=== PATIENT | male | born 1945 | race Caucasian/White ===

== ENCOUNTER 2018-10-08 16:27 | Outpatient (REF) | payer OTHER, SELFPAY ==
[2018-10-08 23:09] LABS: ALT 28 U/L (12-78); AST 28 U/L (15-37); Albumin 4.3 g/dL (3.4-5.0); Alkaline Phosphatase 56 U/L (46-116); Anion Gap 10.1 mmol/L (3-11); BUN 17 mg/dL (7-18); Bilirubin, Total 0.5 mg/dL (0.2-1.0); CO2 26.9 mmol/L (21.0-32.0); CREATININE 0.92 mg/dL (0.70-1.30); Calcium 9.4 mg/dL (8.5-10.1); Chloride 99 mmol/L (98-107); Glucose 85 mg/dL (70-100); Potassium 4.6 mmol/L (3.5-5.1); Sodium 136 mmol/L (136-145); Total Protein 7.7 g/dL (6.4-8.2)
== END 2018-10-08 16:47 ==
LOC: NCHCN 16:27
PROVIDERS: PCP Nurse Practitioner Family; Visit Provider Nurse Practitioner Family
DX: I10 Essential (primary) hypertension (principal); I25.10 Atherosclerotic heart disease of native coronary artery without angina pectoris; L30.9 Dermatitis, unspecified; R20.2 Paresthesia of skin; F41.9 Anxiety disorder, unspecified
CPT/HCPCS: 80053

== ENCOUNTER 2018-11-10 11:24 | Outpatient (REF) | payer OTHER, SELFPAY ==
[2018-11-10 12:57] LABS: HCT 41.4 % (40.0-50.0); HGB 13.9 g/dL (13.5-17.5); Mean Corp. HGB Concentration 33.6 g/dL (32.0-36.0); Mean Corpuscular Hemoglobin 30.8 pg (27.0-33.0); Mean Corpuscular Volume 91.8 fL (80-95); Mean Platelet Volume 10.5 fL (8.0-11.0); Platelet Count 265 x1000/uL (130-400); RBC 4.51 m/cumm (4.50-6.00); RBC Distribution Width 12.7 % (11.8-14.1); White Blood Cell Count 7.68 k/cumm (4.4-10.8)
[2018-11-10 13:31] LABS: Anion Gap 6.7 mmol/L (3-11); BUN 18 mg/dL (7-18); CO2 29.3 mmol/L (21.0-32.0); CREATININE 1.05 mg/dL (0.70-1.30); Calcium 8.9 mg/dL (8.5-10.1); Chloride 102 mmol/L (98-107); Creatine Kinase 141 U/L (39-308); Glucose 84 mg/dL (70-100); Magnesium 2.1 mg/dL (1.8-2.4); Potassium 4.8 mmol/L (3.5-5.1); Sodium 138 mmol/L (136-145)
== END 2018-11-10 11:44 ==
LOC: NCHCN 11:24
PROVIDERS: PCP Nurse Practitioner Family; Visit Provider Nurse Practitioner Family
DX: R55 Syncope and collapse (principal)
CPT/HCPCS: 80048; 82550; 85027; 83735; 84443

== ENCOUNTER 2018-11-17 02:45 | Outpatient (CLI) | payer OTHER, SELFPAY ==
--- NOTE | 2018-11-20 10:03 | HOLTER_ITS ---
DATE OF DICTATION: November 20, 2018 INDICATION: Syncope. ANALYSIS TIME: 34 hours. Baseline sinus rhythm. Average heart rate 68 bpm. Rare isolated ventricular ectopy. No non-sustained VT. Rare PAC's. Two short bursts of SVT. Longest 6 beats with a maximum heart rate of 154 bpm. No atrial fibrillation. No significant pauses or bradyarrhythmias. No diary entries. Overall sinus rhythm with two short bursts of SVT that were asymptomatic.
== END 2018-11-17 03:05 ==
PROVIDERS: PCP Nurse Practitioner Family; Visit Provider Nurse Practitioner Family
DX: R55 Syncope and collapse (principal); I47.1 Supraventricular tachycardia
CPT/HCPCS: 93225

== ENCOUNTER 2018-11-19 13:36 | Outpatient (CLI) | payer OTHER, SELFPAY | END 2018-11-19 13:56 | PROVIDERS: PCP Nurse Practitioner Family; Visit Provider Nurse Practitioner Family | DX: R55 Syncope and collapse (principal); I47.1 Supraventricular tachycardia | CPT/HCPCS: 93226 ==

== ENCOUNTER 2018-11-20 09:05 | Outpatient (CLI) | payer OTHER, SELFPAY | END 2018-11-20 09:25 | PROVIDERS: PCP Nurse Practitioner Family; Referring Provider Nurse Practitioner Family; Visit Provider Internal Medicine Cardiovascular Disease | DX: R55 Syncope and collapse (principal); I47.1 Supraventricular tachycardia | CPT/HCPCS: 93227 ==

== ENCOUNTER → 2019-06-29 09:50 | Outpatient (BNVA) | payer OTHER, SELFPAY | PROVIDERS: PCP Nurse Practitioner Family; Referring Provider Nurse Practitioner Family; Visit Provider Nurse Practitioner Adult Health | DX: G31.84 Mild cognitive impairment of uncertain or unknown etiology (principal); G56.01 Carpal tunnel syndrome, right upper limb; G56.21 Lesion of ulnar nerve, right upper limb; G62.9 Polyneuropathy, unspecified; I10 Essential (primary) hypertension | CPT/HCPCS: 95909; 99205; 99215 ==

== ENCOUNTER 2019-06-29 12:10 | Outpatient (CLI) | payer OTHER, SELFPAY ==
[2019-06-29 13:42] LABS: C-Reactive Protein 0.13 mg/dL (0.0-0.3)
[2019-06-29 14:28] LABS: Vitamin B12 670 pg/mL (193-986)
[2019-06-29 14:29] LABS: Hemoglobin A1C 5.4 % (4.5-6.2)
[2019-06-29 14:44] LABS: ESR 22 mm/hr (1-20)
[2019-06-30 13:57] LABS: Albumin 57.4 % (55.8-66.1); Total Protein 6.9 g/dl (6.3-8.2)
== END 2019-06-29 12:30 ==
PROVIDERS: PCP Nurse Practitioner Family; Visit Provider Nurse Practitioner Adult Health
DX: G62.9 Polyneuropathy, unspecified (principal); Z13.1 Encounter for screening for diabetes mellitus
CPT/HCPCS: 36415; 85652; 82607; 83036; 84165; 86140

== ENCOUNTER 2019-07-09 03:00 | Outpatient (CLI) | payer OTHER, SELFPAY ==
--- NOTE | 2019-07-09 11:31 | DI.MRI_ITS ---
SYMPTOMS/DIAGNOSIS: MEMORY LOSS, R41.3, OTHER AMNESIA BRAIN MRI: MRI examination of the brain was performed according to the usual protocol. There is moderate generalized cerebral atrophy and there are a few areas of abnormal signal in periventricular white matter consistent with microvascular ischemic change. No other signal abnormality identified in the brain. Diffusion weighted imaging shows no evidence of infarction. Susceptibility weighted imaging shows no evidence of hemorrhage. There is normal flow void in the [place] vasculature. The orbital and temporal bone structures appear intact. CONCLUSION: Cerebral atrophy and white microvascular ischemic changes. The examination is otherwise unremarkable.
== END 2019-07-09 03:20 ==
PROVIDERS: PCP Nurse Practitioner Family; Visit Provider Nurse Practitioner Adult Health
DX: R41.3 Other amnesia (principal); G31.89 Other specified degenerative diseases of nervous system; I67.89 Other cerebrovascular disease
CPT/HCPCS: 70551

== ENCOUNTER 2019-10-21 22:19 | Outpatient (REF) | payer OTHER, SELFPAY ==
[2019-10-21 22:16] LABS: ALT 22 U/L (16-63); AST 23 U/L (15-37); Albumin 3.8 g/dL (3.4-5.0); Alkaline Phosphatase 62 U/L (46-116); Anion Gap 7.6 mmol/L (3-11); BUN 17 mg/dL (7-18); Bilirubin, Total 0.4 mg/dL (0.2-1.0); CO2 28.4 mmol/L (21.0-32.0); CREATININE 0.83 mg/dL (0.70-1.30); Calcium 9.2 mg/dL (8.5-10.1); Chloride 105 mmol/L (98-107); Glucose 91 mg/dL (74-106); Potassium 5.1 mmol/L (3.5-5.1); Sodium 141 mmol/L (136-145); Total Protein 6.9 g/dL (6.4-8.2)
== END 2019-10-21 22:39 ==
LOC: NCHCN 22:19
PROVIDERS: PCP Nurse Practitioner Family; Visit Provider Nurse Practitioner Family
DX: R41.3 Other amnesia (principal); R20.2 Paresthesia of skin; R55 Syncope and collapse; F41.9 Anxiety disorder, unspecified; E87.1 Hypo-osmolality and hyponatremia; I25.10 Atherosclerotic heart disease of native coronary artery without angina pectoris; B02.29 Other postherpetic nervous system involvement
CPT/HCPCS: 80053

== ENCOUNTER → 2020-02-16 09:09 | Outpatient (BNVA) | payer OTHER, SELFPAY | PROVIDERS: PCP Nurse Practitioner Family; Referring Provider Nurse Practitioner Family; Visit Provider Nurse Practitioner Adult Health | DX: G31.84 Mild cognitive impairment of uncertain or unknown etiology (principal); R20.2 Paresthesia of skin; G56.01 Carpal tunnel syndrome, right upper limb; I10 Essential (primary) hypertension | CPT/HCPCS: 99213; 99214 ==

== ENCOUNTER 2020-04-14 09:08 | Outpatient (CLI) | payer OTHER, SELFPAY ==
[2020-04-15 23:28] LABS: COVID-19 RT-PCR Result NEGATIVE (Negative)
== END 2020-04-14 09:28 ==
PROVIDERS: PCP Nurse Practitioner Family; Visit Provider Nurse Practitioner Family
DX: Z11.59 Encounter for screening for other viral diseases (principal)
CPT/HCPCS: U0003

== ENCOUNTER → 2020-05-25 12:32 | Outpatient (BNVA) | payer OTHER, SELFPAY | PROVIDERS: PCP Nurse Practitioner Family; Referring Provider Nurse Practitioner Family; Visit Provider Nurse Practitioner Adult Health | DX: G56.01 Carpal tunnel syndrome, right upper limb (principal); G62.89 Other specified polyneuropathies; F41.8 Other specified anxiety disorders; G31.84 Mild cognitive impairment of uncertain or unknown etiology; I10 Essential (primary) hypertension | CPT/HCPCS: 99213 ==

== ENCOUNTER → 2020-08-31 13:31 | Outpatient (BNVA) | payer OTHER, SELFPAY | PROVIDERS: PCP Nurse Practitioner Family; Referring Provider Nurse Practitioner Family; Visit Provider Nurse Practitioner Adult Health | DX: R41.3 Other amnesia (principal); I10 Essential (primary) hypertension | CPT/HCPCS: 99213 ==

== ENCOUNTER → 2020-09-27 08:39 | Outpatient (BNVA) | payer OTHER, SELFPAY | PROVIDERS: PCP Nurse Practitioner Family; Referring Provider Nurse Practitioner Family; Visit Provider Nurse Practitioner Adult Health | DX: R41.3 Other amnesia (principal); F41.8 Other specified anxiety disorders; F32.9 Major depressive disorder, single episode, unspecified | CPT/HCPCS: 99214; 99443 ==

== ENCOUNTER 2020-12-12 09:44 | Outpatient (REF) | payer OTHER, SELFPAY ==
[2020-12-12 14:07] LABS: COMMENT (LAB VIEW ONLY) 167.08 mg/dL; Microalb ug/mg Crea 7.8 ug/mg Cr
[2020-12-12 14:13] LABS: ALT 30 U/L (16-63); AST 22 U/L (15-37); Albumin 3.9 g/dL (3.4-5.0); Alkaline Phosphatase 67 U/L (46-116); Anion Gap 8.3 mmol/L (3-11); BUN 20 mg/dL (7-18); Bilirubin, Total 0.6 mg/dL (0.2-1.0); CO2 27.7 mmol/L (21.0-32.0); Chloride 104 mmol/L (98-107); Glucose 78 mg/dL (74-106); Potassium 4.2 mmol/L (3.5-5.1); Sodium 140 mmol/L (136-145); Total Protein 7.4 g/dL (6.4-8.2); Vitamin B12 505 pg/mL (193-986)
== END 2020-12-12 09:45 | disposition home or self-care (01) ==
LOC: NCHCN 09:44
PROVIDERS: PCP Nurse Practitioner Family; Visit Provider Nurse Practitioner Family
DX: I10 Essential (primary) hypertension (principal); E78.5 Hyperlipidemia, unspecified; I25.10 Atherosclerotic heart disease of native coronary artery without angina pectoris; F41.9 Anxiety disorder, unspecified; G60.9 Hereditary and idiopathic neuropathy, unspecified; R41.3 Other amnesia
CPT/HCPCS: 80053; 82043; 82570; 82607

== ENCOUNTER 2022-05-13 15:50 | Outpatient (REF) | payer MEDICARE, SELFPAY ==
--- OUTSIDE RECORDS SUMMARY | 2022-05-13 15:53 | XMS_ITS | Encounter Summary ---
:1945 Author Organization [place] [address] Care Team Providers Name Role Phone SundayAnya lopezhrmaricarmen Gar DON Primary Care Provider [phone] Reason for Visit Reason Comments Medication Refill Encounter Details Date Type Department Care Team Description 01/23/2022 Refill Cardiology at [place] Brayan Garay MD Medication Refill [address] [place] [address] [place] [address] [phone] (Wo rk) Social History Tobacco Use Types Packs/Day Years Used Date Former Smoker Cigars Smokeless Tobacco: Never Used Comments: 50+ years ago Alcohol Use Standard Drinks/Week Comments Yes 14 (1 standard drink = 0.6 oz pure alcoh ol) Sex Assigned at Date Recorded Not on file documented as of this encounter Plan of Treatment Upcoming Encounters Date Type Specialty Care Team Description 10/09/2022 Office Visit Neurology Joe Keys MD [facility] [address] CASE DEPT [place], [place] [address] (Wo rk) 01/27/2023 Office Visit Cardiology Brayan Garay MD [facility] [address] [place] [address] (Wo rk) documented as of this encounter Visit Diagnoses Diagnosis Hyperlipidemia, unspecified hyperlipidem ia type documented in this encounter Care Teams Testing Coordinator Relationship Specialty Start Date End Date Richa Brand APRN PCP - General Family Medicine 03/24/17 [address] [place] [address] documented as of this encounter
--- OUTSIDE RECORDS SUMMARY | 2022-05-13 15:53 | XMS_ITS | Encounter Summary ---
:1945 Author Organization [facility] [place] [address] Care Team Providers Name Role Phone Sunday Richa Rin DON Primary Care Provider [phone] Encounter Details Date Type Department Care Team Description 08/16/2021 TH [place]rology [place] [facility] [place]a Keys Mild cognitive (TeleHealth) [facility] [place] [address] NEUROLOGY DEPT [phone] [place], [place] [address] (Wo rk) Social History Tobacco Use Types Packs/Day Years Used Date Former Smoker Smokeless Tobacco: Never Used Comments: 50+ years ago Alcohol Use Standard Drinks/Week Comments Yes 14 (1 standard drink = 0.6 oz pure alcoh ol) Sex Assigned at Date Recorded Not on file documented as of this encounter Progress Notes Augusta Keys MD - 08/16/2021 1:00 PM EDT Neurology [facility] TELEHEALTH follow up Patient Name: Chencho Mcgrath Patient ID: Chencho Mcgrath is a 76 y.o. M Patient's name and verified Patient gave Verbal consent for a Telephone Visit Chencho Mcgrath understands that this visit may be billed, similar to a clinic visit Patient Location: [place] Medication reconciliation was completed History: 76 yo M w/ MCI whom I am calling (we attempted to get onto Zoom, but there were technical issues, and he was happy to have a phone call in lieu of Zoom) for follow up. Since our last visit, he has become established with the [facility]. He has had amyloid and tau scanning, which revealedthe presence of both tau NFTs and beta amyloid plaques (c/w the Alzheimer's disease pathophysiologicprocess, which is what we had suspected), and so he is now enrolled in the study of donanemab. He feels very well. Denies headaches and other physical concerns. He may notice some problems with remembering names of people, and may lose items a bit more, but overall, he does not think he's had much progression at all. He is tolerating donepezil 10mg. He takes it in the AM because his dreams weretoo vivid and disturbing. He remains independent for all iADLs. He is not yet a candidate for memantine. We could consider higher doses of the donepezil in the future, but he would have to discuss withthe PI an [facility] clinic. We discussed aducanumab in detail. I will see him in person in the spring, we could consider a MoCA, a CDR or FAQ to measure how he is doing. Please note that with a telehealth encounter a full physical exam is not possible, and is an inherent limitation with this form of care delivery. Based on all considered variables it was felt that the benefits of a telehealth encounter would outweigh the risks of not being able to repeat the neurological examination. The patient previously had a normal general and neurological examination. Based on the information provided by the patient today there is nothing to suspect a new focal neurological deficit. TeleHealth Visit time: 20 documented in this encounter Plan of Treatment Upcoming Encounters Date Type Specialty Care Team Description 10/09/2022 Office Visit Neurology Joe Keys MD [facility] NEUROLOGY [place], [place] [address] (Wo rk) 01/27/2023 Office Visit Cardiology Brayan Garay MD [facility] [address] [place], [place] [address] (Wo rk) documented as of this encounter Visit Diagnoses Diagnosis Mild cognitive impairment Mild cognitive impairment, so stated documented in this encounter Care Teams Consulting Networking Engineer Relationship Specialty Start Date End Date Richa Brand APRN PCP - General Family Medicine 03/24/17 [address] [place] [address] documented as of this encounter
--- OUTSIDE RECORDS SUMMARY | 2022-05-13 15:53 | XMS_ITS | Encounter Summary ---
:1945 Author Organization [facility] [place] [address] Care Team Providers Name Role Phone Richa Brand APRN Primary Care Provider [phone] Encounter Details Date Type Department Care Team Description 03/08/2022 Telephone Infectious Disease a t [facility] [place] [address] Social History Tobacco Use Types Packs/Day Years Used Date Former Smoker Cigars Smokeless Tobacco: Never Used Comments: 50+ years ago Alcohol Use Standard Drinks/Week Comments Yes 14 (1 standard drink = 0.6 oz pure alcoh ol) Sex Assigned at Date Recorded Not on file documented as of this encounter Miscellaneous Notes Telephone Encounter - Shayy Guthrie - 03/08/2022 4:36 PM EDT lvm to schedule a travel clinic appt some time in April. Please check staff messages. documented in this encounter Plan of Treatment Upcoming Encounters Date Type Specialty Care Team Description 10/09/2022 Office Visit Neurology Joe Keys MD [facility] NEUROLOGY DEPT [place], [place] [address] (Wo rk) 01/27/2023 Office Visit Cardiology Brayan Garay MD [facility] [address] [place], [place] [address] (Wo rk) documented as of this encounter Visit Diagnoses Not on filedocumented in this encounter Care Teams Councillor [employer] Relationship Specialty Start Date End Date Richa Brand APRN PCP - General Family Medicine 03/24/17 [address] [place] [address] documented as of this encounter
--- OUTSIDE RECORDS SUMMARY | 2022-05-13 15:53 | XMS_ITS | Encounter Summary ---
:1945 Author Organization [facility] [place] [address] Care Team Providers Name Role Phone SundayAnya lopezhryn Rin DON Primary Care Provider [phone] Reason for Visit Reason Comments Medication Refill Encounter Details Date Type Department Care Team Description 04/30/2022 Refill Neurology at [facility] Augusta Keys MD [facility] [place] [address] NEUROLOGY DEPT [phone] [place], [place] [address] (Wo rk) Social History Tobacco Use Types Packs/Day Years Used Date Former Smoker Cigars Smokeless Tobacco: Never Used Comments: 50+ years ago Alcohol Use Standard Drinks/Week Comments Yes 14 (1 standard drink = 0.6 oz pure alcoh ol) Sex Assigned at Date Recorded Not on file documented as of this encounter Miscellaneous Notes Telephone Encounter - Kelsea Webber CMA - 04/30/2022 10:06 AM EDT LF Donepezil LV 01/18/22 F/U 10/09/22 documented in this encounter Plan of Treatment Upcoming Encounters Date Type Specialty Care Team Description 10/09/2022 Office Visit Neurology Joe Keys MD [facility] NEUROLOGY DEPT [place], [place] [address] (Wo rk) 01/27/2023 Office Visit Cardiology Brayan Garay MD [facility] [address] [place] [address] (Wo rk) documented as of this encounter Visit Diagnoses Not on filedocumented in this encounter Care Teams Broadcast Checker Relationship Specialty Start Date End Date Richa Brand APRN PCP - General Family Medicine 03/24/17 [address] [place] [address] documented as of this encounter
--- OUTSIDE RECORDS SUMMARY | 2022-05-13 15:53 | XMS_ITS | Clinical Summary ---
:1945 Author Organization [facility] [place] [address] Care Team Providers Name Role Phone Richa Brnad APRN Primary Care Provider [phone] Allergies No known active allergies Medications Medication Sig Dispensed Refills Start Date End Date Status aspirin 81 mg Tablet, Take 81 mg by 0 Active Delayed Release (E.C.) mouth daily. calcium carbonate Take by mouth 0 Active (CALCIUM 500 ORAL) daily. MAGNESIUM ORAL Take by mouth 0 A ctive daily. ferrous sulfate (IRON Take by mouth 0 Active ORAL) daily. vitamin B complex Take by mouth 0 Active (VITAMINS B COMPLEX daily. ORAL) cholecalciferol, Take by mouth 0 Active Vitamin D3, 1,000 unit daily. Capsule cyanocobalamin 1,000 Take 2,000 mcg by 0 Active mcg Tablet mouth daily. ascorbate calcium Take by mouth 0 Active (VITAMIN C ORAL) daily. flaxseed oil 1,000 mg Take by mouth 0 Active Capsule daily. FOLIC ACID ORAL Take by mouth 0 Active daily. vitamin E acetate Take by mouth 0 Active (VITAMIN E ORAL) daily. sildenafiL (VIAGRA) 50 TAKE 1 TABLET BY 0 12/25/2020 Active mg Tablet MOUTH 1 HOUR PRIOR TO INTERCOURSE NEEDED PreviDent 5000 Plus DIRECTED 0 04/06/2021 Active 1.1 % Cream venlafaxine XR Take 75 mg by 0 07/07/2021 Active (Effexor-XR) 75 mg mouth daily. Capsule, Sust. Release 24 hr busPIRone (Buspar) 15 3 times daily. 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 - Anti-Thrombosis: asa 81 - Statin: lipitor 20. Reviewed its rati onale in [facility] - Anti-anginals: GTN PRN Hyperlipidemia 11/27/2018 Resolved Problems Problem Noted Date Resolved Date Hearing loss in left ear 01/17/2022 01/21/2022 Syncope and collapse 11/27/2018 01/21/2022 Overview: One episode 11/2018 Holter: NSR, no bradycardia or AV block, rare APC and VPC, 2 brief SVT longest 6 beats Hypertension 11/27/2018 01/06/2019 Rib pain on right side 11/27/2018 01/06/2019 Encounters Date Type Specialty Care Team Description 04/30/2022 Refill Neurology Augusta Keys MD 03/08/2022 Telephone Infectious Diseases Shayy Guthrie from Last 3 Months Immunizations Name Administration Dates Next Due Influenza Vaccine PF, Quadrivalent 09/27/2019 Family History Medical History Relation Comments No Known Problems Father No Known Problems Mother Relation Status Comments Father Mother Social History Tobacco Use Types Packs/Day Years Used Date Former Smoker Cigars Smokeless Tobacco: Never Used Comments: 50+ years ago Alcohol Use Standard Drinks/Week Comments Yes 14 (1 standard drink = 0.6 oz pure alcoh ol) Sex Assigned at Date Recorded Not on file Last Filed Vital Signs Vital Sign Reading Time Taken Comments Blood Pressure 132/73 01/21/2022 1:01 PM EDT Pulse 60 01/21/2022 1:01 PM EDT Temperature - - Respiratory Rate 12 01/06/2019 1:25 PM EST Oxygen Saturation - - Inhaled Oxygen Concentration - - Weight 69.9 kg (154 lb) 01/21/2022 1:01 PM EDT Height 172.7 cm (5' 8) 01/21/2022 1:01 PM EDT Body Mass Index 23.42 01/21/2022 1:01 PM EDT Plan of Treatment Upcoming Encounters Date Type Specialty Care Team Description 10/09/2022 Office Visit Neurology Joe Keys MD [facility] NEUROLOGY DEPT [place], [place] [address] (Wo rk) 01/27/2023 Office Visit Cardiology Brayan Garay MD [facility] Medical [facility] [place], [place] [address] (Wo rk) Health Maintenance Due Date Last Done Comments Covid-19 Vaccine (#1) 1948 Hepatitis C Screening 1961 Tdap adult 1962 Tetanus vaccine 1962 Zoster vaccine (1 of 2) 1993 Advance Directive 1998 Pneumoccocal Vaccine: 65+ (1 - PCV) 2008 Influenza (Flu) vaccine (1 of 1 - Influenza standard 07/04/2022 09/27/2019 series) Insurance Payer Benefit Plan / Subscriber ID Effective Dates Phone Addre ss Type Group [facility] [id number] [phone] [address] [address] MEDICARE MANAGED nt [address] [place], [place] [id number] Care Teams Client Hr Manager Relationship Specialty Start Date End Date Richa Brand, DRAFTER TOPOGRAPHICAL PCP - General Family Medicine 03/24/17 [address] [place], [place] [address]
--- OUTSIDE RECORDS SUMMARY | 2022-05-13 15:53 | XMS_ITS | Encounter Summary ---
:1945 Author Organization [facility] [place] [address] Care Team Providers Name Role Phone Sunday Richa Rin DON Primary Care Provider [phone] Encounter Details Date Type Department Care Team Description 01/18/2022 TH Visit Neurology at [facility] Augusta Keys Late onset (TeleHealth) [facility] MD [place] Alzheimer's dementia [place], [place] [address] [address] NEUROLOGY DEPT [phone] [place], [place] [address] (Wo rk) Social History Tobacco Use Types Packs/Day Years Used Date Former Smoker Smokeless Tobacco: Never Used Comments: 50+ years ago Alcohol Use Standard Drinks/Week Comments Yes 14 (1 standard drink = 0.6 oz pure alcoh ol) Sex Assigned at Date Recorded Not on file documented as of this encounter Progress Notes Augusta Keys MD - 01/18/2022 10:00 AM EDT Images from the original note were not included. Neurology [facility] TELEHEALTH follow up Patient Name: Chencho Mcgrath Patient ID: Chencho Mcgrath is a 76 y.o. M Patient's name and verified Patient gave Verbal consent for a Telephone Visit Chencho Mcgrath understands that this visit may be billed, similar to a clinic visit Patient Location: [place] Medication reconciliation was completed History: 76 yo M w/ MCI whom I am calling. He has become established with the [facility]. He has had amyloid and tau scanning, which revealed the presence of both tau NFTs and beta amyloid plaques(c/w the Alzheimer's disease), and so he is now enrolled in the study of donanemab. He is tolerating donepezil 10mg. He takes it in the AM because his dreams were too vivid and disturbing. He remains independent for all iADLs. He is not yet a candidate for memantine. We could considerhigher doses of the donepezil in the future, but he would have to discuss with the PI an [facility] clinic. I would like to see him in person in the fall, we could consider a MoCA, a CDR or FAQ to measure howhe is doing. ADLs: Chencho apparently did not pass a cognitive driving test, so his license has been revoked. Medications: he manages these himself, but Ashleigh will begin to observe him, as he has mentioned a fewinstances in which he has forgotten medications (which he did seem a bit defensive about). I think he's become a candidate for memantine, or at least, a low dose, and we can titrate slowly. Iwould suggest 5mg PO QHS for 1-2 weeks, and then 10mg PO QHS and continue, or 7mg XR for a month, then 14mg XR and continue. We did a moca online. He scored a 21/30, which is stable as compared to last time he did it in 2019.He lost a point for trails B, -2 pts clock draw, -2 repetition, -4 delayed recall (with rapid forgetting). Both pharmacologic and non-pharmacologic methods of memory management and improvement were discussed. Please note that with a telehealth encounter [...] new focal neurological deficit. TeleHealth Visit time: 50 Follow up in 6-8 months documented in this encounter Plan of Treatment Upcoming Encounters Date Type Specialty Care Team Description 10/09/2022 Office Visit Neurology Joe Keys MD [facility] NEUROLOGY DEPT [place], [place] [address] (Wo rk) 01/27/2023 Office Visit Cardiology Brayan Garay MD [facility] Medical [facility] er [place], [place] [address] (Wo rk) documented as of this encounter Visit Diagnoses Diagnosis Late onset Alzheimer's dementia without behavioral disturbance documented in this encounter Care Teams Compounder Sterile Products Relationship Specialty Start Date End Date Richa Brand APRN PCP - General Family Medicine 03/24/17 [address] [place] [address] documented as of this encounter
--- OUTSIDE RECORDS SUMMARY | 2022-05-13 15:53 | XMS_ITS | Encounter Summary ---
:1945 Author Organization [facility] [place] [address] Care Team Providers Name Role Phone SundayAnyaRicha Rin DON Primary Care Provider [phone] Reason for Visit Reason Comments Coronary Artery Disease Encounter Details Date Type Department Care Team Description 01/21/[facility] (ar teriosclerotic Esha [place] cardiovascular disease) [address] [place], [place] [phone] Social History Tobacco Use Types Packs/Day Years Used Date Former Smoker Cigars Smokeless Tobacco: Never Used Comments: 50+ years ago Alcohol Use Standard Drinks/Week Comments Yes 14 (1 standard drink = 0.6 oz pure alcoh ol) Sex Assigned at Date Recorded Not on file documented as of this encounter Last Filed Vital Signs Vital Sign Reading Time Taken Comments Blood Pressure 132/73 01/21/2022 1:01 PM EDT Pulse 60 01/21/2022 1:01 PM EDT Temperature - - Respiratory Rate - - Oxygen Saturation - - Inhaled Oxygen Concentration - - Weight 69.9 kg (154 lb) 01/21/2022 1:01 PM EDT Height 172.7 cm (5' 8) 01/21/2022 1:01 PM EDT Body Mass Index 23.42 01/21/2022 1:01 PM EDT documented in this encounter Progress Notes Brayan Garay MD - 01/21/2022 1:00 PM EDT Images from the original note were not included. Subjective: Patient ID: Chencho Mcgrath is a 76 y.o. male who presents on follow-up for: Chief Complaint Patient presents with ??? Coronary Artery Disease HPI Last seen by me 01/2021, at which time no changes were made. Since then, he has been doing well. l he and his do much yoga. He has been without angina nor untoward dyspnea. bp well controlled Planning on going to [facility] this year Current Outpatient Medications: ??? PreviDent 5000 Plus 1.1 % Cream, DIRECTED, Disp: , Rfl: ??? venlafaxine XR (Effexor-XR) 75 mg Capsule, Sust. Release 24 hr, Take 75 mg by mouth daily., Disp: , Rfl: ??? busPIRone (Buspar) 15 mg Tablet, 3 times daily., Disp: , Rfl: ??? betamethasone dipropionate (Diprolene) 0.05 % Ointment, Apply twice daily as needed to areas of eczema, Disp: 45 g, Rfl: 3 ??? donepeziL (Aricept) 10 mg Tablet, Take 1 tablet by mouth nightly., Disp: 90 tablet, Rfl: 3 ??? atorvastatin (Lipitor) 20 mg Tablet, TAKE 1 TABLET BY MOUTH DAILY, Disp: 90 tablet, Rfl: 3 ??? sildenafiL (VIAGRA) 50 mg Tablet, TAKE 1 TABLET BY MOUTH 1 HOUR PRIOR TO INTERCOURSE NEEDED, Disp: , Rfl: ??? calcium carbonate (CALCIUM 500 ORAL), Take by mouth daily., Disp: , Rfl: ??? MAGNESIUM ORAL, Take by mouth daily., Disp: , Rfl: ??? ferrous sulfate (IRON ORAL), Take by mouth daily., Disp: , Rfl: ??? vitamin B complex (VITAMINS B COMPLEX ORAL), Take by mouth daily., Disp: , Rfl: ??? cholecalciferol, Vitamin D3, 1,000 unit Capsule, Take by mouth daily., Disp: , Rfl: ??? cyanocobalamin 1,000 mcg Tablet, Take 2,000 mcg by mouth daily., Disp: , Rfl: ??? ascorbate calcium (VITAMIN C ORAL), Take by mouth daily., Disp: , Rfl: ??? flaxseed oil 1,000 mg Capsule, Take by mouth daily., Disp: , Rfl: ??? FOLIC ACID ORAL, Take by mouth daily., Disp: , Rfl: ??? vitamin E acetate (VITAMIN E ORAL), Take by mouth daily., Disp: , Rfl: ??? aspirin 81 mg Tablet, Delayed Release (E.C.), Take 81 mg by mouth daily., Disp: , Rfl: Patient Active Problem List Diagnosis ??? Alzheimer's dementia Self-reported ??? Peripheral neuropathy ??? Memory deficit ??? 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 Carpal tunnel syndrome of right wrist ??? Sensory hearing loss, bilateral ??? Lumbar spondylosis ??? Anxiety ??? ASCVD (arteriosclerotic cardiovascular disease) 2007 70% D1-> POBA, no other disease Stress echo 2013- 12.8 METS, HR 154, fatigue, no ST change, no WMA, no valve disease ??? Hyperlipidemia Objective: BP 132/73 (BP Location (NBP): Left arm, Patient Position: Sitting, BP Cuff Sizes: Adult (25-34 cm)) Pulse 60 Ht 172.7 cm (5' 8) Wt 69.9 kg (154 lb) BMI 23.42 kg/m?? Gen: pleasant male in NAD Cor: rrr, s1/s2 of nl character and amplitude, no m/r/g. Estimated RAP not elevated. Carotids with normal upstroke without bruit. Pulm: CTAB. Normal diaphragmatic movement without use of accessory muscles Assessment and Plan: ASCVD (arteriosclerotic cardiovascular disease) No angina per history. - Anti-Thrombosis: asa 81 - Statin: lipitor 20. Reviewed its rationale in [facility] - Anti-anginals: GTN PRN RTC 12 months Brayan Garay MD documented in this encounter Miscellaneous Notes Assessment & Plan Note - Brayan Garay MD - 01/21/2022 1:27 PM EDTAssociated Problem(s): ASCVD (arteriosclerotic cardiovascular disease) No angina per history. - Anti-Thrombosis: asa 81 - Statin: lipitor 20. Reviewed its rationale in [facility] - Anti-anginals: GTN PRN documented in this encounter Plan of Treatment Upcoming Encounters Date Type Specialty Care Team Description 10/09/2022 Office Visit Neurology Joe Keys MD [facility] NEUROLOGY DEPT [place], [place] [address] (Wo rk) 01/27/2023 Office Visit Cardiology Brayan Garay MD [facility] [place], [place] [address] (Wo rk) documented as of this encounter Visit Diagnoses Diagnosis ASCVD (arteriosclerotic cardiovascular d isease) Unspecified cardiovascular disease documented in this encounter Care Teams Facilities Planner Relationship Specialty Start Date End Date Richa Brand, VOCATIONAL COORDINATOR PCP - General Family Medicine 03/24/17 [address] [place] [address] documented as of this encounter
--- OUTSIDE RECORDS SUMMARY | 2022-05-13 15:54 | XMS_ITS | Encounter Summary ---
:1945 Author Organization [facility] [place] [address] Care Team Providers Name Role Phone Richa Brand DON Primary Care Provider [phone] Encounter Details Date Type Department Care Team Description 01/03/2020 External Results Cardiology at [facility] Brayan Garay MD [address] [address] [place] [address] [phone] Social History Tobacco Use Types Packs/Day Years Used Date Former Smoker Smokeless Tobacco: Never Used Comments: 50 years ago Alcohol Use Standard Drinks/Week Comments Yes 14 (1 standard drink = 0.6 oz pure alcoh ol) Sex Assigned at Date Recorded Not on file documented as of this encounter Plan of Treatment Upcoming Encounters Date Type Specialty Care Team Description 10/09/2022 Office Visit Neurology Joe Keys MD [facility] NEUROLOGY DEPT [place], [place] [address] (Wo rk) 01/27/2023 Office Visit Cardiology Brayan Garay MD [facility] [address] [place] [address] (Wo rk) documented as of this encounter Procedures Procedure Name Priority Date/Time Associated Diagnosis Comme nts EXTERNAL LIPID LAB Routine 09/11/2016 Results f or this RESULTS PANEL procedure are in the results section . documented in this encounter Results Lipid External Results (09/11/2016) P athologist Signature Chol, Total 102 HDL 36 LDL Cholesterol 58 Triglycerides 74 Specimen (Source) Anatomical Location Collection Method / Collectio n Time Received Time / Laterality Volume 09/11/2016 Historical Provider POINT OF CARE TEST ORDERABLE S documented in this encounter Visit Diagnoses Not on filedocumented in this encounter Care Teams Voltage Tester Relationship Specialty Start Date End Date Richa Brand APRN PCP - General Family Medicine 03/24/17 [address] [place] [address] documented as of this encounter
--- OUTSIDE RECORDS SUMMARY | 2022-05-13 15:54 | XMS_ITS | Encounter Summary ---
:1945 Author Organization [facility] [place] [address] Care Team Providers Name Role Phone SundayAnya lopezhryn Rin DON Primary Care Provider [phone] Reason for Visit Reason Onset Date Comments TeleHealth 08/15/2021 Encounter Details Date Type Department Care Team Description 08/15/2021 Telephone Neurology at [facility] [place] [address] NEUROLOGY DEPT [phone] [place], [place] [address] (Wo rk) Social History Tobacco Use Types Packs/Day Years Used Date Former Smoker Smokeless Tobacco: Never Used Comments: 50+ years ago Alcohol Use Standard Drinks/Week Comments Yes 14 (1 standard drink = 0.6 oz pure alcoh ol) Sex Assigned at Date Recorded Not on file documented as of this encounter Miscellaneous Notes Telephone Encounter - Monse Esteevz RN - 08/15/2021 9:14 AM EDT Spoke to this patient??by phone to review??their??medications and allergies prior to their??upcomingtele-appointment with the Neurology??provider. ??Medications and allergies reviewed, verified and updated as needed. documented in this encounter Plan of Treatment Upcoming Encounters Date Type Specialty Care Team Description 10/09/2022 Office Visit Neurology Joe Keys MD [facility] NEUROLOGY DEPT [place], [place] [address] (Wo rk) 01/27/2023 Office Visit Cardiology Brayan Garay MD [facility] [address] [place], [place] [address] (Wo rk) documented as of this encounter Visit Diagnoses Not on filedocumented in this encounter Care Teams Bottom Worker Relationship Specialty Start Date End Date Richa Brand APRN PCP - General Family Medicine 03/24/17 [address] [place] [address] documented as of this encounter
--- OUTSIDE RECORDS SUMMARY | 2022-05-13 15:54 | XMS_ITS | Encounter Summary ---
:1945 Author Organization [facility] [place] [address] Care Team Providers Name Role Phone SundayAnya lopezhryn Rin DON Primary Care Provider [phone] Reason for Visit Reason Comments Coronary Artery Disease Encounter Details Date Type Department Care Team Description [facility] Esha [place] disease involving [address] [facility] na tive coronary artery [place] [phone] without angina [phone] pectoris Social History Tobacco Use Types Packs/Day Years Used Date Former Smoker Smokeless Tobacco: Never Used Comments: 50+ years ago Alcohol Use Standard Drinks/Week Comments Yes 14 (1 standard drink = 0.6 oz pure alcoh ol) Sex Assigned at Date Recorded Not on file documented as of this encounter Last Filed Vital Signs Vital Sign Reading Time Taken Comments Blood Pressure 142/58 01/16/2021 9:51 AM EDT Pulse 55 01/16/2021 9:38 AM EDT Temperature - - Respiratory Rate - - Oxygen Saturation - - Inhaled Oxygen Concentration - - Weight 68.9 kg (152 lb) 01/16/2021 9:34 AM EDT Height 172.7 cm (5' 8) 01/16/2021 9:34 AM EDT Body Mass Index 23.11 01/16/2021 9:34 AM EDT documented in this encounter Progress Notes Brayan Garay MD - 01/16/2021 9:40 AM EDT Images from the original note were not included. Subjective: Patient ID: Chencho Mcgrath is a 75 y.o. male who presents on follow-up for: Chief Complaint Patient presents with ??? Coronary Artery Disease HPI Last seen by me 01/2020, at which time no changes were made. Since then, he continues to do well from a cardiac standpoint. He and his practice an active and healthy lifestyle without exertional encumbrance bp well controlled at home No issues with medications Current Outpatient Medications: ??? sildenafiL (VIAGRA) 50 mg Tablet, TAKE 1 TABLET BY MOUTH 1 HOUR PRIOR TO INTERCOURSE NEEDED, Disp: , Rfl: ??? L-LYSINE ORAL, Take 1 tablet by mouth daily., Disp: , Rfl: ??? UNABLE TO FIND, Monolauren 495 mg one tablet by mouth daily, Disp: , Rfl: ??? atorvastatin (Lipitor) 20 mg Tablet, Take 1 tablet by mouth daily., Disp: 90 tablet, Rfl: 3 ??? TURMERIC ORAL, Take 1 capsule by mouth., Disp: , Rfl: ??? busPIRone (BUSPAR) 10 mg Tablet, Take 10 mg by mouth 2 times daily., Disp: , Rfl: ??? triamcinolone (KENALOG) 0.1 % Cream, Apply twice daily to eczematous rash areas., Disp: 80 g, Rfl: 1 ??? calcium carbonate (CALCIUM 500 ORAL), Take [...] Rfl: ??? cyanocobalamin 1,000 mcg Tablet, Take 1,000 mcg by mouth daily., Disp: , Rfl: [...] Rfl: Patient Active Problem List Diagnosis ??? Syncope and collapse One episode 11/2018 Holter: NSR, no bradycardia or AV block, rare APC and VPC, 2 brief SVT longest 6 beats ??? Anxiety ??? CAD (coronary artery disease) 2007 70% D1-> POBA, no other disease Stress echo 2012- 12.8 METS, HR 154, fatigue, no ST change, no WMA, no valve disease ??? Hyperlipidemia Objective: BP 142/58 (BP Location (NBP): Right arm, Patient Position: Sitting) Comment (Patient Position): manual Pulse 55 Ht 172.7 cm (5' 8) Wt 68.9 kg (152 lb) BMI 23.11 kg/m?? Gen: pleasant male in NAD Cor: rrr, s1/s2 of nl character and amplitude, no m/r/g. Estimated RAP not elevated. Carotids with normal upstroke without bruit. Pulm: CTAB. Normal diaphragmatic movement without use of accessory muscles Assessment and Plan: CAD (coronary artery disease) No angina per history. - Anti-Thrombosis: asa 81 - Statin: lipitor 20 - Anti-anginals: GTN PRN RTC 12 months Brayan Garay MD documented in this encounter Miscellaneous Notes Assessment & Plan Note - Brayan Garay MD - 01/16/2021 10:04 AM EDT Associated Problem(s): ASCVD (arteriosclerotic cardiovascular disease) No angina per history. - Anti-Thrombosis: asa 81 - Statin: lipitor 20 - Anti-anginals: GTN PRN documented in this encounter Plan of Treatment Upcoming Encounters Date Type Specialty Care Team Description 10/09/2022 Office Visit Neurology Joe Keys MD [facility] NEUROLOGY DEPT [place], [place] [address] (Wo rk) 01/27/2023 Office Visit Cardiology Brayan Garay MD [facility] [place], [place] [address] (Wo rk) documented as of this encounter Visit Diagnoses Diagnosis Coronary artery disease involving cantwell coronary artery of cantwell heart without angina pectoris documented in this encounter Care Teams Wide Area Network Administrator Relationship Specialty Start Date End Date Richa Brand APRN PCP - General Family Medicine 03/24/17 [address] [place] [address] documented as of this encounter
--- OUTSIDE RECORDS SUMMARY | 2022-05-13 15:54 | XMS_ITS | Encounter Summary ---
:1945 Author Organization [facility] [place] [address] Care Team Providers Name Role Phone Richa Brand DON Primary Care Provider [phone] Reason for Visit Reason Onset Date Comments Medication Problem 05/30/2021 Encounter Details Date Type Department Care Team Description 05/30/2021 Refill Neurology at [facility] Augusta Keys MD [place] [address] NEUROLOGY DEPT [phone] [place], [place] [address] (Wo rk) Social History Tobacco Use Types Packs/Day Years Used Date Former Smoker Smokeless Tobacco: Never Used Comments: 50+ years ago Alcohol Use Standard Drinks/Week Comments Yes 14 (1 standard drink = 0.6 oz pure alcoh ol) Sex Assigned at Date Recorded Not on file documented as of this encounter Miscellaneous Notes Telephone Encounter - Doronfebruary - 05/30/2021 8:24 AM EDT Call Center / [employer]cher[employer] Assistant Message - Medication Issue (Not to be used for refill request or medication prior auth request) Provider patient sees in Clinic: Dr. Keys Caller and relationship (if other than patient-full name): Partner Call Back Number: [phone] Ok to leave a message: y Reason for call: Patients partner states that the insurance will not pay for this in 5 mg tablets . Patients partner states the prescription needs to be written as 10 mg tablets. Patient will be out intwo days Message/information for the nurse: Please rewrite prescription as 10 mg tablets Name of Medication: donepeziL (Aricept) 5 mg Tablet Issue with the medication: Insurance will not pay for 5 mg tablets Disposition of Call: ?? Red Arrow Message sent to Nurse - Reason for RED ARROW Message: n ?? Routine Message sent to the Nurse y ?? Other: n Nurse contacted via: Message: y Call: n Pager: n documented in this encounter Plan of Treatment Upcoming Encounters Date Type Specialty Care Team Description 10/09/2022 Office Visit Neurology Joe Keys MD [facility] NEUROLOGY DEPT [place], [place] [address] (Wo rk) 01/27/2023 Office Visit Cardiology Brayan Garay MD [facility] [address] [place], [place] [address] (Wo rk) documented as of this encounter Visit Diagnoses Not on filedocumented in this encounter Care Teams Pockets And Pieces Necktie Operator Relationship Specialty Start Date End Date Richa Brand APRN PCP - General Family Medicine 03/24/17 [address] [place] [address] documented as of this encounter
--- OUTSIDE RECORDS SUMMARY | 2022-05-13 15:54 | XMS_ITS | Encounter Summary ---
:1945 Author Organization [facility] [place] [address] Care Team Providers Name Role Phone Richa Brand APRN Primary Care Provider [phone] Encounter Details Date Type Department Care Team Description 12/31/2019 Refill Dermatology at [facility] Joy Wolfe, GLOBAL SOURCING MANAGER [address] [place] [address] Social History Tobacco Use Types Packs/Day Years [...] 10/09/2022 Office Visit Neurology Joe Keys MD [facility] NEUROLOGY DEPT [place], [place] [address] (Wo rk) 01/27/2023 Office Visit Cardiology Brayan Garay MD [facility] [address] [place] [address] (Wo rk) documented as of this encounter Visit Diagnoses Not on filedocumented in this encounter Care Teams Trade Manager Relationship Specialty Start Date End Date Richa Brand APRN PCP - General Family Medicine 03/24/17 [address] [place] [address] documented as of this encounter
--- OUTSIDE RECORDS SUMMARY | 2022-05-13 15:54 | XMS_ITS | Encounter Summary ---
:1945 Author Organization [facility] [place] [address] Care Team Providers Name Role Phone Richa Brand APRN Primary Care Provider [phone] Reason for Referral Diagnostic Test (Routine) - Closed Specialty Diagnoses / Procedures Referred By Contact Refer red To Contact Radiology Diagnoses Numbness and tingling Foot drop, right Radicular pain of right lower extremity Jacki Shah MD [facility] Rad Mri Procedures MRI Lumbar Spine wo Contrast (Generic) [facility] [address] [facility] [place] [address] [place] [address] Referral ID Status Reason Start Date Expiration Date Visits V isits Requested Authorized [id number] Closed Specialty 04/09/2021 10/09/2022 1 1 Service Requested Reason for Visit Diagnostic Test (Routine) - Closed Specialty Diagnoses / Procedures Referred By Contact Refer red To Contact Radiology Diagnoses Numbness and tingling Foot drop, right Radicular pain of right lower extremity Jacki Shah MD [facility] Rad Mri Procedures MRI Lumbar Spine wo Contrast (Generic) [facility] [place] [address] [place] [address] Referral ID Status Reason Start Date Expiration Date Visits V isits Requested Authorized [id number] Closed Specialty 04/09/2021 10/09/2022 1 1 Service Requested Encounter Details Date Type Department Care Team Description 04/23/2021 Hospital Encounter MRI at [place] Jacki Shah Numbness and tingling; [facility] MD Rin Foot drop, right; [facility] Radicular pain of right lowe r extremity [place], [place] [facility] [address] NEUROLOGY DEPT [phone] [place], [place] [address] Social History Tobacco Use Types Packs/Day Years Used Date Former Smoker Smokeless Tobacco: Never Used Comments: 50+ years ago Alcohol Use Standard Drinks/Week Comments Yes 14 (1 standard drink = 0.6 oz pure alcoh ol) Sex Assigned at Date Recorded Not on file documented as of this encounter Medications at Time of Discharge Medication Sig Dispensed Refills Start Date End Date PreviDent 5000 Plus 1.1 DIRECTED 0 04/06/2021 % Cream sildenafiL (VIAGRA) 50 TAKE 1 TABLET BY 0 021 mg Tablet MOUTH 1 HOUR PRIOR TO INTERCOURSE NEEDED calcium carbonate Take by mouth daily. 0 (CALCIUM 500 ORAL) MAGNESIUM ORAL Take by mouth daily. 0 ferrous sulfate (IRON Take by mouth daily. 0 ORAL) vitamin B complex Take by mouth daily. 0 (VITAMINS B COMPLEX ORAL) cholecalciferol, Vitamin Take by mouth daily. 0 D3, 1,000 unit Capsule cyanocobalamin 1,000 mcg Take 2,000 mcg by 0 Tablet mouth daily. ascorbate calcium Take by mouth daily. 0 (VITAMIN C ORAL) flaxseed oil 1,000 mg Take by mouth daily. 0 Capsule FOLIC ACID ORAL Take by mouth daily. 0 vitamin E acetate Take by mouth daily. 0 (VITAMIN E ORAL) aspirin 81 mg Tablet, Take 81 mg by mouth 0 Delayed Release (E.C.) daily. donepeziL (Aricept) 5 mg Take 10 mg by mouth 0 05/28/2021 Tablet nightly. L-LYSINE ORAL Take 1 tablet by 0 08/15 mouth daily. UNABLE TO FIND Monolauren 495 mg one 0 07/13/2021 tablet by mouth daily atorvastatin (Lipitor) Take 1 tablet by 90 tablet 3 05/03/ 020 05/04/2021 20 mg TabletIndications: mouth daily. Hyperlipidemia, unspecified hyperlipidemia type busPIRone (BUSPAR) 10 mg Take 10 mg by mouth 3 0 07/13/2021 Tablet times daily. triamcinolone (KENALOG) Apply twice daily to 80 g 1 07/13/2021 0.1 % Cream eczematous rash areas. documented as of this encounter Plan of Treatment Upcoming Encounters Date Type Specialty Care Team Description 10/09/2022 Office Visit Neurology Joe Keys MD [facility] NEUROLOGY DEPT [place], [place] [address] (Wo rk) 01/27/2023 Office Visit Cardiology Brayan Garay MD [facility] [place], [place] [address] (Wo rk) documented as of this encounter Procedures Procedure Name Priority Date/Time Associated Diagnosis Comme nts MRI LUMBAR SPINE Routine 04/23/2021 7:48 AM Numbness and Resul ts for this WITHOUT CONTRAST EDT tingling procedure are in Foot drop, right the results Radicular pain of section. right lower extremity documented in this encounter Results MRI Lumbar Spine wo Contrast (Generic) (04/23/2021 7:48 AM EDT) Anatomical Region Laterality Modality L-spine Magnetic Resonance Specimen (Source) Anatomical Location Collection Method / Collectio n Time Received Time / Laterality Volume Impressions 04/23/2021 8:48 AM EDT Severe multilevel degenerative changes, as above. Comment: The following findings are so c ommon in people without low back pain that while we report their presence, the y must be interpreted with caution and in context of the clinical situation (Re hosea Thao Et Al, Spine 2001). Findings: (Prevalence in patients withou t low back pain), disc degeneration (decreased T2 signal, height loss, bulge ) (91%), disc T2-signal loss (83%), disc height loss (56%), disc bulge (64%), dis c protrusion (32%), annular fissure (38%). Thank you for letting us participate in the care of this patient. ??If you are a health care provider and have any questi ons regarding this report, please contact the number below. ??For patients who have questions please contact the health acute care occupational therapist that requested your imaging first. ? Electronically signed by: Belinda Kwan MD, [facility] ([phone]), at 04/23/2021 8:48 AM Narrative 04/23/2021 8:48 AM EDT EXAMINATION: MRI LUMBAR SPINE WO CONTRAST (GENERIC) CLINICAL HISTORY: Biomechanical lesion Lower extremity weakness; foot drop on r ight; radicular pain on left TECHNIQUE: MRI of the lumbar spine performed withou t intravenous contrast administration. COMPARISON: None FINDINGS: There is convex right curvature of the s pine with apex at L2/3, with compensatory convex left curvature L5/S1 . There is approximately 5 mm retrolisthesis of L2 on L3, and 5 mm ant erolisthesis of L5 on S1. Minimal height loss of the L5 vertebra, without retropu lsion or edema. Otherwise, vertebral body height and alignment are preserved. There are anterior osteophytes from L1/2 through L3/4. 6 mm sclerotic focus in the anterior inferior L1 vertebra adjacent to the endplate potentially rep resenting bone [place] or herniated disc material. Mild surrounding reactive lashawn a, and reactive edema surrounding the narrowed L1/2 disc space anteriorly. Fat ty degenerative endplate changes surrounding L3/4 eccentric to the left, and L4/L5 eccentric to the right. In the left posterior T12 vertebra, ther e is a 1 cm T1 hypointense, T2 isointense lesion which shows fluid sign al on STIR images and a small surrounding fat halo, potentially atypic al hemangioma. Distal spinal cord signal, caliber and c ontour are normal. The conus terminates at L1/2. Cauda equina nerve roots undula te likely due to impingement in the left lateral thecal sac at L2/3 and L3/4. Multilevel degenerative changes, as foll ows: T12/L1: No significant disc bulge, spina l canal or neural foraminal narrowing. L1/L2: Disc space narrowing, anterior os teophyte with possible anterior inferior L1 endplate disc herniation. Mild diffus e disc bulge with mild right foraminal and moderate right subarticular recess s tenosis. Mild central canal stenosis. Mild bilateral degenerative facet and li gamentous hypertrophy. L2/L3: Diffuse disc bulge slightly eccen tric to the left. Left greater than right degenerative facet and ligamentous hypertrophy. There is severe left subarticular stenosis, moderate to sever e left neural foraminal narrowing, moderate central canal stenosis eccentri c to the left, and mild right subarticular and foraminal stenosis. L3/4: Disc space narrowing, mild diffuse disc bulge, moderate bilateral facet and ligamentous hypertrophy. There is se grayson bilateral subarticular recess stenosis, severe left and moderate to se grayson right foraminal stenosis. Mild central canal stenosis. L4/L5: Diffuse disc bulge, severe bilate ral degenerative facet hypertrophy and mild bilateral ligamentous hypertrophy. There is severe stenosis of the right neural foramen and subarticular recess, mild left subarticular and foraminal narrowing, and moderate central canal st enosis. L5/S1: Approximately 5 mm anterolisthesi s of L5 on S1 uncovers the disc, with superimposed mild diffuse bulge with larisa tral protrusion. There is left greater than right degenerative facet hypertroph y with mild left facet effusion, moderate to severe bilateral neural fora marie narrowing, severe right subarticular recess stenosis and moderat e central canal stenosis. Procedure Note Belinda Kwan MD - 04/23/2021Formatt ing of this note might be different from the original. EXAMINATION: MRI LUMBAR SPINE WO CONTRAS T (GENERIC) CLINICAL HISTORY: Biomechanical lesion Lower extremity weakness; foot drop on r ight; radicular pain on left TECHNIQUE: MRI of the lumbar spine performed withou t intravenous contrast administration. COMPARISON: None FINDINGS: There is convex right curvature of the s pine with apex at L2/3, with compensatory convex left curvature L5/S1 . There is approximately 5 mm retrolisthesis of L2 on L3, and 5 mm ant erolisthesis of L5 on S1. Minimal height loss of the L5 vertebra, without retropu lsion or edema. Otherwise, vertebral body height and alignment are preserved. There are anterior osteophytes from L1/2 through L3/4. 6 mm sclerotic focus in the anterior inferior L1 vertebra adjacent to the endplate potentially rep resenting bone [place] or herniated disc material. Mild surrounding reactive lashawn a, and reactive edema surrounding the narrowed L1/2 disc space anteriorly. Fat ty degenerative endplate changes surrounding L3/4 eccentric to the left, and L4/L5 eccentric to the right. In the left posterior T12 vertebra, ther e is a 1 cm T1 hypointense, T2 isointense lesion which shows fluid sign al on STIR images and a small surrounding fat halo, potentially atypic al hemangioma. Distal spinal cord signal, caliber and c ontour are normal. The conus terminates at L1/2. Cauda equina nerve roots undula te likely due to impingement in the left lateral thecal sac at L2/3 and L3/4. Multilevel degenerative changes, as foll ows: T12/L1: No significant disc bulge, spina l canal or neural foraminal narrowing. L1/L2: Disc space narrowing, anterior os teophyte with possible anterior inferior L1 endplate disc herniation. Mild diffus e disc bulge with mild right foraminal and moderate right subarticular recess s tenosis. Mild central canal stenosis. Mild bilateral degenerative facet and li gamentous hypertrophy. L2/L3: Diffuse disc bulge slightly eccen tric to the left. Left greater than right degenerative facet and ligamentous hypertrophy. There is severe left subarticular stenosis, moderate to sever e left neural foraminal narrowing, moderate central canal stenosis eccentri c to the left, and mild right subarticular and foraminal stenosis. L3/4: Disc space narrowing, mild diffuse disc bulge, moderate bilateral facet and ligamentous hypertrophy. There is se grayson bilateral subarticular recess stenosis, severe left and moderate to se grayson right foraminal stenosis. Mild central canal stenosis. L4/L5: Diffuse disc bulge, severe bilate ral degenerative facet hypertrophy and mild bilateral ligamentous hypertrophy. There is severe stenosis of the right neural foramen and subarticular recess, mild left subarticular and foraminal narrowing, and moderate central canal st enosis. L5/S1: Approximately 5 mm anterolisthesi s of L5 on S1 uncovers the disc, with superimposed mild diffuse bulge with larisa tral protrusion. There is left greater than right degenerative facet hypertroph y with mild left facet effusion, moderate to severe bilateral neural fora marie narrowing, severe right subarticular recess stenosis and moderat e central canal stenosis. IMPRESSION Severe multilevel degenerative changes, as above. Comment: The following findings are so c ommon in people without low back pain that while we report their presence, the y must be interpreted with caution and in context of the clinical situation (Re ference- Jarvik Et Al, Spine 2001). Findings: (Prevalence in patients withou t low back pain), disc degeneration (decreased T2 signal, height loss, bulge ) (91%), disc T2-signal loss (83%), disc height loss (56%), disc bulge (64%), dis c protrusion (32%), annular fissure (38%). Thank you for letting us participate in the care of this patient. If you are a health care provider and have any questi ons regarding this report, please contact the number below. For patients w ho have questions please contact the health acute care occupational therapist that requested your imaging first. Electronically signed by: Belinda Kwan MD, [facility] ([phone]), at 04/23/2021 8:48 AM Jacki Shah MD IMG MRI ORDERABLES documented in this encounter Visit Diagnoses Diagnosis Numbness and tingling Disturbance of skin sensation Foot drop, right Other acquired deformity of ankle and fo ot Radicular pain of right lower extremity Thoracic or lumbosacral neuritis or radi culitis, unspecified documented in this encounter Care Teams Flight Test Engineer Relationship Specialty Start Date End Date Richa Brand, [employer] PCP - General Family Medicine 03/24/17 [address] [place] [address] documented as of this encounter
--- OUTSIDE RECORDS SUMMARY | 2022-05-13 15:54 | XMS_ITS | Encounter Summary ---
:1945 Author Organization [facility] [place] [address] Care Team Providers Name Role Phone SundayRicha lopez DON Primary Care Provider [phone] Reason for Visit Reason Onset Date Comments Questions 04/27/2021 Encounter Details Date Type Department Care Team Description 04/27/2021 Telephone Neurology at [facility] Jacki Shah MD Questions [facility] D rive [facility] [place] [address] NEUROLOGY DEPT [phone] [place], [place] [address] (Wo rk) Social History Tobacco Use Types Packs/Day Years Used Date Former Smoker Smokeless Tobacco: Never Used Comments: 50+ years ago Alcohol Use Standard Drinks/Week Comments Yes 14 (1 standard drink = 0.6 oz pure alcoh ol) Sex Assigned at Date Recorded Not on file documented as of this encounter Miscellaneous Notes Telephone Encounter - Paris Snyder RN - 04/30/2021 3:14 PM EDT Spoke with Monse advised that no Dr Shah does her own EMG's. All providers do their own EMG's. This is not a standard order. Monse agrees with the plan. Scheduled for August. 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 Shah would be comfortable with sending EMG order to [facility]. Monse states they can see patient sooner and it is more convenient to get to. Please call patient back to discuss. Disposition of Call (choose one and remove others): ??? Routine Message sent to the Nurse: y Nurse/Lake contacted via: Message: y Call: n Pager: n documented in this encounter Plan of Treatment Upcoming Encounters Date Type Specialty Care Team Description 10/09/2022 Office Visit Neurology Joe Keys MD [facility] NEUROLOGY DEPT [place], [place] [address] (Wo rk) 01/27/2023 Office Visit Cardiology Brayan Garay MD [facility] [address] [place] [address] (Wo rk) documented as of this encounter Visit Diagnoses Not on filedocumented in this encounter Care Teams Manufacturers Agent Relationship Specialty Start Date End Date Richa Brand APRN PCP - General Family Medicine 03/24/17 [address] [place] [address] documented as of this encounter
--- OUTSIDE RECORDS SUMMARY | 2022-05-13 15:54 | XMS_ITS | Encounter Summary ---
:1945 Author Organization [facility] [place] [address] Care Team Providers Name Role Phone Richa Brand APRN Primary Care Provider [phone] Encounter Details Date Type Department Care Team Description 12/30/2018 Abstract Cardiology at [facility] Terrence Jang RN [address] [place] [address] Social History Tobacco Use Types Packs/Day Years Used Date Former Smoker Comments: 50 years ago Sex Assigned at Date Recorded Not on file documented as of this encounter Plan of Treatment Upcoming Encounters Date Type Specialty Care Team Description 10/09/2022 Office Visit Neurology Joe Keys MD [facility] ER NEUROLOGY DEPT [place], [place] [address] (Wo rk) 01/27/2023 Office Visit Cardiology Brayan Garay MD [facility] er [address] [place] [address] (Wo rk) documented as of this encounter Visit Diagnoses Not on filedocumented in this encounter Care Teams Testing Director Relationship Specialty Start Date End Date Richa Brand APRN PCP - General Family Medicine 03/24/17 [address] [place], [place] [address] documented as of this encounter
--- OUTSIDE RECORDS SUMMARY | 2022-05-13 15:54 | XMS_ITS | Encounter Summary ---
:1945 Author Organization [facility] [address] Care Team Providers Name Role Phone Richa Brand APRN Primary Care Provider [phone] Encounter Details Date Type Department Care Team Description 07/25/2021 Procedure visit Neurology at [facility] Jcaki Martinez Numbness and tingling; [facility] MD Rin Foot drop, right; Drive [facility] Numbness and tingling of bot h upper extremities; [place], [place] Radicular pain of right lower extremity [id number] NEUROLOGY DEPT [phone] [place], [place] [address] Social History Tobacco Use Types Packs/Day Years Used Date Former Smoker Smokeless Tobacco: Never Used Comments: 50+ years ago Alcohol Use Standard Drinks/Week Comments Yes 14 (1 standard drink = 0.6 oz pure alcoh ol) Sex Assigned at Date Recorded Not on file documented as of this encounter Progress Notes Jacki Martinez MD - 07/25/2021 4:00 PM EDT [facility] NEUROPHYSIOLOGY LABORATORY NERVE CONDUCTION AND ELECTROMYOGRAPHY EVALUATION - 07/25/21 BRIEF HISTORY: Chencho Mcgrath is a 76 y.o. male referred for electrodiagnostic evaluation of dysesthesias in the feet, legs and hands by: Richa Brand APRN [address] [place] [address]: Report scanned into EDH: 07/25/21 The history is of: Chencho Mcgrath is a 75 y.o. male who was seen today for follow up. He has lower extremity dysesthesias that I suspect are related to lumbar degenerative disk disease with moderate to severe neuroforaminal stenosis at multiple levels (L5- S1 bilat; L4-5 severe on the left; L3-4 severe on the L, mod-sev on the R; L2-3 mod-sev on the R) with moderate canal narrowing at multiple levels. 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 We will proceed with electrodiagnostic study to evaluate for: - neuropathy - active radiculopathy on the right - UE, ulnar neuropathies Orders Placed This Encounter Procedures ??? [facility] (Internal only) Notes reviewed: Dr. Cobian Images reviewed: MRI lumbar spine was reviewed - the relevant changes noted are summarized below. Relevant lab: Component Latest Ref Rng & Units 04/23/2021 Glucose Lvl 65 - 199 mg/dL 92 BUN 10 - 20 mg/dL 17 Creatinine 0.80 - 1.50 mg/dL 0.97 Sodium 135 - 145 mmol/L 138 Potassium 3.5 - 5.0 mmol/L 4.4 Chloride 98 - 107 mmol/L 104 CO2 22 - 31 mmol/L 27 Anion Gap 5 - 15 mmol/L 7 Calcium 8.5 - 10.5 mg/dL 8.8 Total Protein 6.1 - 8.0 gm/dL 6.8 Albumin 3.2 - 5.2 gm/dL 4.0 AST 0 - 39 unit/L 23 ALT 0 - 55 unit/L 18 Alk Phos 40 - 130 unit/L 58 Total Bilirubin 0.2 - 1.3 mg/dL 0.6 Estimated GFR >=60 mL/min/1.73 m?? 75 Total Prot Elec 6.1 - 8.0 gm/dL 6.4 Albumin Elect 3.60 - 6.00 gm/dL 4.09 Alpha1-Globulin 0.10 - 0.30 gm/dL 0.17 Alpha2-Globulin 0.40 - 0.90 gm/dL 0.74 Beta Globulin 0.50 - 1.00 gm/dL 0.58 Gamma Globulin 0.50 - 1.30 gm/dL 0.83 M1 Band None Detected Comments Below SPEP Comments See Note IgG 700 - 1,600 mg/dL 1,029 IgA 70 - 400 mg/dL 316 IgM 40 - 230 mg/dL 60 Vitamin B6 5 - 50 mcg/L 45 Vitamin B-12 232 - 1,245 pg/mL 750 Methylmalonic Acid <=0.40 nmol/mL 0.12 TOBY See Note BRIEF EXAMINATION: General evaluation is unrevealing for atrophy, skeletal or foot deformity. He demonstrates some mildweakness of thumb abduction bilaterally with preservation of finger abduction. Distal lower extremity strength testing revealed right dorsiflexor weakness but also associated inversion and eversion weakness compared to the left side. Sensory: Vibration: Ltoe 4 Rtoe 3 LMM 4 RMM 4 Lknee 7 Rknee 5 LDIP2 8 RDIP2 8 LDIP5 nt RDIP5 nt Pin: reduced on the left in multiple dermatomes -difficult to delineate 1 that is more altered than others but there is clearly a side to side difference, reduced on the left compared to the right. Median = D1-3/ reduced on left; preserved on right Ulnar = D4,5/ nl Radial = dorsal hand/nl Other = n/a Femoral n. = anterior thigh above knee /fairly symmetric LFCNT = lateral thigh /reduced on the left Sciatic n. = buttock and posterior thigh/reduced on the left Superficial peroneal n. = Dorsum foot /altered bilaterally with dysesthesias in the distribution expected for length dependent neuropathy Deep peroneal n. = 1st interweb / altered bilaterally Tibial n. = sole of foot / altered left greater than right Sural n. = lateral foot / altered bilaterally Tendon reflexes: biceps triceps BR patellar AJ Plantars Right 1 tr tr 2 0 down Left 1 tr tr 1 0 down NCS/EMG: Sural SNAP amplitudes were mildly reduced with preserved conduction velocities. Bilateral ulnar SNAPamplitudes were preserved with normal conduction velocity of the left ulnar sensory response and slightly reduced conduction velocity of the right ulnar sensory response. Bilateral median SNAPs were mildly slowed with slightly reduced amplitude of the right median SNAP across the short mid palmar segment. The left peroneal motor response amplitude was lower than that on the right both at EDB and AT. This was associated with mild slowing. Tibial motor response amplitudes and distal motor latencies were preserved and symmetric. Bilateral ulnar motor response amplitudes were preserved with normal distal motor latencies but mildly slowed conduction velocities. The left median motor response amplitude and distal latency was normal but the right revealed mildly prolonged distal motor latency. Late response latencies of the lower extremities were prolonged but not into a primary demyelinating range. Right median and ulnar late response latencies were mildly prolonged. Needle EMG revealed increased abnormal spontaneous activity, positive sharp waves and fibrillation potentials in the peroneus longus muscle and tibialis anterior on the right with mildly reduced recruitment of long duration polyphasic motor units. Rare positive sharp waves and fibrillation potentials were also noted in the left gastrocnemius with normal recruitment of long duration polyphasic motor units. The tensor fascia feli revealed some long duration polyphasic motor units and L5 paraspinal muscle revealed increased abnormal spontaneous activity. IMPRESSION: Complex and abnormal study. There is electrodiagnostic evidence of: 1. A mild median mononeuropathy at the left wrist; 2. A moderately severe median mononeuropathy at the right wrist; 3. A very mild or early sensory predominant axonal neuropathy could not be ruled out; 4. A right peroneal neuropathy is suggested at the fibular head; however, the presence of active denervation in the right L5 paraspinal muscle associated with some subtle motor unit changes in the tensor fascia feli make it difficult to rule out an L5 lesion. Clinical and radiologic correlation is recommended. 5. Injury to motor fibers supplying the left peroneal nerve is also supported but needle EMG was notlocalizing. Clinical and radiologic correlation is recommended. CLINICAL CORRELATION: Mr. 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 Slowing across the fibular head on the right was suggestive of a superimposed peroneal neuropathy at the knee. His clinical exam is not clearly consistent with this interpretation however as he does have both inversion and eversion weakness on the right in addition to ankle dorsiflexion weakness. I suspect the slowing across the fibular head is incidental. We discussed my impressions that his electrodiagnostic's findings were most consistent with accumulation of degenerative change from his back. We will plan to continue to work on conserv ative measures to control his lumbar degenerative disc disease as well as use wrist splints for his hands. If he develops any increase in his lower extremity symptoms especially those that would be more localizing to a peroneal neuropathy at the fibular head, this can be revisited possibly with more imaging studies. Follow-up for reevaluation of lower extremity strength, sensation and response to response in the upper extremities. JACIK MARTINEZ MD Neuromuscular Attending documented in this encounter Plan of Treatment Upcoming Encounters Date Type Specialty Care Team Description 10/09/2022 Office Visit Neurology Joe Keys MD [facility] NEUROLOGY DEPT [place], [place] [address] (Wo [place]k) 01/27/2023 Office Visit Cardiology Brayan Garay MD [facility] [address] [place], [place] [address] ([place]o [place]k) documented as of this encounter Visit Diagnoses Diagnosis Numbness and tingling Disturbance of skin sensation Foot drop, right Other acquired deformity of ankle and fo ot Numbness and tingling of both upper extr emities Radicular pain of right lower extremity Thoracic or lumbosacral neuritis or radi culitis, unspecified documented in this encounter Care Teams Utility Worker [place] Relationship Specialty Start Date End Date Richa Brand, CHIEF MERCHANDISING OFFICER PCP - General Family Medicine 03/24/17 [address] [place] [address] documented as of this encounter
--- OUTSIDE RECORDS SUMMARY | 2022-05-13 15:54 | XMS_ITS | Encounter Summary ---
:1945 Author Organization [facility] [place] [address] Care Team Providers Name Role Phone Richa Brand DON Primary Care Provider [phone] Reason for Visit Reason Onset Date Comments Appointment 03/22/2021 Encounter Details Date Type Department Care Team Description 03/22/2021 Telephone Neurology at [facility] Augusta Keys MD Appointment [facility] [place] [phone] NEUROLOGY DEPT [phone] [place], [place] [address] (Wo rk) Social History Tobacco Use Types Packs/Day Years Used Date Former Smoker Smokeless Tobacco: Never Used Comments: 50+ years ago Alcohol Use Standard Drinks/Week Comments Yes 14 (1 standard drink = 0.6 oz pure alcoh ol) Sex Assigned at Date Recorded Not on file documented as of this encounter Miscellaneous Notes Telephone Encounter - Sheri Lagunas - 03/22/2021 10:13 AM EDT Scheduling Instructions Provider: Dr Keys Visit Type (paste MONICA Instructions or manually enter): Return for telehealth with Massimo, any 30 min spot (mid to late April). Appt Note: Mild cognitive impairment Additional Info Needed: documented in this encounter Plan of Treatment Upcoming Encounters Date Type Specialty Care Team Description 10/09/2022 Office Visit Neurology Joe Keys MD [facility] NEUROLOGY DEPT [place], [place] [address] (Wo rk) 01/27/2023 Office Visit Cardiology Brayan Garay MD [facility] [place], [place] [address] (Wo rk) documented as of this encounter Visit Diagnoses Not on filedocumented in this encounter Care Teams Piano Machine Operator Relationship Specialty Start Date End Date Richa Brand APRN PCP - General Family Medicine 03/24/17 [address] [place] [address] documented as of this encounter
--- OUTSIDE RECORDS SUMMARY | 2022-05-13 15:54 | XMS_ITS | Encounter Summary ---
:1945 Author Organization [facility] [place] [address] Care Team Providers Name Role Phone Richa Brand APRN Primary Care Provider [phone] Reason for Visit Reason Onset Date Comments Referral 09/19/2020 Encounter Details Date Type Department Care Team Description 09/19/2020 Telephone [place]rology [place] [facility] [place] [address] Social History Tobacco Use Types Packs/Day Years Used Date Former Smoker Smokeless Tobacco: Never Used Comments: 50 years ago Alcohol Use Standard Drinks/Week Comments Yes 14 (1 standard drink = 0.6 oz pure alcoh ol) Sex Assigned at Date Recorded Not on file documented as of this encounter Miscellaneous Notes Telephone Encounter - Beckie Mary - 09/22/2020 12:48 PM EST Patient is calling back to follow up on this referral. Telephone Encounter - Matthieu Mayers - 09/19/2020 12:26 PM EST Caller: self If not PT/Relation to PT: Best number to reach caller: [phone] Reason for the Call: Patient was looking to schedule from referral, but this agent did not see in the chart. This agent asked patient to resend referral. To check on the status of their referral: If not, what is the reason for their call: If their referral has not been reviewed by the department, ask these questions below so the process can get started sooner: Has the patient seen another Neurologist: yes- DON-Shell Colby If so, when and where: [facility] Has the patient had any imagining done: No If so, when and where: documented in this encounter Plan of Treatment Upcoming Encounters Date Type Specialty Care Team Description 10/09/2022 Office Visit Neurology Joe Keys MD [facility] NEUROLOGY DEPT [place], [place] [address] (Wo rk) 01/27/2023 Office Visit Cardiology Brayan Garay MD [facility] [address] [place], [place] [address] (Wo rk) documented as of this encounter Visit Diagnoses Not on filedocumented in this encounter Care Teams Wax Pattern Assembler Relationship Specialty Start Date End Date Richa Brand APRN PCP - General Family Medicine 03/24/17 [address] [place] [address] documented as of this encounter
--- OUTSIDE RECORDS SUMMARY | 2022-05-13 15:54 | XMS_ITS | Encounter Summary ---
:1945 Author Organization [place] [address] Care Team Providers Name Role Phone Sunday Richa Rin DON Primary Care Provider [phone] Encounter Details Date Type Department Care Team Description 03/15/2021 TH Visit Neurology at [facility] Augusta Keys Mild cognitive (TeleHealth) [facility] [place] [address] NEUROLOGY DEPT [phone] [place], [place] [address] (Wo rk) Social History Tobacco Use Types Packs/Day Years Used Date Former Smoker Smokeless Tobacco: Never Used Comments: 50+ years ago Alcohol Use Standard Drinks/Week Comments Yes 14 (1 standard drink = 0.6 oz pure alcoh ol) Sex Assigned at Date Recorded Not on file documented as of this encounter Progress Notes Augusta Keys MD - 03/15/2021 2:00 PM EDT [facility] TELEHEALTH follow up Patient Name: Chencho Mcgrath Patient ID: Chencho Mcgrath is a 75 y.o. M Patient's name and verified Patient gave Verbal consent for a Telephone Visit Chencho Mcgrath understands that this visit may be billed, similar to a clinic visit Patient Location: [place] Medication reconciliation was completed History: 75 yo M w/ MCI whom I am calling for follow up. Please see my note from 01/11/2021. He has been having vivid dreams related to donepezil. He does not mind these, as he enjoys deep dreaming. We went over his labs, which were normal. His brain MRI showed normal age related changes, minimal small vessel ischemic disease. He has an appointment with Dr. Shah on April 09 in regards to his neuropathy. Following his appointment with her, I will order a lumbar puncture to include the Mckin[place] ADMARK 177 test along with any other studies Dr. Shah may suggest. At this point in time, he has MCI, not dementia, but he does worry about Alzheimer's, so we will plan to evaluate him for AD via CSF, and if this is ambiguous, we will likely pursue a PET scan and/or neuropsychological testing. Please note that with a telehealth encounter [...] new focal neurological deficit. TeleHealth Visit time: 30 documented in this encounter Plan of Treatment Upcoming Encounters Date Type Specialty Care Team Description 10/09/2022 Office Visit Neurology Joe Keys MD [facility] NEUROLOGY DEPT [place], [place] [address] ([place]) 01/27/2023 Office Visit Cardiology Brayan Garay MD [facility] [place] [address] ([place]in [place]) documented as of this encounter Visit Diagnoses Diagnosis Mild cognitive impairment Mild cognitive impairment, so stated documented in this encounter Care Teams Straight Slicing Machine Operator Relationship Specialty Start Date End Date Richa Brand APRN PCP - General Family Medicine 03/24/17 [address] [place] [address] documented as of this encounter
--- OUTSIDE RECORDS SUMMARY | 2022-05-13 15:54 | XMS_ITS | Encounter Summary ---
:1945 Author Organization [facility] [place] [address] Care Team Providers Name Role Phone Sunday Richajanet Gar APRN Primary Care Provider [phone] Reason for Visit Reason Onset Date Comments Appointment 04/09/2021 Encounter Details Date Type Department Care Team Description 04/09/2021 Telephone Neurology at [facility] [place] Jacki Shah MD Appointment [facility] [place] [address] NEUROLOGY DEPT [phone] [place], [place] [address] (Wo rk) Social History Tobacco Use Types Packs/Day Years Used Date Former Smoker Smokeless Tobacco: Never Used Comments: 50+ years ago Alcohol Use Standard Drinks/Week Comments Yes 14 (1 standard drink = 0.6 oz pure alcoh ol) Sex Assigned at Date Recorded Not on file documented as of this encounter Miscellaneous Notes Telephone Encounter - Dalila Real E - 04/09/2021 2:54 PM EDT Call Center / [facility] Message - General Issue Call Provider patient sees in Clinic: Jacki Shah Caller and relationship (if other than patient-full name): jessy Shea Call back number: [phone] Ok to leave a message: yes Reason for call: Pt was under the impression he was to have an EMG today. He only met with Dr Shah. Please call to schedule EMG when scheduling for those resume Disposition of Call (choose one and remove others): ??? Routine Message sent to the Patient Consumer Marketer: X Nurse/Patient Consumer Marketer contacted via: Message: y Call: n Pager: n Telephone Encounter - Jean Carlos Leong - 04/09/2021 2:54 PM EDT Patient's partner Monse statesChencho is scheduled for an MRI next Friday morning (04/23) and shewas hoping to schedule his EMG after the MRI, if possible. Please call Monse's cell [phone] to discuss. She will need to make arrangements with her work. Telephone Encounter - Laura Montgomery - 04/09/2021 2:54 PM EDT Patient's partner Monse calling in again to follow up on EMG. States pt was under the impression he was having one done on 04/09/21 but it was just a consult. This agent did explain EMG scheduling block to this caller. Monse states it is getting down to the wire and pt really needs to have test done. Please call Monse back to discuss once schedules are available. documented in this encounter Plan of Treatment Upcoming Encounters Date Type Specialty Care Team Description 10/09/2022 Office Visit Neurology Joe Keys MD [facility] NEUROLOGY DEPT [place], [place] [address] (Wo rk) 01/27/2023 Office Visit Cardiology Brayan Garay MD [facility] [address] [place] [address] (Wo rk) documented as of this encounter Visit Diagnoses Not on filedocumented in this encounter Care Teams Flask Cleaner Relationship Specialty Start Date End Date Richa Brand APRN PCP - General Family Medicine 03/24/17 [address] [place] [address] documented as of this encounter
--- OUTSIDE RECORDS SUMMARY | 2022-05-13 15:54 | XMS_ITS | Encounter Summary ---
:1945 Author Organization [facility] [place] [address] Care Team Providers Name Role Phone Richa Brand APRN Primary Care Provider [phone] Encounter Details Date Type Department Care Team Description 07/13/2021 Refill Dermatology at [facility] Joy Wolfe, LINE ASSEMBLY UTILITY WORKER [address] [place] [address] Social History Tobacco Use [...] 10/09/2022 Office Visit Neurology Joe Keys MD [facility] NEUROLOGY DEPT [place], [place] [address] (Wo rk) 01/27/2023 Office Visit Cardiology Brayan Garay MD [facility] [address] [place], [place] [address] (Wo rk) documented as of this encounter Visit Diagnoses Not on filedocumented in this encounter Care Teams Funeral Home Location Manager Relationship Specialty Start Date End Date Richa Brand APRN PCP - General Family Medicine 03/24/17 [address] [place] [address] documented as of this encounter
--- OUTSIDE RECORDS SUMMARY | 2022-05-13 15:54 | XMS_ITS | Encounter Summary ---
:1945 Author Organization [facility] [place] [address] Care Team Providers Name Role Phone Richa Brand DON Primary Care Provider [phone] Reason for Visit Reason Comments Establish Care Dizziness Encounter Details Date Type Department Care Team Description 01/06/2019 Office Visit Cardiology at [facility] Syncope and collapse; Esha Dhillon MD Coronary artery disease, angina presence unspecified, unspecified vessel or lesion type, unspecified whether otoe-[place]ou[place] or transplanted heart; [address] [facility] Hype rlipidemia, unspecified hyperlipidemia type [place] [phone] Social History Tobacco Use Types Packs/Day Years Used Date Former Smoker Smokeless Tobacco: Never Used Comments: 50 years ago Alcohol Use Standard Drinks/Week Comments Yes 14 (1 standard drink = 0.6 oz pure alcoh ol) Sex Assigned at Date Recorded Not on file documented as of this encounter Last Filed Vital Signs Vital Sign Reading Time Taken Comments Blood Pressure 130/72 01/06/2019 1:25 PM EST Pulse 60 01/06/2019 1:25 PM EST Temperature - - Respiratory Rate 12 01/06/2019 1:25 PM EST Oxygen Saturation - - Inhaled Oxygen Concentration - - Weight 69.9 kg (154 lb) 01/06/2019 1:25 PM EST Height 172.7 cm (5' 8) 01/06/2019 1:25 PM EST Body Mass Index 23.42 01/06/2019 1:25 PM EST documented in this encounter Progress Notes [facility] Jr., MD - 01/06/2019 1:20 PM EST Referring PCP: Richa Brand APRN Cardiology consultation History: Chencho Mcgrath is a 73 y.o. old male seen at the request of Richa Brand APRN for evaluation of one episode of syncope and ASCVD. He has a long history of ASCVD with no recent chest painor limiting dyspnea. He is very active and has not had to change his activity level due to any symptoms. He denies palpitations, edema, PND or orthopnea. On he was at a republican and while standing and talking suddenly felt dizzy and flushed and collapsed with loss of consciousness for about a minute. He had no seizure activity, tongue biting,or loss of bowel or bladder control. He came right around and felt tired afterwards. He had not eaten much that day and had only one glass of wine. He did not go to the ER then but saw his PCP a few days later. Labs were unremarkable and holter did not show any serious arrhythmias (see below). He has had no subsequent episodes and has continued his usual activities comfortably. No Known Allergies Current Outpatient Medications Medication Sig Dispense Refill ??? calcium carbonate (CALCIUM 500 ORAL) Take by mouth daily. ??? MAGNESIUM ORAL Take by mouth daily. ??? ferrous sulfate (IRON ORAL) Take by mouth daily. ??? vitamin B complex (VITAMINS B COMPLEX ORAL) Take by mouth daily. ??? cholecalciferol, Vitamin D3, 1,000 unit Capsule Take by mouth daily. ??? cyanocobalamin 1,000 mcg Tablet Take 1,000 mcg by mouth daily. ??? ascorbate calcium (VITAMIN C ORAL) Take by mouth daily. ??? flaxseed oil 1,000 mg Capsule Take by mouth daily. ??? FOLIC ACID ORAL Take by mouth daily. ??? vitamin E acetate (VITAMIN E ORAL) Take by mouth daily. ??? aspirin 81 mg Tablet, Delayed Release (E.C.) Take 81 mg by mouth daily. ??? atorvastatin (LIPITOR) 20 mg Tablet Take 20 mg by mouth daily. ? ? triamcinolone (KENALOG) 0.1 % Cream Apply topically twice daily to trunk & extremities for two weeks at a time 80 g 5 No current facility-administered medications for this visit. Patient Active Problem List Diagnosis ??? Syncope and collapse One episode 11/2018 Holter: NSR, no bradycardia or AV block, rare APC and VPC, 2 brief SVT longest 6 beats ??? Anxiety ??? CAD (coronary artery disease) 2008 70% D1-> POBA, no other disease Stress echo 2013- 12.8 METS, HR 154, fatigue, no ST change, no WMA, no valve disease ??? Hyperlipidemia Coronary risk factors: Smoking: former Diabetes:no Hypercholesterolemia:yes Hypertension: no Family history of premature disease: no Family History Problem (# of Occurrences) Relation (Name,Age of Onset) No Known Problems (2) Mother, Father Cardiac tests: see problem list Social History Socioeconomic History ??? Marital status: Single Spouse name: Not on file ??? Number of children: Not on file ??? Years of education: Not on file ??? Highest education level: Not on file Social Needs ??? Financial resource strain: Not on file ??? Food insecurity - worry: Not on file ??? Food insecurity - inability: Not on file ??? Transportation needs - medical: Not on file ??? Transportation needs - non-medical: Not on file Occupational History ??? 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 Smoking status: Former Smoker ??? Smokeless tobacco: Never Used ??? Tobacco comment: 50 years ago Substance and Sexual Activity ??? Alcohol use: Yes Alcohol/week: 8.4 oz Types: 14 Glasses of wine per week ??? Drug use: Not Currently Comment: very infrequently ??? Sexual activity: Not on file Other Topics Concern ??? Not on file Social History Narrative ??? 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 General: WD, WN Skin: no rash HEENT: no xanthoma Neck: No JVD, HJR, or carotid abnormalities, thyroid benign Lungs: Clear Cor: RR, normal S1, S2. PMI not displaced. No murmur or gallop Abd: soft, no L/S/K enlargement or bruits Ext: Pulses preserved, equal bilaterally, no edema, cyanosis or clubbing Musculoskeletal: no muscle tenderness, no joint deformities Neuro: grossly nonfocal Psych: normal affect, appropriate EKG: SB 59, normal Lab data: BMP, CBC, TSH normal Assessment: 1) Syncope- likely vasovagal exacerbated by inadequate fluid and food intake. Reviewed need for better hydration. No murmur on exam and had echo 2013 without valve disease- no need to repeat. Holter without significant arrhythmias 2) ASCVD- asymptomatic- continue exercise and risk factor control 3) lipids- labs reportedly good- will track down Plan: 1) A discussion was held concerning the patient's chief complaints, the presumptive diagnosis(es) and the options for further evaluation and management. Reviewed the assessment above and the recommendations below in detail. 2) medical therapy - unchanged 3) follow up yearly documented in this encounter Plan of Treatment Upcoming Encounters Date Type Specialty Care Team Description 10/09/2022 Office Visit Neurology Joe Keys MD [facility] NEUROLOGY DEPT [place], [place] [address] [place] 01/27/2023 Office Visit Cardiology Brayan Garay MD [facility] [address] [place] [address] [place] documented as of this encounter Procedures Procedure Name Priority Date/Time Associated Diagnosis Comme nts ECG SCAN 01/13/2019 12:00 AM Results for this EDT procedure are i n the results section . documented in this encounter Results SCAN DOC: ECG (01/13/2019 12:00 AM EDT) Narrative 01/13/2019 12:00 AM EDT This result has an attachment that is no t available. Ordered by an unspecified provider. 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
--- OUTSIDE RECORDS SUMMARY | 2022-05-13 15:54 | XMS_ITS | Encounter Summary ---
:1945 Author Organization [facility] [place] [address] Care Team Providers Name Role Phone Richa Brand APRN Primary Care Provider [phone] Reason for Visit Reason Comments Dermatitis Consultation (Routine) - Closed Specialty Diagnoses / Procedures Referred By Contact Refer red To Contact Dermatology Diagnoses eczema Richa Brand APRN [facility] Dermatology [address] [place] [address] [place] [address] Fax: Referral ID Status Reason Start Date Expiration Date Visits V isits Requested Authorized Closed Consult, 03/24/2017 03/24/2018 1 1 [facility] Encounter Details Date Type Department Care Team Description 04/09/2017 Office Visit Dermatology at [facility] Wilmer Fernandez MD Nummular dermatitis [facility] [address] [place] [address] [facility] [phone] RD-DERMATOLOGY [place], [place] [address] Social History Tobacco Use Types Packs/Day Years Used Date Former Smoker Comments: 50 years ago Sex Assigned at Date Recorded Not on file documented as of this encounter Patient Instructions Patient InstructionsGermaine Dennis LPN - 04/09/2017 11:00 AM EDT Prescription: triamcinolone (KENALOG) 0.1 % Cream Apply topically twice daily to trunk & extremities for two weeks at a time, Disp-80 g, R-5 Reviewed triggers including colder weather and dry skin Products with natural ingredients only, I recommended coconut or sunflower oil to moisturize body with daily. Sensitive Skin Care You have been diagnosed with a condition that requires a sensitive skin care regimen. It is very important to follow this plan as outlined below. ?? Take short, cool showers. Use soap only where absolutely needed. Pat skin dry. ?? Apply triamcinolone cream to area of body twice daily for up to 14 days. ?? Immediately after bathing, apply moisturizing cream to body. ?? Recommend the following personal care products. They are are recommended by our clinic because they have been extensively tested and are least likely to cause distress to your skin. ?? Soap: Dove Unscented Bar Soap or Vanicream bar soap ?? Facial cleanser: CeraVe Foaming Facial Cleanser or CeraVe Hydrating Cleanser ?? Shampoo and Conditioner: Free&Clear shampoo, Free&Clear conditioner ?? Moisturizer: CeraVe cream, CeraVe lotion, CeraVe lite lotion, Vanicream cream ?? Laundry Detergent: ALL Free&Clear. Do not use fabric softener or dryer sheets. documented in this encounter Progress Notes Miguel A Fernandez MD - 04/09/2017 11:00 AM EDT DERMATOLOGY CONSULT NOTE Date of service: 04/09/2017 Chencho Mcgrath : 1945 Provider: Miguel A Fernandez MD Chief Complaint Patient presents with ??? Dermatitis The patient is seen at the request of Richa Brand, who instructed the patient to be seen for evaluation of above SKIN HX: No history of melanoma or non-melanoma skin cancer History of eczema since 1 months old HPI Chencho Mcgrath is a 71 y.o. year old male, new to me and to dermatology. Patient presents to the clinic today to discuss his eczema. He states that he has had eczema since about 3 months old. Over the years he has had little flare ups here and there that are mildly annoying. In the winter he flares and then with the spring weather his eczema resolves. In [address] [facility] to [place], was here for 3 years, he had a severe breakout on the scalp which left him with residual scarring. He saw 3 different dermatologists who did not know what the scalp diagnosis was. His scalp resolved spontaneously after 9 months. Patient has now been back in [place] for 3 years and is experiencing an strong re- occurrence over the last 6 weeks that manifested with severe itching, oozing and raised skin with in the oozing. He was using over the counter cortisone 10 with no improvement. He took warm Epson salt baths to help soothe itching. His PCP suggested using Eucerin cream, no improvement, then was prescribed triamcinolone 0.025% lotion which helped dramatically, about 90% improvement. Patient was berenice lying twice daily at fist but now has decreased to once daily as needed. Patient has a holistic approach to medicine and does not use traditional medication. He is concerned that the triamcinolone cream is an external application to an internal disruption. MEDS: No current outpatient prescriptions on file. No current facility-administered medications for this visit. ADR: Review of patient's allergies indicates not on file. ROS General: feeling well Skin: denies other skin complaints MEDICAL HISTORY: There is no problem list on file for this patient. 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 A total body skin exam except for the genitalia was performed. This includes examination of the skin of the face, ears, neck, chest, axillae, left and right upper and lower extremities, hands, feet, abdomen, back, and buttocks. The genitalia, perineum, and perianal areas were not examined. Significant skin findings: A. Circular thin pink eczematous plaques on the bilateral lower legs and a large plaque on the rightposterior shoulder and popliteal fossa ASSESSMENT/PLAN: A. 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 - Combined decision was made to treat symptoms with triamcinolone cream; refilled today - Reviewed triggers including colder weather and dry skin - For maintenance/prevention advised thorough and diligent sensitive skin care practices. Reviewed sensitive skin care: short luke-warm showers, minimal mild soap use only where needed, heavy moisturization immediately after and several other times daily. If patient would like to use natural ingredients only, I recommended coconut or sunflower oil to moisturize body with daily. Rx: Triamcinolone 0.1% cream 80g/5 refills - apply to the affected areas on the trunk and extremities BID for periods of 2 weeks at a time Follow up: PRN I am documenting this encounter acting as the scribe for and in the presence of Dr. Fernandez: GERMAINE DENNIS LPN and Latasha Calderon I performed the above scribed service and agree with the accuracy of the documentation in this encounter. Miguel A Fernandez MD Building Maintenance Engineer of Dermatology, Department of Surgery [facility] cc: Richa Brand APRN documented in this encounter Plan of Treatment Upcoming Encounters Date Type Specialty Care Team Description 10/09/2022 Office Visit Neurology Joe Keys MD [facility] NEUROLOGY DEPT [place], [place] [address] [place] 01/27/2023 Office Visit Cardiology Brayan Garay MD [facility] [address] [place] [address] [place] documented as of this encounter Visit Diagnoses Diagnosis Nummular dermatitis Contact dermatitis and other eczema, due to unspecified cause documented in this encounter Care Teams [place] Recovery Teacher Relationship Specialty Start Date End Date Richa Brand APRN PCP - General Family Medicine 5/22/17 [address] [place] [address] documented as of this encounter
--- OUTSIDE RECORDS SUMMARY | 2022-05-13 15:54 | XMS_ITS | Encounter Summary ---
:1945 Author Organization [facility] [place] [address] Care Team Providers Name Role Phone Richa Brand APRN Primary Care Provider [phone] Reason for Visit Reason Onset Date Comments TeleHealth 03/14/2021 Encounter Details Date Type Department Care Team Description 03/14/2021 Telephone [facility] [place] [facility] [place] [address] NEUROLOGY DEPT [phone] [place], [place] [address] ([place] Social History Tobacco Use Types Packs/Day Years Used Date Former Smoker Smokeless Tobacco: Never Used Comments: 50+ years ago Alcohol Use Standard Drinks/Week Comments Yes 14 (1 standard drink = 0.6 oz pure alcoh ol) Sex Assigned at Date Recorded Not on file documented as of this encounter Miscellaneous Notes Telephone Encounter - Monse Estevez RN - 03/14/2021 1:25 PM EDT Spoke with the patient by phone to review medications and allergies prior to their upcoming tele-appointment with the Neurology provider. Medication profile updated. documented in this encounter Plan of Treatment Upcoming Encounters Date Type Specialty Care Team Description 10/09/2022 Office Visit Neurology Joe Keys MD [facility] NEUROLOGY DEPT [place], [place] [address] [place] 01/27/2023 Office Visit Cardiology Brayan Garay MD [facility] [address] [place], [place] [address] [place] documented as of this encounter Visit Diagnoses Not on filedocumented in this encounter Care Teams Crimper Operator Relationship Specialty Start Date End Date Richa Brand APRN PCP - General Family Medicine 03/24/17 [address] [place] [address] documented as of this encounter
--- OUTSIDE RECORDS SUMMARY | 2022-05-13 15:54 | XMS_ITS | Encounter Summary ---
:1945 Author Organization [facility] [place] [address] Care Team Providers Name Role Phone SundayAnyaRicha Rin DON Primary Care Provider [phone] Encounter Details Date Type Department Care Team Description 04/23/2021 Laboratory Appointment Lab 3L Patricia Cory Numbness and tingling; [facility] Foot drop, right; [facility] Radicular pain [place] [id number] Social History Tobacco Use Types Packs/Day Years [...] 10/09/2022 Office Visit Neurology Joe Keys MD [facility] NEUROLOGY DEPT [place], [place] [address] (Wo rk) 01/27/2023 Office Visit Cardiology Brayan Garay MD [facility] [address] [place] [address] (Wo rk) documented as of this encounter Procedures Procedure Name Priority Date/Time Associated Comments Diagnosis IMMUNOGLOBULINS, Routine 04/23/2021 8:38 Results for this QUANTITATIVE AM EDT procedure are i n the results section. IMMUNOFIXATION Routine 04/23/2021 8:38 Results fo r this ELECTROPHORESIS AM EDT procedure ar e in the results section. HC PCH METHYLMALONIC Routine 04/23/2021 8:38 Numbness and Resu lts for this ACID AM EDT tingling procedure are in Foot drop, right the results Radicular pain of section. right lower extremity HC VENIPUNCTURE Routine 04/23/2021 8:38 Numbness and Results f or this AM EDT tingling procedure are in Foot drop, right the results Radicular pain of section. right lower extremity HC SERUM PROT. Routine 04/23/2021 8:38 Numbness and Results fo r this ELECTROPHORESIS AM EDT tingling procedure are in Foot drop, right the results Radicular pain of section. right lower extremity HC VITAMIN B12 SERUM Routine 04/23/2021 8:38 Numbness and Resu lts for this AM EDT tingling procedure are in Foot drop, right the results Radicular pain of section. right lower extremity COMPREHENSIVE METABOLIC Routine 04/23/2021 8:38 Numbness and R esults for this PANEL (NON-FASTING) AM EDT tingling procedure are in Foot drop, right the results Radicular pain of section. right lower extremity documented in this encounter Results Immunofixation Electrophoresis (04/23/2021 8:38 AM EDT) athologist Signature TOBY See Note [facility] Comment: TOBY shows no evidence of a monoclonal im munoglobulin. See scanned report. Dr. Sharon Kumar Specimen Anatomical Collection Method Collection Time Receive d Time (Source) Location / / Volume Laterality Blood Venous Draw / 04/23/2021 8:38 AM 04/23/20 9:01 Unknown EDT AM EDT Narrative This result has an attachment that is no t available. Resulting Agency Comment Spec In Lab Jacki Shah MD CHEMISTRY ORDERABLES Performing Organization Address City/State/ZIP Code [place] [address] Immunoglobulins, Quantitative (04/23/2021 8:38 AM EDT) athologist Signature IgG 1,029 700 - 1,600 [facility] mg/dL [facility] Comment: Pediatric Reference Intervals obtained f angel the [employer] Reference Interval project. http://www.[employer].ca/caliperp roject/index.html IgA 316 70 - 400 mg/dL [facility] IgM 60 40 - 230 mg/dL [facility] Specimen Anatomical Collection Method Collection Time Receive d Time (Source) Location / / Volume Laterality Blood Venous Draw / 04/23/2021 8:38 AM 04/23/20 9:01 Unknown EDT AM EDT Resulting Agency Comment Spec In Lab Jacki Shah MD CHEMISTRY ORDERABLES Performing Organization Address City/State/[place] [address] Comprehensive metabolic panel (non-fasting) (04/23/2021 8:38 AM EDT) athologist Signature Glucose Lvl 92 65 - 199 [facility] mg/dL [facility] Comment: Diabetes: >=200 mg/dL plus symp toms BUN 17 10 - 20 mg/dL [facility] Creatinine 0.97 0.80 - 1.50 mg/dL [facility] Sodium 138 135 - 145 mmol/L [facility] Potassium 4.4 3.5 - 5.0 mmol/L [facility] Comment: Please note: ??Patients with WBC >100,00 0 may have falsely elevated Potassium levels. ??For accurate Potassium quantif ication in these patients send serum separator tube (gold top) for subsequent determinations. ??Contact the Clinical Chemistry Laboratory if there are any qu estions. Chloride 104 98 - 107 mmol/L [facility] CO2 27 22 - 31 mmol/L [facility] Anion Gap 7 5 - 15 mmol/L [facility] Calcium 8.8 8.5 - 10.5 mg/dL [facility] Total Protein 6.8 6.1 - 8.0 gm/dL [facility] Albumin 4.0 3.2 - 5.2 gm/dL [facility] AST 23 0 - 39 unit/L [facility] ALT 18 0 - 55 unit/L [facility] Alk Phos 58 40 - 130 unit/L [facility] Total Bilirubin 0.6 0.2 - 1.3 mg/dL [facility] Estimated GFR 75 >=60 mL/min/1.73 m?? [facility] Comment: This patient? s estimated glomerular filtration rate (eGFR) is between 75 mL/min/1.73 m2 (patients with less muscl e mass per kg body weight) and 87 mL/min/1.73 m2 (patients with more muscl e mass per kg body weight) as determined by the CKD-EPI equation. Asse ssment of eGFR is not appropriate when creatinine concentrations are rapidly ch anging. For clinical decisions where creatinine clearance will affect therapy , a 24-hour urine creatinine clearance may be advised. Assignment of CKD stage 1 - 5 for patien ts with an eGFR near the transition point between stages may be based on cli nical assessment of muscle mass and symptoms in addition to eGFR. Specimen Anatomical Collection Method Collection Time Receive d Time (Source) Location / / Volume Laterality Blood 04/23/2021 8:38 AM 8:46 EDT AM EDT Resulting Agency Comment Spec In Lab Jacki Shah MD CHEMISTRY ORDERABLES Performing Organization Address City/State/ZIP Code [place] [address] Protein Electrophoresis, serum (04/23/2021 8:38 AM EDT) [facility] gist Method Time Signature Total Prot 6.4 6.1 - 8.0 [facility] Elec gm/dL [facility] Albumin Elect 4.09 3.60 - 6.00 [facility] gm/dL [facility] Alpha1-Globul 0.17 0.10 - 0.30 [place] in gm/dL [facility] Alpha2-Globul 0.74 0.40 - 0.90 [place] in gm/dL [facility] Beta Globulin 0.58 0.50 - 1.00 [place] gm/dL [facility] Gamma 0.83 0.50 - 1.30 [place] Globulin gm/dL [facility] M1 Band Comments None [place] Below Detected [facility] SPEP Comments See Note [place] [facility] Comment: Immunofixation (TOBY) and quantitative im munoglobulin (SEAN) testing will be performed on this sample per MD request. Specimen Anatomical Collection Method Collection Time Receive d Time (Source) Location / / Volume Laterality Blood 04/23/2021 8:38 AM 8:46 EDT AM EDT Narrative This result has an attachment that is no t available. Resulting Agency Comment Spec In Lab Jacki Shah MD CHEMISTRY ORDERABLES Performing Organization Address [facility] Phon e Number [address] Methylmalonic acid, serum (04/23/2021 8:38 AM EDT) [facility] Method Time Signature Methylmalonic Acid 0.12 <=0.40 [facility] O[facility] nmol/mL [facility] Comment: ADDITIONAL INFORMATIO N This test was developed and its performa nce characteristics determined by [facility] in a manner co nsistent with CLIA requirements. This test has not been hosea ared or approved by the U.S. Food and Drug Administration. Test Performed by: [facility] - [address] [address] Rn Quality: Sunny Dan M.D. Ph. D.; CLIA# [id number] Specimen Anatomical Collection Method Collection Time Receive d Time (Source) Location / / Volume Laterality Blood 04/23/2021 8:38 AM EDT 12:23 PM EDT Resulting Agency Comment Spec In Lab Jacki Shah MD CHEMISTRY ORDERABLES Performing Organization Address City/[facility] Phon e Number [address] Vitamin B12 (04/23/2021 8:38 AM EDT) athologist Signature Vitamin B-12 750 232 - 1,245 [facility] pg/mL [facility] Specimen Anatomical Collection Method Collection Time Receive d Time (Source) Location / / Volume Laterality Blood 04/23/2021 8:38 AM 8:46 EDT AM EDT Resulting Agency Comment Spec In Lab Jacki Shah MD CHEMISTRY ORDERABLES Performing Organization Address City/[facility]/ZIP Code Phon e Number [address] Vitamin B6 (04/23/2021 8:38 AM EDT) athologist Signature Vitamin B6 45 5 - 50 [facility] CORY mcg/L [facility] Comment: ADDITIONAL INFORMATIO N This test was developed and its performa nce characteristics determined by [facility] in a manner co nsistent with CLIA requirements. This test has not been hosea ared or approved by the U.S. Food and Drug Administration. Test Performed by: [place] [address] Rn Quality: Sunny Dan M.D. Ph. D.; CLIA# [id number] Specimen Anatomical Collection Method Collection Time Receive d Time (Source) Location / / Volume Laterality Blood 04/23/2021 8:38 AM 9:44 EDT AM EDT Resulting Agency Comment Spec In Lab Jacki Shah MD CHEMISTRY ORDERABLES Performing Organization Address City/State/[place] [address] documented in this encounter Visit Diagnoses Diagnosis Numbness and tingling Disturbance of skin sensation Foot drop, right Other acquired deformity of ankle and fo ot Radicular pain of right lower extremity Thoracic or lumbosacral neuritis or radi culitis, unspecified documented in this encounter Care Teams Obstetrics Teacher Relationship Specialty Start Date End Date Richa Brand APRN PCP - General Family Medicine 03/24/17 [address] [place] [address] documented as of this encounter
--- OUTSIDE RECORDS SUMMARY | 2022-05-13 15:54 | XMS_ITS | Encounter Summary ---
:1945 Author Organization [facility] [place] [address] Care Team Providers Name Role Phone Richa Brand DON Primary Care Provider [phone] Reason for Visit Reason Onset Date Comments Medication Refill 05/28/2021 Encounter Details Date Type Department Care Team Description 05/28/2021 Refill Neurology at [facility] Augusta Keys MD [facility] [place] [address] NEUROLOGY DEPT [phone] [place], [place] [address] (Wo rk) Social History Tobacco Use Types Packs/Day Years Used Date Former Smoker Smokeless Tobacco: Never Used Comments: 50+ years ago Alcohol Use Standard Drinks/Week Comments Yes 14 (1 standard drink = 0.6 oz pure alcoh ol) Sex Assigned at Date Recorded Not on file documented as of this encounter Miscellaneous Notes Telephone Encounter - Cristel Cazares RN - 05/28/2021 4:13 PM EDT Pt left VM on Rx line asking for Dr. Keys to give renewal rx for donepizil 5mg Med list notes donepezil 5 mg tab 2 tab at hs Last appt 03/15/21 Next appt 08/16/21 Rx prepped documented in this encounter Plan of Treatment Upcoming Encounters Date Type Specialty Care Team Description 10/09/2022 Office Visit Neurology Joe Keys MD [facility] NEUROLOGY DEPT [place], [place] [address] (Wo rk) 01/27/2023 Office Visit Cardiology Brayan Garay MD [facility] [place], [place] [address] (Wo rk) documented as of this encounter Visit Diagnoses Not on filedocumented in this encounter Care Teams Crm Solution Architect Relationship Specialty Start Date End Date Richa Brand APRN PCP - General Family Medicine 03/24/17 [address] [place] [address] documented as of this encounter
--- OUTSIDE RECORDS SUMMARY | 2022-05-13 15:54 | XMS_ITS | Encounter Summary ---
:1945 Author Organization [facility] [place] [address] Care Team Providers Name Role Phone Richa Brand APRN Primary Care Provider [phone] Reason for Visit Reason Comments Left Leg Pain Bilateral Foot Pain toe numbness Bilateral Hand Pain finger tip numbness Consultation (Routine) - Closed Specialty Diagnoses / Procedures Referred By Contact Refer red To Contact [facility] Diagnoses Numbness and tingling Foot drop, right Radicular pain of right lower extremity Spine- Lumbar stenosis w/ R foot drop and radicular sx/ MRI 04/23/21 in [facility] Jacki Shah, [facility] [address] [place] [phone] Fax: Referral ID Status Reason Start Date Expiration Date Visits V isits Requested Authorized [id number] Closed Consult, 05/27/2021 05/27/2022 3 3 Test & Treat Encounter Details Date Type Department Care Team Description 07/16/2021 Office Visit [facility] Kasie Cobian MD Lumbar spondylosis at [facility] [address] [place] [address] [place] [address] [phone] (Wo rk) Social History Tobacco Use Types Packs/Day Years Used Date Former Smoker Smokeless Tobacco: Never Used Comments: 50+ years ago Alcohol Use Standard Drinks/Week Comments Yes 14 (1 standard drink = 0.6 oz pure alcoh ol) Sex Assigned at Date Recorded Not on file documented as of this encounter Last Filed Vital Signs Vital Sign Reading Time Taken Comments Blood Pressure 137/61 07/16/2021 7:54 AM EDT Pulse 63 07/16/2021 7:54 AM EDT Temperature - - Respiratory Rate - - Oxygen Saturation - - Inhaled Oxygen Concentration - - Weight 68 kg (150 lb) 07/16/2021 7:54 AM EDT Height 172.7 cm (5' 8) 07/16/2021 7:54 AM EDT Body Mass Index 22.81 07/16/2021 7:54 AM EDT documented in this encounter Progress Notes Woody Cobian MD - 07/16/2021 8:00 AM EDT Chief complaint: Left foot numbness, right dorsiflexion weakness History of present illness: Mr. Mcgrath is a 76-year-old male whom I am seeing in consultation for Dr. Shah in regards to numbness in his left foot and a mild right foot drop. He has had these symptoms for approximately 1 year. He is not having any back or lower extremity pain. He does note that his right foot slaps a little bit after his been walking for a while, though this does not bother him much.The numbness in the left foot tends to be there constantly. Nothing tends to make the weakness or numbness better or worse. He denies constitutional symptoms or change in his bowel or bladder function.He has had no treatment for this. He has had no prior spinal surgery or prior spinal injections. Past medical history: Heart disease, anxiety, hyperlipidemia, syncope, shingles Past surgical history: Coronary stenting Medications and allergies were reviewed and are in ED H. Family history: None Social history: He is retired. He does not smoke and has a glass of wine or 2 daily. Review of systems: All negative except musculoskeletal as above. Physical exam Patient is 5 foot 8, 150 pounds, with a BMI of 22.8 General: Patient is comfortable, no acute distress Back: His back is nontender to palpation. He can flex 90 degrees and extend 20 degrees. Neurological exam: He walks with normal gait. He can toe walk. He has some difficulty heel walking on the right. Motor exam reveals 4/5 strength of his right ankle dorsiflexor with other motors 5/5. Diminished sensation in his left lateral and plantar foot. Reflexes are 2/4 at the right knee, 1/4 at the left knee, trace at the ankles. Straight leg raise negative bilaterally. He has no clonus. Hip exam: He has normal, painless range of motion of both hips. Vascular exam: He has palpable pulses bilaterally. Imaging: MRI of the lumbar spine from 04/23/2021 was reviewed. This demonstrates an apex right lumbarcurve with apex at L3. There is a grade 1 degenerative spondylolisthesis at L5-S1. There are significant degenerative changes with severe disc height loss at L1-L2, L2-L3, and L3-L4. At L2-L3, there ismoderate left-sided lateral recess stenosis. There is mild stenosis L3-L4. At L4-L5, there is moderate-severe right-sided foraminal narrowing. At L5-S1, there is mild central with moderate-severe lateral recess stenosis and severe bilateral foraminal narrowing. Assessment/plan: Mr. Mcgrath is a 76-year-old male who presents with about 1 year of right ankle dorsiflexion weakness and left foot numbness. He also has some ulnar-sided bilateral hand numbness. He is not having any back pain or lower extremity pain. He has multiple levels of degenerative change in thelumbar spine.The right-sided foraminal narrowing at L4-L5 and L5-S1 could be contributing to the right dorsiflexion weakness, however, it is somewhat atypical in that he has not had any lower extremityradicular pain. He is going to undergo EMGs and nerve conduction studies with Dr. Shah in the nearture, which I feel is a reasonable next step. Given his lack of back or lower extremity pain, I donot think he needs any intervention for the lumbar spine. I encouraged him to continue with his walking and yoga. In the event that he were to develop back or lower extremity pain, we could see him back with lumbar x- rays prior to the visit. documented in this encounter Plan of Treatment Upcoming Encounters Date Type Specialty Care Team Description 10/09/2022 Office Visit Neurology Joe Keys MD [facility] NEUROLOGY DEPT [place], [place] [address] (Wo rk) 01/27/2023 Office Visit Cardiology Brayan Garay MD [facility] [place], [place] [address] (Wo rk) Scheduled Referrals Name Type Priority Associated Diagnoses Order S chedule Referral to Pain Outpatient Referral Routine Numbness and Orde red: [facility] tingling 05/27/2021 (Internal only) Foot drop, right Radicular pain of right lower extremity documented as of this encounter Visit Diagnoses Diagnosis Lumbar spondylosis Lumbosacral spondylosis without myelopat hy documented in this encounter Care Teams Rn Procedures Relationship Specialty Start Date End Date Richa Brand, PERFORATOR OPERATOR PCP - General Family Medicine 03/24/17 [address] [place] [address] documented as of this encounter
--- OUTSIDE RECORDS SUMMARY | 2022-05-13 15:54 | XMS_ITS | Encounter Summary ---
:1945 Author Organization [facility] [place] [address] Care Team Providers Name Role Phone Richa Brand DON Primary Care Provider [phone] Encounter Details Date Type Department Care Team Description 07/31/2021 External Results Neurology at [facility] Jacki Shah, [facility] [place] [address] [facility] [phone] NEUROLOGY DEPT [place], [place] [address] (Wo rk) Social History Tobacco [...] 10/09/2022 Office Visit Neurology Joe Keys MD [facility] NEUROLOGY DEPT [place], [place] [address] (Wo rk) 01/27/2023 Office Visit Cardiology Brayan Garay MD [facility] [address] [place] [address] (Wo rk) documented as of this encounter Procedures Procedure Name Priority Date/Time Associated Diagnosis Comme nts EMG SCAN Routine 07/25/2021 documented in this encounter Results Scan Doc: EMG (07/25/2021) Narrative This result has an attachment that is no t available. Jacki Shah MD MEDIA MGR SCAN EXT ORDR/RSLT documented in this encounter Visit Diagnoses Not on filedocumented in this encounter Care Teams Candy Spreader Helper Relationship Specialty Start Date End Date Richa Brand, SUPERINTENDENT AMMUNITION STORAGE PCP - General Family Medicine 03/24/17 [address] [place] [address] documented as of this encounter
--- OUTSIDE RECORDS SUMMARY | 2022-05-13 15:54 | XMS_ITS | Encounter Summary ---
:1945 Author Organization [facility] [place] [address] Care Team Providers Name Role Phone Richa Brand APRN Primary Care Provider [phone] Reason for Referral Diagnostic Test (Routine) - Closed Specialty Diagnoses / Procedures Referred By Contact Refer red To Contact Radiology Diagnoses Numbness and tingling Foot drop, right Radicular pain of right lower extremity Jacki Martinez MD [facility] Rad Mri Procedures MRI Lumbar Spine wo Contrast (Generic) [facility] [place] [address] [place] [address] Referral ID Status Reason Start Date Expiration Date Visits V isits Requested Authorized [id number] Closed Specialty 04/09/2021 10/09/2022 1 1 Service Requested Reason for Visit Consultation (Routine) - Closed Specialty Diagnoses / Procedures Referred By Contact Refer red To Contact Neurology Diagnoses Memory loss Idiopathic peripheral neuropathy Augusta Keys MD Lawson, Victoria H, MD [facility] NEUROLOGY DEPT [place] [address] [place] [address] Fax: Referral ID Status Reason Start Date Expiration Date Visits V isits Requested Authorized [id number] Closed Consult, 01/11/2021 01/11/2022 1 1 Test & Treat Encounter Details Date Type Department Care Team Description 04/09/2021 Procedure visit Neurology at [facility] Jacki Martinez Numbness and tingling; [facility] MD Rin Foot drop, right; [facility] Radicular pain [place] [address] NEUROLOGY DEPT [phone] [place], [place] [address] Social History Tobacco Use Types Packs/Day Years Used Date Former Smoker Smokeless Tobacco: Never Used Comments: 50+ years ago Alcohol Use Standard Drinks/Week Comments Yes 14 (1 standard drink = 0.6 oz pure alcoh ol) Sex Assigned at Date Recorded Not on file documented as of this encounter Last Filed Vital Signs Vital Sign Reading Time Taken Comments Blood Pressure 124/51 04/09/2021 7:55 AM EDT Pulse 59 04/09/2021 7:55 AM EDT Temperature - - Respiratory Rate - - Oxygen Saturation - - Inhaled Oxygen Concentration - - Weight 72.6 kg (160 lb) 04/09/2021 7:55 AM EDT reported Height 165.1 cm (5' 5) 04/09/2021 7:55 AM EDT reported Body Mass Index 26.63 04/09/2021 7:55 AM EDT documented in this encounter Progress Notes Jacki Martinez MD - 04/09/2021 8:00 AM EDT Subjective: Chencho Mcgrath is a 75 y.o. male referred by Dr. Keys for evaluation of possible neuropathy. Referral request: new patient visit and EMG History was derived from both the patient and his who accompanies him to the visit. He describes reduction of his sensation to 75% of normal particularly in the 4th and 5th digits of both hands.This is symmetric, unassociated with strength loss and has been present for months. He has left leg alteration of sensation - he describes this as a feeling of tightness in the back ofthe thigh on the left particularly when he puts the leg on a stretch. He relates this possibly to anepisode of shingles in the past - this has been present months to a year; he is predominantly aware of it during yoga. No precipitant other than the shingles; this manifested as a classic rash. No back or neck pain. He describes a general fatigue more recently; this is controlled with judicious napping/rest (6-9 months). This however is no a drowsy feeling as much as loss of energy. He describes restlessness in his legs at night; this is diminished - this predates the shingles. His balance is off; foot slap on the right (relatively recently); he hasn't caught his toe or tripped. Numbness in the toes is bilateral. This occurred coincident with the hands. He is more clumsy than he has been in the past although he would not describes himself as generally clumsy. This is a greater tendency to knock objects over. Vision is good. No ptosis. No voice changes. No trouble with chewing or swallowing. His brother has vascular dementia. He was also an alcoholic as was his mother. His father was very healthy prior to passing away from a brain tumor. No indices of neuropathy. His daughter is an RN in the trauma unit; she has no trouble with her feet. Outside reports reviewed: lab reports, office notes and electrodiagnostic results - original data was no reviewed. I reviewed notes from Dr. Keys and notes from outside providers reporting electrodiagnostic study consistent with median and ulnar neuropathy but did not have actual study to review the data. I independently reviewed MRI of the brain. Per my independent review, the findings are consistent with essentially normal study. Serologic studies reviewed: RF, KENDALL, ESR, Lyme neg SPEP, HgbA1C normal per outside notes. Patient's medications, allergies, past medical, surgical, social and family histories were reviewed and updated as appropriate. Objective: Physical Exam: BP 124/51 Pulse 59 Ht 165.1 cm (5' 5) Comment: reported Wt 72.6 kg (160 lb) Comment: reported BMI 26.63 kg/m?? Appearance: The patient is a healthy-appearing male who appears of stated age and comes to his visitaccompanied by his . he appears well developed and well nourished. Extremities: no foot or skeletal deformities, color and temperature symmetric and normal Mental status: The patient is alert and calm with MS relatively intact to detailed questioning regarding his history. There is some disagreement regarding historical details, particularly time course, of his symptoms with his . He is otherwise however articulate, well spoken and able to provide a cogent history Cranial nerves: PERRL, no nystagmus, EOMI without reported diplopia. Funduscopy examination is normal. Facial movements are normal with full eyelid closure. There is no eyelid myotonia or Maged's twitch. Hearing is reduced to finger rub right greater than left. Jaw movements are normal. Head movementsare normal. Tongue protrudes in the midline and shows no atrophy or fasciculations. No evidence of dysphonia or hoarseness of voice. Motor: NE NF SA EE EF WE WF FA FF Dewayne Right nt nt 5 5 5 5 5 4+ 5 4+ Left nt nt 5 5 5 5 5 5- 5 4+ Bilateral Dupuytren's contractures HF HE KE KF HAB HADD ADF APF I E ToeF TFan Right 5 nt 5 5 nt nt 5 5 5 5 nt nt Left 5 nt 5 5 nt nt 5 5 5 5 nt nt There is no atrophy or fasciculations. There is no myoclonus, tremor, change in tone, or drift. Sensory: Vibration: Ltoe 4 Rtoe 3 LMM [...] n. = lateral foot / altered bilaterally Proprioception: Preserved proximally Coordination: No ataxia Gait and station: Able to rise from a seated position without the use of his arms. Normal stance; slight foot drop on the right with walking; he did not rise is completely on the right when standing ontoes and had difficulty lifting his right foot when standing on heels. Romberg negative but with significant sway. Tendon reflexes: biceps triceps BR patellar AJ Plantars Right 1 tr tr 2 0 down Left 1 tr tr 1 0 down Assessment: Chencho Mcgrath is a 75 y.o. male referred for neuromuscular consultation by Dr. Keys, who sees him for cognitive change. We were able to identify 3 separate clinical entities: 1. Distal dysesthesias in the feet suspicious for generalized neuropathy. 2. Symmetric dysesthesias involving the fourth and fifth digits of both hands; this is suspicious for entrapment neuropathies rather than a generalized neuropathy and would suggest ulnar localization. He does not have brisk reflexes that would suggest for instance a central C8 level disc but if his mata ctrodiagnostic study is negative this is something I would keep in the differential. 3. Right foot drop/left radicular pain: I suspect this reflects lumbar degenerative disc disease. Electrodiagnostic study will be to evaluate for this. I have also recommended radiologic correlation with MRI of the lumbar spine. Plan: 1. MRI lumbar, coordinated with EMG 2. EMG to evaluate for neuropathy, upper extremity entrapment neuropathy (ulnar), bilateral lower extremity radiculopathy 3. Serologic studies as noted below: Orders Placed This Encounter Procedures ??? MRI Lumbar Spine wo Contrast (Generic) ??? Vitamin B6 ??? Vitamin B12 ??? Methylmalonic acid, serum ??? Protein Electrophoresis, serum ??? Comprehensive metabolic panel (non-fasting) Follow-up for electrodiagnostic study. JACKI MARTINEZ I spent 60 minutes in face-face time with the patient, chart and test review, ordering testing/drugs, coordination of care and documentation. documented in this encounter Plan of Treatment Upcoming Encounters Date Type Specialty Care Team Description 10/09/2022 Office Visit Neurology Joe Keys MD [facility] NEUROLOGY DEPT [place], [place] [address] (Wo rk) 01/27/2023 Office Visit Cardiology Brayan Garay MD [facility] [address] [place], [place] [address] (Wo rk) documented as of this encounter Results Comprehensive metabolic panel (non-fasting) (04/23/2021 8:38 AM EDT) P athologist Signature Glucose Lvl 92 65 - 199 [facility] mg/dL [facility] Comment: Diabetes: >=200 mg/dL plus symp toms BUN 17 10 - 20 mg/dL [facility] Creatinine 0.97 0.80 - 1.50 mg/dL [facility] Sodium 138 135 - 145 mmol/L [facility] Potassium 4.4 3.5 - 5.0 mmol/L [facility] Comment: Please note: ??Patients with WBC >100,00 0 may have falsely elevated Potassium levels. ??For accurate Potassium quantif ication in these patients send serum separator tube (gold top) for subsequent determinations. ??Contact the Clinical Chemistry Laboratory if there are any qu estions. Chloride 104 98 - 107 mmol/L [facility] CO2 27 22 - 31 mmol/L [facility] Anion Gap 7 5 - 15 mmol/L [facility] Calcium 8.8 8.5 - 10.5 mg/dL [facility] Total Protein 6.8 6.1 - 8.0 gm/dL [facility] Albumin 4.0 3.2 - 5.2 gm/dL [facility] AST 23 0 - 39 unit/L [facility] ALT 18 0 - 55 unit/L [facility] Alk Phos 58 40 - 130 unit/L [facility] Total Bilirubin 0.6 0.2 - 1.3 mg/dL [facility] Estimated GFR 75 >=60 mL/min/1.73 m?? [facility] Comment: This patient? s estimated glomerular [...] Resulting Agency Comment Spec In Lab Jacki Martinez MD CHEMISTRY ORDERABLES Performing Organization Address City/State/ZIP [place] [address] Protein Electrophoresis, serum (04/23/2021 8:38 AM EDT) [facility] gist Method Time Signature Total Prot 6.4 6.1 - 8.0 [facility] Elec gm/dL [facility] Albumin Elect 4.09 3.60 - 6.00 [facility] gm/dL [facility] Alpha1-Globul 0.17 0.10 - 0.30 [facility] in gm/dL [facility] Alpha2-Globul 0.74 0.40 - 0.90 [facility] in gm/dL [facility] Beta Globulin 0.58 0.50 - 1.00 [facility] gm/dL [facility] Gamma 0.83 0.50 - 1.30 [facility] Globulin gm/dL [facility] M1 Band Comments None [facility] Below Detected [facility] SPEP Comments See Note [facility] Comment: Immunofixation (TOBY) and quantitative im munoglobulin (SEAN) testing will be performed on this sample per MD request. Specimen Anatomical Collection Method Collection Time Receive d Time (Source) Location / / Volume Laterality Blood 04/23/2021 8:38 AM 8:46 EDT AM EDT Narrative This result has an attachment that is no t available. Resulting Agency Comment Spec In Lab Jacki Martinez MD CHEMISTRY ORDERABLES Performing Organization Address City/[facility]/ZIP Code Phon e Number [address] Methylmalonic acid, serum (04/23/2021 8:38 AM EDT) Patholo gist Method Time Signature Methylmalonic Acid 0.12 <=0.40 [facility] nmol/mL [facility] Comment: ADDITIONAL INFORMATIO N This test was developed and its performa nce characteristics determined by [facility] in a manner co nsistent with CLIA requirements. This test has not been hosea ared or approved by the U.S. Food and Drug Administration. Test Performed by: [facility] [place] [address] News Video Editor: Sunny Dan M.D. Ph. D.; CLIA# [id number] Specimen Anatomical Collection Method Collection Time Receive d Time (Source) Location / / Volume Laterality Blood 04/23/2021 8:38 AM EDT 12:23 PM EDT Resulting Agency Comment Spec In Lab Jacki Martinez MD CHEMISTRY ORDERABLES Performing Organization Address City/[facility]/ZIP Code Phon e Number [address] Vitamin B12 (04/23/2021 8:38 AM EDT) P athologist Signature Vitamin B-12 750 232 - 1,245 [facility] pg[facility]mL [facility] Specimen Anatomical Collection Method Collection Time Receive d Time (Source) Location / / Volume Laterality Blood 04/23/2021 8:38 AM 8:46 EDT AM EDT Resulting Agency Comment Spec In Lab Jacki Martinez MD CHEMISTRY ORDERABLES Performing Organization Address City/[facility]/[place]IP [place] [address] Vitamin B6 (04/23/2021 8:38 AM EDT) athologist Signature Vitamin B6 45 5 - 50 [facility] Comment: ADDITIONAL INFORMATIO N This test was developed and its performa nce characteristics determined by [facility] in a manner co nsistent with CLIA requirements. This test has not been hosea ared or approved by the U.S. Food and Drug Administration. Test Performed by: [facility] [address] [address] News Video Editor: Sunny Dan M.D. Ph. D.; CLIA# [id number] Specimen Anatomical Collection Method Collection Time Receive d Time (Source) Location / / Volume Laterality Blood 04/23/2021 8:38 AM 9:44 EDT AM EDT Resulting Agency Comment Spec In Lab Jacki Martinez MD CHEMISTRY ORDERABLES Performing Organization Address City/State/ZIP Code Phon e Number [address] MRI Lumbar Spine wo Contrast (Generic) (04/23/2021 [...] who have questions please contact the health medicare sales executive that requested your imaging first. ? Electronically signed by: Belinda Kwan MD, [facility] ([phone]), at 04/23/2021 8:48 AM Narrative 04/23/2021 8:48 [...] ho have questions please contact the health medicare sales executive that requested your imaging first. Electronically signed by: Belinda Kwan MD, [facility] ([phone]), at 04/23/2021 8:48 AM Jacki Martinez MD IMG MRI ORDERABLES documented in this encounter Visit Diagnoses Diagnosis Numbness and tingling Disturbance of skin sensation Foot drop, right Other acquired deformity of ankle and fo ot Radicular pain of right lower extremity Thoracic or lumbosacral neuritis or radi culitis, unspecified Numbness and tingling Disturbance of skin sensation Foot drop, right Other acquired deformity of ankle and fo ot Radicular pain of right lower extremity Thoracic or lumbosacral neuritis or radi culitis, unspecified documented in this encounter Care Teams 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
--- OUTSIDE RECORDS SUMMARY | 2022-05-13 15:54 | XMS_ITS | Encounter Summary ---
:1945 Author Organization [place] [address] Care Team Providers Name Role Phone Richa Brand APRN Primary Care Provider [phone] Reason for Referral Consultation (Routine) - Closed Specialty Diagnoses / Procedures Referred By Contact Refer red To Contact Neurology Diagnoses Memory loss Idiopathic peripheral neuropathy Augusta Keys MD Lawson, Victoria H, MD [facility] NEUROLOGY DEPT NEUROLOGY DEPT [place], [place] [id number] [place] [phone] Fax: Referral ID Status Reason Start Date Expiration Date Visits V isits Requested Authorized [id number] Closed Consult, 01/11/2021 01/11/2022 1 1 Test & Treat Reason for Visit Consultation (Routine) - Closed Specialty Diagnoses / Procedures Referred By Contact Refer red To Contact Neurology Diagnoses Other amnesia Hereditary and idiopathic neuropathy, unspecified Richa Brand APRN [facility] Neurology 3c [address] [place] [address] [place] [address] Fax: Referral ID Status Reason Start Date Expiration Date Visits V isits Requested Authorized [id number] Closed Consult, Test 09/04/2020 09/04/2021 6 6 [facility] PCP Updated and/or Approved Encounter Details Date Type Department Care Team Description 01/11/2021 Office Visit Neurology at [facility] Augusta Keys, Memory loss; [facility] [place] [address] NEUROLOGY DEPT [phone] [place], [place] [address] (Wo rk) Social History Tobacco Use Types Packs/Day Years Used Date Former Smoker Smokeless Tobacco: Never Used Comments: 50 years ago Alcohol Use Standard Drinks/Week Comments Yes 14 (1 standard drink = 0.6 oz pure alcoh ol) Sex Assigned at Date Recorded Not on file documented as of this encounter Progress Notes Augusta Keys MD - 01/11/2021 8:30 AM EST Images from the original note were not included. Neurology [facility] New patient consultation Chencho Mcgrath is a 75 y.o. male here for evaluation of cognitive changes. He is seen in consultation at the request of Lennie Brand APRN. He is with his partner, Monse. He has noticed cognitive changes for the past 2+ years, and the changes have been slowly progressively getting worse. He says that he forgets the names of people, he forgets what has is done over the course of the day. Monse mentions concerns about driving. He has made wrong turns, he has felt disoriented in familiar locations, and notes that he has been making riskier decisions while driving. She seen him drive over the divider line. He does tend to forget conversations in their details over the course of several hours. She has also noticed that he has difficultywith multistep tasks, and tasks that should be relatively familiar to him or simple. For example, she gave him the task of labeling stickers and then attaching them to a cooler, and he could not figureout how to do it. She had also asked him to pack some dishes prior to the move, and he felt he couldnot do it alone. There seems to be some problem with planning and organization. He has more problemswith word retrieval. Monse noticed that he has had trouble figuring out how to use the remote contr ol. She notes that he is knocking things over more often, dropping things. His balance has changed. He seems to have some slapping down of the right foot. He has a peripheral neuropathy that is undergoing some work-up with a neurologist in [place]. He has had a nerve conduction study of the upper extremities that revealed an ulnar and median neuropathy, but the lower extremities have not been studied yet. The neurologist also checked SPEP, hemoglobin A1c and these were normal. He does not have afamily history of neuropathy, but there are mentions of a hereditary neuropathy in the outside neurology notes. While he is a very healthy person, actively doing yoga, meditating, and carrying out a vegetarian diet, he does have a history of coronary artery disease for which he is on aspirin and a statin, he hasdiet controlled hypertension, mildly elevated cholesterol. Per review of notes, he was involved withsome use of hallucinogens decades ago. No history of alcoholism, drinks an occasional glass of wine.He has a brother, paternal grandfather both of whom had dementia, both were alcoholics. They were diagnosed with vascular dementia. He has no history of hallucinations, no history of a REM sleep behavior disorder. He has a history of shingles, and he associates the onset of shingles with his cognitive symptoms and wonders what the relationship is. He and his partner noticed fluctuations on a daily basis for some days he will feel alert and more cognitively intact, and other days where he will feel more fatigued and confused. His sense of smell has been impaired to an extent for as long as they have known each other, which is 14 years. He has not lost weight. Activities of daily living: He has a harder time keeping track of upcoming events. Work up has included an MRI, and I only have a report that there were atrophic changes and small vessel ischemic changes, c/w age. TSH, B12, SPEP, A1C normal. MoCAs done in 2019 were scored at 21 and 20, with loss of 5 pts for delayed recall, and points for visual spatial and executive function. Patient Active Problem List Diagnosis Code ??? Syncope and collapse R55 ??? Anxiety F41.9 ??? CAD (coronary artery disease) I25.10 ??? Hyperlipidemia E78.5 No Known Allergies Current Outpatient Medications on File Prior to Visit Medication Sig Dispense Refill ??? atorvastatin (Lipitor) 20 mg Tablet Take 1 tablet by mouth daily. 90 tablet 3 ??? TURMERIC ORAL Take 1 capsule by mouth. ??? busPIRone (BUSPAR) 10 mg Tablet Take 10 mg by mouth 2 times daily. ??? triamcinolone (KENALOG) 0.1 % Cream Apply twice daily to eczematous rash areas. 80 g 1 ??? calcium carbonate (CALCIUM 500 ORAL) Take [...] (E.C.) Take 81 mg by mouth daily. No current facility-administered medications on file prior to visit. Social and family history are detailed in the HPI Review of Symptoms: A 12 point review of systems was performed and was negative except for that mentioned in the HPI. Physical and neurological examination: General: NAD, well nourished Skin: No rashes or scars noted Psychiatry: Mood and affect are appropriate. Speech is fluent and appropriate, comprehension fully intact. Occasional problems with word retrieval. Version 7.3 score was 19 out of 30. He lost a point for the cylinder copy, 3 points for the clock draw. He lost 1 point for repetition, 1 point for abstraction, 5 points for delayed recall. He did recognize all 5 words with the multiple-choice cueing. Cranial nerves: extra-ocular movements intact, pupils equal and reactive to light, face and smile are symmetric, no dysarthria. Coordination and gait: He has somewhat of a slapping of the right foot when walking, he scissors hislegs at times, narrow base. Finger to nose intact. Mild bilateral postural tremor of the hands. Normal fine motor movements. Sways on romberg testing. Sensory: He seems to have a reduction in perception of pinprick and vibration in a proximal to distal gradient, it is worse on the left side, and somewhat patchy. Musculoskeletal: Normal power throughout all muscle groups, with the exception of mild weakness of the right foot in dorsiflexion. Normal tone and normal range of motion. There is atrophy of the thenareminence, atrophy of the distal lower legs. His arches appear normal. Reflexes: DTRs are symmetric and trace to 1 throughout. He appears to have some arthritis with an ulnar deviation of the fingers, and notes that his grand daughter also has arthritis. Assessment and plan: Chencho Mcgrath is a 75 y.o. male here for evaluation of cognitive changes. Cognitive changes: By history, and on brief office cognitive testing, there are deficits in executive function, visuospatial function, language (semantic), and recall memory, with intact recognition. attention, and orientation. He meets criteria for MCI, but may be on the cusp of very mild dementia. The differential at this point would be Alzheimer's disease vs cerebrovascular disease (vascular cognitive impairment). We will proceed with the work up for potentially treatable causes. He has had a normal B12 level at some point, and a normal TSH. Because he has both a neuropathy of unclear etiology and cognitive changes, we will check RF, KENDALL, ESR, Lyme. As mentioned earlier, A1C, SPEP, B12, TSH have been done. I will also refer him for an EMG and consultation with one of our neuromuscular specialists. I may set him up for CSF studies at some point - this may be helpful in identifying the etiology of his neuropathy and his cognitive decline. I would want to check for elevated protein and send out the Moni ADMARK 177 test for Alzheimer's. I am unsure of the relationship to shingles, but will order CSF VZV. He's had an MRI brain that I will have pushed to [employer] for personal review. We should meet again in 2-3 months after his consultations, etc, to discuss next steps (CSF vs PET scan) 80 minutes were spent face to face with the patient and the family, and at least 45 minutes spent ondirect education and supportive counseling, education on memory loss, the diagnosis and management, and coordination of care. documented in this encounter Plan of Treatment Upcoming Encounters Date Type Specialty Care Team Description 10/09/2022 Office Visit Neurology Joe Keys MD [facility] [address] CASE DEPT [place], [place] [address] (Wo rk) 01/27/2023 Office Visit Cardiology Brayan Garay MD [facility] [address] [place], [place] [address] (Wo rk) Scheduled Referrals Name Type Priority Associated Diagnoses Order S chedule Referral to Outpatient Referral Routine Memory loss Ordered: Neurology Idiopathic 01/11/2021 peripheral neuropathy documented as of this encounter Procedures Procedure Name Priority Date/Time Associated Comments Diagnosis HC RHEUMATOID FACTOR Routine 01/11/2021 10:20 Memory los s Results for this AM EST Idiopathic procedure are i n peripheral the results neuropathy section. HC LYME DISEASE, RALPH Routine 01/11/2021 10:19 Memory l oss Results for this AM EST Idiopathic procedure are i n peripheral the results neuropathy section. HC PARTIAL Routine 01/11/2021 10:19 Memory loss Results for this THROMBOPLASTIN TIME AM EST Idiopathic procedur e are in peripheral the results neuropathy section. ESR-SEDIMENTATION Routine 01/11/2021 10:19 Memory los s Results for this RATE, BLOOD AM EST Idiopathic procedure are i n peripheral the results neuropathy section. HC PROTHROMBIN TIME Routine 01/11/2021 10:19 Memory loss Results for this AM EST Idiopathic procedure are i n peripheral the results neuropathy section. HC VENIPUNCTURE Routine 01/11/2021 10:19 Memory loss Results for this AM EST Idiopathic procedure are i n peripheral the results neuropathy section. HC PCH ANATITRE Routine 01/11/2021 10:19 Memory loss Results for this (ANDPATTERN) AM EST Idiopathic procedure are i n peripheral the results neuropathy section. documented in this encounter Results Rheumatoid factor, quant (01/11/2021 10:20 AM EST) P athologist Signature RF <10 <=14 IU/mL [facility] Specimen Anatomical Collection Method Collection Time Receive d Time (Source) Location / / Volume Laterality Blood specimen 01/11/2021 10:20 1 (specimen) AM EST 10:57 AM EST Resulting Agency Comment Spec In Lab Augusta Keys MD IMMUNOLOGY ORDERABLES Performing Organization Address City/State/[place] [address] Platelet count (01/11/2021 10:19 AM EST) P athologist Signature Platelets 220 145 - 357 [facility] x10(3)/[facility] LABORATORY Plat Immature 2.3 0.0 - 7.4 [facility] % % [facility] Comment: Limitation of the Immature Platelet Frac tion (IPF)-May be less reliable when the platelet count is less than 78n158/u L due to statistical imprecision. The IPF value provides an assessment of the Bone Marrow production status. ??It is useful in differentiating Thrombocyto penia caused by platelet destruction/consumption versus decreased production. It also helps to determine the imminent release of platelets and ca n be therefore a helpful parameter in Chemotherapy and Bone marrow transplant patients. ELEVATED IPF value: ?? When the bone marrow is in a state of over production such as when increased destruction and consumption are the unde rlying issue. ?? When the marrow is recovering post ch emotherapy or bone marrow transplant. LOW to NORMAL IPF value: ?? When the bone marrow in not respondin g and is in a decreased state of production. References: [employer] The Clinical Value of the Immature Platelet Fraction (IPF) in Cell Recovery Document Number [id number] 04/2011 [employer] The Role of the Imm ature Platelet Fraction (IPF) in the Differential Diagnosis of Thrombocytopen ia, Document [id number] V05 P05 Specimen Anatomical Collection Method Collection Time Receive d Time (Source) Location / / Volume Laterality Blood specimen 01/11/2021 10:19 1 (specimen) AM EST 10:57 AM EST Resulting Agency Comment Spec In Lab Augusta Keys MD HEMATOLOGY ORDERABLES Performing Organization Address City/State/ZIP Code Phon e Number [address] APTT (01/11/2021 10:19 AM EST) athologist Signature PTT 29 25 - 37 sec [facility] Comment: The PTT is NOT appropriate for heparin m onitoring. Use the Anti-Xa level for heparin monitoring (HEP UFH) or LMWH mon itoring (HEP LMW). A PTT less than 37 seconds generally indicates adequate hem ostasis. Specimen Anatomical Collection Method Collection Time Receive d Time (Source) Location / / Volume Laterality Blood specimen 01/11/2021 10:19 1 (specimen) AM EST 10:57 AM EST Resulting Agency Comment Spec In Lab Augusta Keys MD HEMATOLOGY ORDERABLES Performing Organization Address City/[facility] Phon e Number [address] Prothrombin Time (01/11/2021 10:19 AM EST) athologist Signature PT 10.8 9.4 - 12.5 [facility] LABORATORY INR 1.0 [facility] Comment: An INR <2.0 indicates adequate procoagul ant activity for hemostasis in most patients without underlying bleeding dis orders, though the INR may not adequately reflect hemostatic capacity i n patients with liver disease and synthetic impairment. The recommended ta rget INR range for therapeutic anticoagulation is 2.0 ? 3.0 for most applications, though lower and higher ranges may be appropriate depending on c linical circumstances. Specimen Anatomical Collection Method Collection Time Receive d Time (Source) Location / / Volume Laterality Blood specimen 01/11/2021 10:19 1 (specimen) AM EST 10:57 AM EST Resulting Agency Comment Spec In Lab Augusta Keys MD HEMATOLOGY ORDERABLES Performing Organization Address City/[facility]/[place] [address] Lyme IgG & IgM Antibody (01/11/2021 10:19 AM EST) athologist Signature Lyme Screening Neg Neg [facility] LABORATORY Specimen Anatomical Collection Method Collection Time Receive d Time (Source) Location / / Volume Laterality Blood specimen 01/11/2021 10:19 1 8:16 (specimen) AM EST AM EST Resulting Agency Comment Spec In Lab Augusta Keys MD IMMUNOLOGY ORDERABLES Performing Organization Address City/[facility]/[place] [address] Sedimentation rate (01/11/2021 10:19 AM EST) P athologist Signature Sed Rate 18 3 - 46 [facility] mm/hr [facility] Comment: Effective October 13, 2019 new capillar y photometric technology has resulted in a change in reference ranges. It is r ecommended that each ESR result be reviewed with its own age appropriate re ference range. Specimen Anatomical Collection Method Collection Time Receive d Time (Source) Location / / Volume Laterality Blood specimen 01/11/2021 10:19 1 (specimen) AM EST 10:57 AM EST Resulting Agency Comment Spec In Lab Augusta Keys MD HEMATOLOGY ORDERABLES Performing Organization Address City/[facility]/ZIP Code Phon e Number [address] KENDALL ([facility]/CGP/APD/NLH) (01/11/2021 10:19 AM EST) Component Value Ref Test Analysis Performed At Patholo gist Range Method Time Signature Antinuclear Ab SOHA Test ?Result ? Flag ??Unit ??RefValue [facility] Antinuclear Ab, HEp-2 ? <1:80 (Negative) ? <1:80 (Negative) HOSPITAL ??Substrate, S LABORATORY ? ADDITIONAL INFORMATION ------ ?Method: Immunofluorescence using HEp-2 cellular substr ate. ?Test Performed by: ?[facility] ?[address] [place] [address] ?Artifacts Conservator: Sunny Dan M.D. Ph.D.; CLIA# [id number] Specimen Anatomical Collection Method Collection Time Receive d Time (Source) Location / / Volume Laterality Blood specimen 01/11/2021 10:19 1 (specimen) AM EST 12:59 PM EST Resulting Agency Comment Spec In Lab Augusta Keys MD IMMUNOLOGY ORDERABLES Performing Organization Address City/State/[place] [address] documented in this encounter Visit Diagnoses Diagnosis Memory loss Idiopathic peripheral neuropathy Unspecified hereditary and idiopathic pe ripheral neuropathy documented in this encounter Care Teams Parts Classifier Relationship Specialty Start Date End Date Richa Brand APRN PCP - General Family Medicine 03/24/17 [address] [place] [address] documented as of this encounter
--- OUTSIDE RECORDS SUMMARY | 2022-05-13 15:54 | XMS_ITS | Encounter Summary ---
:1945 Author Organization [facility] [place] [address] Care Team Providers Name Role Phone Richa Brand RENDERER Primary Care Provider [phone] Reason for Visit Reason Comments Follow-up Consultation (Routine) - Specialty Diagnoses / Procedures Referred By Contact Refer red To Contact Dermatology Diagnoses Disorder of the skin and subcutaneous tissue, unspecified Skin Lesion mid back Richa Brand, Uzair Comer MD Procedures Consult RENDERER [address] [place] [address] [place] [address] Fax: Referral ID Status Reason Start Date Expiration Date Visits V isits Requested Authorized [id number] Consult, Test 11/05/2019 11/05/2020 6 6 & Treat PCP Updated and/or Approved Encounter Details Date Type Department Care Team Description 12/31/2019 Office Visit Dermatology at Uzair Comer, Eczema, unspecified Esha FULTON type [address] Jairo B DERMATOLOGY [place], [place] [address] [phone] Social History Tobacco Use Types Packs/Day Years Used Date Former Smoker Smokeless Tobacco: Never Used Comments: 50 years ago Alcohol Use Standard Drinks/Week Comments Yes 14 (1 standard drink = 0.6 oz pure alcoh ol) Sex Assigned at Date Recorded Not on file documented as of this encounter Progress Notes Uzair Comer MD - 12/31/2019 8:15 AM EST Problem: 1. Dermatitis x2 months 2. Lifelong history of eczema Joe is a 74-year-old gentleman whom I last saw in 2004. 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 He states that sometime ago he had a case of shingles which involved the lower presacral back and extending down his left leg. He believes now that he has another case of shingles. He would lIke me to evaluate this. He never has received a shingles vaccination. This is been present for about the last 2months. Physical examination reveals a pleasant 74-year-old gentleman who has a marketed atrophic scarred area in the lower presacral back at the site of what he says was the onset of his zoster. At this inferior border there is an eczematous patch plaque. He has individual nummular eczematous patches on the left leg but also is right under the axilla and on his arms. They are quite widespread. I do not see any clusters of vesicles. The rash that he has today does not burn it does not sting but it itches slightly. He has been using a 1% hydrocortisone cream for this. Assessment plan: Eczematous dermatitis wintertime flare in a patient with a stated history of varicella-zoster 1. Do not see evidence today of recurrent zoster. I believe a he has eczematous dermatitis at the borders of the scarred area of the presacral back, as well as the other patches diffusely spread on thetorso and extremities. 2.. Patient denies history of herpes labialis 3. Recommend that he begin use of triamcinolone 0.1% cream apply on a twice daily basis to eczematous rash areas. Dispense 80 g tube with 1 refill apply after bath or shower. 4. Patient currently uses a loofah type sponge to scrub his skin in the shower. Advised that his wash with his hands only, but continue to use his Dr. Pulido's soap. 5. I would encourage patient to obtain the Shingrix vaccination two-part vaccination which his partner has already had. He will contact his PCP Richa Brand about this 6. Return to clinic here as needed CC: Richa Brand APRN documented in this encounter Plan of Treatment Upcoming Encounters Date Type Specialty Care Team Description 10/09/2022 Office Visit Neurology Joe Keys MD [facility] NEUROLOGY DEPT [place], [place] [address] (Wo rk) 01/27/2023 Office Visit Cardiology Brayan Garay MD [facility] [place], [place] [address] (Wo rk) documented as of this encounter Visit Diagnoses Diagnosis Eczema, unspecified type documented in this encounter Care Teams Appliance Adjuster Relationship Specialty Start Date End Date Richa Brand APRN PCP - General Family Medicine 03/24/17 [address] [place] [address] documented as of this encounter
--- OUTSIDE RECORDS SUMMARY | 2022-05-13 15:54 | XMS_ITS | Encounter Summary ---
:1945 Author Organization [facility] [place] [address] Care Team Providers Name Role Phone SundayAnya lopezhrmaricarmen Gar DON Primary Care Provider [phone] Reason for Visit Reason Comments Annual Exam Encounter Details Date Type Department Care Team Description 07/13/2021 Office Visit Dermatology at [facility], Eczema, unspecified type; Esha FULTON Seborrheic keratosis [address] Jairo B DERMATOLOGY [place], [place] [address] [phone] Social History Tobacco Use Types Packs/Day Years Used Date Former Smoker Smokeless Tobacco: Never Used Comments: 50+ years ago Alcohol Use Standard Drinks/Week Comments Yes 14 (1 standard drink = 0.6 oz pure alcoh ol) Sex Assigned at Date Recorded Not on file documented as of this encounter Progress Notes [facility] Comer MD - 07/13/2021 9:00 AM EDT Problem: 1. Repeat check 2. Lifelong history of eczema Dangelo follows up after last being seen in December 2019 at which time he was having a flare of some eczematous dermatitis. He has settled upon using the betamethasone the Propine 8 ointment on a as needed basis and this works well for him. He is using Dr. Clarke's soap. A mint version in the summerand another milder version for the winter. Physical examination reveals a pleasant 76-year-old man who has a benign examination of the head andthe neck the chest the back the hands the arms deforms the thighs and the calves. His eczema is quite minimal today he has a few patches on the arms and legs and back but these are well controlled withthe current topicals. There is no evidence of any malignant or premalignant lesions. Assessment and plan: Eczematous dermatitis 1. Patient with a lifelong history of eczema 2. Well controlled with betamethasone dipropionate ointment being judiciously and sparingly used to areas as needed. 3. We will call in the betamethasone type applying ointment 45 g with 3 refills to [facility] in [place] apply daily twice daily as needed to areas of eczema. 4. Continue use of Dr. Clarke's soap. Benign skin examination 1. Patient reassured about benign seborrheic keratoses 2. No treatment necessary 3. Return to clinic as needed. CC: Richa rBand APRN documented in this encounter Miscellaneous Notes Addendum Note - Joy Wolfe LPN - 07/13/2021 9:00 AM EDT Addended by: JOY WOLFE on: 07/13/2021 09:26 AM Modules accepted: Orders documented in this encounter Plan of Treatment Upcoming Encounters Date Type Specialty Care Team Description 10/09/2022 Office Visit Neurology Joe Keys MD [facility] NEUROLOGY DEPT [place], [place] [address] (Wo rk) 01/27/2023 Office Visit Cardiology Brayan Garay MD [facility] [address] [place] [address] (Wo rk) documented as of this encounter Visit Diagnoses Diagnosis Eczema, unspecified type Seborrheic keratosis Other seborrheic keratosis documented in this encounter Care Teams Tank Driver Relationship Specialty Start Date End Date Richa Brand, ROCKET MOTOR TESTER PCP - General Family Medicine 03/24/17 [address] [place] [address] documented as of this encounter
--- OUTSIDE RECORDS SUMMARY | 2022-05-13 15:54 | XMS_ITS | Encounter Summary ---
:1945 Author Organization [facility] [place] [address] Care Team Providers Name Role Phone Sunday Richa Gar DON Primary Care Provider [phone] Reason for Visit Reason Onset Date Comments Prior Authorization 06/07/2021 Encounter Details Date Type Department Care Team Description 06/07/2021 Telephone Neurology at [facility] Augusta Keys, Prior Authorization [facility] [place] [phone] NEUROLOGY DEPT [phone] [place], [place] [address] (Wo rk) Social History Tobacco Use Types Packs/Day Years Used Date Former Smoker Smokeless Tobacco: Never Used Comments: 50+ years ago Alcohol Use Standard Drinks/Week Comments Yes 14 (1 standard drink = 0.6 oz pure alcoh ol) Sex Assigned at Date Recorded Not on file documented as of this encounter Miscellaneous Notes Telephone Encounter - Kelsea Webber CMA - 06/07/2021 1:07 PM EDT Prior Authorization Patient: Chencho Mcgrath : 1945 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: [employer] Medication: DONEPEZIL 5 MG Prior Authorization Status: Approved documented in this encounter Plan of Treatment Upcoming Encounters Date Type Specialty Care Team Description 10/09/2022 Office Visit Neurology Joe Keys MD [facility] NEUROLOGY DEPT [place], [place] [address] (Wo rk) 01/27/2023 Office Visit Cardiology Brayan Garay MD [facility] [place], [place] [address] (Wo rk) documented as of this encounter Visit Diagnoses Not on filedocumented in this encounter Care Teams Pneumatic Tube Repairer Relationship Specialty Start Date End Date Richa Brand APRN PCP - General Family Medicine 03/24/17 [address] [place] [address] documented as of this encounter
--- OUTSIDE RECORDS SUMMARY | 2022-05-13 15:54 | XMS_ITS | Encounter Summary ---
:1945 Author Organization [facility] [place] [address] Care Team Providers Name Role Phone Richa Brand APRN Primary Care Provider [phone] Reason for Visit - Closed Specialty Diagnoses / Procedures Referred By Contact Refer red To Contact Procedures Richa Brand APRN Film Library- Storage Only MR [address] [place] [address] Referral ID Status Reason Start Date Expiration Date Visits Requ ested Visits Authorized [id number] Closed 01/11/2021 01/11/2022 1 1 Encounter Details Date Type Department Care Team Description 07/09/2019 Ancillary Procedure [facility] [address] [facility] [place] [address] [place] [address] [phone] Social History Tobacco Use Types Packs/Day Years [...] 10/09/2022 Office Visit Neurology Joe Keys MD [facility] NEUROLOGY DEPT [place], [place] [address] (Wo rk) 01/27/2023 Office Visit Cardiology Brayan Garay MD [facility] [place], [place] [address] (Wo rk) documented as of this encounter Procedures Procedure Name Priority Date/Time Associated Diagnosis Comme nts FILM LIBRARY Routine 07/09/2019 12:00 AM Results for this STORAGE ONLY MR EDT procedure ar e in HEAD the results section. documented in this encounter Results Film Library- Storage Only MR Head (07/09/2019 12:00 AM EDT) Specimen (Source) Anatomical Location Collection Method / Collectio n Time Received Time / Laterality Volume Narrative JOSUÉ - 01/11/2021 3:51 PM EST This exam is auto-finalizing. It's purpo se is for storage only. Richa Brand APRN IMYandy FILM LIBRARY ORDERABLES Performing Organization Address City/State/ZIP Code Phon e Number [place], [place] documented in this encounter Visit Diagnoses Not on filedocumented in this encounter Care Teams County Ordinary Relationship Specialty Start Date End Date Richa Brand APRN PCP - General Family Medicine 03/24/17 [address] [place] [address] documented as of this encounter
--- OUTSIDE RECORDS SUMMARY | 2022-05-13 15:54 | XMS_ITS | Encounter Summary ---
:1945 Author Organization [facility] [place] [address] Care Team Providers Name Role Phone Richa Brand APRN Primary Care Provider [phone] Reason for Referral Consultation (Routine) - Closed Specialty Diagnoses / Procedures Referred By Contact Refer red To Contact [facility] Diagnoses Numbness and tingling Foot drop, right Radicular pain of right lower extremity Spine- Lumbar stenosis w/ R foot drop and radicular sx/ MRI 04/23/21 in eDH Jacki Martinez, [facility] Pain And [facility] Sp[facility] enter [address] [place] [phone] Fax: Referral ID Status Reason Start Date Expiration Date Visits V isits Requested Authorized [id number] Closed Consult, 05/27/2021 05/27/2022 3 3 Test & Treat Encounter Details Date Type Department Care Team Description 05/23/2021 TH Visit Neurology [place] [facility] Jacki Martinez Numbness and tingling; (TeleHealth) [facility] MD Rin Foot drop, right; Casandra [facility] Radicular pain of right lowe r extremity; [place], [place] Numbness and tingling of both upper extr emities [id number] NEUROLOGY DEPT [phone] [place], [place] [address] Social History Tobacco Use Types Packs/Day Years Used Date Former Smoker Smokeless Tobacco: Never Used Comments: 50+ years ago Alcohol Use Standard Drinks/Week Comments Yes 14 (1 standard drink = 0.6 oz pure alcoh ol) Sex Assigned at Date Recorded Not on file documented as of this encounter Progress Notes Jacki Martinez MD - 05/23/2021 10:00 AM EDT Neurology Clinic Telephone/Telehealth Follow-up Note Per [id number] Restrictions 05/22/21 6:36 PM Patient Name: Chencho Mcgrath : 1945 PCP: Richa Brand APRN Patient ID: Chencho Mcgrath is a 75 y.o. male was evaluated remotely instead of scheduled FU visit. Last visit was 04/09/2021. Diagnosis:Upper and lower extremity dysesthesias in the setting of lumbar degenerative disk disease. PMHx relevant to diagnosis: Patient Active Problem List Diagnosis ??? Syncope and collapse Overview Note: One episode 11/2018 Holter: NSR, no bradycardia or AV block, rare APC and VPC, 2 brief SVT longest 6 beats ??? Anxiety ??? CAD (coronary artery disease) Overview Note: 2007 70% D1-> POBA, no other disease Stress echo 2012- 12.8 METS, HR 154, fatigue, no ST change, no WMA, no valve disease ??? Hyperlipidemia Assessment from last visit, 04/09/2021: Chencho Mcgrath is a 75 y.o. male [...] Electrophoresis, serum ??? Comprehensive metabolic panel (non-fasting) Interval History: No significant clinical change from last visit. Relevant work up: I independently reviewed the MRI of the lumbar spine. This revealed multilevel moderate to severe neuroforaminal stenosis (L4-5, L3-4 on the right>L5-S1. L3-4 on the left), and moderate canal narrowing. Component Latest Ref Rng & Units 04/23/2021 [...] Acid <=0.40 nmol/mL 0.12 TOBY See Note Past Medical History: Diagnosis Date ??? Anxiety 11/27/2018 ??? CAD (coronary artery disease) 11/27/2018 ??? Hyperlipidemia 11/27/2018 ??? Hypertension 11/27/2018 ??? Rib pain on right side 11/27/2018 ??? Syncope and collapse 11/27/2018 Medications: Medications 05/22/21 0955 Medication Sig Taking? atorvastatin (Lipitor) 20 mg Tablet TAKE 1 TABLET BY MOUTH DAILY donepeziL (Aricept) 5 mg Tablet Take 10 mg by mouth nightly. sildenafiL (VIAGRA) 50 mg Tablet TAKE 1 TABLET BY MOUTH 1 HOUR PRIOR TO INTERCOURSE NEEDED L-LYSINE ORAL Take 1 tablet by mouth daily. UNABLE TO FIND Monolauren 495 mg one tablet by mouth daily busPIRone (BUSPAR) 10 mg Tablet Take 10 mg by mouth 3 times daily. triamcinolone (KENALOG) 0.1 % Cream Apply twice daily to eczematous rash areas. calcium carbonate (CALCIUM 500 ORAL) Take by mouth daily. MAGNESIUM ORAL Take by mouth daily. ferrous sulfate (IRON ORAL) Take by mouth daily. vitamin B complex (VITAMINS B COMPLEX ORAL) Take by mouth daily. cholecalciferol, Vitamin D3, 1,000 unit Capsule Take by mouth daily. cyanocobalamin 1,000 mcg Tablet Take 1,000 mcg by mouth daily. ascorbate calcium (VITAMIN C ORAL) Take by mouth daily. flaxseed oil 1,000 mg Capsule Take by mouth daily. FOLIC ACID ORAL Take by mouth daily. vitamin E acetate (VITAMIN E ORAL) Take by mouth daily. aspirin 81 mg Tablet, Delayed Release (E.C.) Take 81 mg by mouth daily. Assessment / Plan: Chencho Mcgrath is a 75 y.o. male [...] with moderate canal narrowing at multiple levels. We discussed conservative approaches to lumbar degenerative disk disease. However, it is also reasonable to undergo a pain and spine referral to explore therapeutic options. 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 We will proceed with electrodiagnostic study to evaluate for: - neuropathy - active radiculopathy on the right - UE, ulnar neuropathies Orders Placed This Encounter Procedures ??? Referral to [facility] Sp[facility] Center (Internal only) Follow-up: for NCS/EMG JACKI MARTINEZ MD [employer], Neuromuscular Medicine [facility] 05/22/21 6:36 PM Patient provided verbal consent prior to initiation of this telephone/televisit encounter and expressed understanding that the telephone/televisit may be billed similar to a clinic visit. I spent a total of 30 Minutes in discussion/counseling related to ongoing medical problems, with 10 minutes same day chart and test review, ordering testing/drugs, coordination of care and documentation. documented in this encounter Plan of Treatment Upcoming Encounters Date Type Specialty Care Team Description 10/09/2022 Office Visit Neurology Joe Keys MD [facility] [address] CASE DEPT [place], [place] [address] (Wo rk) 01/27/2023 Office Visit Cardiology Brayan Garay MD [facility] [address] [place], [place] [address] ([place]) Scheduled Referrals Name Type Priority Associated Diagnoses [...] or radi culitis, unspecified Numbness and tingling of both upper extr emities documented in this encounter Care Teams Cutter Inspector Relationship Specialty Start Date End Date Richa Brand, TOWER CLIMBER PCP - General Family Medicine 03/24/17 [address] [place] [address] documented as of this encounter
--- OUTSIDE RECORDS SUMMARY | 2022-05-13 15:54 | XMS_ITS | Encounter Summary ---
:1945 Author Organization [facility] [place] [address] Care Team Providers Name Role Phone Richa Brand APRN Primary Care Provider [phone] Encounter Details Date Type Department Care Team Description 11/27/2018 Abstract Cardiology at [facility] Terrence Jang RN [address] [place] [address] Social History Tobacco Use Types Packs/Day Years Used Date Former Smoker Comments: 50 years ago Sex Assigned at Date Recorded Not on file documented as of this encounter Plan of Treatment Upcoming Encounters Date Type Specialty Care Team Description 10/09/2022 Office Visit Neurology Joe Keys MD [facility] NEUROLOGY DEPT [place], [place] [address] (Wo rk) 01/27/2023 Office Visit Cardiology Brayan Garay MD [facility] [address] [place] [address] (Wo rk) documented as of this encounter Visit Diagnoses Not on filedocumented in this encounter Care Teams Testing Analyst Relationship Specialty Start Date End Date Richa Brand APRN PCP - General Family Medicine 03/24/17 [address] [place], [place] [address] documented as of this encounter
--- OUTSIDE RECORDS SUMMARY | 2022-05-13 15:54 | XMS_ITS | Encounter Summary ---
:1945 Author Organization [facility] [place] [address] Care Team Providers Name Role Phone SundayAnyaRichajanet Gar APRN Primary Care Provider [phone] Reason for Visit Reason Onset Date Comments TeleHealth 05/22/2021 Encounter Details Date Type Department Care Team Description 05/22/2021 Telephone Neurology at [facility] Jacki Shah MD [facility] [place] [address] NEUROLOGY DEPT [phone] [place], [place] [address] (Wo rk) Social History Tobacco Use Types Packs/Day Years Used Date Former Smoker Smokeless Tobacco: Never Used Comments: 50+ years ago Alcohol Use Standard Drinks/Week Comments Yes 14 (1 standard drink = 0.6 oz pure alcoh ol) Sex Assigned at Date Recorded Not on file documented as of this encounter Miscellaneous Notes Telephone Encounter - Monse Estevez RN - 05/22/2021 9:56 AM EDT Spoke to this patient??by phone to review their medications and allergies prior to their upcoming tele-appointment with the Neurology provider. ??Medications and allergies reviewed, verified and updated as needed. ? documented in this encounter Plan of Treatment Upcoming Encounters Date Type Specialty Care Team Description 10/09/2022 Office Visit Neurology Joe Keys MD [facility] NEUROLOGY DEPT [place], [place] [address] (Wo rk) 01/27/2023 Office Visit Cardiology Brayan Garay MD [facility] [place], [place] [address] (Wo rk) documented as of this encounter Visit Diagnoses Not on filedocumented in this encounter Care Teams Hat Parts Cutter Machine Relationship Specialty Start Date End Date Richa Brand APRN PCP - General Family Medicine 03/24/17 [address] [place] [address] documented as of this encounter
--- OUTSIDE RECORDS SUMMARY | 2022-05-13 15:54 | XMS_ITS | Encounter Summary ---
:1945 Author Organization [facility] [place] [address] Care Team Providers Name Role Phone Sunday Richajanet Gar APRN Primary Care Provider [phone] Reason for Visit Reason Comments Medication Refill Encounter Details Date Type Department Care Team Description 05/04/2021 Refill Cardiology at [facility] Brayan Garay MD Medication Refill [address] [place] [address] [place] [address] [phone] (Wo rk) Social History Tobacco Use Types Packs/Day Years Used Date Former Smoker Smokeless Tobacco: Never Used Comments: 50+ years ago Alcohol Use Standard Drinks/Week Comments Yes 14 (1 standard drink = 0.6 oz pure alcoh ol) Sex Assigned at Date Recorded Not on file documented as of this encounter Miscellaneous Notes Telephone Encounter - Rain Garg - 05/04/2021 2:25 PM EDT Patient also called asking for a refill for Atorvastatin from [facility]. He has a weeks worth left. #[phone] documented in this encounter Plan of Treatment Upcoming Encounters Date Type Specialty Care Team Description 10/09/2022 Office Visit Neurology Joe Keys MD [facility] NEUROLOGY DEPT [place], [place] [address] (Wo rk) 01/27/2023 Office Visit Cardiology Brayan Garay MD [facility] [address] [place], [place] [address] (Wo rk) documented as of this encounter Visit Diagnoses Diagnosis Hyperlipidemia, unspecified hyperlipidem ia type documented in this encounter Care Teams Surgical Training Specialist Relationship Specialty Start Date End Date Richa Brand APRN PCP - General Family Medicine 03/24/17 [address] [place] [address] documented as of this encounter
--- OUTSIDE RECORDS SUMMARY | 2022-05-13 15:54 | XMS_ITS | Encounter Summary ---
:1945 Author Organization [facility] [place] [address] Care Team Providers Name Role Phone SundayAnya lopezhryn Rin DON Primary Care Provider [phone] Reason for Visit Reason Comments Coronary Artery Disease Encounter Details Date Type Department Care Team Description [facility] Esha FULTON disease involving [address] [facility] na tive coronary artery [place] [phone] without angina [phone] pectoris Social History [...] Sign Reading Time Taken Comments Blood Pressure 159/66 01/03/2020 3:38 PM EST Pulse 59 01/03/2020 3:38 PM EST Temperature - - Respiratory Rate - - Oxygen Saturation - - Inhaled Oxygen Concentration - - Weight 69.6 kg (153 lb 8 oz) 01/03/2020 3:38 PM EST Height 172.7 cm (5' 8) 01/03/2020 3:38 PM EST Body Mass Index 23.34 01/03/2020 3:38 PM EST documented in this encounter Progress Notes Brayan Garay MD - 01/03/2020 3:20 PM EST Images from the original note were not included. at [facility], Cardiology [address] [place] [address] Subjective: Patient ID: Chencho Mcgrath is a 74 y.o. male who presents on follow-up for: Chief Complaint Patient presents with ??? Coronary Artery Disease HPI Last seen by Dr Howard 01/2019, at which time syncope (the reason for referral) was thought to be dueto venous pooling & dehydration. Patient has a noted history of remote CAD without intercurrent symptom nor issue through that time. Since then, he continues to do well. He has not been as active recently due to the weather, althoughvery reasonable activity is without exertional chest pain, dyspnea, presyncope. Denies LH, syncope, palpitations, orthopnea, pnd, weight gain, edema. Review of Systems 11 point ROS either negative or per HPI No Known Allergies Current Outpatient Medications: ??? TURMERIC ORAL, Take 1 capsule by [...] by mouth daily., Disp: , Rfl: ??? atorvastatin (LIPITOR) 20 mg Tablet, Take 20 mg by mouth daily., Disp: , Rfl: [...] no valve disease ??? Hyperlipidemia Objective: BP 159/66 (BP Location (NBP): Right arm, Patient Position: Sitting, BP Cuff Sizes: Adult (25-34 cm)) Pulse 59 Ht 172.7 cm (5' 8) Wt 69.6 kg (153 lb 8 oz) BMI 23.34 kg/m?? Gen: pleasant male in NAD Cor: rrr, s1/s2 of nl character and amplitude, no m/r/g. Estimated RAP not elevated. Carotids with normal upstroke without bruit. Pulm: CTAB. Normal diaphragmatic movement without use of accessory muscles Ab: soft, nt, nd Ext: no c/c/e. Dp/pt ++ Neuro: without focal deficit. Well kempt, good insight and normal affect Skin: WWP, no rashes nor ulcers Assessment and Plan: CAD (coronary artery disease) No angina per history - Anti-Thrombosis: asa 81 - Statin: lipitor 20 - Anti-anginals: GTN PRN RTC 12 months Brayan Garay MD documented in this encounter Miscellaneous Notes Assessment & Plan Note - Brayan Garay MD - 01/24/2020 9:43 PM EDTAssociated Problem(s): ASCVD (arteriosclerotic cardiovascular disease) No angina per history - Anti-Thrombosis: asa 81 - Statin: lipitor 20 - Anti-anginals: GTN PRN documented in this encounter Plan of Treatment Upcoming Encounters Date Type Specialty Care Team Description 10/09/2022 Office Visit Neurology Joe Keys MD [facility] NEUROLOGY DEPT [place], [place] [address] (Wo rk) 01/27/2023 Office Visit Cardiology Brayan Garay MD [facility] [place], [place] [address] (Wo rk) documented as of this encounter Visit Diagnoses Diagnosis Coronary artery disease involving [place] coronary artery of [place] heart without angina pectoris documented in this encounter Care Teams Dba Developer Relationship Specialty Start Date End Date Richa Brand, CHECKER DUMP GROUNDS PCP - General Family Medicine 03/24/17 [address] [place] [address] documented as of this encounter
--- OUTSIDE RECORDS SUMMARY | 2022-05-13 15:56 | XMS_ITS | Encounter Summary ---
:1945 Author Organization [facility] Address [address] [place] [address] Care Team Providers Name Role Phone Richa Brand DON Primary Care Provider [phone] Encounter Details Date Type Department Care Team Description 04/14/2020 Lab Requisition [facility] Outr Resulting Lab, Pathology & Laboratory Provider [facility] [address], [place] [id number] Social History Tobacco Use Types Packs/Day Years Used Date Never Assessed Sex Assigned at Date Recorded Not on file documented as of this encounter Plan of Treatment Not on filedocumented as of this encounter Procedures Procedure Name Priority Date/Time Associated Comments Diagnosis DO NOT ORDER Today 04/14/2020 13:51 Results for this STANDALONE - BROAD EDT procedure are in COVID TEST the results section. COVID-19 TESTING Routine 04/14/2020 13:51 Results for this EDT procedure are i n the results section. documented in this encounter Results DO NOT ORDER STANDALONE - BROAD COVID TEST (04/14/2020 13:51 EDT) COVID-19 rt-PCR NEGATIVE Negative [facility] Result Comment: LABORATORY 2019-novel Coronavirus (2019 -nCoV) not detected by the qRT-PCR assay. Consider testing for other respiratory viruses or re-collecting for 2019-nCoV testing. Note: Optimum timing for peak viral levels du ring infections caused by 20 -nCoV have not been determined. Collection of multiple specimens from the same patient may be necessary to detect the virus. Limitations Positive results are indicat magalys of active infection with SARS-CoV-2 but do not rule out bacterial infection or co-infection with other viruses. The agent detected may not be the definite cause of diseas e. In addition, detection of viral RNA may not indicate the presence of infectious virus or that SARS-CoV-2 is the causative agent for clinical symptoms. Negative results do not prec lude SARS-CoV-2 infection and should not be used as the sole basis for patient management decisions. Negative results must be combined with clinical observations, patient his tory, and epidemiological in formation. False negative results may also occur if amplification inhibitors are present in the specimen or if inadequate numbers of organisms are present in the specimen. Op timum specimen types and ronan ing for peak viral levels during infections caused by SARS-CoV-2 have not been fully determined. Collection of multiple specimens (types and time points) from the same patient may be necessary to detect the virus. The test was validated for u se with upper respiratory specimens obtained via nasopharyngeal or oropharyngeal swabs in VTM, UTM, M4, M5, M6, saline, and MTM media. The performance of this test has not be en established for other spe cimens. Specimens collected using other FDA recommended Specimen Collection Materials listed in the FDA COVID-19 Diagnostic Technologies communication (January 27, 2020) are pr ocessed with the caveat that they were not all validated for use with this test and the result must be interpreted in this context. Furthermore, a false negative results may occur if a specimen is improperly collected, transported or handled. If the virus mutates in the RT-PCR target region, SARS-CoV-2 may not be detected or may be detected less predictably. Inhibitors or other types of interference may produce a false negative result. An interference study evaluating the effect of common cold medications was not performed. This test is not FDA-cleared but its performance characteristics were established by our CLIA-certified, CAP-accredited, high complexity laboratory in accordance with CLIA regulations, College of [employer] an Pathologists (CAP) guidel emil (Jan 20, 2020), and FDA guidance (Jan 01, 2020). This test is only for use un florence the Food and Drug Administration's Emergency Use Authorization. Specimen Swab - Entire nasopharynx (body structur e) Performing Organization Address City/State/ZIP Code Phon e Number [facility] [place] COVID-19 TESTING (04/14/2020 13:51 EDT) COVID-19 rt-PCR NEGATIVE Negative [facility] Result Comment: LABORATORY 2019-novel Coronavirus (2019 -nCoV) not detected by the qRT-PCR assay. Consider testing for other respiratory viruses or re-collecting for 2019-nCoV testing. Note: Optimum timing for peak viral levels du ring infections caused by 20 -nCoV have not been determined. Collection of multiple specimens from the same patient may be necessary to detect the virus. Limitations Positive results are indicat magalys of active infection with SARS-CoV-2 but do not rule out bacterial infection or co-infection with other viruses. The agent detected may not be the definite cause of diseas e. In addition, detection of viral RNA may not indicate the presence of infectious virus or that SARS-CoV-2 is the causative agent for clinical symptoms. Negative results do not prec lude SARS-CoV-2 infection and should not be used as the sole basis for patient management decisions. Negative results must be combined with clinical observations, patient his tory, and epidemiological in formation. False negative results may also occur if amplification inhibitors are present in the specimen or if inadequate numbers of organisms are present in the specimen. Op timum specimen types and ronan ing for peak viral levels during infections caused by SARS-CoV-2 have not been fully determined. Collection of multiple specimens (types and time points) from the same patient may be necessary to detect the virus. The test was validated for u with upper respiratory specimens obtained via nasopharyngeal or oropharyngeal swabs in VTM, UTM, M4, M5, M6, saline, and MTM media. The performance of this test has not be en established for other spe cimens. Specimens collected using other FDA recommended Specimen Collection Materials listed in the FDA COVID-19 [employer] communication (January 27, 2020) are pr ocessed with the caveat that they were not all validated for use with this test and the result must be interpreted in this context. Furthermore, a false negative results may occur if a specimen is improperly collected, transported or handled. If the virus mutates in the RT-PCR target region, SARS-CoV-2 may not be detected or may be detected less predictably. Inhibitors or other types of interference may produce a false negative result. An interference study evaluating the effect of common cold medications was not performed. This test is not FDA-cleared but its performance characteristics were established by our CLIA-certified, CAP-accredited, high complexity laboratory in accordance with CLIA regulations, College of [employer] an Pathologists (CAP) guidel emil (Jan 20, 2020), and FDA guidance (Jan 01, 2020). This test is only for use un florence the Food and Drug Administration's Emergency Use Authorization. Performing Lab [facility] Specimen Swab - Entire nasopharynx (body structur e) Performing Organization Address City/State/ZIP Code Phon e Number [facility] [address] [place] [address] [facility] [place] documented in this encounter Visit Diagnoses Not on filedocumented in this encounter Care Teams Consumer Safety Inspector Relationship Specialty Start Date End Date Richa Brand APRN PCP - General 11/23/21 [address] [place], [place] [id number] documented as of this encounter
--- OUTSIDE RECORDS SUMMARY | 2022-05-13 15:56 | XMS_ITS | Clinical Summary ---
:1945 Author Organization [facility] Address [address] [place] [address] Care Team Providers Name Role Phone Felix Brandyn Rin OCHOA Primary Care Provider [phone] Social History Tobacco Use Types Packs/Day Years Used Date Never Assessed Sex Assigned at Date Recorded Not on file Plan of Treatment Health Maintenance Due Date Last Done Comments Hepatitis C Screen 1945 COVID-19 Vaccine (1) 1948 Fall Risk Screening 2008 Insurance Payer Benefit Plan / Subscriber ID Effective Phone Address T ype Group Dates [place] [id number] 2019-Pres [phone] [facility] HEALTHCARE GRP ent [id number] [employer] [place] [address] Jose Mcgrathll Personal/Family Self 1945 [address] (Home) [place] [address] Jose Mcgrathll Personal/Family Self 1945 [address]) [place] [address] Care Teams Installation Specialist Relationship Specialty Start Date End Date Richa Brand APRN PCP - General 11/23/21 [address] [place] [address]
[2022-05-13 19:44] LABS: Abs Immature Grans 0.04 10^3/uL (0.0-0.06); Absolute Basophil Count 0.07 10^3/uL (0.0-0.2); Absolute Lymphocyte Count 1.29 10^3/uL (1.2-3.4); Absolute Monocyte Count 0.74 10^3/uL (0.1-0.8); Absolute Neutrophil Count 4.87 10^3/uL (1.2-6.7); Eosinophils % 1.4; HCT 36.9 % (40.0-50.0); HGB 12.5 g/dL (13.5-17.5); Immature Grans % 0.6; Lymphocytes % 18.1; MCH 31.6 pg (27.0-33.0); MCHC 33.9 % (32.0-36.0); MCV 93 fL (80-95); MPV 11.1 fL (8.0-11.0); Monocytes % 10.4; Neutrophils % 68.5; Platelet Count 212 10^3/uL (130-400); RBC 3.96 10^6/uL (4.36-5.78); RDW 13.7 % (11.8-14.1); RDW-SD 46.6 fL; WBC 7.11 10^3/uL (4.4-10.8)
[2022-05-13 20:08] LABS: Iron 67 ug/dL (65-175); Total Iron Binding Capacity 256 ug/dL (250-450); Transferrin Sat 26 % (20-55)
[2022-05-13 20:35] LABS: Ferritin 100 ng/mL (26-388); TSH (W/Ref FT4) 2.26 uIU/mL (0.36-3.74); Vitamin B12 755 pg/mL (193-986)
== END 2022-05-13 15:51 | disposition home or self-care (01) ==
LOC: NCHCN 15:50
PROVIDERS: PCP Nurse Practitioner Family; Visit Provider Nurse Practitioner Family
DX: Z00.00 Encounter for general adult medical examination without abnormal findings (principal); R53.83 Other fatigue; G30.9 Alzheimer's disease, unspecified; F02.80 Dementia in other diseases classified elsewhere, unspecified severity, without behavioral disturbance, psychotic disturbance, mood disturbance, and anxiety
CPT/HCPCS: 82306; 82607; 82728; 83540; 83550; 84443; 85025

== ENCOUNTER 2022-10-31 13:16 | Outpatient (REF) | payer MEDICARE, SELFPAY ==
[2022-10-31 14:46] LABS: Abs Immature Grans 0.02 10^3/uL (0.0-0.06); Absolute Basophil Count 0.08 10^3/uL (0.0-0.2); Absolute Eosinophil Count 0.19 10^3/uL (0.0-0.7); Absolute Lymphocyte Count 1.09 10^3/uL (1.2-3.4); Absolute Monocyte Count 0.73 10^3/uL (0.1-0.8); Absolute Neutrophil Count 5.21 10^3/uL (1.2-6.7); Basophils % 1.1; Eosinophils % 2.6; HCT 37.7 % (40.0-50.0); HGB 12.4 g/dL (13.5-17.5); Immature Grans % 0.3; Lymphocytes % 14.9; MCH 30.9 pg (27.0-33.0); MCHC 32.9 % (32.0-36.0); MCV 94 fL (80-95); MPV 10.9 fL (8.0-11.0); Neutrophils % 71.1; Platelet Count 228 10^3/uL (130-400); RBC 4.01 10^6/uL (4.36-5.78); RDW 13.7 % (11.8-14.1); RDW-SD 47.6 fL; WBC 7.32 10^3/uL (4.4-10.8)
[2022-10-31 14:58] LABS: Iron 52 ug/dL (65-175); Total Iron Binding Capacity 275 ug/dL (250-450); Transferrin Sat 19 % (20-55)
[2022-10-31 17:19] LABS: Ferritin 74 ng/mL (26-388)
== END 2022-10-31 13:17 | disposition home or self-care (01) ==
LOC: NCHCN 13:16
PROVIDERS: PCP Nurse Practitioner Family; Visit Provider Nurse Practitioner Family
DX: D64.9 Anemia, unspecified (principal); I10 Essential (primary) hypertension; I25.10 Atherosclerotic heart disease of native coronary artery without angina pectoris; F41.9 Anxiety disorder, unspecified; R39.9 Unspecified symptoms and signs involving the genitourinary system; R53.83 Other fatigue; M54.59 Other low back pain
CPT/HCPCS: 82728; 83540; 83550; 85025

== ENCOUNTER 2022-12-09 15:47 | Outpatient (REF) | payer MEDICARE, SELFPAY ==
[2022-12-09 21:08] LABS: Abs Immature Grans 0.02 10^3/uL (0.0-0.06); Absolute Basophil Count 0.06 10^3/uL (0.0-0.2); Absolute Lymphocyte Count 1.36 10^3/uL (1.2-3.4); Absolute Monocyte Count 0.72 10^3/uL (0.1-0.8); Absolute Neutrophil Count 5.77 10^3/uL (1.2-6.7); Basophils % 0.7; Eosinophils % 1.2; HCT 40.3 % (40.0-50.0); HGB 13.2 g/dL (13.5-17.5); Immature Grans % 0.2; Lymphocytes % 16.9; MCH 30.8 pg (27.0-33.0); MCHC 32.8 % (32.0-36.0); MCV 94 fL (80-95); MPV 10.9 fL (8.0-11.0); Platelet Count 223 10^3/uL (130-400); RBC 4.29 10^6/uL (4.36-5.78); RDW 13.1 % (11.8-14.1); RDW-SD 44.7 fL; WBC 8.03 10^3/uL (4.4-10.8)
[2022-12-09 21:15] LABS: Iron 45 ug/dL (65-175); Total Iron Binding Capacity 278 ug/dL (250-450); Transferrin Sat 16 % (20-55)
[2022-12-09 21:17] LABS: ALT 17 U/L (16-63); AST 19 U/L (15-37); Albumin 3.5 g/dL (3.4-5.0); Alkaline Phosphatase 62 U/L (46-116); Anion Gap 8.7 mmol/L (3-11); BUN 25 mg/dL (7-18); Bilirubin, Total 0.5 mg/dL (0.2-1.0); CO2 27.3 mmol/L (21.0-32.0); CREATININE 1.2 mg/dL (0.70-1.30); Calcium 9.1 mg/dL (8.5-10.1); Chloride 107 mmol/L (98-107); Estimated GFR 61.52 (mL/min/1.73m2); Ferritin 81 ng/mL (26-388); Glucose 107 mg/dL (74-106); Potassium 4.8 mmol/L (3.5-5.1); Sodium 143 mmol/L (136-145); Total Protein 6.6 g/dL (6.4-8.2)
[2022-12-10 06:48] LABS: Reticulocyte 1.2 % (0.5-2.4)
== END 2022-12-09 15:48 | disposition home or self-care (01) ==
LOC: NCHCN 15:47
PROVIDERS: PCP Nurse Practitioner Family; Visit Provider Nurse Practitioner Family
DX: D50.9 Iron deficiency anemia, unspecified (principal); I10 Essential (primary) hypertension; D64.9 Anemia, unspecified; R53.83 Other fatigue
CPT/HCPCS: 80053; 85045; 82728; 83540; 83550; 85025

== ENCOUNTER 2023-01-24 02:52 | Outpatient (CLI) | payer MEDICARE, SELFPAY ==
[2023-01-24 13:50] LABS: Abs Immature Grans 0.02 10^3/uL (0.0-0.06); Absolute Basophil Count 0.06 10^3/uL (0.0-0.2); Absolute Eosinophil Count 0.14 10^3/uL (0.0-0.7); Absolute Lymphocyte Count 1.39 10^3/uL (1.2-3.4); Absolute Monocyte Count 0.76 10^3/uL (0.1-0.8); Absolute Neutrophil Count 6.16 10^3/uL (1.2-6.7); Basophils % 0.7; Eosinophils % 1.6; HCT 39.9 % (40.0-50.0); Immature Grans % 0.2; Lymphocytes % 16.3; MCH 30.5 pg (27.0-33.0); MCHC 32.6 % (32.0-36.0); MCV 94 fL (80-95); MPV 9.7 fL (8.0-11.0); Monocytes % 8.9; Neutrophils % 72.3; Platelet Count 218 10^3/uL (130-400); RBC 4.26 10^6/uL (4.36-5.78); RDW 13.2 % (11.8-14.1); Reticulocyte 1.2 % (0.5-2.4); WBC 8.53 10^3/uL (4.4-10.8)
[2023-01-24 15:31] LABS: ALT 22 U/L (16-63); AST 20 U/L (15-37); Albumin 3.6 g/dL (3.4-5.0); Alkaline Phosphatase 63 U/L (46-116); BUN 19 mg/dL (7-18); Bilirubin, Total 0.4 mg/dL (0.2-1.0); CREATININE 1.3 mg/dL (0.70-1.30); Chloride 107 mmol/L (98-107); Estimated GFR 55.88 (mL/min/1.73m2); Glucose 95 mg/dL (74-106); Potassium 4.1 mmol/L (3.5-5.1); Sodium 140 mmol/L (136-145); Total Protein 7.4 g/dL (6.4-8.2)
[2023-01-27 12:58] LABS: Erythropoietin 13.9 mIU/mL (2.6 - 18.5)
== END 2023-01-24 02:53 | disposition home or self-care (01) ==
PROVIDERS: PCP Nurse Practitioner Family; Visit Provider Internal Medicine Hematology & Oncology
DX: D64.9 Anemia, unspecified (principal)
CPT/HCPCS: 36415; 80053; 82668; 82746; 85025; 85045

== ENCOUNTER 2023-03-24 11:55 | Outpatient (CLI) | payer MEDICARE, SELFPAY ==
--- NOTE | 2023-03-24 | DI.MRI_ITS ---
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 TECHNIQUE: Multiplanar multisequence MRI of the Lumbar spine was performed. COMPARISON: No exams were available for comparison FINDINGS: Bones: The last intervertebral disc space is designated the L5/S1 level for the numbering purpose of this examination. The vertebral body heights are well maintained. There are endplate osteophytes p resent throughout the lumbar spine. Alignment is satisfactory. Degenerative endplate signal changes are present. There is a right convex lumbar scoliosis. Cord: The conus tip ends at the L1 level. It is of normal size and signal intensity. T12-L1: No disc herniations or bulges are present. No central spinal canal or neural foraminal stenos is. L1-2: No disc herniations or bulges are present. No central spinal canal or neural foraminal stenosis . L2-3: There is a diffuse disc bulge eccentric to the left. There are degenerative changes of the fac ets. There is mild narrowing of the central spinal canal. No significant right neural foraminal wei nosis is seen. Moderately severe left neural foraminal stenosis is present. L3-4: There degenerative changes of the facets present. No significant central spinal canal stenosis is seen. There is mild right and moderate left neural foraminal stenosis. L4-5: No disc herniations or bulges are present. There is no significant central spinal canal stenosi s. There is marked right and mild left neural foraminal stenosis.There are degenerative changes of t he facets. L5-S1: There is a small central disc herniation. There are degenerative changes of the facets. No s ignificant central spinal canal stenosis is seen. There is marked right neural foraminal stenosis an d moderately severe left neural foraminal stenosis. Soft tissues: The visualized SI joints and sacrum are well maintained. The paraspinal soft tissues ar e unremarkable. 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 The findings are most marked at the L2-3 through L5-S1 level. Please see the above discussion for complete details. DATA REPOSITORY:
== END 2023-03-24 12:15 ==
LOC: DI 11:56
PROVIDERS: PCP Nurse Practitioner Family; Visit Provider Nurse Practitioner
DX: M54.42 Lumbago with sciatica, left side (principal); G89.29 Other chronic pain
CPT/HCPCS: 72148

== ENCOUNTER 2024-08-28 15:44 | Emergency (ER) | payer MEDICARE, SELFPAY ==
[2024-08-28 15:46] VITALS: BP 163/67; PULSE 64; RESP 15; TEMP 36.6; O2SAT 98
[2024-08-28 15:50] VITALS: BP 163/67; PULSE 64; RESP 15; TEMP 36.6; O2SAT 98
--- OUTSIDE RECORDS SUMMARY | 2024-08-28 17:05 | XMS_ITS | Encounter Summary ---
Author Organization [facility] Address [facility] [place] [address] Care Team Providers Care Associate Civil Engineer Name Role Phone Richa Brand APRN Primary Care Provider [phone] Encounter Details Date Type Department Care Team (Late st Contact Info) Description 08/26/2024 9:30 AM EDT [place] [phone] Pavan Iglesias APRN [facility] [place] [address] Numbness and tingling of both upper extremities Social History Tobacco Use Types Packs/Day Years Used Date Smoking Tobacco: Former Cigars Smokeless Tobacco: Never Comments:50+ years ago Alcohol Use Standard Drinks/Week Comments Yes 14 (1 standard drink = 0.6 oz pu re alcohol) Overall Financial Resource Strain (CARDIA) Answe r Date Recorded How hard is it for you to pa y for the very basics like food, housing, medical care, and heating? Not hard at all 01/16/2023 Hunger Vital Sign Answer Date Recorded Within the past 12 months, y ou worried that your food would run out before you got the money to buy more. Never true 01/17/20 23 Within the past 12 months, t he food you bought just didn't last and you didn't have money to get more. Never true 01/16/2023 PRAPARE - Transportation Answer Date Re corded In the past 12 months, has l ack of transportation kept you from medical appointments or from getting medications? No 01/16/2023 Lack of Transportation (Non-Medical) Not on file 01/16/2023 Housing Stability Vital Sign Answer Allen e Recorded In the last 12 months, was t here a time when you were not able to pay the mortgage or rent on time? No 01/16/2023 In the last 12 months, how many places have you lived? 1 01/16/2023 In the last 12 months, was t here a time when you did not have a steady place to sleep or slept in a nursing home (including now)? No 01/16/2023 Sex and Gender Information Value Date Recorded Sex Assigned at Not on file Gender Identity Not on file Sexual Orientation Not on file documented as of this encounter Last Filed Vital Signs Vital Sign Reading Time Taken Comments Blood Pressure 148/69 08/26/2024 9:35 AM EDT Pulse 56 08/26/2024 9:35 AM EDT Temperature - - Respiratory Rate - - Oxygen Saturation 99% 08/26/2024 9:35 AM EDT Inhaled Oxygen Concentration - - Weight 69.9 kg (154 lb) 08/26/2024 9:35 AM EDT r eported Height 172.7 cm (5' 8) 08/26/2024 9:35 AM EDT Body Mass Index 23.42 08/26/2024 9:35 AM EDT documented in this encounter Patient Instructions * Patient Instructions* Pavan Iglesias APRN - 08/26/2024 9:30 AM EDT Labs- vitamin levels EMG/NCS test bilateral upper extremity Telehealth visit - documented in this encounter Plan of Treatment Upcoming Encounters Date Type Department Care Team (Late st Contact Info) Description 09/28/2024 3:15 PM EST [place] [phone] Matthieu Benson MD [facility] DR [place] [address] 10/05/2024 1:30 PM EST TH Visit (TeleHealth) [place] [phone] Pavan Iglesias APRN [facility] DR [place] [address] 01/31/2025 2:40 PM EDT Office Visit Cardiology at [address] [phone] Brayan Garay MD [facility] [place] [address] 03/16/2025 9:30 AM EDT [place] [phone] Augusta Keys MD [facility] [place] [address] Pending Results Name Type Priority Associated Diagnoses Date /Time Vitamin B6 Lab Routine Numbness and tingling of both upper extremities 08/26/2024 10:43 AM EDT Scheduled Orders Name Type Priority Associated Diagnoses Orde r Schedule EMG without F-Wave Neurology Routine Numbness and tingling of both upper extremities Expected: 08/26/2024, Expires: 12/27/2024 Vitamin B6 Lab Routine Numbness and tingling of both upper extremities Expected: 08/26/2024, Expires: 11/26/2024 documented as of this encounter Results * TSH (08/26/2024 10:43 AM EDT) Thyroid Stimulating Hormone 3.70 0.27 - 4.20 mcIU/mL 08/26/2024 11:43 AM EDT [facility] Blood VENOUS BLOOD SPECIMEN / Unknown Venipuncture / Unknown 08/26/2024 10:43 AM EDT 08/26/2024 10:43 AM EDT Pavan Iglesias APPOINTMENT SPECIALIST CHEMISTRY ORDERABLE S [facility] [place] [address] * (ABNORMAL) Comprehensive metabolic panel Non-fasting (08/26/2024 10:43 AM EDT) Glucose 83 65 - 199 mg/dL 08/26/2024 11:43 AM EDT [facility] Comment:Glucose Concentratio n >=200 mg/dL plus symptoms is consistent with Diabetes Mellitus. Blood Urea Nitrogen 21(H) 10 - 20 mg/dL 08/26/2024 11:43 AM T [facility] Creatinine 1.04 0.80 - 1.50 mg/dL 08/26/2024 11:43 AM [facility] Sodium 141 135 - 145 mMol/L 08/26/2024 11:43 AM [facility] Potassium 4.7 3.5 - 5.0 mMol/L 08/26/2024 11:43 AM [facility] Chloride 108(H) 98 - 107 mMol/L 08/26/2024 11:43 AM [facility] Carbon Dioxide 23 22 - 31 mMol/L 08/26/2024 11:43 AM [facility] Anion Gap 10 5 - 15 mMol/L [facility]24 [facility] Calcium 9.1 8.5 - 10.5 mg/dL 08/26/2024 11:43 AM [facility] Protein, Total 7.2 6.1 - 8.0 g/dL 08/26/2024 11:[facility] Albumin 3.9 3.2 - 5.2 g/dL 08/26/2024 11:[facility] Aspartate Aminotransferase 21 <=39 unit/L 08/26/2024 11:43 AM EDT [facility] Alanine Aminotransferase 14 0 - 55 unit/L 08/26/2024 11:43 AM EDT [facility] Alkaline Phosphatase 63 40 - 130 unit/L 08/26/2024 11:43 AM EDT [facility] Bilirubin, Total 0.4 <=1.3 mg/dL 08/26/2024 11:43 AM EDT [facility] Est Glomerular Filtration Rate - Male 72 mL/min/1. 73 m?? 08/26/2024 11:43 AM EDT [facility] Comment: This patient's estimated GFR was calculated using the 2020 CKD-EPI equation. The estimated GFR can vary from the measured GFR by up to 30% in the absence of rapidly changing kidney function. Assessment of the estimated GFR is not appropriate when creatinine concentrations are rapidly changing. For clinical situations in which a more precise estimate of GFR is necessary, consider alternative methods of GFR estimation such as a 24-hour urine creatinine clearance. Assignment of CKD stage 1 - 5 for patients with an eGFR near the transition point between stages may be based on clinical assessment of muscle mass and symptoms in addition to eGFR. Link: eGFR Calculator [employer] Fasting Status No 08/26/2024 11:43 AM EDT [facility] Blood VENOUS BLOOD SPECIMEN / Unknown Venipuncture / Unknown 08/26/2024 10:43 AM EDT 08/26/2024 10:43 AM EDT Pavan Iglesias APPOINTMENT SPECIALIST CHEMISTRY ORDERABLE S [facility] [place] [place] [address] * Vitamin B12 (08/26/2024 10:43 AM EDT) Vitamin B12 847 232 - 1,245 pg/mL 08/26/2024 1:16 PM EDT [facility] Blood VENOUS BLOOD SPECIMEN / Unknown Venipuncture / Unknown 08/26/2024 10:43 AM EDT 08/26/2024 10:43 AM EDT Pavan E Iglesias APPOINTMENT SPECIALIST CHEMISTRY ORDERABLE S [facility] [place] [address] documented in this encounter Visit Diagnoses Diagnosis Numbness and tingling of both upper extremities documented in this encounter Care Teams Associate Civil Engineer Relationship Specialty Start Date End Date Richa Brand APRN [address] [place] [address] PCP - General Family Medicine 03/24/17 documented as of this encounter
--- OUTSIDE RECORDS SUMMARY | 2024-08-28 17:05 | XMS_ITS | Encounter Summary ---
Author Organization [facility] [place] [address] Care Team Providers Care Software Design Manager Name Role Phone Richa Brand APRN Primary Care Provider [phone] [phone] Reason for Referral * Consultation (Routine) - Authorized Specialty Diagnoses / Procedures Referred By Controsalia t Referred To Contact [facility] Diagnoses Spondylolisthesis at L5-S1 level Spondylosis of lumbar region without myelopathy or radiculopathy Julianna Navarrete APRN [facility] [place] [address] Johnnie Pate V, DO [address] [place] [address] [place] [address] Referral ID Status Reason Start Date Expiration Date Visits Requested Visits Authorized [id number] Authorized Consult, Test & Treat 07/19/2024 01/15/2025 1 1 Reason for Visit * Reason Comments Follow-up [facility] lower back pa in Encounter Details Date Type Department Care Team (Latest Contact Info) Description 07/19/2024 9:30 AM EDT Office Visit [place] [address] Julianna Navarrete APRN [facility] [place] [address] Spondylolisthesis at L5-S1 level; Spondylosis of lumbar region without myelopathy or radiculopathy Social History Tobacco Use Types Packs/Day Years [...] place to sleep or slept in a jail (including now)? No 01/16/2023 Sex and Gender Information Value Date Recorded Sex Assigned at Not on file Gender Identity Not on file Sexual Orientation Not on file documented as of this encounter Last Filed Vital Signs Vital Sign Reading Time Taken Comments Blood Pressure - - Pulse - - Temperature - - Respiratory Rate - - Oxygen Saturation - - Inhaled Oxygen Concentration - - Weight 68.9 kg (152 lb) 07/19/2024 9:35 AM EDT Height 172.7 cm (5' 8) 07/19/2024 9:35 AM EDT Body Mass Index 23.11 07/19/2024 9:35 AM EDT documented in this encounter Progress Notes * Julianna Navarrete, INTERSTATE [employer] DRIVER - 07/19/2024 9:30 AM EDT [place] [facility] Medical Decision Making: Chencho is a pleasant 79 y.o. male seen today for a chief complaint of 100% axial lower back pain likely associated with a very slight spondylolisthesis of L5 on S1 with associated facet arthropathy.He does have waxing and waning intensity of his discomfort somewhat complicated by the presence of Alzheimer's. At times, his will report that he demonstrates exacerbated outbursts associated with his axial lower back pain. We rediscussed injection options to include a more broad epidural steroid injection versus a more focused approach with MBB/RFA. The patient does prefer a more holistic approach to avoid any types of medications. We discussed that the RFA process uses heat to desensitize the nerves that innervate the lumbar facets. They are interested in moving forward with this. Theywould prefer to have this done in the [place] area and I have recommended that the patient connect with Dr. Pate at [facility]. The patient and his are in agreement and I have recommended that they see me back as needed but at this point, I will defer to Dr. Pate. Diagnosis: ICD-10-CM 1. Spondylolisthesis at L5-S1 level M43.17 Referral to Pain Management 2. Spondylosis of lumbar region without myelopathy or radiculopathy M47.816 Referral to Pain Management Plan Formal evaluation with Dr. Pate at [facility] pain with consideration of MBB/RFA L5- S1 bilaterally HPI Chencho Mcgrath is a 79 y.o. male last seen by me on 04/10/2023 for a chief complaint of low back painradiating to the left lower extremity likely associated with a slight spondylolisthesis at L5-S1 and associated unroofing of the disc contributing to stenosis. At the time of the last visit, we discussed options for treatment including interventional injections versus moving forward with a surgicalconsult. At the time of the last visit, he felt symptoms were manageable and we subsequently agreedon watchful monitoring. He is returning today for reevaluation and consideration of interventional injections. Today, the patient and his verbalized that they are interested in further exploration of interventional injections. The patient and his agreed that the nagging lower back pain continues to be an issue and is somewhat worse since our last visit. The patient does have Alzheimer's and his today reports that the patient will have occasional exasperated outbursts regarding the intensityof the lower back pain. He is actively engaged in physical therapy with Raffi Pritchard PT who has incorporated a more holistic approach in PT and home exercise program which the patient is finding beneficial. Today, there are no reports of radicular symptoms. ROS A five point review of systems was completed today and, of note, pertinent positive and negatives are indicated in the HPI. reports that he has quit smoking. His smoking use included cigars. He has never used smokeless tobacco. Conservative Treatment: Physical Therapy: The patient is currently actively engaged in physical therapy with Raffi Pritchard PT at [facility] Exercise Program: He does engage in HEP as directed by his physical therapist Medications: NSAIDS: Ibuprofen Helpful? Yes Injections: None Physical Examination Wt Readings from Last 1 Encounters: 07/19/24 68.9 kg (152 lb) BMI Readings from Last 1 Encounters: 07/19/24 23.11 kg/m?? Pain: 5 - 6 General: Pleasant, cooperative, Mood and affect are appropriate Posture: Upright Gait: Normal, Non-Antalgic Palpation: No palpable masses, lesions or deformities Skin: Intact with no stigmata of underlying disease. ROM: Full with pain on on extension Sensation: Grossly intact throughout all dermatomes Neuro: Strength: 5/5 throughout all muscle groups Imaging and Test Review: On the day of this encounter, I independently reviewed an MRI of the lumbar spine completed on 03/24/2023 demonstrating a spondylolisthesis at L5-S1 with some unroofing of the disc with severe right and moderate left foraminal stenosis and likely impingement of the right exiting L5 nerve CC: Richa Brand APRN Referring Provider: Richa Navarrete APRN 07/19/2024 [facility] documented in this encounter Plan of Treatment Upcoming Encounters Date Type Department Care Team (Late st Contact Info) Description 09/28/2024 3:15 PM EST Procedure [place] [address] Matthieu Benson MD [facility] [place] [address] 10/05/2024 1:30 PM EST TH Visit (TeleHealth) Neurology at [place] [phone] Pavan Iglesias APRN [facility] [place] [address] 01/31/2025 2:40 PM EDT Office Visit Cardiology at [address] [phone] Brayan Garay MD [facility] [place] [address] 03/16/2025 9:30 AM EDT [place] [phone] Augusta Keys MD [facility] [place] [address] Scheduled Referrals Name Type Priority Associated Diagnoses Orde r Schedule Referral to Pain Management Outpatient Referral Routine Spondylolisthesis at L5-S1 level Spondylosis of lumbar region without myelopathy or radiculopathy Ordered: 07/19/2024 documented as of this encounter Visit Diagnoses Diagnosis Spondylolisthesis at L5-S1 level 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
--- OUTSIDE RECORDS SUMMARY | 2024-08-28 17:05 | XMS_ITS | Encounter Summary ---
Author Organization [facility] Address [facility] [place] [address] Care Team Providers Care Radio Division Lieutenant Name Role Phone Richa Brand APRN Primary Care Provider [phone] Encounter Details Date Type Department Care Team (Latest Contact Info) Description 07/19/2024 Travel Social History Tobacco Use Types Packs/Day Years [...] place to sleep or slept in a [facility] (including now)? No 01/16/2023 Sex and Gender Information Value Date Recorded Sex Assigned at Not on file Gender Identity Not on file Sexual Orientation Not on file documented as of this encounter Plan of Treatment Upcoming Encounters Date Type Department Care Team (Late st Contact Info) Description 09/28/2024 3:15 PM EST Procedure [place] [address] [facility] [address] [place] [address] 10/05/2024 1:30 PM EST TH Visit (TeleHealth) Neurology at [place] [phone] [facility] [address] [place] [address] 01/31/2025 2:40 PM EDT Office Visit Cardiology at [address] [phone] Brayan Garay MD [facility] [place] [address] 03/16/2025 9:30 AM EDT [place] [phone] [facility] [address] [place] [address] documented as of this encounter Visit Diagnoses Not on filedocumented in this encounter Care Teams Radio Division Lieutenant Relationship Specialty Start Date End Date Richa Brand APRN [address] [place] [address] PCP - General Family Medicine 03/24/17 documented as of this encounter
--- OUTSIDE RECORDS SUMMARY | 2024-08-28 17:05 | XMS_ITS | Encounter Summary ---
Author Organization [facility] Address [facility] [place] [address] Care Team Providers Care Associate Property Manager Name Role Phone Richa Brand APRN Primary Care Provider [phone] Encounter Details Date Type Department Care Team (Latest Contact Info) Description 07/16/2024 Travel Social History Tobacco Use Types Packs/Day [...] place to sleep or slept in a [facility] (including now)? No 01/16/2023 Sex and Gender Information Value Date Recorded Sex Assigned at Not on file Gender Identity Not on file Sexual Orientation Not on file documented as of this encounter Plan of Treatment Upcoming Encounters Date Type Department Care Team (Late st Contact Info) Description 09/28/2024 3:15 PM EST Procedure [place] [address] Matthieu Benson MD [facility] [place] [address] 10/05/2024 1:30 PM EST TH Visit (TeleHealth) Neurology at [place] [phone] Pavan Iglesias APRN [facility] [place] [address] 01/31/2025 2:40 PM EDT Office Visit Cardiology at [address] [phone] Brayan Garay MD [facility] [place] [address] 03/16/2025 9:30 AM EDT Office [place] [phone] Augusta Keys MD [facility] [place] [address] documented as of this encounter Visit Diagnoses Not on filedocumented in this encounter Care Teams Associate Property Manager Relationship Specialty Start Date End Date Richa Brand APRN [address] [place] [address] PCP - General Family Medicine 03/24/17 documented as of this encounter
--- OUTSIDE RECORDS SUMMARY | 2024-08-28 17:05 | XMS_ITS | Encounter Summary ---
Author Organization [facility] Address One [facility] [place] [address] Care Team Providers Care Child Day Care Provider Name Role Phone Richa Brand APRN Primary Care Provider [phone] Encounter Details Date Type Department Care Team (Latest Contact Info) Description 08/26/2024 Travel Social History Tobacco Use Types Packs/Day [...] place to sleep or slept in a halfway (including now)? No 01/16/2023 Sex and Gender Information Value Date Recorded Sex Assigned at Not on file Gender Identity Not on file Sexual Orientation Not on file documented as of this encounter Plan of Treatment Upcoming Encounters Date Type Department Care Team (Late st Contact Info) Description 09/28/2024 3:15 PM EST Procedure [place] [address] Matthieu Benson MD [facility] [place] [address] 10/05/2024 1:30 PM EST TH Visit (TeleHealth) Neurology at [place] [phone] Pavan Iglesias APRN [facility] [place] [address] 01/31/2025 2:40 PM EDT Office Visit Cardiology at [address] [phone] Brayan Garay MD [facility] [place] [address] 03/16/2025 9:30 AM EDT Office [place] [phone] Augusta Keys MD [facility] [place] [address] documented as of this encounter Visit Diagnoses Not on filedocumented in this encounter Care Teams Child Day Care Provider Relationship Specialty Start Date End Date Richa Brand APRN [address] [place] [address] PCP - General Family Medicine 03/24/17 documented as of this encounter
--- OUTSIDE RECORDS SUMMARY | 2024-08-28 17:05 | XMS_ITS | Clinical Summary ---
Author Organization Formerly [facility] Address [address] [place] [address] Care Team Providers Care Gis Physical Scientist Name Role Phone Richa Brand APRN Primary Care Provider [phone] [phone] Allergies No known active allergies Medications Medication Sig Dispensed Refills Start Date End Date Status aspirin 81 mg Tablet, Delayed Release (E.C.) Take 81 mg by mouth daily. Active vitamin B complex (VITAMINS B COMPLEX ORAL) Take by mouth daily. Active cholecalciferol, Vitamin D3, 1,000 unit Capsule Take 2,000 Units by mouth daily. Active flaxseed oil 1,000 mg Capsule Take by mouth daily. Active vitamin E acetate (VITAMIN E ORAL) Take by mouth daily. Active busPIRone (Buspar) 15 mg Tablet 3 times daily. 05/13/2021 Active CALCIUM-MAGNESIUM ORAL Take 1 capsule by mouth daily. Active glucosamine frs-rybjpthhdv-ygr 500-200-150 mg Tablet Take 1 tablet by mouth daily. Active multivitamin (THERAGRAN) Tablet Take 1 tablet by mouth daily. Active ibuprofen (Advil) 200 mg tablet Take 400 mg by mouth nightly. Active UNKNOWN TO PATIENTIndications:OT C - sleeping pill / takes 1 1/2 tablets nightly Indications: OTC - sleeping pill / takes 1 1/2 tablets nightly Active betamethasone dipropionate (Diprolene) 0.05 % Ointment Apply twice daily as needed to areas of eczema 45 g 1 08/18/2023 Active calcium carb/magnesium carb (CALCIUM & MAGNESIUM CARBONATES ORAL) Take 1 tablet by mouth daily. 09/27/2020 Active atorvastatin (Lipitor) 20 mg tabletIndications:Hyp erlipidemia, unspecified hyperlipidemia type TAKE ONE TABLET BY MOUTH EVERY DAY 90 tablet 3 02/10/2024 Active donepeziL (Aricept) 10 mg tabletIndications:Mod erate late onset Alzheimer's dementia without behavioral disturbance, psychotic disturbance, mood disturbance, or anxiety TAKE 1 TABLET BY MOUTH EVERY NIGHT 90 tablet 3 07/07/2024 Active Additional Information Patient taking differently: DAILY, Reported on 08/26/2024 sertraline (Zoloft) 50 mg tablet Take 1 tablet by mouth daily. 90 tablet 3 07/16/2024 Active cyanocobalamin, vitamin B-12, (VITAMIN B-12 ORAL) Take 1 tablet by mouth daily. Active Ferrous Sulfate 27 mg iron Tablet Take 1 tablet by mouth daily. 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 - Anti-Thrombosis: asa 81 - Statin: lipitor 20. - Anti-anginals: GTN PRN Assessment & Plan (01/27/2023 10:49 AM EDT): No angina per history. - Anti-Thrombosis: asa 81 - Statin: lipitor 20. - Anti-anginals: GTN PRN Assessment & Plan (01/21/2022 1:28 PM EDT): No angina per history. - Anti-Thrombosis: asa 81 - Statin: lipitor 20. Reviewed its rationale in HD - Anti-anginals: GTN PRN Assessment & Plan (01/16/2021 10:05 AM EDT): No angina per history. - Anti-Thrombosis: asa 81 - Statin: lipitor 20 - Anti-anginals: GTN PRN Assessment & Plan (01/24/2020 9:43 PM EDT): No angina per history - Anti-Thrombosis: asa 81 - Statin: lipitor 20 - Anti-anginals: GTN PRN Hyperlipidemia 11/27/2018 Resolved Problems Problem Noted Date Diagnosed Date Resolved Date Hyponatremia 02/02/2024 02/02/2024 Rash 02/02/2024 02/02/2024 Memory deficit 01/17/2022 01/27/2023 Hearing loss in left ear 01/17/2022 Carpal tunnel syndrome of right wrist 01/17/2022 02/02/2024 Syncope and collapse 11/27/2018 022 Overview (01/06/2019): One episode 11/2018 Holter: NSR, no bradycardia or AV block, rare APC and VPC, 2 brief SVT longest 6 beats Hypertension 11/27/2018 01/06/2019 Rib pain on right side 11/27/201801/06 Encounters Date Type Department Care Team Description 08/26/2024 11:40 AM EDT Laboratory Appointment Lab [address] [place] [address] Numbness and tingling of both upper extremities 08/26/2024 9:30 AM EDT [place] [address] Pavan Iglesias, DON Numbness and tingling of both upper extremities 08/26/2024 Travel 08/10/2024 [place] [phone] Jacki Shah MD Numbness 07/19/2024 9:30 AM EDT Office Visit [place] [phone] Julianna Navarrete APRN Spondylolisthesis at L5-S1 level; Spondylosis of lumbar region without myelopathy or radiculopathy 07/19/2024 Travel 07/16/2024 10:00 AM EDT [place] [phone] Augusta Keys MD Alzheimer's disease 07/16/2024 Travel 07/06/2024 [place] [phone] Augusta Keys MD Moderate late onset Alzheimer's dementia without behavioral disturbance, psychotic disturbance, mood disturbance, or anxiety from Last 3 Months Immunizations Name Administration Dates Next Due Hepatitis A Adult (Havrix, Vaqta) 07/10/2022 Influenza Quadrivalent, Preservative Free 2018 Family History Medical History Relation Comments No [...] place to sleep or slept in a retirement (including now)? No 01/16/2023 Sex and Gender Information Value Date Recorded Sex Assigned at Not on file Gender Identity Not on file Sexual Orientation Not on file Last Filed Vital Signs Vital Sign Reading Time Taken Comments Blood Pressure 148/69 08/26/2024 9:35 AM EDT Pulse 56 08/26/2024 9:35 AM EDT Temperature 36.1 ??C (97 ??F) 01/16/2023 2:59 PM EDT Respiratory Rate 18 01/16/2023 2:59 PM EDT Oxygen Saturation 99% 08/26/2024 9:35 AM EDT Inhaled Oxygen Concentration - - Weight 69.9 kg (154 lb) 08/26/2024 9:35 AM EDT r eported Height 172.7 cm (5' 8) 08/26/2024 9:35 AM EDT Body Mass Index 23.42 08/26/2024 9:35 AM EDT Plan of Treatment Upcoming Encounters Date Type Department Care Team (Late st Contact Info) Description 09/28/2024 3:15 PM EST [place] [phone] Matthieu Benson MD [facility] [place] [address] 10/05/2024 1:30 PM EST TH Visit (TeleHealth) [place] [phone] Pavan Iglesias APRN [facility] [place] [address] 01/31/2025 2:40 PM EDT Office Visit Cardiology at [address] [place] [address] Brayan Garay MD [facility] [place] [address] 03/16/2025 9:30 AM EDT [place] [address] Augusta Keys MD [facility] [place] [address] Health Maintenance Due Date Last Done Comments Tetanus/Diphtheria/Pertussis Vaccines (1 - Tdap) 05/31 Zoster vaccine (1 of 2) 1993 Pneumoccocal Vaccine: 65+ (1 of 1 - PCV) 2008 Covid-19 Vaccine (1 - season) 2024 Influenza (Flu) vaccine (1 o f 1 - Influenza standard series) 07/04/2024 09/27/2019 Procedures Procedure Name Priority Date/Time Associated Diagnosis Comments PROTEIN, TOTAL ELECTROPHORESIS (PERFROMABLE) Routine 08/26/2024 10:43 AM EDT Numbness and tingling of both upper extremities PEP, SERUM (PERFORMABLE) Routine 08/26/2024 10:43 AM EDT Numbness and tingling of both upper extremities TSH Routine 08/26/2024 10:43 AM EDT Numbness and tingling of both upper extremities PROTEIN ELECTROPHORESIS, SERUM Routine 08/26/2024 10:43 AM EDT Numbness and tingling of both upper extremities COMPREHENSIVE METABOLIC PANEL Routine 08/26/2024 10:43 AM EDT Numbness and tingling of both upper extremities VITAMIN B12 Routine 08/26/2024 10:43 AM EDT Numbness and tingling of both upper extremities from Last 3 Months Results * Protein, Serum Electrophoresis (08/26/2024 10:43 AM EDT) Blood VENOUS BLOOD SPECIMEN / Unknown Venipuncture / Unknown 08/26/2024 10:43 AM EDT 08/26/2024 10:43 AM EDT Pavan Iglesias FISHER SCALLOP URINE ORDERABLES Performing Organization Address [facility]/ZIP Co de Phone Number [facility] [place] [address] * PEP, Serum (08/26/2024 10:43 AM EDT) Protein, Total 6.8 6.1 - 8.0 g/dL 08/27/2024 2:55 PM EDT [facility] Albumin Electrophoresis 4.10 3.20 - 5.20 g/dL 08/27/2024 2:55 PM EDT [facility] Alpha 1 Globulin 0.18 0.10 - 0.30 g/dL 08/27/2024 2:55 PM EDT [facility] Alpha 2 Globulin 0.82 0.40 - 0.90 g/dL 08/27/2024 2:55 PM EDT [facility] Beta Globulin 0.65 0.50 - 1.00 g/dL 08/27/2024 2:55 PM EDT [facility] Gamma Globulin 1.05 0.50 - 1.30 g/dL 08/27/2024 2:55 PM EDT [facility] M1 Band 08/27/2024 2:55 PM EDT [facility] Comment:None Detected Blood VENOUS BLOOD SPECIMEN / Unknown Venipuncture / Unknown 08/26/2024 10:43 AM EDT 08/26/2024 10:43 AM EDT Pavan Iglesias APRN URINE ORDERABLES Performing Organization Address City/[facility]/ZIP Co de Phone Number [facility] [place] [address] * TSH (08/26/2024 10:43 AM EDT) Thyroid Stimulating Hormone 3.70 0.27 - 4.20 mcIU/mL 08/26/2024 11:43 AM EDT [facility] Blood VENOUS BLOOD SPECIMEN / Unknown Venipuncture / Unknown 08/26/2024 10:43 AM EDT 08/26/2024 10:43 AM EDT Pavan Iglesias FISHER SCALLOP CHEMISTRY ORDERABLE S [facility] [place] [address] * Vitamin B12 (08/26/2024 10:43 AM EDT) [facility] Vitamin B12 847 232 - 1,245 pg/mL 08/26/2024 1:16 PM EDT [facility] Blood VENOUS BLOOD SPECIMEN / Unknown Venipuncture / Unknown 08/26/2024 10:43 AM EDT 08/26/2024 10:43 AM EDT Pavan Iglesias APRN CHEMISTRY ORDERABLE S [facility] [place] [address] * (ABNORMAL) Comprehensive metabolic panel Non-fasting (08/26/2024 10:43 AM EDT) [facility] Glucose 83 65 - 199 mg/dL 08/26/2024 11:43 AM EDT [facility] Comment:Glucose Concentratio n >=200 mg/dL plus symptoms is consistent with Diabetes Mellitus. Blood Urea Nitrogen 21(H) 10 - 20 mg/dL 08/26/2024 11:43 AM EDT [facility] Creatinine 1.04 0.80 - 1.50 mg/dL 08/26/2024 11:43 AM EDT [facility] Sodium 141 135 - 145 mMol/L 08/26/2024 11:43 AM [facility] Potassium 4.7 3.5 - 5.0 mMol/L 08/26/2024 11:43 AM [facility] Chloride 108(H) 98 - 107 mMol/L 08/26/2024 11:43 AM [facility] Carbon Dioxide 23 22 - 31 mMol/L 08/26/2024 11:43 AM [facility] Anion Gap 10 5 - 15 mMol/L 08/26/2024 11:43 AM [facility] Calcium 9.1 8.5 - 10.5 mg/dL 08/26/2024 11:43 AM [facility] Protein, Total 7.2 6.1 - 8.0 g/dL 08/26/2024 11:43 AM [facility] Albumin 3.9 3.2 - 5.2 g/dL 08/26/2024 11:43 AM [facility] Aspartate Aminotransferase 21 <=39 unit/L 08/26/2024 11:43 AM [facility] Alanine Aminotransferase 14 0 - 55 unit/L 08/26/2024 11:43 AM [facility] Alkaline Phosphatase 63 40 - 130 unit/L 08/26/2024 11:43 AM [facility] Bilirubin, Total 0.4 <=1.3 mg/dL 08/26/2024 11:43 AM [facility] Est Glomerular Filtration Rate - Male 72 mL/min/1. 73 m?? 08/26/2024 11:43 AM [facility] Comment: This patient's estimated GFR [...] Fasting Status No 08/26/2024 11:43 AM EDT [facility] Blood VENOUS BLOOD SPECIMEN / Unknown Venipuncture / Unknown 08/26/2024 10:43 AM EDT 08/26/2024 10:43 AM EDT Pavan Iglesias FISHER SCALLOP CHEMISTRY ORDERABLE S [facility] [address] [place] [address] from Last 3 Months Advance Directives Documents on File Type Date Recorded Patient Plasterer Stucco Expl anation Advance Directives and Hariniin g Will 02/18/2023 10:22 AM Care Teams Gis Physical Scientist Relationship Specialty Start Date End Date Richa Brand APRN [address] [place] [address] PCP - General Family Medicine 03/24/17
--- OUTSIDE RECORDS SUMMARY | 2024-08-28 17:05 | XMS_ITS | Encounter Summary ---
[place] [address] Care Team Providers Care Manager Floor Name Role Phone Richa Brand APRN Primary Care Provider [phone] Encounter Details Date Type Department Care Team (Latest Contact Info) Description 08/26/2024 11:40 AM EDT Laboratory Appointment Lab [address] [place] [phone] Numbness and tingling of both upper extremities [...] 3:15 PM EST [place] [address] Matthieu Benson MD [facility] [place] [address] 10/05/2024 1:30 PM EST TH Visit (TeleHealth) [place] [address] Pavan Iglesias APRN [facility] [place] [address] 01/31/2025 2:40 PM EDT Office Visit Cardiology at [address] [phone] Brayan Garay MD [facility] [place] [address] 03/16/2025 9:30 AM EDT Office Visit Neurology at [place] [phone] Augusta Keys MD [facility] [place] [address] Pending Results Name Type Priority Associated Diagnoses Date /Time Vitamin B6 Lab Routine Numbness and tingling of both upper extremities 08/26/2024 10:43 AM EDT documented as of this encounter Procedures Procedure [...] both upper extremities documented in this encounter Results * Protein, Serum Electrophoresis (08/26/2024 10:43 AM EDT) Blood VENOUS BLOOD SPECIMEN / Unknown Venipuncture / Unknown 08/26/2024 10:43 AM EDT 08/26/2024 10:43 AM EDT Pavan Iglesias APRN URINE ORDERABLES [facility] [place] [address] * PEP, Serum (08/26/2024 10:43 AM EDT) Protein, Total 6.8 6.1 - 8.0 g/dL 08/27/2024 2:55 PM EDT [facility] Albumin Electrophoresis 4.10 3.20 - 5.20 g/dL 08/27/2024 2:55 PM EDT [facility] Alpha 1 Globulin 0.18 0.10 - 0.30 g/dL 08/27/2024 2:55 PM EDT [facility] Alpha 2 Globulin 0.82 0.40 - 0.90 g/dL 08/27/2024 2:55 PM EDT [facility] Beta Globulin 0.65 0.50 - 1.00 g/dL 08/27/2024 2:55 PM EDT [facility] Gamma Globulin 1.05 0.50 - 1.30 g/dL 08/27/2024 2:55 PM EDT [facility] M1 Band 08/27/2024 2:55 PM EDT [facility] Comment:None Detected Blood VENOUS BLOOD SPECIMEN / Unknown Venipuncture / Unknown 08/26/2024 10:43 AM EDT 08/26/2024 10:43 AM EDT Pavan Iglesias APRN URINE ORDERABLES Performing Organization Address City/[facility]/ZIP Co de Phone Number [facility] [place] [address] * TSH (08/26/2024 10:43 AM EDT) Thyroid Stimulating Hormone 3.70 0.27 - 4.20 mcIU/mL 08/26/2024 11:43 AM EDT [facility] Blood VENOUS BLOOD SPECIMEN / Unknown Venipuncture / Unknown 08/26/2024 10:43 AM EDT 08/26/2024 10:43 AM EDT Pavan Iglesias APRN CHEMISTRY ORDERABLE S Performing Organization Address City/[facility]/ZIP Co de Phone Number [facility] [place] [address] * (ABNORMAL) Comprehensive metabolic panel Non-fasting (08/26/2024 10:43 AM EDT) Glucose 83 65 - 199 mg/dL 08/26/2024 11:43 AM [facility] Comment:Glucose Concentratio n >=200 mg/dL plus symptoms is consistent with Diabetes Mellitus. Blood Urea Nitrogen 21(H) 10 - 20 mg/dL 08/26/2024 11:43 AM [facility] Creatinine 1.04 0.80 - 1.50 mg/dL 08/26/2024 11:43 AM [facility] Sodium 141 135 - 145 mMol/L 08/26/2024 11:43 AM [facility] Potassium 4.7 3.5 - 5.0 mMol/L 08/26/2024 11:43 AM [facility] Chloride 108(H) 98 - 107 mMol/L 08/26/2024 11:43 AM [facility] Carbon Dioxide 23 22 - 31 mMol/L 08/26/2024 11:43 AM [facility] Anion Gap 10 5 - 15 mMol/L 08/26/2024 11:43 AM [facility] Calcium 9.1 8.5 - 10.5 mg/dL 08/26/2024 11:43 AM [facility] Protein, Total 7.2 6.1 - 8.0 g/dL 08/26/2024 11:43 AM [facility] Albumin 3.9 3.2 - 5.2 g/dL 08/26/2024 11:43 AM [facility] Aspartate Aminotransferase 21 <=39 unit/L 08/26/2024 11:43 AM [facility] Alanine Aminotransferase 14 0 - 55 unit/L 08/26/2024 11:43 AM [facility] Alkaline Phosphatase 63 40 - 130 unit/L 08/26/2024 11:43 AM [facility] Bilirubin, Total 0.4 <=1.3 mg/dL 08/26/2024 11:43 AM [facility] Est Glomerular Filtration Rate - Male 72 mL/min/1. 73 m?? 08/26/2024 11:43 AM EDT [facility] Comment: This patient's estimated GFR was [...] Fasting Status No 08/26/2024 11:43 AM EDT [facility] Blood VENOUS BLOOD SPECIMEN / Unknown Venipuncture / Unknown 08/26/2024 10:43 AM EDT 08/26/2024 10:43 AM EDT Pavan Iglesias APRN CHEMISTRY ORDERABLE S Performing Organization Address City/[facility]/ZIP Co de Phone Number [facility] [place] [address] * Vitamin B12 (08/26/2024 10:43 AM EDT) Vitamin B12 847 232 - 1,245 pg/mL 08/26/2024 1:16 PM EDT [facility] Blood VENOUS BLOOD SPECIMEN / Unknown Venipuncture / Unknown 08/26/2024 10:43 AM EDT 08/26/2024 10:43 AM EDT Pavan Iglesias APRN CHEMISTRY ORDERABLE S [facility] [place] [address] documented in this encounter Visit Diagnoses Diagnosis Numbness and tingling of both upper extremities documented in this encounter Care Teams Manager Floor Relationship Specialty Start Date End Date Richa Brand APRN [address] [place] [id number] PCP - General Family Medicine 03/24/17 documented as of this encounter
--- OUTSIDE RECORDS SUMMARY | 2024-08-28 17:05 | XMS_ITS | Encounter Summary ---
Author Organization [facility] [place] [address] Care Team Providers Care Mines Inspector Name Role Phone Richa Brand APRN Primary Care Provider [phone] Reason for Visit * Reason Onset Date Comments Numbness 08/10/2024 Encounter Details Date Type Department Care Team (Late st Contact Info) Description 08/10/2024 [place] [phone] Jacki Shah MD [facility] [place] [address] Numbness Social History Tobacco Use Types Packs/Day Years [...] place to sleep or slept in a long term (including now)? No 01/16/2023 Sex and Gender Information Value Date Recorded Sex Assigned at Not on file Gender Identity Not on file Sexual Orientation Not on file documented as of this encounter Miscellaneous Notes * Telephone Encounter - Velma Rouse - 08/17/2024 4:06 PM EDT Booked first available urgent slot w/ Pavan per provider direction * Telephone Encounter - Analilia Shah RN - 08/13/2024 4:32 PM EDT Returned call to patient. Patient stated he had called and spoke to someone already to request an appt with Dr. Shah and she took down his symptoms and she was going to talk to Dr. Shah. He stated he is concerned that he is getting worse and wanted know if there is a treatment plan or if he will just loose more of his ability to use his hands and feet and that is why he would like anappt to discuss. Informed patient message will be forwarded to Dr. Shah for review. * Telephone Encounter - Rosa Sher - 08/13/2024 2:06 PM EDT Patient confirmed name and and obtained permission to speak with Monse- Life partner. Monse states she was returning call and will be available the rest of the day. * Telephone Encounter - Kriss Whitaker RN - 08/12/2024 5:00 PM EDT Contacted patient/spouse regarding symptoms but was unable to reach. Message left asking for a return call. Kriss HUDSON * Telephone Encounter - Monse Estevez RN - 08/10/2024 3:59 PM EDT Copied from [facility] #[id number]. Topic: Specialty Dept CRMs - Triage >> Aug 10, 2024 2:14 PM Rosa Barnes wrote: Triage Message Specialist: Dr. Shah Relationship (if other than patient-full name): Monse-Life Partner and patient Symptom: Numbness in the fingers and toes Has patient experienced symptom before yes If patient has experienced symptom before, when was the last time this occurred ongoing Is patient currently having symptom yes When did symptom begin Last couple of months Additional Comments: Patient states in the past couple of months his numbness in the fingers and toes and feet are accelerating on both sides. Patient states it is not overly impacting his walking but is very noticeable. documented in this encounter Plan of Treatment Upcoming Encounters Date Type Department Care Team (Late st Contact Info) Description 09/28/2024 3:15 PM EST Procedure [place] [address] Matthieu Benson MD [facility] [place] [address] 10/05/2024 1:30 PM EST TH Visit (TeleHealth) [place] [phone] Pavan Iglesias APRN [facility] [place] [address] 01/31/2025 2:40 PM EDT Office Visit Cardiology at [address] [phone] Brayan Garay MD [facility] [place] [address] 03/16/2025 9:30 AM EDT [place] [address] Augusta Keys MD [facility] [place] [address] documented as of this encounter Visit Diagnoses Not on filedocumented in this encounter Care Teams Mines Inspector Relationship Specialty Start Date End Date Richa Brand, SERVICE GREETER [address] [place] [address] PCP - General Family Medicine 03/24/17 documented as of this encounter
--- OUTSIDE RECORDS SUMMARY | 2024-08-28 17:06 | XMS_ITS | Encounter Summary ---
Author Organization [facility] Address [facility] [place] [address] Care Team Providers Care Special Events Fundraiser Name Role Phone Richa Brand APRN Primary Care Provider [phone] Encounter Details Date Type Department Care Team (Latest Contact Info) Description 03/17/2023 Travel Social History Tobacco Use Types Packs/Day [...] place to sleep or slept in a fdc (including now)? No 01/16/2023 Sex and Gender Information Value Date Recorded Sex Assigned at Not on file Gender Identity Not on file Sexual Orientation Not on file documented as of this encounter Plan of Treatment Upcoming Encounters Date Type Department Care Team (Late st Contact Info) Description 09/28/2024 3:15 PM EST [place] [address] Matthieu Benson MD [facility] [place] [address] 10/05/2024 1:30 PM EST TH Visit (TeleHealth) Neurology at [place] [phone] Pavan Iglesias APRN [facility] [place] [address] 01/31/2025 2:40 PM EDT Office Visit Cardiology at [address] [phone] Brayan Garay MD [facility] [place] [address] 03/16/2025 9:30 AM EDT [place] [phone] Augusta Keys MD [facility] [place] [address] documented as of this encounter Visit Diagnoses Not on filedocumented in this encounter Care Teams Special Events Fundraiser Relationship Specialty Start Date End Date Richa Brand APRN [address] [place] [address] PCP - General Family Medicine 03/24/17 documented as of this encounter
--- OUTSIDE RECORDS SUMMARY | 2024-08-28 17:06 | XMS_ITS | Encounter Summary ---
Author Organization [facility] Address [facility] [place] [address] Care Team Providers Care Instructional Technology Coach Name Role Phone Richa Brand APRN Primary Care Provider +1 [phone] Encounter Details Date Type Department Care Team (Late st Contact Info) Description 07/16/2024 10:00 AM EDT Office [place] [phone] Augusta Keys MD [facility] [place] [address] Alzheimer's disease Social History Tobacco Use Types Packs/Day Years [...] place to sleep or slept in a half-way (including now)? No 01/16/2023 Sex and Gender Information Value Date Recorded Sex Assigned at Not on file Gender Identity Not on file Sexual Orientation Not on file documented as of this encounter Progress Notes * Augusta Keys MD - 07/16/2024 10:00 AM EDT Chencho is an 79 yo M w/ dementia due to Alzheimer's disease, here for follow up. Monse manages all of his iADLs. 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 July 2024: he has had some slow, continued decline. He does not drive, manage any iADLs, but this is not new. 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 Mood has become an issue. E has more periods of time in which he is irrationally irritable. He has more frequent n ight time outbursts and has even thrown things at Monse. No physical concerns. No headaches, no stroke like episodes. 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 Antiarthritic Combination No.2 900 mg Tablet Take 1 tablet by mouth daily. Acetylcysteine (NAC) 600 mg capsule Take 1 capsule by mouth daily. betamethasone dipropionate (Diprolene) 0.05 % Ointment Apply twice daily as needed to areas of eczema 45 g 1 glucosamine ycz-tsorzrkymm-cxy 500-200-150 mg Tablet Take 1 tablet by mouth daily. multivitamin (THERAGRAN) Tablet Take 1 tablet by mouth daily. ibuprofen (Advil) 200 mg tablet Take 400 mg by mouth nightly. UNKNOWN TO PATIENT Indications: OTC - sleeping pill / takes 1 1/2 tablets nightly CALCIUM-MAGNESIUM ORAL Take 1 capsule by mouth daily. busPIRone (Buspar) 15 mg Tablet 3 times daily. ferrous sulfate (IRON ORAL) Take 325 mg by mouth See Admin Instructions. Lena Moeller, Ananda vitamin B complex (VITAMINS B COMPLEX ORAL) Take by mouth daily. cholecalciferol, Vitamin D3, 1,000 unit Capsule Take 2,000 Units by mouth daily. flaxseed oil 1,000 mg Capsule Take by mouth daily. vitamin E acetate (VITAMIN E ORAL) Take by mouth daily. aspirin 81 mg Tablet, Delayed Release (E.C.) Take 81 mg by mouth daily. No current facility-administered medications on file prior to visit. Normal gait and station No tremors Normal tone and strength Brisk reflexes, brisk MoCA from 2019 (20 and ). MoCA done via Zoom in 2021 was , which is stable as compared to last time he did it in 2019. He lost a point for trails B, -2 pts clock draw, -2 repetition, -4 delayed recall (with rapid forgetting). MoCA 07/16/2024: ! -5 DR, -1 repetition (hard of hearing), -2 clock, -3 orientation. Chencho is an 79 yo M w/ dementia due to Alzheimer's disease, here for follow up. He still seems to be somewhere in late mild, perhaps bordering on moderate stages. He can continue donepezil 10mg. May still not yet be a candidate for memantine. Outbursts: I think sertraline is a reasonable option for him. Will start 50mg po daily. They understand side effects (rarely, loose stools) and benefits and that it may take 4-6 weeks to see an effects. Could consider a low dose of risperidone or seroquel if needed, but I would hold off on this fornow. We spent time discussing the diagnosis of Alzheimer's and other types of dementing illnesses. 60 minutes were spent on the care of this patient, with at least 55 minutes spent face to face withthe patient, performing direct education, supportive counseling, coordination of care, as well as on chart review. All of these activities were performed on today's date, which is the date of the appointment. Follow up in the spring or summer of 2024 Code G2211 was used because I am continuing to manage a serious or complex neurologic condition. documented in this encounter Plan of Treatment Upcoming Encounters Date Type Department Care Team ([facility] Contact Info) Description 09/28/2024 3:15 PM EST Procedure [place] [address] Matthieu Benson MD [facility] DR [place]UROLOG[place] [address] 10/05/2024 1:30 PM EST TH Visit (TeleHealth) [place] [phone] Pavan Iglesias APRN [facility] [place] [address] 01/31/2025 2:40 PM EDT Office Visit Cardiology at [address] [address] Brayan Garay MD [facility] [place] [address] 03/16/2025 9:30 AM EDT Office [place] [address] Augusta Keys MD [facility] [place] [address] documented as of this encounter Visit Diagnoses Diagnosis Alzheimer's disease documented in this encounter Care Teams Instructional Technology Coach Relationship Specialty Start Date End Date Richa Brand APRN [address] [place] [address] PCP - General Family Medicine 03/24/17 documented as of this encounter
--- OUTSIDE RECORDS SUMMARY | 2024-08-28 17:06 | XMS_ITS | Encounter Summary ---
Author Organization [facility] [place] [address] Care Team Providers Care Comb Capper Name Role Phone Richa Brand APRN Primary Care Provider [phone] [phone] Encounter Details Date Type Department Care Team (Late st Contact Info) Description 03/13/2023 Telephone [facility] [place] [phone] Joy Acharya LNA Social History Tobacco Use Types Packs/Day Years [...] encounter Miscellaneous Notes * Telephone Encounter - Joy Acharya - 03/13/2023 10:02 AM EDT Faxed insurance info to [facility]. documented in this encounter Plan of Treatment Upcoming Encounters Date Type Department Care Team (Late st Contact Info) Description 09/28/2024 3:15 PM EST [place] [address] Matthieu Benson MD [facility] [place] [address] 10/05/2024 1:30 PM EST TH Visit (TeleHealth) [place] [address] Pavan Iglesias APRN [facility] [place] [address] 01/31/2025 2:40 PM EDT Office Visit Cardiology at [address] [phone] Brayan Garay MD [facility] [place] [address] 03/16/2025 9:30 AM EDT [place] [address] Augusta Keys MD [facility] [place] [address] documented as of this encounter Visit Diagnoses Not on filedocumented in this encounter Care Teams Comb Capper Relationship Specialty Start Date End Date Richa Brand APRN [address] [place] [address] PCP - General Family Medicine 03/24/17 documented as of this encounter
--- OUTSIDE RECORDS SUMMARY | 2024-08-28 17:06 | XMS_ITS | Encounter Summary ---
Author Organization [facility] Address [facility] [place] [address] Care Team Providers Care Crumb Packer Name Role Phone Richa Brand APRN Primary Care Provider [phone] [phone] Encounter Details Date Type Department Care Team (Latest Contact Info) Description 02/28/2023 Travel Social History Tobacco Use Types Packs/Day [...] place to sleep or slept in a fpc (including now)? No 01/16/2023 Sex and Gender Information Value Date Recorded Sex Assigned at Not on file Gender Identity Not on file Sexual Orientation Not on file documented as of this encounter Plan of Treatment Upcoming Encounters Date Type Department Care Team (Late st Contact Info) Description 09/28/2024 3:15 PM EST [place] [address] Matthieu Benson MD [facility] [place] [address] 10/05/2024 1:30 PM EST TH Visit (TeleHealth) Neurology at [place] [phone] Pavan Iglesias APRN [facility] [place] [address] 01/31/2025 2:40 PM EDT Office Visit Cardiology at [address] [phone] Brayan Garay MD [facility] [place] [address] 03/16/2025 9:30 AM EDT Office [place] [phone] Augusta Keys MD [facility] [place] [address] documented as of this encounter Visit Diagnoses Not on filedocumented in this encounter Care Teams Crumb Packer Relationship Specialty Start Date End Date Richa Brand APRN [address] [place] [address] PCP - General Family Medicine 03/24/17 documented as of this encounter
--- OUTSIDE RECORDS SUMMARY | 2024-08-28 17:06 | XMS_ITS | Encounter Summary ---
Author Organization [facility] [place] [address] Care Team Providers Care Visitor Services Assistant Name Role Phone Richa Brand APRN Primary Care Provider [phone] [phone] Reason for Visit * Reason Comments Medication Refill Encounter Details Date Type Department Care Team (Late st Contact Info) Description 01/23/2022 Refill Cardiology at [address] [phone] Brayan Garay MD [facility] [place] [address] Medication Refill Social History Tobacco Use Types Packs/Day Years Used Date Smoking Tobacco: Former Cigars Smokeless Tobacco: Never Comments:50+ years ago Alcohol Use Standard Drinks/Week Comments Yes 14 (1 standard drink = 0.6 oz pu re alcohol) Sex and Gender Information Value Date Recorded Sex Assigned at Not on file Gender Identity Not on file Sexual Orientation Not on file documented as of this encounter Plan of Treatment Upcoming Encounters Date Type Department Care Team (Late st Contact Info) Description 09/28/2024 3:15 PM EST Procedure [place] [address] Matthieu Benson MD [facility] [place] [address] 10/05/2024 1:30 PM EST TH Visit (TeleHealth) [place] [phone] Pavan Iglesias APRN [facility] [place] [address] 01/31/2025 2:40 PM EDT Office Visit Cardiology at [address] [phone] Brayan Garay MD [facility] [place] [address] 03/16/2025 9:30 AM EDT Office [place] [phone] Augusta Keys MD [facility] [place] [address] documented as of this encounter Visit Diagnoses Diagnosis Hyperlipidemia, unspecified hyperlipidemia type documented in this encounter Care Teams Visitor Services Assistant Relationship Specialty Start Date End Date Richa Brand APRN [address] [place] [address] PCP - General Family Medicine 03/24/17 documented as of this encounter
--- OUTSIDE RECORDS SUMMARY | 2024-08-28 17:06 | XMS_ITS | Encounter Summary ---
Author Organization [facility] [place] [address] Care Team Providers Care Dietetic Technician Registered Name Role Phone Richa Brand APRN Primary Care Provider [phone] [phone] Encounter Details Date Type Department Care Team (Latest Contact Info) Description 12/31/2022 Travel Social History Tobacco Use Types Packs/Day [...] 3:15 PM EST Procedure [place] [phone] Matthieu Benson MD [facility] [place] [address] 10/05/2024 1:30 PM EST TH Visit (TeleHealth) [place] [phone] Pavan Iglesias APRN [facility] [place] [address] 01/31/2025 2:40 PM EDT Office Visit Cardiology at [address] [phone] Brayan Garay MD [facility] [place] [address] 03/16/2025 9:30 AM EDT Office [place] [address] Augusta Keys MD [facility] [place] [address] documented as of this encounter Visit Diagnoses Not on filedocumented in this encounter Care Teams Dietetic Technician Registered Relationship Specialty Start Date End Date Richa Brand APRN [address] [place] [address] PCP - General Family Medicine 03/24/17 documented as of this encounter
--- OUTSIDE RECORDS SUMMARY | 2024-08-28 17:06 | XMS_ITS | Encounter Summary ---
Author Organization [facility] Address [facility] [place] [address] Care Team Providers Care Direct Mail Clerk Name Role Phone Richa Brand APRN Primary Care Provider +1 [phone] Reason for Visit * Reason Comments Coronary Artery Disease Encounter Details Date Type Department Care Team (Latest Contact Info) Description 01/27/2023 9:40 AM EDT Office Visit Cardiology at [address] [place] [address] Brayan Garay MD [facility] [place] [address] ASCVD (arteriosclerotic cardiovascular disease) Social History Tobacco Use Types Packs/Day Years Used Date Smoking Tobacco: Former Cigars Smokeless Tobacco: Never Comments:50+ years ago Alcohol Use Standard Drinks/Week Comments Yes 14 (1 standard drink = 0.6 oz pu re alcohol) Overall Financial Resource Strain (CARDIA) Dipika r Date Recorded How hard is it [...] place to sleep or slept in a fci (including now)? No 01/16/2023 Sex and Gender Information Value Date Recorded Sex Assigned at Not on file Gender Identity Not on file Sexual Orientation Not on file documented as of this encounter Last Filed Vital Signs Vital Sign Reading Time Taken Comments Blood Pressure 126/49 01/27/2023 9:45 AM EDT Pulse 62 01/27/2023 9:45 AM EDT Temperature - - Respiratory Rate - - Oxygen Saturation - - Inhaled Oxygen Concentration - - Weight 70.6 kg (155 lb 11.2 oz) 01/27/2023 9:45 AM EDT Height 172.7 cm (5' 8) 01/27/2023 9:45 AM EDT Body Mass Index 23.67 01/27/2023 9:45 AM EDT documented in this encounter Progress Notes * Brayan Garay MD - 01/27/2023 9:40 AM EDT Images from the original note were not included. Subjective: Patient ID: Chencho Mcgrath is a 77 y.o. male who presents on follow-up for: Chief Complaint Patient presents with ??? Coronary Artery Disease HPI Last seen by me 01/2022, at which time no changes were made. Since then, he has been doing well. Good activity is without angina nor untoward dyspnea bp well controlled Current Outpatient Medications Medication Instructions ??? aspirin EC 81 mg, Oral, DAILY ??? atorvastatin (LIPITOR) 20 mg, Oral, DAILY ??? betamethasone dipropionate (Diprolene) 0.05 % Ointment Apply twice daily as needed to areas of eczema ??? busPIRone (Buspar) 15 mg Tablet 3 TIMES DAILY ??? CALCIUM-MAGNESIUM ORAL 1 capsule, Oral, DAILY ??? cholecalciferol (Vitamin D3) 2,000 Units, Oral, DAILY ??? donepeziL (Aricept) 10 mg Tablet TAKE 1 TABLET BY MOUTH EVERY NIGHT ??? ferrous sulfate (IRON ORAL) 325 mg, Oral, SEE ADMIN INSTRUCTIONS, Tues, Thurs, Sat ??? flaxseed oil 1,000 mg Capsule Oral, DAILY ??? sildenafiL (VIAGRA) 50 mg Tablet TAKE 1 TABLET BY MOUTH 1 HOUR PRIOR TO INTERCOURSE NEEDED ??? vitamin B complex (VITAMINS B COMPLEX ORAL) Oral, DAILY ??? vitamin E acetate (VITAMIN E ORAL) Oral, DAILY Patient Active Problem List Diagnosis ??? Alzheimer's dementia ??? Peripheral neuropathy ??? 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 Carpal tunnel syndrome of right wrist ??? Sensory hearing loss, bilateral ??? Lumbar spondylosis ??? Anxiety ??? ASCVD (arteriosclerotic cardiovascular disease) 2007 70% D1-> POBA, no other disease Stress echo 2013- 12.8 METS, HR 154, fatigue, no ST change, no WMA, no valve disease ??? Hyperlipidemia Objective: BP 126/49 (BP Location (NBP): Left arm, Patient Position: Sitting, BP Cuff Sizes: Adult (25-34 cm)) Pulse 62 Ht 172.7 cm (5' 8) Wt 70.6 kg (155 lb 11.2 oz) BMI 23.67 kg/m?? Gen: pleasant male in NAD, appears younger than chronologic age. Cor: rrr, s1/s2 of nl character and amplitude, no m/r/g. Estimated RAP not elevated. Carotids with normal upstroke without bruit. Pulm: CTAB. Normal diaphragmatic movement without use of accessory muscles Assessment and Plan: ASCVD (arteriosclerotic cardiovascular disease) No angina per history. - Anti-Thrombosis: asa 81 - Statin: lipitor 20. - Anti-anginals: GTN PRN RTC 12 months Brayan Garay MD documented in this encounter Miscellaneous Notes * Assessment & Plan Note - Brayan Garay MD - 01/27/2023 10:49 AM EDT Associated Problem(s): ASCVD (arteriosclerotic cardiovascular disease) No angina per history. - Anti-Thrombosis: asa 81 - Statin: lipitor 20. - Anti-anginals: GTN PRN documented in this encounter Plan of Treatment Upcoming Encounters Date Type Department Care Team (Late st Contact Info) Description 09/28/2024 3:15 PM EST Procedure visit Neurology at [place] [phone] Matthieu Benson MD [facility] [place] [address] 10/05/2024 1:30 PM EST TH Visit (TeleHealth) Neurology at [place] [phone] Pavan Iglesias APRN [facility] [place] [address] 01/31/2025 2:40 PM EDT Office Visit Cardiology at [address] [phone] Brayan Garay MD [facility] [place] [address] 03/16/2025 9:30 AM EDT Office Visit Neurology at [place] [phone] Augusta Keys MD [facility] [place] [address] documented as of this encounter Visit Diagnoses Diagnosis ASCVD (arteriosclerotic cardiovascular disease) Unspecified cardiovascular disease documented in this encounter Care Teams Direct Mail Clerk Relationship Specialty Start Date End Date Richa Brand APRN [address] [place] [address] PCP - General Family Medicine 03/24/17 documented as of this encounter
--- OUTSIDE RECORDS SUMMARY | 2024-08-28 17:06 | XMS_ITS | Encounter Summary ---
Author Organization [facility] Address [facility] [place] [address] Care Team Providers Care Electrician'S Helper Name Role Phone Richa Brand APRN Primary Care Provider [phone] [phone] Encounter Details Date Type Department Care Team (Latest Contact Info) Description 01/16/2023 Travel Social History Tobacco Use Types Packs/Day [...] place to sleep or slept in a senior living (including now)? No 01/16/2023 Sex and Gender Information Value Date Recorded Sex Assigned at Not on file Gender Identity Not on file Sexual Orientation Not on file documented as of this encounter Plan of Treatment Upcoming Encounters Date Type Department Care Team (Late st Contact Info) Description 09/28/2024 3:15 PM EST Procedure [place] [address] Matthieu Benson MD [facility] [place] [address] 10/05/2024 1:30 PM EST TH Visit (TeleHealth) Neurology at [place] [phone] Pavan Iglesias APRN [facility] [place] [address] 01/31/2025 2:40 PM EDT Office Visit Cardiology at [address] [phone] Brayan Garay MD [facility] [place] [address] 03/16/2025 9:30 AM EDT Office Visit [place] [phone] Augusta Keys MD [facility] [place] [address] documented as of this encounter Visit Diagnoses Not on filedocumented in this encounter Care Teams Electrician'S Helper Relationship Specialty Start Date End Date Richa Brand APRN [address] [place] [address] PCP - General Family Medicine 03/24/17 documented as of this encounter
--- OUTSIDE RECORDS SUMMARY | 2024-08-28 17:06 | XMS_ITS | Encounter Summary ---
Author Organization [facility] Address [facility] [place] [address] Care Team Providers Care Preparation Plant Repairer Name Role Phone Richa Brand APRN Primary Care Provider [phone] [phone] Reason for Visit * Reason Comments Follow-up Back Pain Lower back/ Left leg pain (inner thigh)/ bilateral feet and finger numbness Encounter Details Date Type Department Care Team (Late st Contact Info) Description 02/28/2023 8:00 AM EDT Office Visit [facility] [place] [address] Julianna Navarrete MARKET RESEARCH SENIOR PROJECT MANAGER [facility] [place] [address] Chronic midline low back pain with left-sided sciatica; Incontinence of feces, unspecified fecal incontinence type Social History Tobacco Use Types Packs/Day Years [...] place to sleep or slept in a intermediate (including now)? No 01/16/2023 Sex and Gender [...] - - Weight 68 kg (150 lb) 02/28/2023 7:48 AM EDT Height 172.7 cm (5' 8) 02/28/2023 7:48 AM EDT Body Mass Index 22.81 02/28/2023 7:48 AM EDT documented in this encounter Progress Notes * Julianna Navarrete APRN - 02/28/2023 8:00 AM EDT [facility] Medical Decision Making: Chencho Mcgrath is a pleasant and straightforward 77 y.o. male seen today for a chief complaint of low back pain radiating to left lower extremity that has been progressive over time. More significantly, and some alteration in bowel function with intermittent incontinence that has been advancing in frequency over the last 4 months but present over the last year. The patient and his did verbalize concerns regarding cauda equina syndrome. I did counselor dormitory the patient and his today that because of the length of time that the changes in bowel function hip compression, it is unlikely that surgical decompression would improve this for resolve. I discussed with the patient and his that if surgery were contemplated specifically for the suspected cauda equina, it would would likely be to halt progression and not necessarily to resolve the problem given the length of time that it has been present. I do suspect that the lower back pain and radicular symptoms are likely associated withthe degenerative spondylolisthesis at L5-S1 with likely left L5 nerve impingement in the neuroforamen. I do think it would be reasonable and prudent to move forward with an updated MRI to further evaluate his overall complaints. The patient is amenable to this and I will see him back after the MRI is completed for further discussion of options. Diagnosis: ICD-10-CM 1. Chronic midline low back pain with left-sided sciatica M54.42 MRI Lumbar Spine wo Contrast (Generic) G89.29 2. Incontinence of feces, unspecified fecal incontinence type R15.9 Intermittent x 1 year; progressing in frequency x 4 months Plan 1. MR lumbar 2. Follow-up with me in the above is completed HPI: Chencho Mcgrath is a 77 y.o. male last seen by Dr. Woody Cobian MD on 07/16/2021 and at that time, he was seen for a chief complaint of right lower extremity weakness specifically with ankle dorsiflexion. He also reported some sense of left foot numbness. Did not endorse any significant pain. He wasnoted to have multilevel degenerative changes of the lumbar spine with a right-sided foraminal narrowing L4-5, and L5-S1 which could be contributing to the weakness of his ankle however, he did indicate that this was somewhat atypical secondary to his lack of any radicular type pain. He has been scheduled for a nerve conduction study by Dr. Cobian did not think that surgical intervention would be helpful for his complaints and subsequently recommended continued conservative treatment. More recently, the patient's partner did reach out to our clinic reporting 2 to 3 months of worsening lower back pain as well as persistent numbness in the lower extremities. There is also reports ofaltered and slow gait pattern and reduced agility. There is also reports of episodic/infrequent bowel incontinence that has been present since the summer 2021 there is no reports of saddle anesthesia. It was recommended by neurology that he had a repeat evaluation here at the spine clinic. Today, the patient reports that his lower back pain has been worsening. He is now feeling some leftlower extremity radicular pain and predominantly in L5 distribution. He also reports that this has affected his walking. He reports that overall, he feels slower with an additional sense of weakness involved. He does feel some numbness and tingling to all of his toes in the bilateral feet as well as in the ball of the foot on the left. He does not endorse any sense of weakness on the right. He does report a lengthy greater than 1 year history of intermittent loss of bowel control without saddleanesthesias. He reports that over the last 4 months, this has become increased in frequency. The symptoms seem to be worsened really no particular activity and he does not report that anything was overly helpful. He does feel as though his balance is somewhat off. He describes himself as being verybody aware and that this is important to note. He did trial physical therapy a few months ago but did not find this helpful. He is taking ibuprofen daily at bedtime and does not endorse any significant nighttime discomfort. ROS A ten point review of systems was completed today and, of note, pertinent positives and negatives are indicated in the HPI. reports that he has quit smoking. His smoking use included cigars. He has never used smokeless tobacco. Conservative Treatment: Physical Therapy: He did try physical therapy a few months ago but did not find this helpful Home Exercise Program: He does engage in 100%'s program Medications: NSAIDS: Ibuprofen Muscle relaxer: NONE Topicals: NONE Neuroleptics: NONE Opioid: None Other: NONE Other Treatments: None Injections: 1. None Physical Examination: Wt Readings from Last 1 Encounters: 01/27/23 70.6 kg (155 lb 11.2 oz) BMI Readings from Last 1 Encounters: 01/27/23 23.67 kg/m?? Pain: General: Pleasant, cooperative, Mood and affect are appropriate Posture: Upright Gait: Balance does appear to be slightly off with ambulation. He does seem to favor the left lower extremity and there is a subtle foot drop on the left Palpation: There are no palpable masses, lesions, or deformities Skin: Intact with no stigmata of underlying disease. ROM: He has full forward flexion. He does have limitations on extension Sensation: Grossly intact throughout all dermatomes of the lower extremities with the exception of some slight altered sensation of the left in an L5 and to a lesser extent, and L4 distribution Neuro: Strength: 5/5 throughout all muscle groups Reflexes: Absent at the knees and the ankles Imaging and Test Review: On the day of this encounter, I independently reviewed an MRI of the lumbar spine completed on 04/23/2021 demonstrating multilevel degenerative disc changes with right foraminal stenosis L4-5, L5-S1. Dynamic x-rays of the lumbar spine taken today 02/28/2023 demonstrating degenerative spondylolisthesis of L5 and S1 in the setting of a degenerative thoracolumbar scoliosis. There is advanced degenerative disc disease at L3-4 and to lesser extent, L1-2. There is advanced facet arthropathy at L5-S1 and to a lesser extent, L4-5. CC: Richa Brand APRN Referring Provider: Ofe Navarrete APRN 02/26/2023 [facility] documented in this encounter Plan of Treatment Upcoming Encounters Date Type Department Care Team (Late st Contact Info) Description 09/28/2024 3:15 PM EST Procedure [place] [address] Matthieu Benson MD [facility] [place] [address] 10/05/2024 1:30 PM EST TH Visit (TeleHealth) [place] [address] Pavan Iglesias APRN [facility] [place] [address] 01/31/2025 2:40 PM EDT Office Visit Cardiology at [address] [phone] Brayan Garay MD [facility] [place] [address] 03/16/2025 9:30 AM EDT Office [place] [address] Augusta Keys MD [facility] [place] [place] [address] documented as of this encounter Visit Diagnoses Diagnosis Chronic midline low back pain with left-sided sciatica Incontinence of feces, unspecified fecal incontinence type documented in this encounter Care Teams Preparation Plant Repairer Relationship Specialty Start Date End Date Richa Brand APRN [address] [place] [address] PCP - General Family Medicine 03/24/17 documented as of this encounter
--- OUTSIDE RECORDS SUMMARY | 2024-08-28 17:06 | XMS_ITS | Encounter Summary ---
Author Organization [facility] [place] [address] Care Team Providers Care Hedis Analyst Name Role Phone Richa Brand APRN Primary Care Provider [phone] [phone] Encounter Details Date Type Department Care Team (Late st Contact Info) Description 03/10/2023 Telephone [place] [phone] Marcos Martinez Social History Tobacco Use Types Packs/Day Years [...] encounter Miscellaneous Notes * Telephone Encounter - Marcos Martinez - 03/10/2023 9:03 AM EDT MRI Order faxed and transmission confirmed. documented in this encounter Plan of Treatment Upcoming Encounters Date Type Department Care Team (Late st Contact Info) Description 09/28/2024 3:15 PM EST [place] [address] Matthieu Benson MD [facility] [place] [address] 10/05/2024 1:30 PM EST TH Visit (TeleHealth) [place] [address] Pavan Iglesias APRN [facility] [place] [address] 01/31/2025 2:40 PM EDT Office Visit Cardiology at [address] [phone] Brayan Garay MD [facility] [place] [address] 03/16/2025 9:30 AM EDT [place] [address] Augusta Keys MD [facility] [place] [address] documented as of this encounter Visit Diagnoses Not on filedocumented in this encounter Care Teams Hedis Analyst Relationship Specialty Start Date End Date Richa Brand APRN [address] [place] [address] PCP - General Family Medicine 03/24/17 documented as of this encounter
--- OUTSIDE RECORDS SUMMARY | 2024-08-28 17:06 | XMS_ITS | Encounter Summary ---
Author Organization [facility] [place] [address] Care Team Providers Care Kinesiotherapist Name Role Phone Richa Brand APRN Primary Care Provider [phone] Encounter Details Date Type Department Care Team (Late st Contact Info) Description 10/09/2022 10:30 AM EST Office [place] [address] Augusta Keys MD [facility] [place] [address] Moderate late onset Alzheimer's dementia without behavioral disturbance, psychotic disturbance, mood disturbance, or anxiety Social History Tobacco Use Types Packs/Day Years [...] Progress Notes * Augusta Keys MD - 10/09/2022 10:30 AM EST 77 yo M w/ mild dementia due to Alzheimer's disease, here for follow up. He has had amyloid and tauscanning, which revealed the presence of both tau NFTs and beta amyloid plaques (c/w the Alzheimer's disease), and so he is enrolled in the study of donanemab. He is tolerating donepezil 10mg. He takes it in the AM because his dreams were too vivid and disturbing. ADLs: Chencho apparently did not pass a cognitive driving test earlier this year, so his license has been revoked. Medications: Ashleigh manages his medications, appointments, and their finances. Last visit, we talked about starting memantine, but it was not started as the clinicians at the [facility] thought perhaps it was too early to do so. He's been doing really well overall. He has had some slow, continued decline. He has been very active within the Alzheimer's community, physically active, and these activities have been quite beneficial. He does become more irritable towards the end of the day, but remains insightful into his behaviors, and has been working on managing them non pharmacologically. He is concerned that the numbness in both hands and both feet has worsened/progressed. They have follow up with Dr. Shah in May, but are wondering if they could be seen by anyone else any sooner. He has not fallen, but is aware that neuropathy may affect his balance. Patient Active Problem List Diagnosis Code ??? Anxiety F41.9 ??? ASCVD (arteriosclerotic cardiovascular disease) I25.10 ??? Hyperlipidemia E78.5 ??? Lumbar spondylosis M47.816 ??? Peripheral neuropathy G62.9 ??? Memory deficit R41.3 ??? 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 Carpal tunnel syndrome of right wrist G56.01 ??? 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 Alzheimer's dementia G30.9, F02.80 No Known Allergies Current Outpatient Medications on File Prior to Visit Medication Sig Dispense Refill ??? betamethasone dipropionate (Diprolene) 0.05 % Ointment Apply twice daily as needed to areas of eczema 45 g 3 ??? donepeziL (Aricept) 10 mg Tablet TAKE 1 TABLET BY MOUTH EVERY NIGHT 90 tablet 3 ??? atorvastatin (Lipitor) 20 mg Tablet TAKE 1 TABLET BY MOUTH DAILY 90 tablet 3 ??? PreviDent 5000 Plus 1.1 % Cream DIRECTED ??? venlafaxine XR (Effexor-XR) 75 mg Capsule, Sust. Release 24 hr Take 75 mg by mouth daily. ??? busPIRone (Buspar) 15 mg Tablet 3 times daily. ??? sildenafiL (VIAGRA) 50 mg Tablet TAKE 1 TABLET BY MOUTH 1 HOUR PRIOR TO INTERCOURSE NEEDED ??? calcium carbonate (CALCIUM 500 ORAL) Take by mouth daily. ??? MAGNESIUM ORAL Take by mouth daily. ??? ferrous sulfate (IRON ORAL) Take by mouth daily. ??? vitamin B complex (VITAMINS B COMPLEX ORAL) Take by mouth daily. ??? cholecalciferol, Vitamin D3, 1,000 unit Capsule Take by mouth daily. ??? cyanocobalamin 1,000 mcg Tablet Take 2,000 mcg by mouth daily. ??? ascorbate calcium [...] facility-administered medications on file prior to visit. General Examination Appearance: The patient is healthy, and appears comfortable. Head: Atruamatic. Normocephalic. Neck: Normal range of movements. Extremities: Normal in appearance, no edema. Skin: No rashes or lesions Neurological Examination Mental status: Speech is fluent and appropriate, comprehension fully intact. Attention, concentration, and praxis are intact. Cranial nerves: extra-ocular movements intact, face and smile are symmetric, hearing is intact, no dysarthria. Cerebellar/coordination: No tremors or abnormal movement noted. Normal fine motor movements. Gait and station: Gait is normal and steady. He is able to perform HTS with only mild difficulty. Pulse ~ 60. 77 yo M w/ mild dementia due to Alzheimer's disease, here for follow up. We will work to optimize his medications, starting with a gentle increase in his dose of donepezil from 10 to 12.5mg. They will pay attention to his pulse, and watch for dizziness. I do think he's a candidate for memantine, but we could address that at follow up. He remains in the clinical trial of donanemab, so he will alert the clinicians at the [facility] that he hopes to increase the dose of donepezil. We discussed the disease modifying treatments aducaumab and lecanemab (a bit more promising). Overall, I think he's doing well, managing behavioral impairments non pharmacologically, and remaining active in many ways. Follow up in late 2022, sooner PRN. 30 minutes were spent on the care of this patient, with at least 25 minutes spent face to face with the patient, performing direct education, supportive counseling, coordination of care, as well as on chart review. All of these activities were performed on today's date, which is the date of the appointment. documented in this encounter Plan of Treatment Upcoming Encounters Date Type Department Care Team (Late Contact Info) Description 09/28/2024 3:15 PM EST Procedure [place] [address] Matthieu Benson MD [facility] [place] [address] 10/05/2024 1:30 PM EST TH Visit (TeleHealth) [place] [phone] Pavan Iglesias APRN [facility] [place] [address] 01/31/2025 2:40 PM EDT Office Visit Cardiology at [address] [place] [phone] Brayan Garay MD [facility] [place] [address] 03/16/2025 9:30 AM EDT Office [place] [phone] Augusta Keys MD [facility] [place] [place] [address] documented as of this encounter Visit Diagnoses Diagnosis Moderate late onset Alzheimer's dementia without behavioral disturbance, psychotic disturbance, mood disturbance, or anxiety documented in this encounter Care Teams Kinesiotherapist Relationship Specialty Start Date End Date Richa Brand APRN [address] [place] [address] PCP - General Family Medicine 03/24/17 documented as of this encounter
--- OUTSIDE RECORDS SUMMARY | 2024-08-28 17:06 | XMS_ITS | Encounter Summary ---
Author Organization [facility] Address [facility] [place] [address] Care Team Providers Care Telecom Field Technician Name Role Phone Richa Brand APRN Primary Care Provider [phone] Reason for Visit * Reason Comments Medication Refill Encounter Details Date Type Department Care Team (Late st Contact Info) Description 02/10/2024 Refill Cardiology at [address] [place] [address] Brayan Garay MD [facility] [place] [address] Medication Refill Social History Tobacco Use Types [...] 3:15 PM EST [place] [address] Matthieu Benson MD [facility] [place] [address] 10/05/2024 1:30 PM EST TH Visit (TeleHealth) [place] [phone] Pavan Iglesias APRN [facility] [place] [address] 01/31/2025 2:40 PM EDT Office Visit Cardiology at [address] [place] [phone] Brayan Garay MD [facility] [place] [address] 03/16/2025 9:30 AM EDT Office [place] [phone] Augusta Keys MD [facility] [place] [address] documented as of this encounter Visit Diagnoses Diagnosis Hyperlipidemia, unspecified hyperlipidemia type documented in this encounter Care Teams Telecom Field Technician Relationship Specialty Start Date End Date Richa Brand APRN [address] [place] [address] PCP - General Family Medicine 03/24/17 documented as of this encounter
--- OUTSIDE RECORDS SUMMARY | 2024-08-28 17:06 | XMS_ITS | Encounter Summary ---
Author Organization [facility] Address [facility] [place] [address] Care Team Providers Care Wildlife Enforcement Major Name Role Phone Richa Brand APRN Primary Care Provider [phone] Reason for Visit * Reason Comments Coronary Artery Disease Encounter Details Date Type Department Care Team (Latest Contact Info) Description 01/21/2022 1:00 PM EDT Office Visit Cardiology at [address] [place] [address] Brayan Garay MD [facility] [place] [address] ASCVD (arteriosclerotic cardiovascular disease) Social History Tobacco [...] Progress Notes * Brayan Garay MD - 01/21/2022 1:00 PM [...] bp well controlled Planning on going to [facility] this year Current Outpatient Medications: ??? PreviDent 5000 Plus 1.1 % Cream, DIRECTED, Disp: , Rfl: ??? venlafaxine XR (Effexor-XR) 75 mg Capsule, Sust. Release 24 hr, Take 75 mg by mouth daily., Disp: , Rfl: ??? busPIRone (Buspar) 15 mg Tablet, 3 times daily., Disp: , Rfl: ??? betamethasone dipropionate (Diprolene) 0.05 % Ointment, Apply twice daily as needed to areas ofeczema, Disp: 45 g, Rfl: 3 ??? donepeziL (Aricept) 10 mg Tablet, Take 1 tablet by mouth nightly., Disp: 90 tablet, Rfl: 3 ??? atorvastatin (Lipitor) 20 mg Tablet, TAKE 1 TABLET BY MOUTH DAILY, Disp: 90 tablet, Rfl: 3 ??? sildenafiL (VIAGRA) 50 mg Tablet, TAKE 1 TABLET BY MOUTH 1 HOUR PRIOR TO INTERCOURSE NEEDED,Disp: , Rfl: ??? calcium carbonate (CALCIUM 500 [...] - Anti-anginals: GTN PRN RTC 12 months Baryan Garay MD documented in this encounter Miscellaneous Notes * Assessment & Plan Note - Brayan Garay MD - 01/21/2022 1:27 PM EDT Associated Problem(s): ASCVD (arteriosclerotic cardiovascular disease) No angina per history. - Anti-Thrombosis: asa 81 - Statin: lipitor 20. Reviewed its rationale in [facility] - Anti-anginals: GTN PRN documented in this encounter Plan of Treatment Upcoming Encounters Date Type Department Care Team (Late st Contact Info) Description 09/28/2024 3:15 PM EST Procedure visit Neurology at [place] [phone] Matthieu Benson MD [facility] [place] [address] 10/05/2024 1:30 PM EST TH Visit (TeleHealth) Neurology at [place] [phone] Pavan Iglesias APRN [facility] [place] [address] 01/31/2025 2:40 PM EDT Office Visit Cardiology at [address] [phone] Brayan Garay MD [facility] [place] [address] 03/16/2025 9:30 AM EDT Office Visit Neurology at [place] [phone] Augusta Keys MD [facility] [place] [address] documented as of this encounter Visit Diagnoses Diagnosis ASCVD (arteriosclerotic cardiovascular disease) Unspecified cardiovascular disease documented in this encounter Care Teams Wildlife Enforcement Major Relationship Specialty Start Date End Date Richa Brand APRN [address] [place] [address] PCP - General Family Medicine 03/24/17 documented as of this encounter
--- OUTSIDE RECORDS SUMMARY | 2024-08-28 17:06 | XMS_ITS | Encounter Summary ---
Author Organization [facility] [place] [address] Care Team Providers Care Car Dumper Name Role Phone Richa Brand APRN Primary Care Provider [phone] Reason for Visit * Reason Onset Date Comments Triage 02/13/2023 Encounter Details Date Type Department Care Team (Late st Contact Info) Description 02/13/2023 [place] [phone] Jacki Shah MD [facility] [place] [address] Triage Social History Tobacco Use Types Packs/Day Years [...] encounter Miscellaneous Notes * Telephone Encounter - Renata John RN - 02/13/2023 4:59 PM EDT Call returned to pt regarding message left with the call center as there is no DPR on file for Monse. Voicemail left on named answering machine asking patient to call the neurology clinic back at and provide times that they will be available for a return call. * Telephone Encounter - Renata John RN - 02/13/2023 9:00 AM EDT Copied from [facility] #[id number]. Topic: Specialty Dept CRMs - Triage >> Feb 13, 2023 8:48 AM Eloisa Crespo wrote: Triage Message Specialist: Jcaki Shah MD Relationship (if other than patient-full name): Monse -spouse Symptom: bowel incontinence control increasing, tingling and numbness in legs Has patient experienced symptom before yes If patient has experienced symptom before, when was the last time this occurred Ongoing Is patient currently having symptom yes, both symptoms are getting worse When did symptom begin n/a Additional Comments: Monse is calling concerned that this patients incontinence and bowels control has been increasing as well as his legs with tingling and numbness is worsening, please call back to discuss. documented in this encounter Plan of Treatment Upcoming Encounters Date Type Department Care Team (Late st Contact Info) Description 09/28/2024 3:15 PM EST Procedure visit Neurology at [place] [phone] Matthieu Benson MD [facility] [place] [address] 10/05/2024 1:30 PM EST TH Visit (TeleHealth) Neurology at [place] [phone] Pavan Iglesias APRN [facility] [place] [address] 01/31/2025 2:40 PM EDT Office Visit Cardiology at [address] [phone] Brayan Garay MD [facility] [place] [address] 03/16/2025 9:30 AM EDT [place] [phone] Augusta Keys MD [facility] [place] [address] documented as of this encounter Visit Diagnoses Not on filedocumented in this encounter Care Teams Car Dumper Relationship Specialty Start Date End Date Richa Brand APRN [address] [place] [address] PCP - General Family Medicine 03/24/17 documented as of this encounter
--- OUTSIDE RECORDS SUMMARY | 2024-08-28 17:06 | XMS_ITS | Encounter Summary ---
Author Organization [facility] Address [facility] [place] [address] Care Team Providers Care Administrative Services Coordinator Name Role Phone Richa Brand APRN Primary Care Provider [phone] Encounter Details Date Type Department Care Team (Late st Contact Info) Description 03/17/2023 1:30 PM EDT [place] [phone] Jacki Martinez MD [facility] [place] [address] Numbness and tingling; Neuropathy; Numbness and tingling of both upper extremities; Radicular pain of right lower extremity Social History Tobacco Use Types Packs/Day Years [...] the money to buy more. Never true 03/16/20 23 Within the past 12 months, t [...] place to sleep or slept in a long-term (including now)? No 01/16/2023 Sex and Gender Information Value Date Recorded Sex Assigned at Not on file Gender Identity Not on file Sexual Orientation Not on file documented as of this encounter Last Filed Vital Signs Vital Sign Reading Time Taken Comments Blood Pressure 136/59 03/17/2023 1:27 PM EDT Pulse 55 03/17/2023 1:27 PM EDT Temperature - - Respiratory Rate - - Oxygen Saturation - - Inhaled Oxygen Concentration - - Weight 68 kg (150 lb) 03/17/2023 1:27 PM EDT Height - - Body Mass Index 22.81 02/28/2023 8:37 AM EDT documented in this encounter Progress Notes * Jacki Martinez MD - 03/17/2023 1:30 PM EDT Neurology Clinic Follow-up Note 03/17/23 10:20 PM Patient Name: Chencho Mcgrath : 1945 PCP: Richa Brand APRN Patient ID: Chencho Mcgrath is a 77 y.o. male here for unscheduled FU visit. He was seen for a procedural visit 07/25/2021, then by DON Somers 12/31/2022. Diagnosis: numbness in upper and lower extremities. EMG/NCS c/w entrapment neuropathies of the median nerve, a mild sensory predominant neuropathy, and likely superimposed nerve root injury from multilevel degenerative disc disease likely producing polyradiculopathy. PMHx relevant to diagnosis: Alzheimer's Dementia Patient Active Problem List Diagnosis ??? Alzheimer's dementia ??? Peripheral neuropathy ??? 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 Carpal tunnel syndrome of right wrist ??? Sensory hearing loss, bilateral ??? Lumbar spondylosis ??? Anxiety ??? ASCVD (arteriosclerotic cardiovascular disease) Overview Note: 2008 70% D1-> POBA, no other disease Stress echo 2013- 12.8 METS, HR 154, fatigue, no ST change, no WMA, no valve disease ??? Hyperlipidemia Assessment from procedural visit, 07/25/2021: Mr. Mcgrath presents with a complex electrodiagnostic picture that was not precisely localizing; in conjunction with his clinical exam, it is most consistent with entrapment neuropathies of the median nerve, a mild sensory predominant neuropathy, and likely superimposed nerve root injury from multileve l degenerative disc disease likely producing polyradiculopathy. Slowing across the fibular head on the right was suggestive of a superimposed peroneal neuropathy at the knee. His clinical exam is notclearly consistent with this interpretation however as he does have both inversion and eversion weakness on the right in addition to ankle dorsiflexion weakness. I suspect the slowing across the fibular head is incidental. We discussed my impressions that his electrodiagnostic's findings were most consistent with accumulation of degenerative change from his back. We will plan to continue to work on conservative measures to control his lumbar degenerative disc disease as well as use wrist splints for his hands. If he develops any increase in his lower extremity symptoms especially those that would be more localizing to a peroneal neuropathy at the fibular head, this can be revisited possiblywith more imaging studies. Follow-up for reevaluation of lower extremity strength, sensation and response to response in the upper extremities. Interval History: He has been having more numbness in the lateral aspect of the foot and into the distal leg. Fingers have also been numb and this is gradual . No pain except in his lower back; his lower back pain is significant and constant except at night. Both hands bother him. He is very aware of his body; he meditates. He has been having trouble with his bowels - this has imporved in the last 3 weeks. He doesn't holdhis bladder in as well as he had in the past. This seems to be worse in the last 6 months. He is having more trouble walking down or upstairs. He needs to hold onto the rail. He walks regularly - in the last month, he feels his left leg more and he is slower. No falls or near falls. Per assessment by RODDY Somers, 12/31/2022: Although the patient endorses a slight up tick in his symptoms, overall, he does not feel they have resulted in significant disability/progression and does not feel any treatment changes are warranted at this time. Exam was reassuringly stable compared to priors and shows only mild deficits in sensory testing. No treatment changes today. Follow-up PRN new symptoms or worsening old ones, otherwise, see me for routine follow-up in 6m. Per message to staff 02/18/2023: Monse reported that pt has been having an increase in bowel incontinence frequency. Monse reported that the pt has immediate bowel and bladder urgency at times. Monse reported that pt has also told her that the numbness in his lower legs and feet as well as the pain in his lower back have been increasing. Monse reported that at the 12/31/22 appt with RODDY Somers the pt reported that things are fine, but when he is at home he complains of these symptoms. Monse said that it is hard for pt to describe things sometimes because he also has Alzheimer's. Monse is concerned that pt may have cauda equina. Per Monse the pt denies numbness/sensation changes in his inner thighs (she has asked him this). Amol, Reema. When I wrote to you back in December, I shared that Chencho had been complaining about his spinal stenosis symptoms but completely dismissed them in the appointment I scheduled for him with Ofe Somers in Dr. Martinez's office. He has continued to complain of the symptoms, and I am noticing their effects on his body movements -- slowed walking pace, difficulty getting up from sitting, e tc. In addition, he is having bowel incontinence more often. It's hard for me to discern whether these symptoms are from spinal stenosis or Alzheimer's. The bowel incontinence is beginning to concern me, because everything I've read about spinal stenosis strongly warns to contact a doctor immediately if that emerges as a symptom as it may be a signof cauda equina. Chencho has an appointment with Dr. Martinez on May 05, but I am starting to worrythat may be too far off. I have not said anything to Chencho about cauda equina, because he's already anxious enough about the spinal stenosis diagnosis Relevant work up: NCS/EMG IMPRESSION: Complex and abnormal study. There is [...] is also supported but needle EMG was not localizing. Clinical and radiologic correlation is recommended. I independently reviewed the MRI of the lumbar spine dated 04/2021. Per my independent review, the findings are consistent with multilevel degenerative changes with mid-moderate canal stenosis (2-3 and 5-1 is worst), and multilevel NF stenosis, severe on the right at 4-5, less so 5-1 and 3-4; and onthe left worst at 3-4, 2-3 followed by 5-1. . Past Medical History: Diagnosis Date ??? Anxiety 11/27/2018 ??? CAD (coronary artery disease) 11/27/2018 ??? Hyperlipidemia 11/27/2018 ??? Hypertension 11/27/2018 ??? Rib pain on right side 11/27/2018 ??? Syncope and collapse 11/27/2018 Medications: Medications 02/28/23 0758 Medication Sig Taking? glucosamine yom-mbhuczlyme-zoa 500-200-150 mg Tablet Take 1 tablet by mouth daily. Yes multivitamin (THERAGRAN) Tablet Take 1 tablet by mouth daily. Yes ibuprofen (Advil) 200 mg tablet Take 400 mg by mouth nightly. Yes UNKNOWN TO PATIENT Indications: OTC - sleeping pill / takes 1 1/2 tablets nightly Yes atorvastatin (Lipitor) 20 mg tablet Take 1 tablet by mouth daily. Yes CALCIUM-MAGNESIUM ORAL Take 1 capsule by mouth daily. Yes betamethasone dipropionate (Diprolene) 0.05 % Ointment Apply twice daily as needed to areas of eczema Yes donepeziL (Aricept) 10 mg Tablet TAKE 1 TABLET BY MOUTH EVERY NIGHT Patient taking differently: Pt taking in the morning Yes busPIRone (Buspar) 15 mg Tablet 3 times daily. Yes sildenafiL (VIAGRA) 50 mg Tablet TAKE 1 TABLET BY MOUTH 1 HOUR PRIOR TO INTERCOURSE NEEDED Yes ferrous sulfate (IRON ORAL) Take 325 mg by mouth See Admin Instructions. Sunni, Lena, Sat Yes vitamin B complex (VITAMINS B COMPLEX ORAL) Take by mouth daily. Yes cholecalciferol, Vitamin D3, 1,000 unit Capsule Take 2,000 Units by mouth daily. Yes flaxseed oil 1,000 mg Capsule Take by mouth daily. Yes vitamin E acetate (VITAMIN E ORAL) Take by mouth daily. Yes aspirin 81 mg Tablet, Delayed Release (E.C.) Take 81 mg by mouth daily. Yes Allergy: No Known Allergies Physical Exam: BP 136/59 (BP Location (NBP): Left arm, Patient Position: Sitting, BP Cuff Sizes: Adult (25-34 cm)) Pulse 55 Wt 68 kg (150 lb) BMI 22.81 kg/m?? General evaluation is unrevealing for atrophy, skeletal or foot deformity. He demonstrates some mild weakness of thumb and finger abduction bilaterally (thumb abduction worse on the left) with preservation of finger abduction. Distal lower extremity strength testing revealed good strength. Sensory: Vibration: Ltoe 2 Rtoe 3 LMM 3 RMM 3 Lknee 4 Rknee 4 LDIP2 8 RDIP2 8 LDIP5 nt RDIP5 nt Pin: reduced on the left in multiple dermatomes -difficult to delineate 1 that is more altered thanothers but there is clearly a side to [...] 2 0 down Left 1 tr tr 0 0 down Assessment / Plan: Chencho Mcgrath is a 77 y.o. male who was seen today for follow up of PMHx Alzheimer's Dementia who presents today for routine follow-up numbness in upper and lower extremities. EMG/NCS c/w entrapmentneuropathies of the median nerve, a mild sensory predominant neuropathy, and likely superimposed nerve root injury from multilevel degenerative disc disease likely producing polyradiculopathy. He is experiencing worsening of his symptoms especially of back pain with some radiation into particularly the left lower extremity. His expressed some concern about the possibility that this represents an infiltrative cauda equina. His MRI performed in 2020 was not revealing for this other than structural changes and his exam is not significantly changed from prior evaluation. His electrodiagnostic study was unimpressive for neuropathy with only slight drop in sural amplitudes likely due to age. However, he had some scattered denervation in his lower extremities more localized to lumbarroots. We talked today about my suspicion that his worsening represents progressing lumbar stenosis. He isalready consulting with pain and spine, Julianna Navarrete, who has extended his work-up; repeat MRI of the lumbar spine is pending. I expressed my agreement with her plan to reimage. I think repeat electrodiagnostic study could be considered but I think it is unlikely to be significantly different given his clinical exam. Follow-up depending on plan determined by pain and spine. JACKI MARTINEZ MD [facility] Stock Repairer, Neuromuscular Medicine [facility] 03/17/23 10:20 PM I spent 30 Minutes in face-face time with the patient, with 16 minutes spent in same day documentation, ordering testing/drugs, coordination of care chart and test review. documented in this encounter Plan of Treatment Upcoming Encounters Date Type Department Care Team (Late st Contact Info) Description 09/28/2024 3:15 PM EST [place] [address] Matthieu Benson MD [facility] [place] [address] 10/05/2024 1:30 PM EST TH Visit (TeleHealth) [place] [phone] Pavan Iglesias APRN [facility] [place] [address] 01/31/2025 2:40 PM EDT Office Visit Cardiology at [address] [phone] Brayan Garay MD [facility] [place] [address] 03/16/2025 9:30 AM EDT [place] [phone] Augusta Keys MD [facility] [place] [address] documented as of this encounter Visit Diagnoses Diagnosis Numbness and tingling Disturbance of skin sensation Neuropathy Mononeuritis of unspecified site Numbness and tingling of both upper extremities Radicular pain of right lower extremity Thoracic or lumbosacral neuritis or radiculitis, unspecified documented in this encounter Care Teams Administrative Services Coordinator Relationship Specialty Start Date End Date Richa Brand APRN [address] [place] [address] PCP - General Family Medicine 03/24/17 documented as of this encounter
--- OUTSIDE RECORDS SUMMARY | 2024-08-28 17:06 | XMS_ITS | Encounter Summary ---
Author Organization [facility] Address [facility] [place] [address] Care Team Providers Care Bituminous Paving Machine Operator Name Role Phone Richa Brand APRN Primary Care Provider [phone] [phone] Encounter Details Date Type Department Care Team (Latest Contact Info) Description 02/01/2024 Travel Social History Tobacco Use Types Packs/Day [...] place to sleep or slept in a alf (including now)? No 01/16/2023 Sex and Gender Information Value Date Recorded Sex Assigned at Not on file Gender Identity Not on file Sexual Orientation Not on file documented as of this encounter Plan of Treatment Upcoming Encounters Date Type Department Care Team (Late st Contact Info) Description 09/28/2024 3:15 PM EST Procedure [place] [address] Matthieu Benson MD [facility] [place] [address] 10/05/2024 1:30 PM EST TH Visit (TeleHealth) Neurology at [place] [phone] Pavan Iglesias APRN [facility] [place] [place] [address] 01/31/2025 2:40 PM EDT Office Visit Cardiology at [address] [phone] Brayan Garay MD [facility] [place] [address] 03/16/2025 9:30 AM EDT Office [place] [phone] Augusta Keys MD [facility] [place] [address] documented as of this encounter Visit Diagnoses Not on filedocumented in this encounter Care Teams Bituminous Paving Machine Operator Relationship Specialty Start Date End Date Richa Brand APRN [address] [place] [address] PCP - General Family Medicine 03/24/17 documented as of this encounter
--- OUTSIDE RECORDS SUMMARY | 2024-08-28 17:06 | XMS_ITS | Encounter Summary ---
Author Organization [facility] Address [facility] [place] [address] Care Team Providers Care Senior Reservations Agent Name Role Phone Richa Brand APRN Primary Care Provider [phone] Encounter Details Date Type Department Care Team (Latest Contact Info) Description 02/28/2023 7:00 AM EDT - 02/28/2023 11:59 PM EDT Hospital Encounter XRay at [facility] [place] [address] Woody Cobian MD [facility] [place] [address] Lumbar spondylosis; Midline low back pain without sciatica, unspecified chronicity Discharge Disposition: Home Social History Tobacco Use Types Packs/Day Years [...] place to sleep or slept in a residential (including now)? No 01/16/2023 Sex and Gender Information Value Date Recorded Sex Assigned at Not on file Gender Identity Not on file Sexual Orientation Not on file documented as of this encounter Medications at Time of Discharge Medication Sig Dispensed Refills Start Date End Date calcium carb/magnesium carb (CALCIUM & MAGNESIUM CARBONATES ORAL) Take 1 tablet by mouth daily. 09/27/2020 glucosamine vqu-naizfgpcup-coc 500-200-150 mg Tablet Take 1 tablet by mouth daily. multivitamin (THERAGRAN) Tablet Take 1 tablet by mouth daily. ibuprofen (Advil) 200 mg tablet Take 400 mg by mouth nightly. UNKNOWN TO PATIENTIndications:OTC - sleeping pill / takes 1 1/2 tablets nightly Indications: OTC - sleeping pill / takes 1 1/2 tablets nightly CALCIUM-MAGNESIUM ORAL Take 1 capsule by mouth daily. busPIRone (Buspar) 15 mg Tablet 3 times daily. 05/13/2021 vitamin B complex (VITAMINS B COMPLEX ORAL) Take by mouth daily. cholecalciferol, Vitamin D3, 1,000 unit Capsule Take 2,000 Units by mouth daily. flaxseed oil 1,000 mg Capsule Take by mouth daily. vitamin E acetate (VITAMIN E ORAL) Take by mouth daily. aspirin 81 mg Tablet, Delayed Release (E.C.) Take 81 mg by mouth daily. Antiarthritic Combination No.2 900 mg Tablet Take 1 tablet by mouth daily. 09/27/2020 08/26/2024 atorvastatin (Lipitor) 20 mg tabletIndications:Hyper lipidemia, unspecified hyperlipidemia type Take 1 tablet by mouth daily. 90 tablet 3 02/18/2023 02/10/2024 betamethasone dipropionate (Diprolene) 0.05 % Ointment Apply twice daily as needed to areas of eczema 45 g 3 06/27/2022 08/18/2023 donepeziL (Aricept) 10 mg Tablet TAKE 1 TABLET BY MOUTH EVERY NIGHT 90 tablet 3 04/30/2022 06/26/2023 sildenafiL (VIAGRA) 50 mg Tablet TAKE 1 TABLET BY MOUTH 1 HOUR PRIOR TO INTERCOURSE NEEDED 12/25/2020 04/10/2023 ferrous sulfate (IRON ORAL) Take 325 mg by mouth See Admin Instructions. Lena Moeller 08/26/2024 documented as of this encounter Plan of Treatment Upcoming Encounters Date Type Department Care Team (Late st Contact Info) Description 09/28/2024 3:15 PM EST Procedure [place] [address] Matthieu Benson MD [facility] [place] [address] 10/05/2024 1:30 PM EST TH Visit (TeleHealth) [place] [phone] Pavan Iglesias APRN [facility] [place] [address] 01/31/2025 2:40 PM EDT Office Visit Cardiology at [address] [phone] Brayan Garay MD [facility] [place] [address] 03/16/2025 9:30 AM EDT Office [place] [phone] Augusta Keys MD [facility] [place] [address] documented as of this encounter Procedures Procedure Name Priority Date/Time Associated Diagnosis Comments XR LUMBAR SPINE 2 OR 3 VIEWS Routine 02/28/2023 7:11 AM EDT Lumbar spondylosis Midline low back pain without sciatica, unspecified chronicity documented in this encounter Results * XR Lumbar Spine 2 Or 3 Views (Generic) (02/28/2023 7:11 AM EDT) Anatomical Region Laterality Modality L-spine N/A Digital Radiogra phy Impressions 02/28/2023 1:47 PM EDT 1. Grade 1 spondylolisthesis of L5 with no evidence of instability. 2. Multilevel degenerative disc disease. 3. Osteoarthritis. 4. Arterial sclerosis. Thank you for letting us participate in the care of this patient. ??If you are a health care provider and have any questions regarding this report, please contact the number below. ??For patients who have questions please contact the health respiratory care faculty that requested your imaging first. ? Narrative 02/28/2023 1:47 PM EDT EXAMINATION: XR LUMBAR SPINE 2 OR 3 VIEWS (GENERIC) CLINICAL HISTORY: Upright AP, ??& lateral flexon/extension ??XR ( 3 views) ??to povide updated radiographic imaging given progression of sx check alignment and movement TECHNIQUE: 3 views of the lumbar spine COMPARISON: None FINDINGS: There is mild scoliosis. Grade 1 spondylolisthesis of L5. There is no significant change in position and alignment between flexion and extension images. Disc space narrowing with marginal osteophytes is demonstrated at L1-L4. Degenerative disease is seen in the facet joints. Sclerosis is demonstrated in the aorta. Procedure Note Robinson Chou MD - 02/28/2023 EXAMINATION: XR LUMBAR SPINE 2 OR 3 VIEWS (GENERIC) CLINICAL HISTORY: Upright AP, & lateral flexon/extension XR ( 3 views)to povide updated radiographic imaging given progression of sx check alignment and movement TECHNIQUE: 3 views of the lumbar spine COMPARISON: None FINDINGS: There is mild scoliosis. Grade 1 spondylolisthesis of L5. There is no significant change inposition and alignment between flexion and extension images. Disc space narrowing with marginal osteophytes is demonstrated at L1-L4. Degenerative disease is seen in the facet joints. Sclerosis is demonstrated in the aorta. IMPRESSION 1. Grade 1 spondylolisthesis of L5 with no evidence of instability. 2. Multilevel degenerative disc disease. 3. Osteoarthritis. 4. Arterial sclerosis. Thank you for letting us participate in the care of this patient. If youare a health care provider and have any questions regarding this report,please contact the number below. For patients who have questions please contactthe health respiratory care faculty that requested your imaging first. Woody Cobian MD IMG DX ORDERABLES documented in this encounter Visit Diagnoses Diagnosis Lumbar spondylosis Lumbosacral spondylosis without myelopathy Midline low back pain without sciatica, unspecified chronicity documented in this encounter Care Teams Senior Reservations Agent Relationship Specialty Start Date End Date Richa Brand APRN [address] [place] [address] PCP - General Family Medicine 03/24/17 documented as of this encounter
--- OUTSIDE RECORDS SUMMARY | 2024-08-28 17:06 | XMS_ITS | Encounter Summary ---
Author Organization [facility] Address [facility] [place] [address] Care Team Providers Care Micro Computer Data Processor Name Role Phone Richa Brnad APRN Primary Care Provider [phone] [phone] Reason for Visit * Reason Onset Date Comments Medication Refill 02/18/2023 Encounter Details Date Type Department Care Team (Late st Contact Info) Description 02/18/2023 Refill Cardiology at [address] [place] [address] Brayan Garay MD [facility] [place] [address] Medication Refill Social History Tobacco Use Types Packs/Day Years Used Date Smoking Tobacco: Former Cigars Smokeless Tobacco: Never Comments:50+ years ago Alcohol Use Standard Drinks/Week Comments Yes 14 (1 standard drink = 0.6 oz pu re alcohol) Overall Financial Resource Strain (CARDIA) Maricele r Date Recorded How hard is it [...] encounter Miscellaneous Notes * Telephone Encounter - Debby Riojas - 02/18/2023 8:41 AM EDT Refill for: Atorvastatin 20 mg Once daily 90 day supply ON24 Drugs in [facility] Patient is only expecting a call back @ [phone] if there are questions. documented in this encounter Plan of Treatment Upcoming Encounters Date Type Department Care Team (Late st Contact Info) Description 09/28/2024 3:15 PM EST [place] [address] Matthieu Benson MD [facility] [place] [address] 10/05/2024 1:30 PM EST TH Visit (TeleHealth) [place] [phone] Pavan Iglesias APRN [facility] [place] [address] 01/31/2025 2:40 PM EDT Office Visit Cardiology at [address] [place] [address] Brayan Garay MD [facility] [place] [address] 03/16/2025 9:30 AM EDT [place] [phone] Augusta Keys MD [facility] [place] [address] documented as of this encounter Visit Diagnoses Diagnosis Hyperlipidemia, unspecified hyperlipidemia type documented in this encounter Care Teams Micro Computer Data Processor Relationship Specialty Start Date End Date Richa Brand APRN [address] [place] [address] PCP - General Family Medicine 03/24/17 documented as of this encounter
--- OUTSIDE RECORDS SUMMARY | 2024-08-28 17:06 | XMS_ITS | Encounter Summary ---
Author Organization [facility] [place] [address] Care Team Providers Care Property Consultant Name Role Phone Richa Brand APRN Primary Care Provider [phone] Reason for Visit * Reason Onset Date Comments Bumped Appointment 06/11/2023 Encounter Details Date Type Department Care Team (Late st Contact Info) Description 06/11/2023 Telephone [place] [address] Augusta Keys MD [facility] [place] [address] Bumped Appointment Social History Tobacco Use Types Packs/Day Years [...] encounter Miscellaneous Notes * Telephone Encounter - Monica Hinkle - 06/11/2023 1:29 PM EDT Scheduling Instructions Provider: Massimo Visit Type (paste MONICA Instructions or manually enter): Follow up mydh If EMG Visit needed list diagnosis for the EMG to be used in Decision Tree: Appt Note: 7 month follow up Additional Info Needed: Transfer call to Monica to fit into a slot documented in this encounter Plan of Treatment Upcoming Encounters Date Type Department Care Team (Late st Contact Info) Description 09/28/2024 3:15 PM EST Procedure [place] [address] Matthieu Benosn MD [facility] [place] [address] 10/05/2024 1:30 PM EST TH Visit (TeleHealth) [place] [phone] Pavan Iglesias APRN [facility] [place] [address] 01/31/2025 2:40 PM EDT Office Visit Cardiology at [address] [place] [address] Brayan Garay MD [facility] [place] [address] 03/16/2025 9:30 AM EDT Office [place] [address] Augusta Keys MD [facility] [place] [address] documented as of this encounter Visit Diagnoses Not on filedocumented in this encounter Care Teams Property Consultant Relationship Specialty Start Date End Date Richa Brand APRN [address] [place] [address] PCP - General Family Medicine 03/24/17 documented as of this encounter
--- OUTSIDE RECORDS SUMMARY | 2024-08-28 17:06 | XMS_ITS | Encounter Summary ---
Author Organization [facility] [place] [address] Care Team Providers Care Ceramic Capacitor Processor Name Role Phone Richa Brand APRN Primary Care Provider [phone] [phone] Reason for Visit * Reason Comments Medication Refill Encounter Details Date Type Department Care Team (Late st Contact Info) Description 06/25/2023 [place] [address] Augusta Keys MD [facility] [address] Moderate late onset Alzheimer's dementia without behavioral [...] 3:15 PM EST Procedure [place] [address] Matthieu Benson MD [facility] [place] [address] 10/05/2024 1:30 PM EST TH Visit (TeleHealth) [place] [address] Pavan Iglesias APRN [facility] [place] [address] 01/31/2025 2:40 PM EDT Office Visit Cardiology at [address] [phone] Brayan Garay MD [facility] [place] [address] 03/16/2025 9:30 AM EDT Office [place] [address] Augusta Keys MD [facility] [place] [address] documented as of this encounter Visit Diagnoses Diagnosis Moderate late onset Alzheimer's dementia without behavioral disturbance, psychotic disturbance, mood disturbance, or anxiety documented in this encounter Care Teams Ceramic Capacitor Processor Relationship Specialty Start Date End Date Richa Brand APRN [address] [place] [address] PCP - General Family Medicine 03/24/17 documented as of this encounter
--- OUTSIDE RECORDS SUMMARY | 2024-08-28 17:06 | XMS_ITS | Encounter Summary ---
Author Organization [facility] [place] [address] Care Team Providers Care Electrical Manager Name Role Phone Richa Brand APRN Primary Care Provider [phone] Reason for Visit * Reason Onset Date Comments Triage 12/10/2022 Encounter Details Date Type Department Care Team (Late st Contact Info) Description 12/10/2022 [place] [address] Jacki Shah MD [facility] [place] [address] Triage Social History Tobacco Use Types Packs/Day [...] Telephone Encounter - Renata John RN - 12/11/2022 4:29 PM EST Call returned to pt regarding message left with the call center as there is no DPR on file for Monse. Pt handed the phone to Monse and wanted RN to speak to Monse. Monse and pt reported that pt developed back pain about 6 months ago (he did not update his PCP).Pt reported that he does yoga/stretching for his back pain and takes ibuprofen at night which helpsa little bit. Pt reported that the pain is pretty consistent through-out the day. Pt reported that he is still experiencing numbness in his toes, fingers and left leg. Pt reported that the numbness is gradually getting worse. Pt reported that the numbness is fairly consistent through-out the day. RN informed pt that he should update his PCP regarding his back pain as it is a new onset back pain6 months ago. Pt/Monse were informed that their report will be forwarded to Dr. Shah for review and input. When this is available pt will be called back. Pt/Monse are agreeable to plan. * Telephone Encounter - Renata John RN - 12/10/2022 12:22 PM EST Copied from CRM #[id number]. Topic: Specialty Dept CRMs - Triage >> Dec 10, 2022 12:14 PM Mickey Vyas wrote: Triage Message Specialist: Jacki Shah MD Relationship (if other than patient-full name): Monse Pearl, Pt's partner Symptom: worsening numbness & back pain Has patient experienced symptom before yes If patient has experienced symptom before, when was the last time this occurred ongoing Is patient currently having symptom yes When did symptom begin 6 months ago Additional Comments: Monse Pearl, Pt's partner, stated the Pt is experiencing worsening numbness in his legs, feet and fingers. Monse stated the Pt has back pain 5/10 which has also worsened. Monse stated the back pain has been on going since 07/2021 but has suddenly increased. Monse stated she and the Pt can be reached at [phone] anytime. documented in this encounter Plan of Treatment Upcoming Encounters Date Type Department Care Team (Late st Contact Info) Description 09/28/2024 3:15 PM EST Procedure [place] [address] Matthieu Benson MD [facility] [place] [address] 10/05/2024 1:30 PM EST TH Visit (TeleHealth) [place] [address] Pavan Iglesias APRN [facility] [place] [address] 01/31/2025 2:40 PM EDT Office Visit Cardiology at [address] [phone] Brayan Garay MD [facility] [place] [address] 03/16/2025 9:30 AM EDT Office [place] [address] Augusta Keys MD [facility] [place] [address] documented as of this encounter Visit Diagnoses Not on filedocumented in this encounter Care Teams Electrical Manager Relationship Specialty Start Date End Date Richa Brand APRN [address] [place] [address] PCP - General Family Medicine 03/24/17 documented as of this encounter
--- OUTSIDE RECORDS SUMMARY | 2024-08-28 17:06 | XMS_ITS | Encounter Summary ---
Author Organization [facility] [place] [address] Care Team Providers Care Air Conditioning Coil Assembler Name Role Phone Richa Brand APRN Primary Care Provider [phone] Encounter Details Date Type Department Care Team (Late st Contact Info) Description 01/18/2022 10:00 AM EDT TH Visit (TeleHealth) [place] [address] Augusta Keys MD [facility] [place] [address] Late onset Alzheimer's dementia without behavioral disturbance Social History Tobacco Use Types Packs/Day Years Used Date Smoking Tobacco: Former Smokeless Tobacco: Never Comments:50+ years ago Alcohol Use Standard Drinks/Week Comments Yes 14 (1 standard drink = 0.6 oz pu re alcohol) Sex and Gender Information Value Date Recorded Sex Assigned at Not on file Gender Identity Not on file Sexual Orientation Not on file documented as of this encounter Progress Notes * Augusta Keys MD - 01/18/2022 10:00 AM [...] calling. He has become established with the [facility]. He has had amyloid and tau scanning, [...] have to discuss with the PI an [facility]. I would like to see him in person in the fall, we could consider a MoCA, a CDR or FAQ to measure how he is doing. ADLs: Chencho apparently did not pass a cognitive driving test, so his license has been revoked. Medications: he manages these himself, but Ashleigh will begin to observe him, as he has mentioned a few instances in which he has forgotten medications (which he did seem a bit defensive about). I think he's become a candidate for memantine, or at least, a low dose, and we can titrate slowly. I would suggest 5mg PO QHS for 1-2 weeks, [...] 3:15 PM EST [place] [address] Matthieu Benson MD [facility] [place] [address] 10/05/2024 1:30 PM EST TH Visit (TeleHealth) Neurology at [place] [phone] Pavan Iglesias APRN [facility] [place] [address] 01/31/2025 2:40 PM EDT Office Visit Cardiology at [address] [phone] Brayan Garay MD [facility] [place] [address] 03/16/2025 9:30 AM EDT Office [place] [address] Augusta Keys MD [facility] [place] [address] documented as of this encounter Visit Diagnoses Diagnosis Late onset Alzheimer's dementia without behavioral disturbance documented in this encounter Care Teams Air Conditioning Coil Assembler Relationship Specialty Start Date End Date Richa Brand APRN [address] [place] [address] PCP - General Family Medicine 03/24/17 documented as of this encounter
--- OUTSIDE RECORDS SUMMARY | 2024-08-28 17:06 | XMS_ITS | Encounter Summary ---
Author Organization Formerly [facility], [facility] Address [facility] [place] [address] Care Team Providers Care Grain Blender Name Role Phone Richa Brand APRN Primary Care Provider [phone] [phone] Encounter Details Date Type Department Care Team (Late st Contact Info) Description 12/31/2022 7:30 AM EST Office [place] [address] Ofe Somers PA [facility] [place] [address] Numbness and tingling; Neuropathy Social History Tobacco Use Types Packs/Day Years [...] Sign Reading Time Taken Comments Blood Pressure 121/54 12/31/2022 7:49 AM EST Pulse 59 12/31/2022 7:49 AM EST Temperature - - Respiratory Rate - - Oxygen Saturation - - Inhaled Oxygen Concentration - - Weight 70 kg (154 lb 6.4 oz) 12/31/2022 7:49 AM EST Height 172.7 cm (5' 8) 12/31/2022 7:49 AM EST Body Mass Index 23.48 12/31/2022 7:49 AM EST documented in this encounter Progress Notes * Ofe Somers PA - 12/31/2022 7:30 AM EST NEUROLOGY CLINIC [facility] [place] [address] Patient name: Chencho Mcgrath Date of : 1945 Address: [address] [place] [id number] PHONE: [phone] (home) CC: numbness in upper and lower extremities. HPI: Chencho Mcgrath is a 77 y.o. male with PMHx Alzheimer's Dementia who presents today for follow-up numbness in upper and lower extremities. The patient follows with Dr. Keys for his Dementia diagnosis and the patient has seen Dr. Shah in the past for his paresthesia complaints. His last visit with Dr. Shah was on 07/25/21- EMG/NCS studies were done. From that visit: Mr. 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 Slowing across the fibular head onthe right was suggestive of a superimposed peroneal neuropathy at the knee. His clinical exam is not clearly consistent with this interpretation however as he does have both inversion and eversion weakness on the right in addition to ankle dorsiflexion weakness. I suspect the slowing across the fibular head is incidental. We discussed my impressions that his electrodiagnostic's findings were mostconsistent with accumulation of degenerative change from his back. We will plan to continue to workon conservative measures to control his lumbar degenerative disc disease as well as use wrist splints for his hands. If he develops any increase in his lower extremity symptoms especially those that would be more localizing to a peroneal neuropathy at the fibular head, this can be revisited possibly with more imaging studies. Interim History: Mr. Mcgrath presents with his today. He reports a slight uptick in his symptoms since his last visit with Dr. Shah and felt it would be good to touch base since it has been 1.5yrs since his last appt. His symptomscomplaints today include: ?? Numbness in fingers and toes, numbness in the left LE: knee to toes ?? UE complaints: Thumb and index finger are perfect; middle, ring and pinky are the fingers withincr numbness. ?? Slight LBP - a little more than annoying but not too bothersome. ?? Intermittent Right foot drop ?? Balance instability - not consistently, comes and goes. He denies any new neurologic symptom complaints and reports all of the aforementioned symptoms havebeen around for years. Overall, he does not endorse a significant impact on his ADLs or QOL due to sx. He denies any daily weakness, recent falls/near falls (ambulates freely without an assistive device), painful sensory symptoms. He is not on any oral medications for his neuropathic complaints. His just recently started wearing bilateral elbow splints and has wrist splints but does not wear these. Elbow splints have helped with finger numbness. He also practices yoga routinely, meditates and walks for exercise. ScHx Social History Socioeconomic History ??? Marital status: Domestic Partner Spouse name: Monse ??? Number of children: Not on file ??? Years of education: Not on file ??? Highest education level: Not on file Occupational History ??? 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 Smoking status: Former Types: Cigars ??? Smokeless tobacco: Never ??? Tobacco comments: 50+ years ago Vaping Use ??? Vaping Use: Never used Substance and Sexual Activity ??? Alcohol use: Yes Alcohol/week: 14.0 standard drinks Types: 14 Glasses of wine per week ??? Drug use: Not Currently Comment: very infrequently ??? Sexual activity: Yes Partners: Female Other Topics Concern ??? Not on file Social History Narrative ??? Not on file Social Determinants of Health Financial Resource Strain: Not on file Food Insecurity: Not on file Transportation Needs: Not on file Physical Activity: Not on file Housing Stability: Not on file Patient Active Problem List Diagnosis Code ??? Anxiety F41.9 ??? ASCVD (arteriosclerotic cardiovascular disease) I25.10 ??? Hyperlipidemia E78.5 ??? Lumbar spondylosis M47.816 ??? Peripheral neuropathy G62.9 ??? Memory deficit R41.3 ??? 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 Carpal tunnel syndrome of right wrist G56.01 ??? 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 Alzheimer's dementia G30.9, F02.80 Family History Problem Relation Age of Onset ??? No Known Problems Mother ??? No Known Problems Father Outpatient Encounter Medications as of 12/31/2022 Medication Sig Dispense Refill ??? atorvastatin (Lipitor) 20 mg Tablet TAKE 1 TABLET BY MOUTH DAILY 90 tablet 3 ??? betamethasone dipropionate (Diprolene) 0.05 % Ointment Apply twice daily as needed to areas of eczema 45 g 3 ??? donepeziL (Aricept) 10 mg Tablet TAKE 1 TABLET BY MOUTH EVERY NIGHT (Patient taking differently: Pt taking in the morning) 90 tablet 3 ??? busPIRone (Buspar) 15 mg Tablet 3 [...] Take 81 mg by mouth daily. ??? donepeziL (Aricept) 5 mg Tablet Take 1 tablet by mouth daily (after breakfast). Take 2.5mg along with the 10mg tab of donepezil for a total of 12.5mg daily. (Patient not taking: Reported on 12/31/2022) 30 tablet 3 ??? PreviDent 5000 Plus 1.1 % Cream DIRECTED No facility-administered encounter medications on file as of 12/31/2022. No Known Allergies Review of systems: Constitutional: (-)fevers, (-)chills/sweats (-)recent infections, (-) weight loss/gain. Eyes: refer to HPI ENT: (-)hearing loss, (-) sore throat, (-)runny nose/congestion CV: (-)chest pain, (-)palpitations Resp: (-)cough, (-)shortness of breath GI: (-)nausea/vomiting, (-)abdominal pain : Refer to HPI Psych: (-)depression, (-)anxiety Extremities: (-)swelling, (-)rashes Neuro ROS: Refer to HPI Objective: Vitals: BP 121/54 (BP Location (NBP): Left arm, Patient Position: Sitting, BP Cuff Sizes: Adult (25-34 cm)) Pulse 59 Ht 172.7 cm (5' 8) Wt 70 kg (154 lb 6.4 oz) BMI 23.48 kg/m?? Constitutional: 77 y.o. male appears stated age, well nourished, well developed, in no acute distress HEENT: Head atraumatic, normocephalic. Sclera non-icteric. Oropharynx normal. ] CV: RRR, S1, S2, no murmurs, rubs or gallops Resp: CTAB Ext: No edema. No rashes. Neuro: ?? MS: Alert and oriented. Language is clear and fluent. No dysarthria. Follows commands ?? CN: ?? PERRL, EOMI, visual campos full ?? Facial sensation intact throughout. ?? No facial asymmetry, movement intact ?? Hearing intact to finger rub ?? Palate elevates symmetrically, tongue protrudes midline ?? SCM and trap strength intact. ?? Motor: Normal bulk and tone. No clonus. No pronator drift. Mild bilateral postural tremor of thehands. ?? UE: ?? Arm abduction at shoulder: 5/5 R, 5/5 L ?? Elbow extension: 5/5 R, 5/5 L ?? Elbow flexion: 5/5 R, 5/5 L ?? Cia Agent: 5/5 R, 5/5 L ?? LE: ?? Hip flexion: 5/5 R, 5/5 L ?? Knee extension: 5/5 R, 5/5 L ?? Knee flexion: 5/5 R, 5/5 L ?? Foot dorsiflexion: 5/5 R, 5/5 L ?? Foot plantar flexion: 5/5 R, 5/5 L ?? Sensation: ?? UEs: Intact to light touch, pain, temperature and vibration throughout. ?? LEs: Very mildly diminished temp and diminished vibration in the LEs b/l and to the ankles. Pin prick intact. ?? Position sense intact. ?? Reflexes: ?? UE DTRs: ?? Triceps 1+R, 1+L ?? Biceps 1+R, 1+L ?? Brachioradialis1+R, 1+L. ?? LE DTRs: ?? Patellar 2+R, 2+L ?? Achilles:0 R, 0L ?? Downgoing toes b/l. ?? Coordination: Finger to nose intact, rapid alternating movements intact & symmetric. Mild swaying with Romberg testing but able to hold upright posture for 30+s. ?? Gait: Stable, steady, no foot drop or gait abnormalities appreciated today. No difficulty with tandem gait. Diagnostic Tests and Images: EMG/NCS 07/25/21 IMPRESSION: Complex and abnormal study. There is [...] localizing. Clinical and radiologic correlation is recommended. MRI Lumbar spine 04/23/21 FINDINGS: There is convex right curvature of the spine with apex at L2/3, with compensatory convex left curvature L5/S1. There is approximately 5 mm retrolisthesis of L2 on L3, and 5 mm anterolisthesis of L5 on S1. Minimal height loss of the L5 vertebra, without retropulsion or edema. Otherwise, vertebral body height and alignment are preserved. There are anterior osteophytes from L1/2 through L3/4. 6 mm sclerotic focus in the anterior inferior L1 vertebra adjacent to the endplate potentially representing bone [place] or herniated disc material. Mild surrounding reactive edema, and reactive edema surrounding the narrowed L1/2 disc space anteriorly. Fatty degenerative endplate changes surrounding L3/4 eccentric to the left, and L4/L5 eccentric to the right. ?? In the left posterior T12 vertebra, there is a 1 cm T1 hypointense, T2 isointense lesion which shows fluid signal on STIR images and a small surrounding fat halo, potentially atypical hemangioma. ?? Distal spinal cord signal, caliber and contour are normal. The conus terminates at L1/2. Cauda equina nerve roots undulate likely due to impingement in the left lateral thecal sac at L2/3 and L3/4. ?? Multilevel degenerative changes, as follows: ?? T12/L1: No significant disc bulge, spinal canal or neural foraminal narrowing. ?? L1/L2: Disc space narrowing, anterior osteophyte with possible anterior inferior L1 endplate disc herniation. Mild diffuse disc bulge with mild right foraminal and moderate right subarticular recess stenosis. Mild central canal stenosis. Mild bilateral degenerative facet and ligamentous hypertrophy. ?? L2/L3: Diffuse disc bulge slightly eccentric to the left. Left greater than right degenerative facet and ligamentous hypertrophy. There is severe left subarticular stenosis, moderate to severe left neural foraminal narrowing, moderate central canal stenosis eccentric to the left, and mild right subarticular and foraminal stenosis. ?? L3/4: Disc space narrowing, mild diffuse disc bulge, moderate bilateral facet and ligamentous hypertrophy. There is severe bilateral subarticular recess stenosis, severe left and moderate to severe right foraminal stenosis. Mild central canal stenosis. ?? L4/L5: Diffuse disc bulge, severe bilateral degenerative facet hypertrophy and mild bilateral ligamentous hypertrophy. There is severe stenosis of the right neural foramen and subarticular recess, mild left subarticular and foraminal narrowing, and moderate central canal stenosis. ?? L5/S1: Approximately 5 mm anterolisthesis of L5 on S1 uncovers the disc, with superimposed mild diffuse bulge with central protrusion. There is left greater than right degenerative facet hypertrophy with mild left facet effusion, moderate to severe bilateral neural foraminal narrowing, severe right subarticular recess stenosis and moderate central canal stenosis. ?? IMPRESSION Severe multilevel degenerative changes, as above. Assessment & Plan Chencho Mcgrath is a 77 y.o. male with PMHx Alzheimer's Dementia who presents today for routine follow-up numbness in upper and lower extremities. EMG/NCS c/w entrapment neuropathies of the median nerve, a mild sensory predominant neuropathy, and likely superimposed nerve root injury from multilevel degenerative disc disease likely producing polyradiculopathy. Although the patient endorses a slight up tick in his symptoms, overall, he does not feel they haveresulted in significant disability/progression and does not feel any treatment changes are warranted at this time. Exam was reassuringly stable compared to priors and shows only mild deficits in sensory testing. No treatment changes today. Follow-up PRN new symptoms or worsening old ones, otherwise, see me for routine follow-up in 6m. Ofe Somers PA-C Dept. Of Neurology [facility] or [phone](MS nurse contact number) Total time spent day of service on chart review, disease discussion and therapeutic counseling, as well as, documentation and coordination of care: >60mins documented in this encounter Plan of Treatment Upcoming Encounters Date Type Department Care Team (Late st Contact Info) Description 09/28/2024 3:15 PM EST Procedure [place] [phone] Matthieu Benson MD [facility] [place] [address] 10/05/2024 1:30 PM EST TH Visit (TeleHealth) [place] [phone] Pavan Iglesias APRN [facility] [place] [address] 01/31/2025 2:40 PM EDT Office Visit Cardiology at [address] [place] [phone] Brayan Garay MD [facility] [place] [address] 03/16/2025 9:30 AM EDT Office [place] [address] Augusta Keys MD [facility] [place] [address] documented as of this encounter Visit Diagnoses Diagnosis Numbness and tingling Disturbance of skin sensation Neuropathy Mononeuritis of unspecified site documented in this encounter Care Teams Grain Blender Relationship Specialty Start Date End Date Richa Brand APRN [address] [place] [address] PCP - General Family Medicine 03/24/17 documented as of this encounter
--- OUTSIDE RECORDS SUMMARY | 2024-08-28 17:06 | XMS_ITS | Encounter Summary ---
Author Organization [facility] [place] [address] Care Team Providers Care Svp Research And Strategic Analysis Name Role Phone Richa Brand APRN Primary Care Provider [phone] Encounter Details Date Type Department Care Team (Late st Contact Info) Description 03/14/2023 Notes Only [facility] [place] [phone] Monica Kimball Social History Tobacco Use Types Packs/Day Years [...] as of this encounter Progress Notes * Monica Kimball - 03/14/2023 9:28 AM EDT 03/14/2023 Patient called line [phone] stating had spoke to [facility] and they have not received the insurance for the MRI to be scheduled. Patient asked for information to be resent. Faxed demos, MRI questions and requisition to [facility] . documented in this encounter Plan of Treatment Upcoming Encounters Date Type Department Care Team (Late st Contact Info) Description 09/28/2024 3:15 PM EST [place] [address] Matthieu Benson MD [facility] [place] [address] 10/05/2024 1:30 PM EST TH Visit (TeleHealth) [place] [phone] Pavan Iglesias APRN [facility] [place] [address] 01/31/2025 2:40 PM EDT Office Visit Cardiology at [address] [address] Brayan Garay MD [facility] [place] [address] 03/16/2025 9:30 AM EDT [place] [address] Augusta Keys MD [facility] [address] documented as of this encounter Visit Diagnoses Not on filedocumented in this encounter Care Teams Svp Research And Strategic Analysis Relationship Specialty Start Date End Date Richa Brand APRN [address] [place] [address] PCP - General Family Medicine 03/24/17 documented as of this encounter
--- OUTSIDE RECORDS SUMMARY | 2024-08-28 17:06 | XMS_ITS | Encounter Summary ---
Author Organization Formerly [facility], Later [facility] Address [facility] [place] [address] Care Team Providers Care Supervisor Mails Name Role Phone Richa Brand APRN Primary Care Provider [phone] [phone] Encounter Details Date Type Department Care Team (Latest Contact Info) Description 04/10/2023 Travel Social History Tobacco Use Types Packs/Day [...] place to sleep or slept in a longterm (including now)? No 01/16/2023 Sex and Gender Information Value Date Recorded Sex Assigned at Not on file Gender Identity Not on file Sexual Orientation Not on file documented as of this encounter Plan of Treatment Upcoming Encounters Date Type Department Care Team (Late st Contact Info) Description 09/28/2024 3:15 PM EST Procedure [place] [address] Matthieu Benson MD [facility] [place] [place] [address] 10/05/2024 1:30 PM EST TH Visit (TeleHealth) Neurology at [place] [phone] Pavan Iglesias APRN [facility] [place] [place] [address] 01/31/2025 2:40 PM EDT Office Visit Cardiology at [address] [phone] Brayan Garay MD [facility] [place] [address] 03/16/2025 9:30 AM EDT Office [place] [phone] Augusta Keys MD [facility] [place] [place] [address] documented as of this encounter Visit Diagnoses Not on filedocumented in this encounter Care Teams Supervisor Mails Relationship Specialty Start Date End Date Richa Brand APRN [address] [place] [address] PCP - General Family Medicine 03/24/17 documented as of this encounter
--- OUTSIDE RECORDS SUMMARY | 2024-08-28 17:06 | XMS_ITS | Encounter Summary ---
Author Organization Formerly [facility] [place] [address] Care Team Providers Care Yard Coupler Name Role Phone Richa Brand APRN Primary Care Provider [phone] [phone] Reason for Visit * Reason Comments Medication Refill Encounter Details Date Type Department Care Team (Late st Contact Info) Description 12/09/2022 Refill Cardiology at [address] [phone] Brayan Garay MD [facility] [address] Medication Refill Social History Tobacco Use Types [...] 3:15 PM EST Procedure [place] [address] Matthieu Benson MD [facility] [place] [address] 10/05/2024 1:30 PM EST TH Visit (TeleHealth) [place] [phone] Pavan Iglesias APRN [facility] [place] [address] 01/31/2025 2:40 PM EDT Office Visit Cardiology at [address] [phone] Brayan Garay MD [facility] [place] [address] 03/16/2025 9:30 AM EDT Office [place] [phone] Augusta Keys MD [facility] [place] [place] [address] documented as of this encounter Visit Diagnoses Diagnosis Hyperlipidemia, unspecified hyperlipidemia type documented in this encounter Care Teams Yard Coupler Relationship Specialty Start Date End Date Richa Brand APRN [address] [place] [address] PCP - General Family Medicine 03/24/17 documented as of this encounter
--- OUTSIDE RECORDS SUMMARY | 2024-08-28 17:06 | XMS_ITS | Encounter Summary ---
Author Organization [facility] Address [facility] [place] [address] Care Team Providers Care Head Of Research & Insights Name Role Phone Richa Brand APRN Primary Care Provider [phone] [phone] Encounter Details Date Type Department Care Team (Late st Contact Info) Description 03/24/2023 9:40 PM EDT Ancillary Procedure Radiology Library at [facility] [place] [phone] Julianna Navarrete SCHOOL COORDINATOR [facility] [place] [address] Social History Tobacco Use Types Packs/Day Years [...] place to sleep or slept in a detention (including now)? No 01/16/2023 Sex and Gender Information Value Date Recorded Sex Assigned at Not on file Gender Identity Not on file Sexual Orientation Not on file documented as of this encounter Plan of Treatment Upcoming Encounters Date Type Department Care Team (Late st Contact Info) Description 09/28/2024 3:15 PM EST Procedure visit Neurology at [place] [phone] Matthieu Benson MD [facility] [place] [address] 10/05/2024 1:30 PM EST TH Visit (TeleHealth) [place] [phone] Pavan Iglesias APRN [facility] [place] [address] 01/31/2025 2:40 PM EDT Office Visit Cardiology at [address] [address] Brayan Garay MD [facility] [place] [address] 03/16/2025 9:30 AM EDT Office Visit Neurology at [place] [phone] Augusta Keys MD [facility] [place] [address] documented as of this encounter Procedures Procedure Name Priority Date/Time Associated Diagnosis Comments FILM LIBRARY STORAGE ONLY MR SPINE Routine 03/24/2023 9:36 PM EDT documented in this encounter Results * Film Library- Storage Only MR Spine (03/24/2023 9:36 PM EDT) Narrative [facility] - 03/24/2023 9:36 PM EDT This exam is auto-finalizing. It's purpose is for storage only. Julianna GILMORE FILM LIBRARY OR DERABLES Performing Organization Address City/State/[facility] Co de Phone Number [place], [place] documented in this encounter Visit Diagnoses Not on filedocumented in this encounter Care Teams Head Of Research & Insights Relationship Specialty Start Date End Date Richa Brand APRN [address] [place] [address] PCP - General Family Medicine 03/24/17 documented as of this encounter
--- OUTSIDE RECORDS SUMMARY | 2024-08-28 17:06 | XMS_ITS | Encounter Summary ---
Author Organization [facility] [place] [address] Care Team Providers Care Government Teacher Name Role Phone Richa Brand APRN Primary Care Provider [phone] Encounter Details Date Type Department Care Team (Latest Contact Info) Description 10/09/2022 Travel Social History Tobacco Use Types Packs/Day [...] 3:15 PM EST Procedure [place] [phone] Matthieu Benson MD [facility] [place] [address] 10/05/2024 1:30 PM EST TH Visit (TeleHealth) [place] [phone] Pavan Iglesias APRN [facility] [place] [address] 01/31/2025 2:40 PM EDT Office Visit Cardiology at [address] [phone] Brayan Garay MD [facility] [place] [address] 03/16/2025 9:30 AM EDT Office [place] [address] Augusta Keys MD [facility] [place] [address] documented as of this encounter Visit Diagnoses Not on filedocumented in this encounter Care Teams Government Teacher Relationship Specialty Start Date End Date Richa Brand APRN [address] [place] [address] PCP - General Family Medicine 03/24/17 documented as of this encounter
--- OUTSIDE RECORDS SUMMARY | 2024-08-28 17:06 | XMS_ITS | Encounter Summary ---
Author Organization [facility] [place] [address] Care Team Providers Care Stud Setter Name Role Phone Richa Brand APRN Primary Care Provider [phone] [phone] Reason for Visit * Reason Onset Date Comments Reminder Appointment 07/03/2023 Encounter Details Date Type Department Care Team (Late st Contact Info) Description 07/03/2023 [place] [phone] Augusta Keys MD [facility] [address] Reminder Appointment Social History Tobacco Use Types Packs/Day [...] place to sleep or slept in a custodial (including now)? No 01/16/2023 Sex and Gender Information Value Date Recorded Sex Assigned at Not on file Gender Identity Not on file Sexual Orientation Not on file documented as of this encounter Miscellaneous Notes * Telephone Encounter - Kelsea Webber CMA - 07/03/2023 8:52 AM EDT Unable to reach this patient by phone to review their medications and allergies prior to their upcoming tele-appointment with the Neurology provider. No message left. documented in this encounter Plan of Treatment Upcoming Encounters Date Type Department Care Team (Late st Contact Info) Description 09/28/2024 3:15 PM EST [place] [address] Matthieu Benson MD [facility] [place] [address] 10/05/2024 1:30 PM EST TH Visit (TeleHealth) [place] [phone] Pavan Iglesias APRN [facility] [place] [address] 01/31/2025 2:40 PM EDT Office Visit Cardiology at [address] [place] [address] Brayan Garay MD [facility] [place] [address] 03/16/2025 9:30 AM EDT [place] [address] Augusta Keys MD [facility] [place] [address] documented as of this encounter Visit Diagnoses Not on filedocumented in this encounter Care Teams Stud Setter Relationship Specialty Start Date End Date Richa Brand APRN [address] [place] [address] PCP - General Family Medicine 03/24/17 documented as of this encounter
--- OUTSIDE RECORDS SUMMARY | 2024-08-28 17:06 | XMS_ITS | Encounter Summary ---
Author Organization [place] [address] Care Team Providers Care Element Winding Machine Tender Name Role Phone Richa Brand APRN Primary Care Provider +1 [phone] Encounter Details Date Type Department Care Team (Late st Contact Info) Description 02/19/2023 Orders Only [facility] [place] [phone] Tasneem Murdock, RN Lumbar spondylosis; Midline low back pain without sciatica, unspecified chronicity Social History Tobacco Use Types Packs/Day Years [...] as of this encounter Progress Notes * Tasneem Murdock RN - 02/19/2023 4:05 PM EDT Lumbar XR pended to be performed on arrival to clinic visit w non-op provider (based on recommendation by Dr Cobian at last visit if pt develops back or leg pain. 02/20/23 ~ 8:10 Secure chat sent to Patricia and Joy asking that one of them schedule the XR that is ow available to be performed on arrival to pending visit; to then call pt or his to confirm they know arrival time and location. documented in this encounter Plan of Treatment Upcoming Encounters Date Type Department Care Team (Late st Contact Info) Description 09/28/2024 3:15 PM EST [place] [address] Matthieu Benson MD [facility] [place] [address] 10/05/2024 1:30 PM EST TH Visit (TeleHealth) [place] [phone] Pavan Iglesias APRN [facility] [place] [address] 01/31/2025 2:40 PM EDT Office Visit Cardiology at [address] [place] [phone] Brayan Garay MD [facility] [place] [address] 03/16/2025 9:30 AM EDT [place] [address] Augusta Keys MD [facility] [place] [address] documented as of this encounter Results * XR Lumbar Spine [...] who have questions please contact the health vision care associate that requested your imaging first. ? Narrative [...] patients who have questions please contactthe health vision care associate that requested your imaging first. Woody Cobian MD IMG DX ORDERABLES documented in this encounter Visit Diagnoses Diagnosis Lumbar spondylosis Lumbosacral spondylosis without myelopathy Midline low back pain without sciatica, unspecified chronicity Lumbar spondylosis Lumbosacral spondylosis without myelopathy Midline low back pain without sciatica, unspecified chronicity documented in this encounter Care Teams Element Winding Machine Tender Relationship Specialty Start Date End Date Richa Brand APRN [address] [place] [address] PCP - General Family Medicine 03/24/17 documented as of this encounter
--- OUTSIDE RECORDS SUMMARY | 2024-08-28 17:06 | XMS_ITS | Encounter Summary ---
[place] [address] Care Team Providers Care Electrotyper Apprentice Name Role Phone Richa Brand APRN Primary Care Provider [phone] [phone] Encounter Details Date Type Department Care Team (Late st Contact Info) Description 06/27/2022 Refill Dermatology at [address] [address] Joy Wolfe LPN Social History Tobacco Use Types Packs/Day Years [...] Miscellaneous Notes * Telephone Encounter - Joy Wolfe LPN - 06/27/2022 8:58 AM EDT Pt requesting a refill. documented in this encounter Plan of Treatment Upcoming Encounters Date Type Department Care Team (Late st Contact Info) Description 09/28/2024 3:15 PM EST Procedure [place] [phone] Matthieu Benson MD [facility] [place] [address] 10/05/2024 1:30 PM EST TH Visit (TeleHealth) Neurology at [place] [phone] Pavan Iglesias APRN [facility] [place] [address] 01/31/2025 2:40 PM EDT Office Visit Cardiology at [address] [phone] Brayan Garay MD [facility] [place] [address] 03/16/2025 9:30 AM EDT Office [place] [address] Augusta Keys MD [facility] [place] [address] documented as of this encounter Visit Diagnoses Not on filedocumented in this encounter Care Teams Electrotyper Apprentice Relationship Specialty Start Date End Date Richa Brand APRN [address] [place] [address] PCP - General Family Medicine 03/24/17 documented as of this encounter
--- OUTSIDE RECORDS SUMMARY | 2024-08-28 17:06 | XMS_ITS | Encounter Summary ---
Author Organization [facility] Address [facility] [place] [address] Care Team Providers Care Completions Manager Name Role Phone Richa Brand APRN Primary Care Provider [phone] [phone] Reason for Visit * Reason Comments Medication Refill Encounter Details Date Type Department Care Team (Late st Contact Info) Description 04/30/2022 Ref[place] [address] Augusta Keys MD [facility] [place] [address] Social History Tobacco Use Types Packs/Day Years [...] 3:15 PM EST Procedure visit Neurology at [place] [phone] Matthieu Benson MD [facility] [place] [address] 10/05/2024 1:30 PM EST TH Visit (TeleHealth) [place] [address] Pavan Iglesias APRN [facility] [place] [address] 01/31/2025 2:40 PM EDT Office Visit Cardiology at [address] [place] [phone] Brayan Garay MD [facility] [place] [address] 03/16/2025 9:30 AM EDT Office [place] [phone] Augusta Keys MD [facility] [place] [place] [address] documented as of this encounter Visit Diagnoses Not on filedocumented in this encounter Care Teams Completions Manager Relationship Specialty Start Date End Date Richa Brand APRN [address] [place] [address] PCP - General Family Medicine 03/24/17 documented as of this encounter
--- OUTSIDE RECORDS SUMMARY | 2024-08-28 17:06 | XMS_ITS | Encounter Summary ---
Author Organization [facility] Address [facility] [place] [address] Care Team Providers Care Growth Hacker Name Role Phone Richa Brand APRN Primary Care Provider [phone] [phone] Reason for Visit * Reason Comments Coronary Artery Disease Encounter Details Date Type Department Care Team (Latest Contact Info) Description 02/02/2024 9:00 AM EDT Office Visit Cardiology at [address] [place] [address] Bryaan Garay MD [facility] [place] [address] ASCVD (arteriosclerotic cardiovascular disease) Social History Tobacco [...] Sign Reading Time Taken Comments Blood Pressure 131/67 02/02/2024 9:26 AM EDT Pulse 57 02/02/2024 9:26 AM EDT Temperature - - Respiratory Rate - - Oxygen Saturation - - Inhaled Oxygen Concentration - - Weight 68.7 kg (151 lb 8 oz) 02/02/2024 9:25 AM EDT Height 172.7 cm (5' 8) 02/02/2024 9:25 AM EDT Body Mass Index 23.04 02/02/2024 9:25 AM EDT documented in this encounter Progress Notes * Brayan Garay MD - 02/02/2024 9:00 AM EDT Images from the original note were not included. Subjective: Patient ID: Chencho Mcgrath is a 78 y.o. male who presents on follow-up for: Chief Complaint Patient presents with Coronary Artery Disease HPI Last seen by me 01/2023, at which time no changes were made. Since then, he has been doing well. Recently came back from a retreat in [facility]. Excellent activity there and at home is without angina nor untoward dysonea. No edema. Does not check bp at home Current Outpatient Medications Medication Instructions Acetylcysteine (NAC) 600 mg capsule 1 capsule, Oral, DAILY Antiarthritic Combination No.2 900 mg Tablet 1 tablet, Oral, DAILY aspirin EC 81 mg, Oral, DAILY atorvastatin (LIPITOR) 20 mg, Oral, DAILY betamethasone dipropionate (Diprolene) 0.05 % Ointment Apply twice daily as needed to areas of eczema busPIRone (Buspar) 15 mg Tablet 3 TIMES DAILY calcium carb/magnesium carb (CALCIUM & MAGNESIUM CARBONATES ORAL) 1 tablet, Oral, DAILY CALCIUM-MAGNESIUM ORAL 1 capsule, Oral, DAILY cholecalciferol (Vitamin D3) 2,000 Units, Oral, DAILY donepeziL (Aricept) 10 mg tablet TAKE 1 TABLET BY MOUTH EVERY NIGHT ferrous sulfate (IRON ORAL) 325 mg, Oral, SEE ADMIN INSTRUCTIONS, Tues, Thurs, Sat flaxseed oil 1,000 mg Capsule Oral, DAILY glucosamine rwl-luqxoseegn-lst 500-200-150 mg Tablet 1 tablet, Oral, DAILY ibuprofen (ADVIL) 400 mg, Oral, NIGHTLY multivitamin (THERAGRAN) Tablet 1 tablet, Oral, DAILY UNKNOWN TO PATIENT Indications: OTC - sleeping pill / takes 1 1/2 tablets nightly vitamin B complex (VITAMINS B COMPLEX ORAL) Oral, DAILY vitamin E acetate (VITAMIN E ORAL) Oral, DAILY Patient Active Problem List Diagnosis ASCVD (arteriosclerotic cardiovascular disease) 2007 70% D1-> POBA, no other disease Stress echo 2012- 12.8 METS, HR 154, fatigue, no ST change, no WMA, no valve disease Atherosclerosis of coronary artery Eczema Knee pain, left Mixed conductive and sensorineural hearing loss of right ear with restricted hearing of left ear Paresthesia Alzheimer's dementia Peripheral neuropathy 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 Gen: pleasant male in NAD Cor: rrr, s1/s2 of nl character and amplitude, no pathologic m/r/g. Estimated RAP not elevated. Carotids with normal upstroke without bruit. Pulm: CTAB. Normal diaphragmatic movement without use of accessory muscles Ext: PT ++ Assessment and Plan: ASCVD (arteriosclerotic cardiovascular disease) No angina per history. - Anti-Thrombosis: asa 81 - Statin: lipitor 20. - Anti-anginals: GTN PRN RTC 12 months Brayan Garay MD documented in this encounter Miscellaneous Notes * Assessment & Plan Note - Brayan Garay MD - 02/02/2024 9:09 AM EDT Associated Problem(s): ASCVD (arteriosclerotic cardiovascular disease) No angina per history. - Anti-Thrombosis: asa 81 - Statin: lipitor 20. - Anti-anginals: GTN PRN documented in this encounter Plan of Treatment Upcoming Encounters Date Type Department Care Team (Late st Contact Info) Description 09/28/2024 3:15 PM EST [place] [address] Matthieu Benson MD [facility] [place] [address] 10/05/2024 1:30 PM EST TH Visit (TeleHealth) [place] [address] Pavan Iglesias APRN [facility] [place] [address] 01/31/2025 2:40 PM EDT Office Visit Cardiology at [address] [phone] Brayan Garay MD [facility] [place] [address] 03/16/2025 9:30 AM EDT [place] [address] Augusta Keys MD [facility] [place] [address] documented as of this encounter Visit Diagnoses Diagnosis ASCVD (arteriosclerotic cardiovascular disease) Unspecified cardiovascular disease documented in this encounter Care Teams Growth Hacker Relationship Specialty Start Date End Date Richa Brand APRN [address] [place] [address] PCP - General Family Medicine 03/24/17 documented as of this encounter
--- OUTSIDE RECORDS SUMMARY | 2024-08-28 17:06 | XMS_ITS | Encounter Summary ---
Author Organization [facility] Address [facility] [place] [address] Care Team Providers Care Hog Cooler Name Role Phone Richa Brand APRN Primary Care Provider [phone] Encounter Details Date Type Department Care Team (Late st Contact Info) Description 07/15/2023 1:00 PM EDT TH Visit (TeleHealth) [place] [address] Augusta Keys MD [facility] [place] [address] Alzheimer's disease Social History Tobacco Use Types [...] place to sleep or slept in a snf (including now)? No 01/16/2023 Sex and Gender Information Value Date Recorded Sex Assigned at Not on file Gender Identity Not on file Sexual Orientation Not on file documented as of this encounter Progress Notes * Augusta Keys MD - 07/15/2023 1:00 PM EDT [facility] TELEHEALTH follow up Patient Name: Chencho Mcgrath Patient ID: Patient's name and verified Patient and caregiver gave verbal consent for a telehealth visit Chencho Mcgrath understands that this visit may be billed, similar to a clinic visit Patient Location: Home Medication reconciliation was completed History: 78 yo M w/ dementia due to Alzheimer's disease, here for follow up. He has had amyloid and tau scanning, which revealed the presence of both tau NFTs and beta amyloid plaques (c/w the Alzheimer's disease), and so he is enrolled in the study of donanemab. ADLs: Chencho apparently did not pass a cognitive driving test earlier in ~ 2021, so his license has been revoked. Medications: Ashleigh manages his medications, appointments, and their finances. He's going to give a presentation on the denial of in [place] tomorrow at the local library. He finds it is harder to remember the lines, so he has a binder with notes. 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 He has had continued slow, decline. 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 multivitamin (THERAGRAN) Tablet Take 1 tablet by mouth daily. ibuprofen (Advil) 200 mg tablet Take 400 mg by mouth nightly. UNKNOWN TO PATIENT Indications: OTC - sleeping pill / takes 1 1/2 tablets nightly atorvastatin (Lipitor) 20 mg tablet Take 1 tablet by mouth daily. 90 tablet 3 CALCIUM-MAGNESIUM ORAL Take 1 capsule by mouth daily. betamethasone dipropionate (Diprolene) 0.05 % Ointment Apply twice daily as needed to areas of eczema 45 g 3 busPIRone (Buspar) 15 mg Tablet 3 times daily. ferrous sulfate (IRON ORAL) Take 325 mg by mouth See Admin Instructions. Tues, Thurs, Sat vitamin B complex (VITAMINS B COMPLEX ORAL) [...] facility-administered medications on file prior to visit. 78 yo M w/ dementia due to Alzheimer's disease, whom I am zooming for follow up. He remains on donepezil 10mg, with some bowel movement urgency at times. We discussed memantine, but he'd prefer to hold off for now, as he has had very slow decline and is doing well overall. No neuropsychiatric or physical concerns. He continues to be physically active, meditative, cognitively active, socially active, and very healthy overall. Follow up in ~ 6 mo in person. TeleHealth Visit time: 30 Additional 10 mins were spent preparing for the visit documented in this encounter Plan of Treatment Upcoming Encounters Date Type Department Care Team (Late st Contact Info) Description 09/28/2024 3:15 PM EST Procedure visit Neurology at [place] [phone] Matthieu Benson MD [facility] [place] [address] 10/05/2024 1:30 PM EST TH Visit (TeleHealth) Neurology at [place] [phone] Pavan Iglesias APRN [facility] [place] [address] 01/31/2025 2:40 PM EDT Office Visit Cardiology at [address] [address] Brayan Garay MD [facility] [place] [address] 03/16/2025 9:30 AM EDT Office [place] [address] Augusta Keys MD [facility] [place] [address] documented as of this encounter Visit Diagnoses Diagnosis Alzheimer's disease documented in this encounter Care Teams Hog Cooler Relationship Specialty Start Date End Date Richa Brand APRN [address] [place] [address] PCP - General Family Medicine 03/24/17 documented as of this encounter
--- OUTSIDE RECORDS SUMMARY | 2024-08-28 17:06 | XMS_ITS | Encounter Summary ---
Author Organization [facility] [place] [address] Care Team Providers Care Head Refrigeration Engineer Name Role Phone Richa Brand APRN Primary Care Provider [phone] [phone] Encounter Details Date Type Department Care Team (Late st Contact Info) Description 03/12/2023 Telephone [facility] [place] [phone] Patricia Mars Social History Tobacco Use Types Packs/Day Years [...] place to sleep or slept in a chcf (including now)? No 01/16/2023 Sex and Gender Information Value Date Recorded Sex Assigned at Not on file Gender Identity Not on file Sexual Orientation Not on file documented as of this encounter Miscellaneous Notes * Telephone Encounter - Patricia Mars - 03/12/2023 2:58 PM EDT Spoke to Life Partner Monse, patient has not been scheduled for MRI @ [facility]. I informed her that once the patient has his MRI scheduled to please call us back @ [phone] to schedule follow up with Julianna Navarrete APRN. Note: F/U to MRI @ [facility] documented in this encounter Plan of Treatment Upcoming Encounters Date Type Department Care Team (Late st Contact Info) Description 09/28/2024 3:15 PM EST Procedure [place] [address] Matthieu Benson MD [facility] [place] [address] 10/05/2024 1:30 PM EST TH Visit (TeleHealth) [place] [phone] Pavan Iglesias APRN [facility] [place] [address] 01/31/2025 2:40 PM EDT Office Visit Cardiology at [address] [address] Brayan Garay MD [facility] [place] [address] 03/16/2025 9:30 AM EDT Office [place] [address] Augusta Keys MD [facility] [place] [address] documented as of this encounter Visit Diagnoses Not on filedocumented in this encounter Care Teams Head Refrigeration Engineer Relationship Specialty Start Date End Date Richa Brand APRN [address] [place] [address] PCP - General Family Medicine 03/24/17 documented as of this encounter
--- OUTSIDE RECORDS SUMMARY | 2024-08-28 17:06 | XMS_ITS | Encounter Summary ---
[place] [address] Care Team Providers Care Internet Sales Consultant Name Role Phone Richa Brand APRN Primary Care Provider [phone] [phone] Encounter Details Date Type Department Care Team (Late st Contact Info) Description 03/08/2022 Telephone [place] [phone] Shayy Guthrie Social History Tobacco Use Types Packs/Day Years [...] encounter Miscellaneous Notes * Telephone Encounter - Shayy Guthrie - 03/08/2022 4:36 PM EDT lvm to schedule a travel clinic appt some time in April. Please check staff messages. documented in this encounter Plan of Treatment Upcoming Encounters Date Type Department Care Team (Late st Contact Info) Description 09/28/2024 3:15 PM EST Procedure [place] [address] Matthieu Benson MD [facility] [place] [address] 10/05/2024 1:30 PM EST TH Visit (TeleHealth) Neurology at [place] [phone] Pavan Iglesias APRN [facility] [place] [address] 01/31/2025 2:40 PM EDT Office Visit Cardiology at [address] [phone] Brayan Garay MD [facility] [place] [address] 03/16/2025 9:30 AM EDT Office [place] [address] Augusta Keys MD [facility] [place] [address] documented as of this encounter Visit Diagnoses Not on filedocumented in this encounter Care Teams Internet Sales Consultant Relationship Specialty Start Date End Date Richa Brand APRN [address] [place] [address] PCP - General Family Medicine 03/24/17 documented as of this encounter
--- OUTSIDE RECORDS SUMMARY | 2024-08-28 17:06 | XMS_ITS | Encounter Summary ---
Author Organization [facility] Address [address] [facility] [address] Care Team Providers Care Pigment Making Supervisor Name Role Phone Richa Brand APRN Primary Care Provider [phone] [phone] Encounter Details Date Type Department Care Team (Late st Contact Info) Description 08/18/2023 Refill Dermatology at [address] [place] [address] Buffy Canela RN Social History Tobacco Use Types Packs/Day Years [...] encounter Miscellaneous Notes * Telephone Encounter - Buffy Canela RN - 08/18/2023 1:22 PM EDT Patient requesting refill for Betamethasone Dipropionate 0.05% ointment. Last refilled on 06/27/2022. Patient last seen on 07/13/2021. No future appointments at this time. Discussed with Dr. Comer andok to refill Rx. Betamethasone dipropionate 0.05% ointment Apply twice daily as needed to affected areas of eczema Disp. 45 g with 1 refill. Patient wants the prescription to go to [facility]. documented in this encounter Plan of Treatment Upcoming Encounters Date Type Department Care Team (Late st Contact Info) Description 09/28/2024 3:15 PM EST Procedure [place] [address] Matthieu Benson MD [facility] [address] 10/05/2024 1:30 PM EST TH Visit (TeleHealth) [place] [phone] Pavan Iglesias APRN [facility] [address] 01/31/2025 2:40 PM EDT Office Visit Cardiology at [address] [phone] Brayan Garay MD [facility] [place] [address] 03/16/2025 9:30 AM EDT Office [place] [address] Augusta Keys MD [facility] [place] [address] documented as of this encounter Visit Diagnoses Not on filedocumented in this encounter Care Teams Pigment Making Supervisor Relationship Specialty Start Date End Date Richa Brand APRN [address] [place] [address] PCP - General Family Medicine 03/24/17 documented as of this encounter
--- OUTSIDE RECORDS SUMMARY | 2024-08-28 17:06 | XMS_ITS | Encounter Summary ---
Author Organization [facility] [place] [address] Care Team Providers Care Sap Business Objects Consultant Name Role Phone Richa Brand APRN Primary Care Provider [phone] [phone] Reason for Visit * Reason Onset Date Comments Questions 10/09/2022 Encounter Details Date Type Department Care Team (Late st Contact Info) Description 10/09/2022 [place] [phone] Augusta Keys MD [facility] [place] [address] Questions Social History Tobacco Use Types Packs/Day Years [...] Telephone Encounter - Renata John RN - 10/09/2022 12:36 PM EST Call returned to Barbara at [facility] pharmacy regarding message left with the call center. Barbara was informed that the correct instructions for the pt's donepezil is 12.[address] Keys's note (We will work to optimize his medications, starting with a gentle increase in his dose of donepezil from 10 to 12.5mg). Barbara verbalized understanding. * Telephone Encounter - Renata John RN - 10/09/2022 12:34 PM EST Copied from CRM #[id number]. Topic: Specialty Dept CRMs - Medication Issues >> Oct 09, 2022 12:28 PM Martinez Lock wrote: Medication Issues Specialist Augusta Keys MD Relationship (if other than patient-full name): Barbara - [facility] Reason for call: Medication Issue (if symptom based used Triage Subtopic) Message/information for the nurse: Clarify directions Name of Medication: donepeziL (Aricept) 5 mg Tablet Issue with the medication: Barbara states they would like clarification of prescription directions. Please call to advise. documented in this encounter Plan of Treatment Upcoming Encounters Date Type Department Care Team (Late st Contact Info) Description 09/28/2024 3:15 PM EST [place] [address] Matthieu Benson MD [facility] [place] [address] 10/05/2024 1:30 PM EST TH Visit (TeleHealth) [place] [phone] Pavan Iglesias APRN [facility] [place] [address] 01/31/2025 2:40 PM EDT Office Visit Cardiology at [address] [place] [phone] Brayan Garay MD [facility] [place] [address] 03/16/2025 9:30 AM EDT Office [place] [address] Augusta Keys MD [facility] [place] [address] documented as of this encounter Visit Diagnoses Not on filedocumented in this encounter Care Teams Sap Business Objects Consultant Relationship Specialty Start Date End Date Richa Brand APRN [address] [place] [address] PCP - General Family Medicine 03/24/17 documented as of this encounter
--- OUTSIDE RECORDS SUMMARY | 2024-08-28 17:06 | XMS_ITS | Encounter Summary ---
[place] [address] Care Team Providers Care Cyber Security Consultant Name Role Phone Richa Brand APRN Primary Care Provider [phone] Reason for Visit * Reason Onset Date Comments Follow-up 02/19/2023 Encounter Details Date Type Department Care Team (Late st Contact Info) Description 02/19/2023 Telephone [facility] [place] [phone] Tasneem Murdock, RN Follow-up Social History Tobacco Use Types Packs/Day Years [...] encounter Miscellaneous Notes * Telephone Encounter - Tasneem Murdock RN - 02/19/2023 1:44 PM EDT Received call from pt's life partner at the request of an ARRN who works with Dr Shah, Neurology.Caller states that the Neurology CARPET CLEANER expressed plans to see pt in clinic but advised her to call theSC to arrange an appt here given the change in his sxs. Pt was last seen by Dr Cobian in Jul 2021for left foot numbness; right ankle weakness; altered sensation; no back or leg pain; No need for bauer rgical intervention indicated. See note for full detail; Dr Cobian indicated if pt were to developback or leg pain; FU in Center was reasonable w lumbar XR prior. Per caller- Mr Mcgrath Has been experiencing 2-3 months of increasing back pain; that his numbness andsxs that were present in 2020 continue. Caller also reports that his gait is slowed and he's less agile. She reports that since the Summer of 2021 he's had episodic/infrequent bowel incontinence; that it has increased in frequency. That he also has episodic urinary incontience- but this has been his baseline and it's likely more related to urgency. In response to further questioning, Caller states he has the sensation that he needs to move his bowel;s, no report of saddle anesthesia, but that the sensation passes, or is mild so he does not move; then when the sensation returns he has no ability to control his elimination. She reports this is s imilar With urinary elimination/episodic incontinence. Suggested to pt's significant other that this should be worked up by his PCP or neurologist that has more recently examined her . Explaining that that provider could get updated imaging if it was indicated and then seek the opinion of a spice specialist, if it was determined on imaging/exam to be spine to be indicated. Explained that we wuold not schedule her w Dr Cobian at outside provider's request; as there was no clear indication for surgical intervention at this time. Offerred to have her scheduled with a spine medical provider- given the neurology provider directed her to call and schedule this ( see 02/[address] Shah). Suggested, to make the appt more informative; that we could arrange XR on arrival per the suggestion of Dr Cobian at the last visit were he to develop back or leg pain. Explained that the XR would not depict if his altered elimin ation was related to his spine; As that could only be determined based slava combination of PE findings and more advanced imaging, which we could not justify given we had not seen him since 2020. Call transferred to tile layer supervisor requesting pt be scheduled with Dr Baca, Neo PEREYRA, or Julianna Navarrete APRN w XR on arrival. XR as suggested by Dr Cobian at time of last visit pended to Christina to sign. 02/20/23 Confrimed pended XR was signed. 02/20/23 ~ 8:10 Secure chat sent to [...] 3:15 PM EST Procedure [place] [address] Matthieu Benson MD [facility] [place] [address] 10/05/2024 1:30 PM EST TH Visit (TeleHealth) [place] [phone] Pavan Iglesias APRN [facility] [place] [address] 01/31/2025 2:40 PM EDT Office Visit Cardiology at [address] [phone] Brayan Garay MD [facility] [place] [address] 03/16/2025 9:30 AM EDT Office [place] [phone] Augusta Keys MD [facility] [place] [address] documented as of this encounter Visit Diagnoses Not on filedocumented in this encounter Care Teams Cyber Security Consultant Relationship Specialty Start Date End Date Richa Brand APRN [address] [place] [address] PCP - General Family Medicine 03/24/17 documented as of this encounter
--- OUTSIDE RECORDS SUMMARY | 2024-08-28 17:06 | XMS_ITS | Encounter Summary ---
Author Organization [facility] Address [facility] [place] [address] Care Team Providers Care Powder Line Repairer Name Role Phone Richa Brand APRN Primary Care Provider [phone] [phone] Encounter Details Date Type Department Care Team (Late st Contact Info) Description 04/10/2023 2:00 PM EDT Office Visit [place] [phone] Julianna Navarrete APRN [facility] [place] [address] Chronic midline low back pain with left-sided sciatica; Spondylolisthesis at L5-S1 level Social History Tobacco Use Types Packs/Day Years [...] as of this encounter Progress Notes * Julianna Navarrete, CRACK OFF PERSON - 04/10/2023 2:00 PM EDT [place] [facility] Medical Decision Making: Chencho Mcgrath is a pleasant 77 y.o. male seen today for a chief complaint of low back pain radiating to the left lower extremity likely associated with a spondylolisthesis at L5-S1 with associated unroofing of the disc and stenosis. Today, we discussed options for treatment to include interventional injections, surgery, as well as continued watchful monitoring. At this point, the patient would prefer to stay conservative and keep the idea of interventional injections on the table as a backup plan should symptoms persist or worsen. I think this is quite reasonable and he will keep me updated on his status. He will see me back on an as-needed basis depending on symptoms and desire to be moreaggressive with treatment. Diagnosis: ICD-10-CM 1. Chronic midline low back pain with left-sided sciatica M54.42 G89.29 2. Spondylolisthesis at L5-S1 level M43.17 Plan Follow-up with me as needed Continue conservative treatment including home exercise program and yoga. HPI: Chencho Mcgrath is a 77 y.o. male last seen by me on 02/28/2023 and at that time, he was seen for a chief complaint of low back pain radiating to the left lower extremity that had been progressively worsening. He did also advise an alteration in bowel function with intermittent incontinence that had been advancing in frequency over the prior 4 months but present over the prior year. I did advise that it was unlikely that the symptoms could be improved given how long they have been present but certainly, moving forward with an MRI would be reasonable given the degenerative spondylolisthesis and suspected L5 nerve impingement. The patient is following up with me today to review the MRI results. Since his last visit, there have been no significant changes in his overall complaints. He does endorse that his symptoms are manageable and he does prefer to stay natural as far as treatment modalities. He does continue to be actively engaged in a home exercise program to include yoga. ROS A ten point review of systems [...] Program: He does engage in HEP as tolerated Medications: NSAIDS: Ibuprofen Helpful? Yes Injections: None Physical Examination: Wt Readings from Last 1 Encounters: 03/17/23 68 kg (150 lb) BMI Readings from Last 1 Encounters: 03/17/23 22.81 kg/m?? Pain: 4 (Pain last 7 days lowest 4 and highest 6) General: Pleasant, cooperative, Mood and affect are appropriate Posture: Upright Gait: Nonantalgic Palpation: Deferred Skin: Intact with no stigmata of underlying disease. ROM: Deferred Imaging and Test Review: On the day of this encounter, I independently reviewed an MRI of the lumbar spine completed on 03/24/2023 demonstrating a spondylolisthesis at L5-S1 with some unroofing of the disc with severe right and moderate left foraminal stenosis and likely impingement of the right exiting L5 nerve CC: Richa Brand APRN Referring Provider: Richa Navarrete APRN 04/14/2023 [facility] documented in this encounter Plan of Treatment Upcoming Encounters Date Type Department Care Team (Late st Contact Info) Description 09/28/2024 3:15 PM EST Procedure [place] [phone] Matthieu Benson MD [facility] [place] [address] 10/05/2024 1:30 PM EST TH Visit (TeleHealth) Neurology at [place] [phone] Pavan Iglesias APRN [facility] [place] [address] 01/31/2025 2:40 PM EDT Office Visit Cardiology at [address] [address] Brayan Garay MD [facility] [place] [address] 03/16/2025 9:30 AM EDT Office Visit Neurology at [place] [phone] Augusta Keys MD [facility] [place] [address] documented as of this encounter Visit Diagnoses Diagnosis Chronic midline low back pain with left-sided sciatica Spondylolisthesis at L5-S1 level Congenital spondylolisthesis documented in this encounter Care Teams Powder Line Repairer Relationship Specialty Start Date End Date Richa Brand APRN [address] [place] [address] PCP - General Family Medicine 03/24/17 documented as of this encounter
--- OUTSIDE RECORDS SUMMARY | 2024-08-28 17:06 | XMS_ITS | Encounter Summary ---
Author Organization [facility] Address [facility] [place] [address] Care Team Providers Care Industrial Organization Manager Name Role Phone Richa Brand APRN Primary Care Provider [phone] Encounter Details Date Type Department Care Team (Late st Contact Info) Description 07/10/2022 2:00 PM EDT Office Visit Infectious [place] [phone] Jenny Hernandez, [facility] [place] [address] Travel advice encounter Social History Tobacco Use Types Packs/Day Years [...] as of this encounter Progress Notes * Jenny Hernandez RN - 07/10/2022 2:00 PM EDT Adult Travel Clinic Reason for Visit: Chencho Mcgrath is a 77 y.o. male patient who comes to travel clinic today for pre-travel evaluation, vaccination and traveler's health education. Traveler reports fairly extensive international travel experience. He is accompanied by his . Trip Details: Destination countries (list from first to last): [place], [place], then heading north with a auto driver Departure date: 07/28/2022 Length of trip: 26 days Purpose of travel: visiting monestaries, spiritual [place] of environment: [place] Accommodations: monastary, hotels: Medical History: Medical problems: Patient Active Problem List Diagnosis Code ??? Anxiety F41.9 ??? ASCVD (arteriosclerotic cardiovascular disease) I25.10 ??? Hyperlipidemia E78.5 ??? Lumbar spondylosis M47.816 ??? Peripheral neuropathy G62.9 ??? Memory deficit R41.3 ??? 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 Carpal tunnel syndrome of right wrist G56.01 ??? 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 Alzheimer's dementia G30.9, F02.80 Current Outpatient Medications Medication Sig Dispense Refill ??? betamethasone dipropionate [...] by mouth daily. No current facility-administered medications for this visit. Immunosuppression: none History of adverse vaccine reactions: no History of latex, egg or beesting allergy: no Patient advised to carry all medications in carry on luggage. Travel Health and Safety Issues: A discussion of travel health hazards and safety issues was done, including the following topics: traffic-accidents (alcohol, seatbelts), crime, alcohol related issues, sun exposure/heat illness, Schistosomiasis and other fresh water exposures, rabies, HIV infections, Hepatitis and other STD's, control, TB, DVT prevention, Embassy info, Health Insurance coverage/[employer]. Discussed food and water precautions and patient handout provided. The following strategies were recommended for the management of traveler's diarrhea according to severity: ?? For treatment of mild diarrhea: hydration and over the counter antidiarrheal recommended. ?? For treatment of diarrhea accompanied by fever or systemic illness: hydration and empiric treatment with antibiotic recommended. A prescription for azithromycin 500 mg x 1, may repeat sent to pharmacy. Discussed antibiotic use, resistance and colonization issues. Advised to use antibiotics only for more severe symptoms, fever or worsening diarrhea. ?? For severe or bloody diarrhea, or diarrhea accompanied by vomiting: patient advised to seek medical treatment. Vector-borne Disease Prevention Discussed insect bite prevention to reduce risk of malaria, dengue, chikungunya and other insect borne illnesses. Handout given. Malaria Risk: Discussion about malaria risk in the area, reviewed maps from both [facility] and [facility]. and whether or not to take chemoprophylaxis. They will be in an intermediate risk area and after reviewing they are choosing to not take medication but to focus on meticulous insect precautions. Altitude: This trip does not involve high altitude. Immunizations Immunization History Administered Date(s) Administered ??? Influenza Vaccine PF, Quadrivalent 09/27/2019 Has had 4 doses of covid vaccine. Annual flu PPSV23 x2 Tdap 2017 Zoster. - one dose 2017. I think this was likely live virus vaccine. Recommended that if so, he repeat with the more effective 2 dose vaccine. TDaP - utd MMR -would have had illness Influenza - recommended before travel Covid - recommended omicrom variant vaccine before travel HAV - never - recommended dose now and in 6 months HBV- discussed, hhe and this trip are not high risk - he decided against vaccination Typhoid - discussed. Limited efficacy, short duration - he is committed to meticulous food and waterprecautions, so will defer Rabies - discussed increased risk in [place] and duration of travel. Decliined vaccine. DIscussed animal avoidance, proper wound care and need for post exposure treatment if gets animal injury. JE - notparticularly high risk on this itinerary, he declines Immunizations given today- HAV #1 Traveler given an official International Certificate of Vaccine or Prophylaxis (ICVP) for vaccine(s) received, and advised to carry original card with travel. Follow-up Recommendations: Continue to follow covid precautions including masking during public transit, social distancing as possible and hand and environment cleaning. Keep abreast of CDC and destination country requirements. Mark will need a second hepatitis A vaccine in 6-12 months. Follow up with flu and covid vaccines before travel Discuss shingles vaccine with PCP. Advised traveler to contact [facility] if travel plans change or other concerns arise. Patient advised to call travel clinic if they return from trip with any illness. Time spent in travel counselin minutes with spouse. documented in this encounter Plan of Treatment Upcoming Encounters Date Type Department Care Team (Late st Contact Info) Description 09/28/2024 3:15 PM EST Procedure visit [place] [address] Matthieu Benson MD [facility] [place] [address] 10/05/2024 1:30 PM EST TH Visit (TeleHealth) [place] [address] Pavan Iglesias APRN [facility] [place] [address] 01/31/2025 2:40 PM EDT Office Visit Cardiology at [address] [place] [phone] Brayan Garay MD [facility] [place] [address] 03/16/2025 9:30 AM EDT Office Visit [place] [address] Augusta Keys MD [facility] [place] [address] documented as of this encounter Visit Diagnoses Diagnosis Travel advice encounter documented in this encounter Care Teams Industrial Organization Manager Relationship Specialty Start Date End Date Richa Brand APRN [address] [place] [address] PCP - General Family Medicine 03/24/17 documented as of this encounter
--- OUTSIDE RECORDS SUMMARY | 2024-08-28 17:06 | XMS_ITS | Encounter Summary ---
Author Organization [facility] [address] Care Team Providers Care Information Assurance Manager Name Role Phone Richa Brand APRN Primary Care Provider [phone] [phone] Reason for Visit * Reason Comments Medication Refill Encounter Details Date Type Department Care Team (Late st Contact Info) Description 07/06/2024 Refill [place] [address] Augusta Keys MD [facility] [place] [address] Moderate late onset Alzheimer's dementia without behavioral [...] encounter Miscellaneous Notes * Telephone Encounter - Gladys Vargas CMA - 07/07/2024 2:55 PM EDT Prescription Renewal Request Name: Chencho Mcgrath : 1945 Prescription(s) Requested: Requested Prescriptions Pending Prescriptions Disp Refills donepeziL (Aricept) 10 mg tablet [Pharmacy Med Name: DONEPEZIL 10MG TABLETS] 90 tablet 3 Sig: TAKE 1 TABLET BY MOUTH EVERY NIGHT Date of Encounter last in This Dept (If need an appointment send to secretaries to schedule): 07/15/2023 with Augusta Keys MD Next Encounter in This Dept: 07/16/2024 with Augusta Keys MD Date of Last Refill (for each medication): donepeziL (Aricept) 10 mg tablet TAKE 1 TABLET BY MOUTH EVERY NIGHT Dispense: 90 tablet, Refills: 3ordered 06/26/2023 Status of request: Pended No Known Allergies Gladys Vargas CMA 07/07/24 2:55 PM documented in this encounter Plan of Treatment Upcoming Encounters Date Type Department Care Team (Late st Contact Info) Description 09/28/2024 3:15 PM EST Procedure visit Neurology at [place] [phone] Matthieu Benson MD [facility] [place] [address] 10/05/2024 1:30 PM EST TH Visit (TeleHealth) Neurology at [place] [phone] Pavan Iglesias APRN [facility] [place] [address] 01/31/2025 2:40 PM EDT Office Visit Cardiology at [address] [address] Brayan Garay MD [facility] [place] [address] 03/16/2025 9:30 AM EDT Office Visit Neurology at [place] [phone] Augusta Keys MD [facility] [place] [address] documented as of this encounter Visit Diagnoses Diagnosis Moderate late onset Alzheimer's dementia without behavioral disturbance, psychotic disturbance, mood disturbance, or anxiety documented in this encounter Care Teams Information Assurance Manager Relationship Specialty Start Date End Date Richa Brand APRN [address] [place] [address] PCP - General Family Medicine 03/24/17 documented as of this encounter
--- OUTSIDE RECORDS SUMMARY | 2024-08-28 17:06 | XMS_ITS | Encounter Summary ---
Author Organization [facility] [place] [address] Care Team Providers Care Pricing Manager Name Role Phone Richa Brand APRN Primary Care Provider [phone] Reason for Visit * Consultation (Routine) - Closed Specialty Diagnoses / Procedures Referred By Shayy t Referred To Contact Hematology and Oncology Diagnoses Iron deficiency anemia, unspecified iron deficiency anemia type Anemia, unspecified type Richa Brand APRN [address] [place] [address] [facility] [address] [address] [place] [address] Referral ID Status Reason Start Date Expiration Date V isits Requested Visits Authorized [id number] Closed Consult, Test & Treat PCP Updated and/or Approved 12/04/2022 12/04/2023 12 12 Encounter Details Date Type Department Care Team (Late st Contact Info) Description 01/16/2023 3:00 PM EDT Office Visit Hematology/Oncology at [address] [phone] Beto Castellano MD [facility] [address] [place] [address] Anemia, unspecified type Social History Tobacco Use Types Packs/Day [...] place to sleep or slept in a [place] [facility] care facility (including now)? No 01/16/2023 Sex and Gender Information Value Date Recorded Sex Assigned at Not on file Gender Identity Not on file Sexual Orientation Not on file documented as of this encounter Last Filed Vital Signs Vital Sign Reading Time Taken Comments Blood Pressure 141/69 01/16/2023 2:59 PM EDT Pulse 57 01/16/2023 2:59 PM EDT Temperature 36.1 ??C (97 ??F) 01/16/2023 2:59 PM EDT Respiratory Rate 18 01/16/2023 2:59 PM EDT Oxygen Saturation 100% 01/16/2023 2:59 PM EDT Inhaled Oxygen Concentration - - Weight 69.9 kg (154 lb) 01/16/2023 2:59 PM EDT Height 170.3 cm (5' 7.05) 01/16/2023 2:59 PM ED T Body Mass Index 24.09 01/16/2023 2:59 PM EDT documented in this encounter Progress Notes * Beto Castellano MD - 01/16/2023 3:00 PM EDT Subjective Patient ID: Chencho Mcgrath is a 77 y.o. male. HPI The patient is a 77-year-old man referred to the [facility] by Richa Brand APRN for consultation regarding anemia. I had a chance to review the available records and interview and examined the patient. The patient has been a remarkably healthy 77-year-old man. He has been a vegetarian for 50 years and takes excellent care of himself. He is also been a strong advocate for advances in Alzheimer's which she suffers... he has been on a clinical trial out of [facility]. He is referred to us because of a mild anemia. The available laboratories show that his hemoglobin has been about 12.5. I do not have the CBCs dating back many years but this has been going on at least since last summer. He did not have an iron deficiency. B12 level is normal. Serum protein electrophoresis done at [facility] for neuropathy reasons about a year and a half ago was negative for monoclonal. He has been on oral iron Friday and Friday. Most recent ferritin was 74. He does not remember when he last had a colonoscopy. His white count has been normal and his platelet count has been normal. MCV in the low 90s. In the most recent creatinine I have to evaluate from 04/23 was 0.97 giving him a creatinine clearance of 61 cc. Patient Active Problem List Diagnosis Code ??? Anxiety F41.9 ??? ASCVD (arteriosclerotic cardiovascular disease) I25.10 ??? Hyperlipidemia E78.5 ??? Lumbar spondylosis M47.816 ??? Peripheral neuropathy G62.9 ??? Memory deficit R41.3 ??? 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 Carpal tunnel syndrome of right wrist G56.01 ??? 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 Alzheimer's dementia G30.9, F02.80 Current Outpatient Medications: ??? CALCIUM-MAGNESIUM ORAL, Take 1 capsule by mouth daily., Disp: , Rfl: ??? atorvastatin (Lipitor) 20 mg Tablet, TAKE 1 TABLET BY MOUTH DAILY, Disp: 90 tablet, Rfl: 3 ??? betamethasone dipropionate (Diprolene) 0.05 % Ointment, Apply twice daily as needed to areas ofeczema, Disp: 45 g, Rfl: 3 ??? donepeziL (Aricept) 10 mg Tablet, TAKE 1 TABLET BY MOUTH EVERY NIGHT (Patient taking differently: Pt taking in the morning), Disp: 90 tablet, Rfl: 3 ??? busPIRone (Buspar) 15 mg Tablet, 3 times daily., Disp: , Rfl: ??? sildenafiL (VIAGRA) 50 mg Tablet, TAKE 1 TABLET BY MOUTH 1 HOUR PRIOR TO INTERCOURSE NEEDED,Disp: , Rfl: ??? ferrous sulfate (IRON ORAL), Take 325 mg by mouth See Admin Instructions. Lena Moeller Sat, Disp: , Rfl: ??? vitamin B complex (VITAMINS B COMPLEX ORAL), Take by mouth daily., Disp: , Rfl: ??? cholecalciferol, Vitamin D3, 1,000 unit Capsule, Take 2,000 Units by mouth daily., Disp: , Rfl: ??? flaxseed oil 1,000 mg Capsule, Take by mouth daily., Disp: , Rfl: ??? vitamin E acetate (VITAMIN E ORAL), Take by mouth daily., Disp: , Rfl: ??? aspirin 81 mg Tablet, Delayed Release (E.C.), Take 81 mg by mouth daily., Disp: , Rfl: No Known Allergies Social History Socioeconomic History ??? Marital status: [...] Social Determinants of Health Financial Resource Strain: Low Risk ??? Difficulty of Paying Living Expenses: Not hard at all Food Insecurity: No Food Insecurity ??? Worried About Running Out of Food in the Last Year: Never true ??? Ran Out of Food in the Last Year: Never true Transportation Needs: Unknown ??? Lack of Transportation (Medical): No ??? Lack of Transportation (Non-Medical): Not on file Physical Activity: Not on file Housing Stability: Low Risk ??? Unable to Pay for Housing in the Last Year: No ??? Number of Places Lived in the Last Year: 1 ??? Unstable Housing in the Last Year: No Review of Systems Constitutional: Negative for fatigue, fever and unexpected weight change. HENT: Negative for nosebleeds. Respiratory: Negative for cough and shortness of breath. Cardiovascular: Negative for chest pain and palpitations. Gastrointestinal: Negative for abdominal pain and diarrhea. Musculoskeletal: Negative for back pain. Skin: Negative for rash. Neurological: Negative for speech difficulty. Hematological: Negative for adenopathy. Does not bruise/bleed easily. All other systems reviewed and are negative. Objective BP 141/69 (Patient Position: Sitting) Pulse 57 Temp 36.1 ??C (97 ??F) (Temporal) Resp 18 Ht170.3 cm (5' 7.05) Wt 69.9 kg (154 lb) SpO2 100% BMI 24.09 kg/m?? Physical Exam Constitutional: General: He is not in acute distress. HENT: Mouth/Throat: Pharynx: No oropharyngeal exudate. Eyes: General: No scleral icterus. Cardiovascular: Rate and Rhythm: Normal rate and regular rhythm. Heart sounds: Normal heart sounds. Pulmonary: Breath sounds: Normal breath sounds. No wheezing. Abdominal: General: Bowel sounds are normal. Palpations: Abdomen is soft. There is no splenomegaly. Tenderness: There is no abdominal tenderness. Lymphadenopathy: Cervical: No cervical adenopathy. Neurological: Mental Status: He is oriented to person, place, and time. Most recent CBC for review from 10/31/2022 White count 7.3, hemoglobin 12.4, MCV 94, platelets 228 Assessment and Plan Pretty healthy 77-year-old man with no symptoms has a very mild normochromic normocytic anemia. He did not have evidence of iron deficiency or B12 deficiency. I did not see a folic acid checked. It is likely he has anemia of chronic disease, likely from his advancing renal insufficiency with advancing age. Typically if the creatinine clearance is approaching 60 or lower we can see a low erythropoietin level in the setting of mild anemia. I do not think he has an intrinsic bone marrow disorder given the well-preserved white count and platelet count. I do not think we should be overly aggressive given his lack of symptoms. I did recommend a repeat CBC and a repeat chemistry panel including a creatinine. We will check a folic acid. I would also like to check a serum erythropoietin level. I do not think there is anything to do for him in terms of intervention but hopefully will just provide reassurance. If his hemoglobin gets below 10 I would like to see him again to see if there is areversible component of his anemia but given where he is in the mid 12 I do not think we need to pursue a bone marrow biopsy. documented in this encounter Plan of Treatment Upcoming Encounters Date Type Department Care Team (Late st Contact Info) Description 09/28/2024 3:15 PM EST [place] [address] Matthieu Benson MD [facility] [place] [address] 10/05/2024 1:30 PM EST TH Visit (TeleHealth) [place] [address] Pavan Iglesias APRN [facility] [place] [address] 01/31/2025 2:40 PM EDT Office Visit Cardiology at [address] [phone] Brayan Garay MD [facility] [place] [address] 03/16/2025 9:30 AM EDT [place] [address] Augusta Keys MD [facility] [place] [address] documented as of this encounter Procedures Procedure Name Priority Date/Time Associated Diagnosis Comments CBC (WITH DIFF) Routine 01/24/2023 COMPREHENSIVE METABOLIC PANEL Routine 01/24/2023 documented in this encounter Results * Comprehensive metabolic panel (non-fasting) (01/24/2023) Blood Urea Nitrogen 19 Creatinine 1.3 Sodium 140 Potassium 4.1 Calcium 9.0 Protein, Total 7.4 Albumin 3.6 Bilirubin, Total 0.4 Alkaline Phosphatase 63 Aspartate Aminotransferase 20 Alanine Aminotransferase 22 Erythropoietin (MAY) 13.9 2.6 - 18.5 Folate 16.0 8.6 - 20.0 Blood 01/24/2023 Historical Provider CHEMISTRY ORDERAB LES * CBC (with Diff) (01/24/2023) White Blood Cell 8.53 Red Blood Cell 4.26 Hemoglobin 13.0 Hematocrit 39.9 Platelet 218 Neutrophil Absolute (ANC) - Automated 6.16 Blood 01/24/2023 Historical Provider HEMATOLOGY ORDERA BLES documented in this encounter Visit Diagnoses Diagnosis Anemia, unspecified type documented in this encounter Care Teams Pricing Manager Relationship Specialty Start Date End Date Richa Brand APRN [address] [place] [address] PCP - General Family Medicine 03/24/17 documented as of this encounter
--- OUTSIDE RECORDS SUMMARY | 2024-08-28 17:06 | XMS_ITS | Encounter Summary ---
[place] [address] Care Team Providers Care Carton Stamper Name Role Phone Richa Brand APRN Primary Care Provider [phone] Reason for Referral * Consultation (Routine) - Closed Specialty Diagnoses / Procedures Referred By Controsalia t Referred To Contact Hematology and Oncology Diagnoses Iron deficiency anemia, unspecified iron deficiency anemia type Anemia, unspecified type Richa Brand APRN [address] [place] [address] [facility] Hem Onc [address] [place] [address] Referral ID Status Reason Start Date Expiration Date V isits Requested Visits Authorized [id number] Closed Consult, Test & Treat PCP Updated and/or Approved 12/04/2022 12/04/2023 12 12 Encounter Details Date Type Department Care Team (Latest Contact Info) Description 12/04/2022 Transcribe Orders eDH Incoming Referrals [phone] Richa Brand APRN [address] [place] [address] Iron deficiency anemia, unspecified iron deficiency anemia type; Anemia, unspecified type Social History Tobacco Use [...] 3:15 PM EST Procedure [place] [address] Matthieu Benson MD [facility] [place] [address] 10/05/2024 1:30 PM EST TH Visit (TeleHealth) [place] [address] Pvaan Iglesias APRN [facility] [place] [address] 01/31/2025 2:40 PM EDT Office Visit Cardiology at [address] [phone] Brayan Garay MD [facility] [place] [address] 03/16/2025 9:30 AM EDT [place] [address] Augusta Keys MD [facility] [place] [address] Scheduled Referrals Name Type Priority Associated Diagnoses Orde r Schedule Referral to Hematology and Oncology Outpatient Referral Routine Iron deficiency anemia, unspecified iron deficiency anemia type Anemia, unspecified type Ordered: 12/04/2022 documented as of this encounter Visit Diagnoses Diagnosis Iron deficiency anemia, unspecified iron deficiency anemia type Anemia, unspecified type documented in this encounter Care Teams Carton Stamper Relationship Specialty Start Date End Date Richa Brand APRN [address] [place] [address] PCP - General Family Medicine 03/24/17 documented as of this encounter
--- OUTSIDE RECORDS SUMMARY | 2024-08-28 17:06 | XMS_ITS | Encounter Summary ---
Author Organization [facility] [place] [address] Care Team Providers Care Coordinator Of Placement Name Role Phone Richa Brand APRN Primary Care Provider [phone] Reason for Visit * Reason Onset Date Comments Triage 02/18/2023 Appointment 02/18/2023 Encounter Details Date Type Department Care Team (Late st Contact Info) Description 02/18/2023 Telephone Neurology [place] [facility] [place] [phone] Jacki Shah MD [facility] [place] [address] Triage; Appointment Social History Tobacco Use Types Packs/Day [...] encounter Miscellaneous Notes * Telephone Encounter - Linda Timmons - 02/24/2023 10:10 AM EDT Monse calling back in stating she spoke with TRISTAN Yanez last week please see open encounter, nurse had stated Dr. Shah's secretary of police would be reaching out to make an appointment, Monse is callingin requesting when she will hear back from this department so they can bring Chencho in to be seen.[phone] * Telephone Encounter - Renata John RN - 02/19/2023 12:56 PM EDT Call returned to pt's , Monse, to inform her that Dr. Shah would like to see pt and asked her secretary of police to find a sooner appointment for him. Monse was informed that per Dr. Shah, I would like him to reach out to Dr. Cobian in pain and spine; if he is worsening acutely, he needs to see the spine surgeon sooner rather than later. Monse verbalized understanding. * Telephone Encounter - Alvaro Renata Alisson RN - 02/18/2023 2:45 PM EDT Call returned to pt's , Monse, regarding message left with the call center. Monse reported that pt has been having an increase in bowel incontinence frequency. Monse reported that the pt has immediate bowel and bladder urgency at times. Monse reported that pt has also told her that the n umbness in his lower legs and feet as well as the pain in his lower back have been increasing. Monse reported that at the 12/31/22 appt with RODDY Somers the pt reported that things are fine, but when he is at home he complains of these symptoms. Monse said that it is hard for pt to describe thingssometimes because he also has Alzheimer's. Monse is concerned that pt may have cauda equina. Per Monse the pt denies numbness/sensation changes in his inner thighs (she has asked him this). Monse informed that their report will be forwarded to Dr. Shah for review and input. When this is available Monse will be called back. Monse is agreeable to plan. Monse also sen this message to Dr. Keys: Amol, Reema. When I wrote to you back in December, I shared that Chencho had been complaining about his spinal stenosis symptoms but completely dismissed them in the appointment I scheduled for him with Ofe Somers in Dr. Shah's office. He has continued to complain of [...] equina. Chencho has an appointment with Dr. Shah on May 05, but I am starting to worrythat may be too far off. I have not said anything to Chencho about cauda equina, because he's already anxious enough about the spinal stenosis diagnosis! * Telephone Encounter - Renata John RN - 02/18/2023 2:13 PM EDT Copied from [facility] #[id number]. Topic: Specialty Dept CRMs - Triage >> Feb 18, 2023 2:06 PM Gloria Hoyos wrote: Triage Message Specialist: Pablo Relationship (if other than patient-full name): Monse Pearl- significant other ?? Symptom: bowel incontinence control increasing, tingling and numbness in legs ?? Has patient experienced symptom before ongoing ?? If patient has experienced symptom before, when was the last time this occurred ongoing ?? Is patient currently having symptom yes, both symptoms are getting worse ?? When did symptom begin recently getting worse then usual. ?? Additional Comments: Monse is returning call (see message from 02/13/23) regarding patient. Monse states she can be reached anytime today from now to 4pm and anytime tomorrow. Please advise. documented in this encounter Plan of Treatment Upcoming Encounters Date Type Department Care Team (Late st Contact Info) Description 09/28/2024 3:15 PM EST Procedure visit Neurology [place] [facility] [place] [address] Matthieu Benson MD [facility] [place] [address] 10/05/2024 1:30 PM EST TH Visit (TeleHealth) Neurology [place] [facility] [place] [address] Pavan Iglesias APRN [facility] [place] [address] 01/31/2025 2:40 PM EDT Office Visit Cardiology at [address] [phone] Brayan Garay MD [facility] [place] [address] 03/16/2025 9:30 AM EDT Office Visit Neurology [place] [facility] [place] [phone] Augusta Keys MD [facility] [place] [address] documented as of this encounter Visit Diagnoses Not on filedocumented in this encounter Care Teams Coordinator Of Placement Relationship Specialty Start Date End Date Richa Brand APRN [address] [place] [address] PCP - General Family Medicine 03/24/17 documented as of this encounter
--- OUTSIDE RECORDS SUMMARY | 2024-08-28 17:07 | XMS_ITS | Encounter Summary ---
Author Organization [facility] [place] [address] Care Team Providers Care Laboratory Worker Name Role Phone Richa Brand APRN Primary Care Provider [phone] [phone] Encounter Details Date Type Department Care Team (Latest Contact Info) Description 04/23/2021 8:10 AM EDT Laboratory Appointment Lab [address] [place] [phone] Numbness and tingling; Foot drop, right; Radicular pain of right lower extremity Social [...] 3:15 PM EST Procedure [place] [phone] Matthieu Benson MD [facility] [place] [address] 10/05/2024 1:30 PM EST TH Visit (TeleHealth) [place] [phone] Pavan Iglesias APRN [facility] [place] [address] 01/31/2025 2:40 PM EDT Office Visit Cardiology at [address] [place] [address] Brayan Garay MD [facility] [place] [address] 03/16/2025 9:30 AM EDT Office [place] [phone] Augusta Keys MD [facility] [place] [address] documented as of this encounter Procedures Procedure Name Priority Date/Time Associated Diagnosis Comments IMMUNOGLOBULINS, QUANTITATIVE Routine 04/23/2021 8:38 AM EDT IMMUNOFIXATION ELECTROPHORESIS, SERUM Routine 04/23/2021 8:38 AM EDT HC P[facility] METHYLMALONIC ACID Routine 04/23/2021 8:38 AM EDT Numbness and tingling Foot drop, right Radicular pain of right lower extremity HC VENIPUNCTURE Routine 04/23/2021 8:38 AM EDT Numbness and tingling Foot drop, right Radicular pain of right lower extremity HC SERUM PROT. ELECTROPHORESIS Routine 04/23/2021 8:38 AM EDT Numbness and tingling Foot drop, right Radicular pain of right lower extremity HC VITAMIN B12 SERUM Routine 04/23/2021 8:38 AM EDT Numbness and tingling Foot drop, right Radicular pain of right lower extremity COMPREHENSIVE METABOLIC PANEL Routine 04/23/2021 8:38 AM EDT Numbness and tingling Foot drop, right Radicular pain of right lower extremity documented in this encounter Results * Immunofixation Electrophoresis (04/23/2021 8:38 AM EDT) [facility] Immunofixation Interpretation See Note [facility] Comment: TOBY shows no evidence of a monoclonal immunoglobulin. See scanned report. Dr. Sharon Kumar Blood Venous Draw / Unknown 04/23/2021 8:38 AM EDT 04/23/2021 9:01 AM EDT Narrative Resulting Agency Comment Spec In Lab Jacki Shah MD CHEMISTRY ORDERABLE S Performing Organization Address [facility]/ZIP Co de Phone Number [facility] [place] [address] * Immunoglobulins, Quantitative (04/23/2021 8:38 AM EDT) [facility] Immunoglobulin G 1,029 700 - 1,600 mg/dL [facility] Comment: Pediatric Reference Intervals obtained from the Caliper Reference Interval project. http://www.sickkids.ca/caliperproject/index.html IgA 316 70 - 400 mg/dL [facility] IgM 60 40 - 230 mg/dL [facility] Blood Venous Draw / Unknown 04/23/2021 8:38 AM EDT 04/23/2021 9:01 AM EDT Narrative Resulting Agency Comment Spec In Lab Jacki Shah MD CHEMISTRY ORDERABLE S Performing Organization Address City/[facility]/ZIP Co de Phone Number [facility] [place] [address] * Comprehensive metabolic panel (non-fasting) (04/23/2021 8:38 AM EDT) [facility] Glucose 92 65 - 199 mg/dL [facility] Comment:Diabetes: >=200 mg/d L plus symptoms Blood Urea Nitrogen 17 10 - 20 mg/dL [facility] Creatinine 0.97 0.80 - 1.50 mg/dL [facility] Sodium 138 135 - 145 mmol/L [facility] Potassium 4.4 3.5 - 5.0 mmol/L [facility] Comment: Please note: ??Patients with WBC >100,000 may have falsely elevated Potassium levels. ??For accurate Potassium quantification in these patients send serum separator tube (gold top) for subsequent determinations. ??Contact the Clinical Chemistry Laboratory if there are any questions. Chloride 104 98 - 107 mmol/L [facility] Carbon Dioxide 27 22 - 31 mmol/L [facility] Anion Gap 7 5 - 15 mmol/L [facility] Calcium 8.8 8.5 - 10.5 mg/dL [facility] Protein, Total 6.8 6.1 - 8.0 gm/dL [facility] Albumin 4.0 3.2 - 5.2 gm/dL [facility] Aspartate Aminotransferase 23 0 - 39 unit/L [facility] Alanine Aminotransferase 18 0 - 55 unit/L [facility] Alkaline Phosphatase 58 40 - 130 unit/L [facility] Bilirubin, Total 0.6 0.2 - 1.3 mg/dL [facility] Est Glomerular Filtration Rate 75 >=60 mL/min/1. 73 m?? [facility] Comment: This patient? s estimated glomerular filtration rate (eGFR) is between 75 mL/min/1.73 m2 (patients with less muscle mass per kg body weight) and 87 mL/min/1.73 m2 (patients with more muscle mass per kg body weight) as determined by the CKD-EPI equation. Assessment of eGFR is not appropriate when creatinine concentrations are rapidly changing. For clinical decisions where creatinine clearance will affect therapy, a 24-hour urine creatinine clearance may be advised. Assignment of CKD stage 1 - 5 for patients with an eGFR near the transition point between stages may be based on clinical assessment of muscle mass and symptoms in addition to eGFR. Blood 04/23/2021 8:38 AM EDT 04/23/2021 8:46 AM EDT Narrative Resulting Agency Comment Spec In Lab Jacki Shah MD CHEMISTRY ORDERABLE S Performing Organization Address [facility] Co de Phone Number [facility] [place] [address] * Protein Electrophoresis, serum (04/23/2021 8:38 AM EDT) Total Prot Electrophoresis 6.4 6.1 - 8.0 gm/dL [facility] Albumin Electrophoresis 4.09 3.60 - 6.00 gm/dL [facility] Alpha 1 Globulin 0.17 0.10 - 0.30 gm/dL [facility] Alpha 2 Globulin 0.74 0.40 - 0.90 gm/dL [facility] Beta Globulin 0.58 0.50 - 1.00 gm/dL [facility] Gamma Globulin 0.83 0.50 - 1.30 gm/dL [facility] M1 Band Comments Below None Detected [facility] SPEP Comments See Note [facility] Comment: Immunofixation (TOBY) and quantitative immunoglobulin (SEAN) testing will be performed on this sample per MD request. Blood 04/23/2021 8:38 AM EDT 04/23/2021 8:46 AM EDT Narrative Resulting Agency Comment Spec In Lab Jacki Shah MD CHEMISTRY ORDERABLE S Performing Organization Address [facility]/ZIP Co de Phone Number [facility] [place] [address] * Methylmalonic acid, serum (04/23/2021 8:38 AM EDT) Methylmalonic Acid (MAY) 0.12 <=0.40 nmol/mL [facility] Comment: ADDITIONAL INFORMATION This test was developed and its performance characteristics determined by [facility] in a manner consistent with CLIA requirements. This test has not been cleared or approved by the U.S. Food and Drug Administration. Test Performed by: [facility] - [address] [address] Fondant Machine Operator: Sunny Dan M.D. Ph.D.; CLIA# [id number] Blood 04/23/2021 8:38 AM EDT 04/23/2021 12:23 PM EDT Narrative Resulting Agency Comment Spec In Lab Jacki Shah MD LAB SEND OUT ORDERA BLES Performing Organization Address [facility]/ZIP Co de Phone Number [facility] [place] [place] [address] * Vitamin B12 (04/23/2021 8:38 AM EDT) Vitamin B12 750 232 - 1,245 pg/mL [facility] Blood 04/23/2021 8:38 AM EDT 04/23/2021 8:46 AM EDT Narrative Resulting Agency Comment Spec In Lab Jacki Shah MD CHEMISTRY ORDERABLE S Performing Organization Address [facility] Co de Phone Number [facility] [place] [address] * Vitamin B6 (04/23/2021 8:38 AM EDT) Vitamin B6 (MARCH) 45 5 - 50 mcg/L [facility] Comment: ADDITIONAL INFORMATION This test was developed and its performance characteristics determined by [facility] in a manner consistent with CLIA requirements. This test has not been cleared or approved by the U.S. Food and Drug Administration. Test Performed by: [facility] - [facility] [address] [place] [address] Fondant Machine Operator: Sunny Dan M.D. Ph.D.; CLIA# [id number] Blood 04/23/2021 8:38 AM EDT 04/23/2021 9:44 AM EDT Narrative Resulting Agency Comment Spec In Lab Jacki Shah MD LAB SEND OUT ORDERA ROLANDS Performing Organization Address City/State/[facility] Co de Phone Number [facility] [place] [address] documented in this encounter Visit Diagnoses Diagnosis Numbness and tingling Disturbance of skin sensation Foot drop, right Other acquired deformity of ankle and foot Radicular pain of right lower extremity Thoracic or lumbosacral neuritis or radiculitis, unspecified documented in this encounter Care Teams Laboratory Worker Relationship Specialty Start Date End Date Richa Brand APRN [address] [place] [address] PCP - General Family Medicine 03/24/17 documented as of this encounter
--- OUTSIDE RECORDS SUMMARY | 2024-08-28 17:07 | XMS_ITS | Encounter Summary ---
Author Organization [facility] [place] [address] Care Team Providers Care It Network Engineer Name Role Phone Richa Brand APRN Primary Care Provider [phone] [phone] Reason for Visit * Reason Onset Date Comments TeleHealth 03/14/2021 Encounter Details Date Type Department Care Team (Late st Contact Info) Description 03/14/2021 Telephone [place] [phone] Augusta Keys MD [facility] [place] [address] TeleHealth Social History Tobacco Use Types Packs/Day Years [...] encounter Miscellaneous Notes * Telephone Encounter - Monse Estevez RN - 03/14/2021 1:25 PM EDT Spoke with the patient by phone to review medications and allergies prior to their upcoming tele-appointment with the Neurology provider. Medication profile updated. documented in this encounter Plan of Treatment Upcoming Encounters Date Type Department Care Team (Late st Contact Info) Description 09/28/2024 3:15 PM EST Procedure visit Neurology at [place] [phone] Matthieu Benson MD [facility] [place] [address] 10/05/2024 1:30 PM EST TH Visit (TeleHealth) [place] [address] Pavan Iglesias APRN [facility] [place] [address] 01/31/2025 2:40 PM EDT Office Visit Cardiology at [address] [phone] Brayan Garay MD [facility] [place] [address] 03/16/2025 9:30 AM EDT Office [place] [phone] Augusta Keys MD [facility] [place] [address] documented as of this encounter Visit Diagnoses Not on filedocumented in this encounter Care Teams It Network Engineer Relationship Specialty Start Date End Date Richa Brand APRN [address] [place] [address] PCP - General Family Medicine 03/24/17 documented as of this encounter
--- OUTSIDE RECORDS SUMMARY | 2024-08-28 17:07 | XMS_ITS | Encounter Summary ---
Author Organization [facility] Address [facility] [place] [address] Care Team Providers Care Lamp Cleaner Street Light Name Role Phone Richa Brand APRN Primary Care Provider [phone] [phone] Encounter Details Date Type Department Care Team (Late st Contact Info) Description 07/25/2021 4:00 PM EDT [place] [address] Jacki Martinez MD [facility] [place] [address] Numbness and tingling; Foot drop, right; Numbness and tingling of both upper extremities; [...] as of this encounter Progress Notes * Jacki Martinez MD - 07/25/2021 4:00 PM EDT [facility] NERVE CONDUCTION AND ELECTROMYOGRAPHY EVALUATION - 07/25/21 BRIEF HISTORY: Chencho Mcgrath is a 76 y.o. male referred for electrodiagnostic evaluation of dysesthesias in the feet, legs and hands by: Richa Brand APRN [address] [place] [address]: Report scanned into EDH: 07/25/21 The history [...] He demonstrates some mild weakness of thumb abduction bilaterally with preservation of [...] reduced with preserved conduction velocities. Bilateral ulnar SNAP amplitudes were preserved with normal conduction velocity of the left ulnar sensory response and slightly reduced conduction velocity of the right ulnar sensory response. Bilateral median SNAPs weremildly slowed with slightly reduced amplitude of the right median SNAP across the short mid palmar segment. The left peroneal motor response amplitude was lower than that on the right both at EDB andAT. This was associated with mild slowing. Tibial [...] were prolonged but not into a primary demyelinatingrange. Right median and ulnar late response latencies [...] localizing. Clinical and radiologic correlation is recommended. CLINICAL [...] response to response in the upper extremities. JACKI MARTINEZ MD Neuromuscular Attending documented in this encounter Plan of Treatment Upcoming Encounters Date Type Department Care Team (Late st Contact Info) Description 09/28/2024 3:15 PM EST Procedure [place] [phone] Matthieu Benson MD [facility] [place] [address] 10/05/2024 1:30 PM EST TH Visit (TeleHealth) [place] [phone] Pavan Iglesias APRN [facility] [place] [place] [address] 01/31/2025 2:40 PM EDT Office Visit Cardiology at [address] [place] [phone] Brayan Garay MD [facility] [place] [address] 03/16/2025 9:30 AM EDT Office [place] [phone] Augusta Keys MD [facility] [place] [address] documented as of this encounter Visit Diagnoses Diagnosis Numbness and tingling Disturbance of skin sensation Foot drop, right Other acquired deformity of ankle and foot Numbness and tingling of both upper extremities Radicular pain of right lower extremity Thoracic or lumbosacral neuritis or radiculitis, unspecified documented in this encounter Care Teams Lamp Cleaner Street Light Relationship Specialty Start Date End Date Richa Brand APRN [address] [place] [address] PCP - General Family Medicine 03/24/17 documented as of this encounter
--- OUTSIDE RECORDS SUMMARY | 2024-08-28 17:07 | XMS_ITS | Encounter Summary ---
Author Organization [facility] [place] [address] Care Team Providers Care Retail Maintenance Technician Name Role Phone Richa Brand APRN Primary Care Provider [phone] [phone] Reason for Referral * Diagnostic Test (Routine) - Closed Specialty Diagnoses / Procedures Referred By Contac t Referred To Contact Radiology Diagnoses Numbness and tingling Foot drop, right Radicular pain of right lower extremity Procedures MRI Lumbar Spine wo Contrast (Generic) Jacki Shah MD [facility] [place] [address] [place] [address] Referral ID Status Reason Start Date Expiration Date V isits Requested Visits Authorized [id number] Closed Specialty Service Requested 04/09/2021 10/09/2022 1 1 Reason for Visit * Diagnostic Test (Routine) - Closed Specialty Diagnoses / Procedures Referred By Contac t Referred To Contact Radiology Diagnoses Numbness and tingling Foot drop, right Radicular pain of right lower extremity Procedures MRI Lumbar Spine wo Contrast (Generic) Jacki Shah MD [facility] [place] [address] [facility] [place] [address] Referral ID Status Reason Start Date Expiration Date V isits Requested Visits Authorized [id number] Closed Specialty Service Requested 04/09/2021 10/09/2022 1 1 Encounter Details Date Type Department Care Team (Latest Contact Info) Description 04/23/2021 6:45 AM EDT - 04/23/2021 11:59 PM EDT Hospital Encounter MRI at [facility] [place] [address] Jacki Shah MD [facility] [place] [address] Numbness and tingling; Foot drop, right; Radicular pain of right lower extremity Discharge Disposition: Home Social History Tobacco Use [...] Take 1 tablet by mouth daily. 09/27/2020 vitamin B complex (VITAMINS B COMPLEX ORAL) [...] 1 tablet by mouth daily. 09/27/2020 08/26/2024 PreviDent 5000 Plus 1.1 % Cream DIRECTED 04/06/2021 01/16/2023 donepeziL (Aricept) 5 mg Tablet Take 10 mg by mouth nightly. 04/01/2021 05/28/2021 sildenafiL (VIAGRA) 50 mg Tablet TAKE 1 TABLET BY MOUTH 1 HOUR PRIOR TO INTERCOURSE NEEDED 12/25/2020 04/10/2023 L-LYSINE ORAL Take 1 tablet by mouth daily. 08/15/2021 UNABLE TO FIND Monolauren 495 mg one tablet by mouth daily 07/13/2021 atorvastatin (Lipitor) 20 mg TabletIndications:Hyper lipidemia, unspecified hyperlipidemia type Take 1 tablet by mouth daily. 90 tablet 3 05/03/2020 05/04/2021 busPIRone (BUSPAR) 10 mg Tablet Take 10 mg by mouth 3 times daily. 07/13/2021 triamcinolone (KENALOG) 0.1 % Cream Apply twice daily to eczematous rash areas. 80 g 1 12/31/2019 07/13/2021 calcium carbonate (CALCIUM 500 ORAL) Take by mouth daily. 0 01/16/2023 MAGNESIUM ORAL Take by mouth daily. 01/16 ferrous sulfate (IRON ORAL) Take 325 mg by mouth See Admin Instructions. Lena Moeller, Ananda 08/26/2024 cyanocobalamin 1,000 mcg Tablet Take 2,000 mcg by mouth daily. 01/16/2023 ascorbate calcium (VITAMIN C ORAL) Take by mouth daily. FOLIC ACID ORAL Take by mouth daily. 01/01 documented as of this encounter Plan of Treatment Upcoming Encounters Date Type Department Care Team (Late st Contact Info) Description 09/28/2024 3:15 PM EST Procedure [place] [address] Matthieu Benson MD [facility] [place] [address] 10/05/2024 1:30 PM EST TH Visit (TeleHealth) [place] [address] Pavan Iglesias APRN [facility] [place] [address] 01/31/2025 2:40 PM EDT Office Visit Cardiology at [address] [address] Brayan Garay MD [facility] [place] [address] 03/16/2025 9:30 AM EDT Office Visit Neurology at [facility] [place] [phone] Augusta Keys MD [facility] [place] [address] documented as of this encounter Procedures Procedure Name Priority Date/Time Associated Diagnosis Comments MRI LUMBAR SPINE WITHOUT CONTRAST Routine 04/23/2021 7:48 AM EDT Numbness and tingling Foot drop, right Radicular pain of right lower extremity documented in this encounter Results * MRI Lumbar Spine wo Contrast (Generic) (04/23/2021 7:48 AM EDT) Anatomical Region Laterality Modality L-spine Magnetic Resonan ce Impressions 04/23/2021 8:48 AM EDT Severe multilevel degenerative changes, as above. Comment: The following findings are so common in people without low back pain that while we report their presence, they must be interpreted with caution and in context of the clinical situation (Reference- Milenak Et Al, Spine 2001). Findings: (Prevalence in patients without low back pain), disc degeneration (decreased T2 signal, height loss, bulge) (91%), disc T2-signal loss (83%), disc height loss (56%), disc bulge (64%), disc protrusion (32%), annular fissure (38%). Thank you for letting us participate in the care of this patient. ??If you are a health care provider and have any questions regarding this report, please contact the number below. ??For patients who have questions please contact the health healthcare administration intern that requested your imaging first. ? Electronically signed by: Belinda Kwan MD, [facility] ([phone]), at 04/23/2021 8:48 AM Narrative 04/23/2021 8:48 AM EDT EXAMINATION: MRI LUMBAR SPINE WO CONTRAST (GENERIC) CLINICAL HISTORY: Biomechanical lesion Lower extremity weakness; foot drop on right; radicular pain on left TECHNIQUE: MRI of the lumbar spine performed without intravenous contrast administration. COMPARISON: None FINDINGS: There [...] right. In the left posterior T12 vertebra, there is a 1 cm T1 hypointense, T2 isointense lesion which shows fluid signal on STIR images and a small surrounding fat halo, potentially atypical hemangioma. Distal spinal cord signal, caliber and contour are normal. The conus terminates at L1/2. Cauda equina nerve roots undulate likely due to impingement in the left lateral thecal sac at L2/3 and L3/4. Multilevel degenerative changes, as follows: T12/L1: No significant disc bulge, spinal canal or neural foraminal narrowing. L1/L2: Disc space narrowing, anterior osteophyte with possible anterior inferior L1 endplate disc herniation. Mild diffuse disc bulge with mild right foraminal and moderate right subarticular recess stenosis. Mild central canal stenosis. Mild bilateral degenerative facet and ligamentous hypertrophy. L2/L3: Diffuse disc bulge slightly eccentric to [...] canal stenosis. L4/L5: Diffuse disc bulge, severe bilateral degenerative facet hypertrophy and mild bilateral ligamentous hypertrophy. There is severe stenosis of the right neural foramen and subarticular recess, mild left subarticular and foraminal narrowing, and moderate central canal stenosis. L5/S1: Approximately 5 mm anterolisthesis of L5 on S1 uncovers the disc, with superimposed mild diffuse bulge with central protrusion. There is left greater than right degenerative facet hypertrophy with mild left facet effusion, moderate to severe bilateral neural foraminal narrowing, severe right subarticular recess stenosis and moderate central canal stenosis. Procedure Note Belinda Kwan MD - 04/23/2021 EXAMINATION: MRI LUMBAR SPINE WO CONTRAST (GENERIC) CLINICAL HISTORY: Biomechanical lesion Lower extremity weakness; foot drop on right; radicular pain on left TECHNIQUE: MRI of the lumbar spine performed without intravenous contrastadministration. COMPARISON: None FINDINGS: There is convex right curvature of the spine with apex at L2/3, with compensatory convex left curvature L5/S1. There is approximately 5 mm retrolisthesis of L2 on L3, and 5 mm anterolisthesis of L5 on S1. Minimalheight loss of the L5 vertebra, without retropulsion or edema. Otherwise,vertebral body height and alignment are preserved. There are anterior osteophytesfrom L1/2 through L3/4. 6 mm sclerotic focus in the anterior inferior [id number] adjacent to the endplate potentially representing bone [place] or herniateddisc material. Mild surrounding reactive edema, and reactive edema surroundingthe narrowed L1/2 disc space anteriorly. Fatty degenerative endplate changes surrounding L3/4 eccentric to the left, and L4/L5 eccentric to theright. In the left posterior T12 vertebra, there is a 1 cm T1 hypointense, T2 isointense lesion which shows fluid signal on STIR images and a small surrounding fat halo, potentially atypical hemangioma. Distal spinal cord signal, caliber and contour are normal. The conusterminates at L1/2. Cauda equina nerve roots undulate likely due to impingement inthe left lateral thecal sac at L2/3 and L3/4. Multilevel degenerative changes, as follows: T12/L1: No significant disc bulge, spinal canal or neural foraminalnarrowing. L1/L2: Disc space narrowing, anterior osteophyte with possible anteriorinferior L1 endplate disc herniation. Mild diffuse disc bulge with mild rightforaminal and moderate right subarticular recess stenosis. Mild central canalstenosis. Mild bilateral degenerative facet and ligamentous hypertrophy. L2/L3: Diffuse disc bulge slightly eccentric to the left. Left greaterthan right degenerative facet and ligamentous hypertrophy. There is severeleft subarticular stenosis, moderate to severe left neural foraminalnarrowing, moderate central canal stenosis eccentric to the left, and mild right subarticular and foraminal stenosis. L3/4: Disc space narrowing, mild diffuse disc bulge, moderate bilateralfacet and ligamentous hypertrophy. There is severe bilateral subarticularrecess stenosis, severe left and moderate to severe right foraminal stenosis.Mild central canal stenosis. L4/L5: Diffuse disc bulge, severe bilateral degenerative facet hypertrophyand mild bilateral ligamentous hypertrophy. There is severe stenosis of theright neural foramen and subarticular recess, mild left subarticular andforaminal narrowing, and moderate central canal stenosis. L5/S1: Approximately 5 mm anterolisthesis of L5 on S1 uncovers the disc,with superimposed mild diffuse bulge with central protrusion. There is leftgreater than right degenerative facet hypertrophy with mild left facet effusion, moderate to severe bilateral neural foraminal narrowing, severe right subarticular recess stenosis and moderate central canal stenosis. IMPRESSION Severe multilevel degenerative changes, as above. Comment: The following findings are so common in people without low backpain that while we report their presence, they must be interpreted with cautionand in context of the clinical situation (Reference- Milenak Et Al, [id number]). Findings: (Prevalence in patients without low back pain), discdegeneration (decreased T2 signal, height loss, bulge) (91%), disc T2-signal loss(83%), disc height loss (56%), disc bulge (64%), disc protrusion (32%), annularfissure (38%). Thank you for letting us participate in the care of this patient. If youare a health care provider and have any questions regarding this report,please contact the number below. For patients who have questions please contactthe health healthcare administration intern that requested your imaging first. Electronically signed by: Belinda Kwan MD, [facility]([phone]), at 04/23/2021 8:48 AM Jacki Shah MD IMG MRI ORDERABLES documented in this encounter Visit Diagnoses Diagnosis Numbness and tingling Disturbance of skin sensation Foot drop, right Other acquired deformity of ankle and foot Radicular pain of right lower extremity Thoracic or lumbosacral neuritis or radiculitis, unspecified documented in this encounter Care Teams Retail Maintenance Technician Relationship Specialty Start Date End Date Richa Brand APRN [address] [place] [address] PCP - General Family Medicine 03/24/17 documented as of this encounter
--- OUTSIDE RECORDS SUMMARY | 2024-08-28 17:07 | XMS_ITS | Encounter Summary ---
Author Organization [facility] Address [facility] [place] [address] Care Team Providers Care Director Cpg Name Role Phone Richa Brand APRN Primary Care Provider [phone] Reason for Visit * Reason Comments Left Leg Pain Bilateral Foot Pain toe numbness Bilateral Hand Pain finger tip numbness * Consultation (Routine) - Closed Specialty Diagnoses / Procedures Referred By Contac t Referred To Contact [facility] Sp[facility] Center Diagnoses Numbness and tingling Foot drop, right Radicular pain of right lower extremity Spine- Lumbar stenosis w/ R foot drop and radicular sx/ MRI 04/23/21 in [facility] Jacki Shah MD [facility] [place] [address] [facility] [place] [address] Referral ID Status Reason Start Date Expiration Date V isits Requested Visits Authorized [id number] Closed Consult, Test & Treat 05/27/2021 05/27/2022 3 3 Encounter Details Date Type Department Care Team (Late st Contact Info) Description 07/16/2021 8:00 AM EDT Office Visit [facility] [place] [address] [facility] [place] [place] [address] Lumbar spondylosis Social History Tobacco Use Types Packs/Day Years [...] documented in this encounter Progress Notes * Woody Cobian MD - 07/16/2021 8:00 AM EDT Chief complaint: Left foot numbness, right dorsiflexion weakness History of present illness: Mr. Mcgrath is a 76-year-old male whom I am seeing in consultation for in regards to numbness in his left foot and a mild right foot drop. He has had these symptoms for approximately 1 year. He is not having any back or lower extremity pain. He does note that hisright foot slaps a little bit after his been walking for a while, though this does not bother him much. The numbness in the left foot tends to be there constantly. Nothing tends to make the weakness or numbness better or worse. He denies constitutional symptoms or change in his bowel or bladder function. He has had no treatment for this. He [...] was reviewed. This demonstrates an apex right lumbar curve with apex at L3. There is a grade 1 degenerative spondylolisthesis at L5-S1. There are significant degenerative changes with severe disc height loss at L1-L2, L2-L3, and L3-L4. At L2-L3, thereis moderate left-sided lateral recess stenosis. There is mild [...] has some ulnar-sided bilateral hand numbness. He isnot having any back pain or lower extremity pain. He has multiple levels of degenerative change in the lumbar spine.The right-sided foraminal narrowing at L4-L5 and L5-S1 could be contributing to theright dorsiflexion weakness, however, it is somewhat atypical in that he has not had any lower extremity radicular pain. He is going to undergo EMGs and nerve conduction studies with Dr. Shah in the near future, which I feel is a reasonable next step. Given his lack of back or lower extremity pain, I do not think he needs any intervention for the [...] 3:15 PM EST Procedure visit Neurology at [place] [phone] [facility] [place] [address] 10/05/2024 1:30 PM EST TH Visit (TeleHealth) [place] [phone] [facility] [place] [address] 01/31/2025 2:40 PM EDT Office Visit Cardiology at [address] [phone] Brayan Garay MD [facility] [place] [address] 03/16/2025 9:30 AM EDT Office [place] [phone] [facility] [place] [address] Scheduled Referrals Name Type Priority Associated Diagnoses Orde r Schedule Referral to Pain and Spine Center (Internal only) Outpatient Referral Routine Numbness and tingling Foot drop, right Radicular pain of right lower extremity Ordered: 05/27/2021 documented as of this encounter Visit Diagnoses Diagnosis Lumbar spondylosis Lumbosacral spondylosis without myelopathy documented in this encounter Care Teams Director Cpg Relationship Specialty Start Date End Date Richa Brand APRN [address] [place] [address] PCP - General Family Medicine 03/24/17 documented as of this encounter
--- OUTSIDE RECORDS SUMMARY | 2024-08-28 17:07 | XMS_ITS | Encounter Summary ---
Author Organization [facility] Address [facility] [place] [address] Care Team Providers Care Director Of Restaurants Name Role Phone Richa Brand APRN Primary Care Provider [phone] [phone] Reason for Visit * Reason Comments Coronary Artery Disease Encounter Details Date Type Department Care Team (Late st Contact Info) Description 01/03/2020 3:20 PM EST Office Visit Cardiology at [address] [place] [address] Brayan Garay MD [facility] [place] [place] [address] Coronary artery disease involving [place] coronary artery of [place] heart without angina pectoris Social History Tobacco Use Types Packs/Day Years Used Date Smoking Tobacco: Former Smokeless Tobacco: Never Comments:50 years ago Alcohol Use Standard Drinks/Week Comments [...] Progress Notes * Brayan Garay MD - 01/03/2020 3:20 PM EST Images from the original note were not included. at [facility], Cardiology [address], [place] [address] Subjective: Patient ID: Chencho Mcgrath is a 74 y.o. male who presents on follow-up for: Chief Complaint Patient presents with ??? Coronary Artery Disease HPI Last seen by Dr Howard 01/2019, at which time syncope (the reason for referral) was thought to be due to venous pooling & dehydration. Patient has a noted history of remote CAD without intercurrent symptom nor issue through that time. Since then, he continues to do well. He has not been as active recently due to the weather, although very reasonable activity is without exertional chest pain, [...] Brayan Garay MD - 01/24/2020 9:43 PM EDT Associated Problem(s): ASCVD (arteriosclerotic cardiovascular disease) No angina per history - Anti-Thrombosis: asa 81 - Statin: lipitor 20 - Anti-anginals: GTN PRN documented in this encounter Plan of Treatment Upcoming Encounters Date Type Department Care Team (Late st Contact Info) Description 09/28/2024 3:15 PM EST Procedure visit Neurology at [place] [phone] Matthieu Benson MD [facility] [place] [address] 10/05/2024 1:30 PM EST TH Visit (TeleHealth) Neurology at [place] [phone] Pavan Iglesias APRN [facility] [place] [address] 01/31/2025 2:40 PM EDT Office Visit Cardiology at [address] [phone] Brayan Garay MD [facility] [place] [place] [address] 03/16/2025 9:30 AM EDT [place] [phone] Augusta Keys MD [facility] [place] [address] documented as of this encounter Visit Diagnoses Diagnosis Coronary artery disease involving [place] coronary artery of [place] heart without angina pectoris documented in this encounter Care Teams Director Of Restaurants Relationship Specialty Start Date End Date Sunday, Richa H, COMPUTING CONSULTANT [address] [place] [address] PCP - General Family Medicine 03/24/17 documented as of this encounter
--- OUTSIDE RECORDS SUMMARY | 2024-08-28 17:07 | XMS_ITS | Referral Summary ---
Author Organization [facility] Address [address] [place] [address] Care Team Providers Care Automotive Service Manager Name Role Phone Richa Brand APRN Primary Care Provider [phone] Social History Tobacco Use Types Packs/Day Years Used Date Smoking Tobacco: Never Assessed Sex and Gender Information Value Date Recorded Sex Assigned at Not on file Gender Identity Not on file Sexual Orientation Not on file Plan of Treatment Not on file Care Teams Automotive Service Manager Relationship Specialty Start Date End Date Rihca Brand APRN [address] [place] [address] PCP - General 11/23/21
--- OUTSIDE RECORDS SUMMARY | 2024-08-28 17:07 | XMS_ITS | Encounter Summary ---
Author Organization [facility] [place] [address] Care Team Providers Care Reel System Operator Name Role Phone Richa Brand APRN Primary Care Provider [phone] [phone] Reason for Referral * Diagnostic Test (Routine) - Closed Specialty Diagnoses / Procedures Referred By Contac t Referred To Contact Radiology Diagnoses Numbness and tingling Foot drop, right Radicular pain of right lower extremity Procedures MRI Lumbar Spine wo Contrast (Generic) Jacki Martinez MD [facility] [place] [address] [place] [address] Referral ID Status Reason Start Date Expiration Date V isits Requested Visits Authorized [id number] Closed Specialty Service Requested 04/09/2021 10/09/2022 1 1 Reason for Visit * Consultation (Routine) - Closed Specialty Diagnoses / Procedures Referred By Shayy t Referred To Contact Neurology Diagnoses Memory loss Idiopathic peripheral neuropathy Augusta Keys MD [facility] [place] [address] Jacki Martinez MD [facility] [place] [address] Referral ID Status Reason Start Date Expiration Date V isits Requested Visits Authorized [id number] Closed Consult, Test & Treat 01/11/2021 01/11/2022 1 1 Encounter Details Date Type Department Care Team (Late st Contact Info) Description 04/09/2021 8:00 AM EDT Procedure [place] [address] Jacki Martinez MD [facility] [place] [address] Numbness and tingling; Foot drop, right; Radicular [...] kg (160 lb) 04/09/2021 7:55 AM EDT r eported Height 165.1 cm (5' 5) 04/09/2021 7:55 AM EDT r eported Body Mass Index 26.63 04/09/2021 7:55 AM EDT documented in this encounter Progress Notes * Jacki Martinez MD - 04/09/2021 8:00 AM [...] a feeling of tightness in the back of the thigh on the left particularly when he puts the leg on a stretch. He relates this possibly to an episode of shingles in the past - this [...] of neuropathy. His daughter is an RN inthe trauma unit; she has no trouble with [...] medical, surgical, social and family histories were reviewedand updated as appropriate. Objective: Physical Exam: BP 124/51 Pulse 59 Ht 165.1 cm (5' 5) Comment: reported Wt 72.6 kg (160 lb) Comment: reported BMI 26.63 kg/m?? Appearance: The patient is a healthy-appearing male who appears of stated age and comes to his visit accompanied by his . he appears well developed [...] however articulate, well spoken and able to providea cogent history Cranial nerves: PERRL, no nystagmus, EOMI without reported diplopia. Funduscopy examination is normal. Facial movements are normal with full eyelid closure. There is no eyelid myotonia or Maged's twitch. Hearing is reduced to finger rub right greater than left. Jaw movements are normal. Head movements are normal. Tongue protrudes in the midline and [...] is completely on the right when standing on toes and had difficulty lifting his right foot [...] central C8 level disc but if his electrodiagnostic study is negative this is something I [...] 3:15 PM EST Procedure [place] [phone] Matthieu Benson MD [facility] [place] [address] 10/05/2024 1:30 PM EST TH Visit (TeleHealth) [place] [address] Pavan Iglesias APRN [facility] DR NEUROLOGY DEPT [place], [place] [id number] 01/31/2025 2:40 PM EDT Office Visit Cardiology at [address] [phone] Brayan Garay MD [facility] [place] [address] 03/16/2025 9:30 AM EDT Office [place] [address] Augusta Keys MD [facility] DR NEUROLOGY DEPT [place], [place] [id number] documented as of this encounter Results * Comprehensive metabolic panel (non-fasting) (04/23/2021 8:38 AM EDT) [facility] Signature Glucose 92 65 - 199 mg/dL [facility] Comment:Diabetes: >=200 mg/d L plus symptoms Blood Urea Nitrogen 17 10 - 20 mg/dL [facility] Creatinine 0.97 0.80 - 1.50 mg/dL [facility] Sodium 138 135 - 145 mmol/L [facility] Potassium 4.4 3.5 - 5.0 mmol/L [facility] Comment: Please note: ??Patients with WBC >100,000 may have falsely elevated Potassium levels. ??For accurate Potassium quantification in these patients send serum separator tube ([facility] top) for subsequent determinations. ??Contact the Clinical Chemistry Laboratory if there are any questions. Chloride 104 98 - 107 mmol/L [facility] Carbon Dioxide 27 22 - 31 mmol/L [facility] Anion Gap 7 5 - 15 mmol/L [facility] Calcium 8.8 8.5 - 10.5 mg/dL [facility] Protein, Total 6.8 6.1 - 8.0 gm/dL [facility] Albumin 4.0 3.2 - 5.2 gm/dL [facility] Aspartate Aminotransferase 23 0 - 39 unit/L [facility] Alanine Aminotransferase 18 0 - 55 unit/L [facility] Alkaline Phosphatase 58 40 - 130 unit/L [facility] Bilirubin, Total 0.6 0.2 - 1.3 mg/dL [facility] Est Glomerular Filtration Rate 75 >=60 mL/min/1. 73 m?? [facility] Comment: This patient? s estimated [...] Spec In Lab Jacki Martinez MD CHEMISTRY ORDERABLE S [facility] [place] [place] [address] * Protein Electrophoresis, serum (04/23/2021 8:38 AM EDT) Total Prot Electrophoresis 6.4 6.1 - 8.0 gm/dL [facility] Albumin Electrophoresis 4.09 3.60 - 6.00 gm/dL [facility] Alpha 1 Globulin 0.17 0.10 - 0.30 gm/dL [facility] Alpha 2 Globulin 0.74 0.40 - 0.90 gm/dL [facility] Beta Globulin 0.58 0.50 - 1.00 gm/dL [facility] Gamma Globulin 0.83 0.50 - 1.30 gm/dL [facility] M1 Band Comments Below None Detected [facility] SPEP Comments See Note [facility] Comment: Immunofixation (TOBY) and quantitative immunoglobulin (SEAN) testing will be performed on this sample per MD request. Blood 04/23/2021 8:38 AM EDT 04/23/2021 8:46 AM EDT Narrative Resulting Agency Comment Spec In Lab Jacki Martinez MD CHEMISTRY ORDERABLE S [facility] [place] [place] [address] * Methylmalonic acid, serum (04/23/2021 8:38 AM EDT) [facility] Methylmalonic Acid (MARCH) 0.12 <=0.40 nmol/mL [facility] Comment: ADDITIONAL INFORMATION This test was developed and its performance characteristics determined by [facility] in a manner consistent with CLIA requirements. This test has not been cleared or approved by the U.S. Food and Drug Administration. Test Performed by: [facility] - [address] [address] [employer] Coach: Sunny Dan M.D. Ph.D.; CLIA# [id number] Blood 04/23/2021 8:38 AM EDT 04/23/2021 12:23 PM EDT Narrative Resulting Agency Comment Spec In Lab Jacki Martinez MD LAB SEND OUT ORDERA BLES Performing Organization Address City/[facility]/ZIP Co de Phone Number [facility] [place] [address] * Vitamin B12 (04/23/2021 8:38 AM EDT) Vitamin B12 750 232 - 1,245 pg/mL [facility] Blood 04/23/2021 8:38 AM EDT 04/23/2021 8:46 AM EDT Narrative Resulting Agency Comment Spec In Lab Jacki Martinez MD CHEMISTRY ORDERABLE S Performing Organization Address [facility] de Phone Number [facility] [place] [place] [address] * Vitamin B6 (04/23/2021 8:38 AM EDT) Pathologist [facility] Vitamin B6 (MARCH) 45 5 - 50 mcg/L [facility] Comment: ADDITIONAL INFORMATION This test was developed and its performance characteristics determined by [facility] in a manner consistent with CLIA requirements. This test has not been cleared or approved by the U.S. Food and Drug Administration. Test Performed by: [facility] - [address] [address] [employer] Coach: Sunny Dan M.D. Ph.D.; CLIA# [id number] Blood 04/23/2021 8:38 AM EDT 04/23/2021 9:44 AM EDT Narrative Resulting Agency Comment Spec In Lab Jacki Martinez MD LAB SEND OUT ORDERA BLES Performing Organization Address [facility]/ZIP Co de Phone Number [facility] [place] [place] [address] * MRI Lumbar Spine wo Contrast (Generic) [...] who have questions please contact the health career development coordinator/teacher that requested your imaging first. ? Narrative 04/23/2021 8:48 AM EDT EXAMINATION: MRI [...] mm sclerotic focus in the anterior inferior [id number] adjacent to the endplate potentially representing bone [...] the clinical situation (Reference- Milenak Et Al, [id number]). Findings: (Prevalence in patients without low back [...] patients who have questions please contactthe health career development coordinator/teacher that requested your imaging first. Jacki Martinez MD IMG MRI ORDERABLES documented in this encounter Visit Diagnoses Diagnosis Numbness and tingling Disturbance of skin sensation Foot drop, right Other acquired deformity of ankle and foot Radicular pain of right lower extremity Thoracic or lumbosacral neuritis or radiculitis, unspecified Numbness and tingling Disturbance of skin sensation Foot drop, right Other acquired deformity of ankle and foot Radicular pain of right lower extremity Thoracic or lumbosacral neuritis or radiculitis, unspecified documented in this encounter Care Teams Reel System Operator Relationship Specialty Start Date End Date Richa Brand, SUPERVISOR [employer] DEPARTMENT [address] [place] [address] PCP - General Family Medicine 03/24/17 documented as of this encounter
--- OUTSIDE RECORDS SUMMARY | 2024-08-28 17:07 | XMS_ITS | Encounter Summary ---
Author Organization [facility] [place] [address] Care Team Providers Care Senior Director Marketing Name Role Phone Richa Brand APRN Primary Care Provider [phone] [phone] Reason for Visit * Reason Comments Establish Care Dizziness Encounter Details Date Type Department Care Team (Late st Contact Info) Description 01/06/2019 1:20 PM EST Office Visit Cardiology at [address] [address] Semaj Howard Jr., MD [address] [place] [address] Syncope and collapse; Coronary artery disease, angina presence unspecified, unspecified vessel or lesion type, unspecified whether [place] or transplanted heart; Hyperlipidemia, unspecified hyperlipidemia type Social History Tobacco Use Types Packs/Day [...] documented in this encounter Progress Notes * Semaj Howard Jr., MD - 01/06/2019 1:20 PM EST Referring PCP: Richa Brand APRN Cardiology consultation History: Chencho Mcgrath is a 73 y.o. old male seen at the request of Richa Brand APRN for evaluation of one episode of syncope and ASCVD. He has a long history of ASCVD with no recent chest pain or limiting dyspnea. He is very active and has not had to change his activity level due to any symptoms. He denies palpitations, edema, PND or orthopnea. On he was at a green party and while standing and talking suddenly felt dizzy and flushed and collapsed with loss of consciousness for about a minute. He had no seizure activity, tongue biting, or loss of bowel or bladder control. He came right around and felt tired afterwards. He had not eaten much that day and had only one glass of wine. He did not go to the ER then but saw his PCP a few days later. Labs were unremarkable and holter did not show any serious arrhythmias (see below). Ankushhakenia had no subsequent episodes and has continued [...] ??? 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 ROS:no recent weight gain/loss, no GI or [...] 3:15 PM EST [place] [phone] Matthieu Benson MD [facility] [place] [address] 10/05/2024 1:30 PM EST TH Visit (TeleHealth) [place] [phone] Pavan Iglesias APRN [facility] [place] [place] [address] 01/31/2025 2:40 PM EDT Office Visit Cardiology at [address] [place] [phone] Brayan Garay MD [facility] [place] [address] 03/16/2025 9:30 AM EDT [place] [address] Augusta Keys MD [facility] [place] [address] documented as of this encounter Procedures Procedure Name Priority Date/Time Associated Diagnosis Comments ECG SCAN 01/13/2019 12:00 AM EDT documented in this encounter Results * SCAN DOC: ECG (01/13/2019 12:00 AM EDT) Narrative 01/13/2019 12:00 AM EDT Ordered by an unspecified provider. Scanning Provider MEDIA MGR SCAN EXT O RDR/RSLT documented in this encounter Visit Diagnoses Diagnosis Syncope and collapse Coronary artery disease, angina presence unspecified, unspecified vessel or lesion type, unspecified whether [place] or transplanted heart Hyperlipidemia, unspecified hyperlipidemia type documented in this encounter Care Teams Senior Director Marketing Relationship Specialty Start Date End Date Richa Brand APRN [address] [place] [address] PCP - General Family Medicine 03/24/17 documented as of this encounter
--- OUTSIDE RECORDS SUMMARY | 2024-08-28 17:07 | XMS_ITS | Encounter Summary ---
Author Organization [facility] [place] [address] Care Team Providers Care Alkylation Operator Name Role Phone Richa Brand APRN Primary Care Provider [phone] [phone] Reason for Visit * Reason Comments Annual Exam Encounter Details Date Type Department Care Team (Late st Contact Info) Description 07/13/2021 9:00 AM EDT Office Visit Dermatology at [address] [address] Uzair Comer MD [address] [place] [address], [place] [address] Eczema, unspecified type; Seborrheic keratosis Social History Tobacco Use Types Packs/Day Years [...] as of this encounter Progress Notes * Uzair Comer MD - 07/13/2021 9:00 AM EDT Problem: 1. Repeat check 2. Lifelong history of eczema Dangelo follows up after last being seen in December 2019 at which time he was having a flare of some eczematous dermatitis. He has settled upon using the betamethasone the Propine 8 ointment on a asneeded basis and this works well for him. He is using Dr. Clarke's soap. A mint version in the summer and another milder version for the winter. Physical examination reveals a pleasant 76-year-old man who has a benign examination of the head and the neck the chest the back the hands the arms deforms the thighs and the calves. His eczema is quite minimal today he has a few patches on the arms and legs and back but these are well controlled with the current topicals. There is no evidence of any malignant or premalignant lesions. Assessment and plan: Eczematous dermatitis 1. Patient with a lifelong history of eczema 2. Well controlled with betamethasone dipropionate ointment being judiciously and sparingly used toareas as needed. 3. We will call in the betamethasone type applying ointment 45 g with 3 refills to [facility] in [place] apply daily twice daily as needed to areas of eczema. 4. Continue use of Dr. Clarke's soap. Benign skin examination 1. Patient reassured about benign seborrheic keratoses 2. No treatment necessary 3. Return to clinic as needed. CC: Richa Brand APRN documented in this encounter Miscellaneous Notes * Addendum Note - Joy Wolfe LPN - 07/13/2021 9:00 AM EDTAddended by: JOY WOLFE on: 07/13/2021 09:26 AM Modules accepted: Orders documented in this encounter Plan of Treatment Upcoming Encounters Date Type Department Care Team (Late st Contact Info) Description 09/28/2024 3:15 PM EST Procedure [place] [address] Matthieu Benson MD [facility] [place] [address] 10/05/2024 1:30 PM EST TH Visit (TeleHealth) [place] [address] Pavan Iglesias APRN [facility] [place] [address] 01/31/2025 2:40 PM EDT Office Visit Cardiology at [address] [phone] Brayan Garay MD [facility] [place] [address] 03/16/2025 9:30 AM EDT Office [place] [phone] Augusta Keys MD [facility] [place] [address] documented as of this encounter Visit Diagnoses Diagnosis Eczema, unspecified type Seborrheic keratosis Other seborrheic keratosis documented in this encounter Care Teams Alkylation Operator Relationship Specialty Start Date End Date Richa Brand APRN [address] [place] [address] PCP - General Family Medicine 03/24/17 documented as of this encounter
--- OUTSIDE RECORDS SUMMARY | 2024-08-28 17:07 | XMS_ITS | Encounter Summary ---
Author Organization [facility] Address [facility] [place] [address] Care Team Providers Care Cavalry Scout Name Role Phone Richa Brand APRN Primary Care Provider [phone] [phone] Encounter Details Date Type Department Care Team (Late st Contact Info) Description 05/03/2020 Refill Cardiology at [address] [place] [address] Brayan Garay MD [facility] [place] [address] Social History Tobacco Use Types Packs/Day Years [...] encounter Miscellaneous Notes * Telephone Encounter - Rain Garg - 05/03/2020 11:52 AM EDT Patient called requesting a refill for Atorvastatin 20 mg 1 tab daily [facility] # [phone] documented in this encounter Plan of Treatment Upcoming Encounters Date Type Department Care Team (Late st Contact Info) Description 09/28/2024 3:15 PM EST Procedure visit Neurology at [place] [phone] Matthieu Benson MD [facility] [place] [address] 10/05/2024 1:30 PM EST TH Visit (TeleHealth) Neurology at [place] [phone] Pavan Iglesias APRN [facility] [place] [address] 01/31/2025 2:40 PM EDT Office Visit Cardiology at [address] [address] Brayan Garay MD [facility] [place] [address] 03/16/2025 9:30 AM EDT Office Visit Neurology at [place] [phone] Augusta Keys MD [facility] [place] [address] documented as of this encounter Visit Diagnoses Diagnosis Hyperlipidemia, unspecified hyperlipidemia type documented in this encounter Care Teams Cavalry Scout Relationship Specialty Start Date End Date Richa Brand APRN [address] [place] [address] PCP - General Family Medicine 03/24/17 documented as of this encounter
--- OUTSIDE RECORDS SUMMARY | 2024-08-28 17:07 | XMS_ITS | Encounter Summary ---
[place] [address] Care Team Providers Care Lumber Sorter Machine Name Role Phone Richa Brand APRN Primary Care Provider [phone] [phone] Reason for Visit * Reason Onset Date Comments Referral 09/19/2020 Encounter Details Date Type Department Care Team (Late st Contact Info) Description 09/19/2020 Telephone [place] [address] Matthieu [place] Referral Social History Tobacco Use Types Packs/Day Years [...] encounter Miscellaneous Notes * Telephone Encounter - Beckie Mary - 09/22/2020 12:48 PM EST Patient is calling back to follow up on this referral. * Telephone Encounter - Matthieu [place] - 09/19/2020 12:26 PM EST Caller: self If not PT/Relation to PT: Best number to reach caller: [phone] Reason for the Call: Patient was looking to schedule from referral, but this agent did not see in the chart. This agent asked patient to resend referral. To check on the status of their referral: If not, what is the reason for their call: If their referral has not been reviewed by the department, ask these questions below so the processcan get started sooner: Has the patient seen another Neurologist: yes- Yury Colby If so, when and where: [facility]-End of August Has the patient had any imagining done: No If so, when and where: documented in this encounter Plan of Treatment Upcoming Encounters Date Type Department Care Team (Late st Contact Info) Description 09/28/2024 3:15 PM EST Procedure visit Neurology at [place] [phone] Matthieu Benson MD [facility] [place] [address] 10/05/2024 1:30 PM EST TH Visit (TeleHealth) Neurology at [place] [phone] Pavan Iglesias APRN [facility] [place] [address] 01/31/2025 2:40 PM EDT Office Visit Cardiology at [address] [phone] Brayan Garay MD [facility] [place] [address] 03/16/2025 9:30 AM EDT Office Visit Neurology at [place] [phone] Augusta Keys MD [facility] [place] [address] documented as of this encounter Visit Diagnoses Not on filedocumented in this encounter Care Teams Lumber Sorter Machine Relationship Specialty Start Date End Date Richa Brand APRN [address] [place] [address] PCP - General Family Medicine 03/24/17 documented as of this encounter
--- OUTSIDE RECORDS SUMMARY | 2024-08-28 17:07 | XMS_ITS | Encounter Summary ---
Author Organization [facility] [place] [address] Care Team Providers Care Epic Willow Analyst Name Role Phone Richa Brand APRN Primary Care Provider [phone] [phone] Reason for Visit * Reason Onset Date Comments TeleHealth 01/16/2022 Encounter Details Date Type Department Care Team (Late st Contact Info) Description 01/16/2022 [place] [phone] Augusta Keys MD [facility] [place] [address] TeleHealth Social History Tobacco Use Types Packs/Day [...] Telephone Encounter - Monse Estevez RN - 01/16/2022 9:09 AM EDT Unable to reach this patient by phone to review their medications and allergies prior to their upcoming tele-appointment with the Neurology provider. No message left. documented in this encounter Plan of Treatment Upcoming Encounters Date Type Department Care Team (Late st Contact Info) Description 09/28/2024 3:15 PM EST Procedure visit Neurology at [place] [phone] Matthieu Benson MD [facility] [place] [address] 10/05/2024 1:30 PM EST TH Visit (TeleHealth) [place] [address] Pavan Iglesias APRN [facility] [place] [address] 01/31/2025 2:40 PM EDT Office Visit Cardiology at [address] [phone] Brayan Garay MD [facility] [place] [address] 03/16/2025 9:30 AM EDT Office [place] [address] Augusta Keys MD [facility] [place] [address] documented as of this encounter Visit Diagnoses Not on filedocumented in this encounter Care Teams Epic Willow Analyst Relationship Specialty Start Date End Date Richa Brand APRN [address] [place] [address] PCP - General Family Medicine 03/24/17 documented as of this encounter
--- OUTSIDE RECORDS SUMMARY | 2024-08-28 17:07 | XMS_ITS | Encounter Summary ---
Author Organization [facility] Address [facility] [place] [address] Care Team Providers Care Brush Sander Name Role Phone Richa Brand APRN Primary Care Provider +1 -[phone] Reason for Visit * Reason Onset Date Comments Appointment 03/22/2021 Encounter Details Date Type Department Care Team (Late Contact Info) Description 03/22/2021 Telephone [place] [phone] Augusta Keys MD [facility] [place] [address] Appointment Social History Tobacco Use Types Packs/Day [...] encounter Miscellaneous Notes * Telephone Encounter - Sheri Lagunas - 03/22/2021 10:13 AM EDT Scheduling Instructions Provider: Dr Keys Visit Type (paste MONICA Instructions or manually enter): Return for telehealth with Massimo any 30 minspot (mid to late April). Appt Note: Mild cognitive impairment Additional Info Needed: documented in this encounter Plan of Treatment Upcoming Encounters Date Type Department Care Team (Late st Contact Info) Description 09/28/2024 3:15 PM EST Procedure [place] [address] Matthieu Benson MD [facility] [place] [address] 10/05/2024 1:30 PM EST TH Visit (TeleHealth) [place] [address] Pavan Iglesias APRN [facility] [place] [address] 01/31/2025 2:40 PM EDT Office Visit Cardiology at [address] [address] Brayan Garay MD [facility] [place] [address] 03/16/2025 9:30 AM EDT Office [place] [address] Augusta Keys MD [facility] [place] [address] documented as of this encounter Visit Diagnoses Not on filedocumented in this encounter Care Teams Brush Sander Relationship Specialty Start Date End Date Richa Brand APRN [address] [place] [address] PCP - General Family Medicine 03/24/17 documented as of this encounter
--- OUTSIDE RECORDS SUMMARY | 2024-08-28 17:07 | XMS_ITS | Encounter Summary ---
Author Organization [facility] [place] [address] Care Team Providers Care Molecular Genetic Pathologist Name Role Phone Richa Brand APRN Primary Care Provider +1 [phone] Encounter Details Date Type Department Care Team (Late st Contact Info) Description 07/31/2021 External Results [place] [address] Jacki Shah MD [facility] [place] [address] Social History Tobacco Use Types Packs/Day Years [...] 3:15 PM EST Procedure [place] [address] Matthieu Benson MD [facility] [place] [address] 10/05/2024 1:30 PM EST TH Visit (TeleHealth) [place] [address] Pavan Iglesias APRN [facility] [place] [address] 01/31/2025 2:40 PM EDT Office Visit Cardiology at [address] [place] [address] Brayan Garay MD [facility] [place] [address] 03/16/2025 9:30 AM EDT Office [place] [address] Augusta Keys MD [facility] [place] [address] documented as of this encounter Procedures Procedure Name Priority Date/Time Associated Diagnosis Comments EMG SCAN Routine 07/25/2021 documented in this encounter Results * Scan Doc: EMG (07/25/2021) Jacki Shah MD MEDIA MGR SCAN EXT ORDR/RSLT documented in this encounter Visit Diagnoses Not on filedocumented in this encounter Care Teams Molecular Genetic Pathologist Relationship Specialty Start Date End Date Richa Brand APRN [address] [place] [address] PCP - General Family Medicine 03/24/17 documented as of this encounter
--- OUTSIDE RECORDS SUMMARY | 2024-08-28 17:07 | XMS_ITS | Encounter Summary ---
[place] [address] Care Team Providers Care Top Frame Fitter Name Role Phone Richa Brand APRN Primary Care Provider +1 [phone] Reason for Visit * Reason Onset Date Comments Prior Authorization 06/07/2021 Encounter Details Date Type Department Care Team (Late st Contact Info) Description 06/07/2021 Telephone [place] [phone] Augusta Keys MD [facility] [place] [address] Prior Authorization Social History Tobacco Use Types Packs/Day Years [...] 3:15 PM EST Procedure [place] [address] Matthieu Benson MD [facility] [place] [place] [address] 10/05/2024 1:30 PM EST TH Visit (TeleHealth) Neurology at [place] [phone] Pavan Iglesias APRN [facility] [place] [address] 01/31/2025 2:40 PM EDT Office Visit Cardiology at [address] [address] Brayan Garay MD [facility] [place] [address] 03/16/2025 9:30 AM EDT Office [place] [address] Augusta Keys MD [facility] [place] [address] documented as of this encounter Visit Diagnoses Not on filedocumented in this encounter Care Teams Top Frame Fitter Relationship Specialty Start Date End Date Richa Brand APRN [address] [place] [address] PCP - General Family Medicine 03/24/17 documented as of this encounter
--- OUTSIDE RECORDS SUMMARY | 2024-08-28 17:07 | XMS_ITS | Encounter Summary ---
Author Organization [facility] Address [facility] [place] [address] Care Team Providers Care Macaroni Press Operator Name Role Phone Richa Brand APRN Primary Care Provider +1 [phone] Encounter Details Date Type Department Care Team (Late st Contact Info) Description 01/03/2020 External Results Cardiology at [address] [place] [address] Brayan Garay MD [facility] [place] [address] Social History Tobacco Use Types Packs/Day Years [...] 3:15 PM EST Procedure [place] [address] Matthieu Benson MD [facility] [address] 10/05/2024 1:30 PM EST TH Visit (TeleHealth) [place] [address] Pavan Iglesias APRN [facility] [place] [address] 01/31/2025 2:40 PM EDT Office Visit Cardiology at [address] [place] [address] Brayan Garay MD [facility] [place] [address] 03/16/2025 9:30 AM EDT Office [place] [address] Augusta Keys MD [facility] [place] [address] documented as of this encounter Procedures Procedure Name Priority Date/Time Associated Diagnosis Comments EXTERNAL LIPID LAB RESULTS PANEL Routine 09/11/2016 documented in this encounter Results * Lipid External Results (09/11/2016) Cholesterol, Total 102 HDL Cholesterol 36 LDL Cholesterol 58 Triglyceride 74 09/11/2016 Historical Provider POINT OF CARE VESTA T ORDERABLES documented in this encounter Visit Diagnoses Not on filedocumented in this encounter Care Teams Macaroni Press Operator Relationship Specialty Start Date End Date Richa Brand APRN [address] [place] [address] PCP - General Family Medicine 03/24/17 documented as of this encounter
--- OUTSIDE RECORDS SUMMARY | 2024-08-28 17:07 | XMS_ITS | Encounter Summary ---
Author Organization [facility] Address [facility] [place] [address] Care Team Providers Care Data Lead Name Role Phone Richa Brand APRN Primary Care Provider +1 [phone] Reason for Visit * Reason Comments Follow-up * Consultation (Routine) - Specialty Diagnoses / Procedures Referred By Shayy capellan Referred To Contact Dermatology Diagnoses Disorder of the skin and subcutaneous tissue, unspecified Skin Lesion mid back Procedures Consult Richa Brand APRN [address] [place] [address] Uzair Comer MD [address] [place] [address], [place] [address] Referral ID Status Reason Start Date Expiration Date V isits Requested Visits Authorized [id number] Consult, Test & Treat PCP Updated and/or Approved 11/05/2019 11/05/2020 6 6 Encounter Details Date Type Department Care Team (Late st Contact Info) Description 12/31/2019 8:15 AM EST Office Visit Dermatology at [address] [phone] Uzair Comer MD [address] [place] [address], [facility] A DERMATOLOGY [place], [place] [id number] Eczema, unspecified type Social History Tobacco Use Types [...] Progress Notes * Uzair Comer MD - 12/31/2019 8:15 AM EST Problem: 1. Dermatitis x2 months 2. Lifelong history of eczema Joe is a 74-year-old gentleman whom I last saw in 2004. 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 He believes now that he has another case of shingles. He would lIke me to evaluate this. He never has received a shingles vaccination. This is been present for about the last 2 months. Physical examination reveals a pleasant 74-year-old gentleman [...] as the other patches diffusely spread on the torso and extremities. 2.. Patient denies history of [...] 3:15 PM EST Procedure visit Neurology at [address] Matthieu Benson MD [facility] [place] [address] 10/05/2024 1:30 PM EST TH Visit (TeleHealth) [place] [address] Pavan Iglesias APRN [facility] [place] [place] [address] 01/31/2025 2:40 PM EDT Office Visit Cardiology at [address] [address] Brayan Garay MD [facility] [place] [address] 03/16/2025 9:30 AM EDT Office Visit Neurology at [place] [phone] Augusta Keys MD [facility] [place] [address] documented as of this encounter Visit Diagnoses Diagnosis Eczema, unspecified type documented in this encounter Care Teams Data Lead Relationship Specialty Start Date End Date Richa Brand APRN [address] [place] [address] PCP - General Family Medicine 03/24/17 documented as of this encounter
--- OUTSIDE RECORDS SUMMARY | 2024-08-28 17:07 | XMS_ITS | Encounter Summary ---
Author Organization [facility] [place] [address] Care Team Providers Care Livestock Showman Name Role Phone Richa Brand APRN Primary Care Provider +1 -[phone] Reason for Visit * Reason Onset Date Comments Appointment 04/09/2021 Encounter Details Date Type Department Care Team (Late st Contact Info) Description 04/09/2021 [place] [phone] Jacki Shah MD [facility] [place] [address] Appointment Social History Tobacco Use Types Packs/Day [...] encounter Miscellaneous Notes * Telephone Encounter - Dalila Real - 04/09/2021 2:54 PM EDT Call Center / [place] Message - General Issue Call Provider patient sees in Clinic: Jacki Shah Caller and relationship (if other than patient-full name): jessy Shea Call back number: [phone] Ok to leave a message: yes Reason for call: Pt was under the impression he was to have an EMG today. He only met with Dr Shah. Please call to schedule EMG when scheduling for those resume Disposition of Call (choose one and remove others): ??? Routine Message sent to the [place]: X Nurse/Inspector T[place] contacted via: Message: y Call: n Pager: n * Telephone Encounter - Jean Carlos Leong - 04/09/2021 2:54 PM EDT Patient's partner Monse statesChencho is scheduled for an MRI next Friday morning (04/23) and she was hoping to schedule his EMG after the MRI, if possible. Please call Monse's cell [phone] discuss. She will need to make arrangements with her work. * Telephone Encounter - Laura Montgomery - 04/09/2021 [...] wire and pt really needs to have testdone. Please call Monse back to discuss once schedules are available. documented in this encounter Plan of Treatment Upcoming Encounters Date Type Department Care Team (Late st Contact Info) Description 09/28/2024 3:15 PM EST [place] [address] Matthieu Benson MD [facility] [place] [address] 10/05/2024 1:30 PM EST TH Visit (TeleHealth) [place] [address] Pavan Iglesias APRN [facility] [place] [address] 01/31/2025 2:40 PM EDT Office Visit Cardiology at [address] [place] [address] Brayan Garay MD [facility] [place] [address] 03/16/2025 9:30 AM EDT [place] [address] Augusta Keys MD [facility] [place] [address] documented as of this encounter Visit Diagnoses Not on filedocumented in this encounter Care Teams Livestock Showman Relationship Specialty Start Date End Date Richa Brand APRN [address] [place] [address] PCP - General Family Medicine 03/24/17 documented as of this encounter
--- OUTSIDE RECORDS SUMMARY | 2024-08-28 17:07 | XMS_ITS | Encounter Summary ---
Author Organization [facility] Address [facility] [address] Care Team Providers Care Wire Spinner Name Role Phone Richa Brand APRN Primary Care Provider [phone] -[phone] Reason for Visit * Reason Onset Date Comments Questions 04/27/2021 Encounter Details Date Type Department Care Team (Late st Contact Info) Description 04/27/2021 Telephone [place] [phone] Jacki Shah MD [facility] [place] [address] Questions Social History Tobacco Use Types Packs/Day [...] encounter Miscellaneous Notes * Telephone Encounter - Paris Snyder RN - 04/30/2021 3:14 PM EDT Spoke with Monse advised that no Dr Shah does her own EMG's. All providers do their own EMG's. This is not a standard order. Monse agrees with the plan. Scheduled for August. * Telephone Encounter - Laura Montgomery - 04/27/2021 4:58 PM EDT Call Center / [place] Message - General Issue Call Provider patient sees in Clinic: Pablo Caller and relationship (if other than patient-full name): Monse - life partner Call back number: [phone] Ok to leave a message: y Reason for call: Monse, patient's life partner, calling in to ask if Dr. Shah would be comfortable with sending EMG order to [facility]. Monse states they can see patient sooner and it is more convenient to get to. Please call patient back to discuss. Disposition of Call (choose one and remove others): ??? Routine Message sent to the Nurse: y Nurse/[place] contacted via: Message: y Call: n Pager: n documented in this encounter Plan of Treatment Upcoming Encounters Date Type Department Care Team (Late st Contact Info) Description 09/28/2024 3:15 PM EST Procedure [place] [address] Matthieu Benson MD [facility] [address] 10/05/2024 1:30 PM EST TH Visit (TeleHealth) [place] [phone] Pavan Iglesias APRN [facility] [place] [address] 01/31/2025 2:40 PM EDT Office Visit Cardiology at [address] [place] [address] Brayan Garay MD [facility] [place] [address] 03/16/2025 9:30 AM EDT Office [place] [address] Augusta Keys MD [facility] [address] documented as of this encounter Visit Diagnoses Not on filedocumented in this encounter Care Teams Wire Spinner Relationship Specialty Start Date End Date Richa Brand APRN [address] [place] [address] PCP - General Family Medicine 03/24/17 documented as of this encounter
--- OUTSIDE RECORDS SUMMARY | 2024-08-28 17:07 | XMS_ITS | Encounter Summary ---
Author Organization [facility] Address [facility] [place] [address] Care Team Providers Care Background Investigator Name Role Phone Richa Brand APRN Primary Care Provider +1 [phone] Encounter Details Date Type Department Care Team (Late st Contact Info) Description 12/30/2018 Abstract Cardiology at [address] [place] [address] Terrence Jang RN Social History Tobacco Use Types Packs/Day Years Used Date Smoking Tobacco: Former Comments:50 years ago Sex and Gender Information Value Date Recorded Sex Assigned at Not on file Gender Identity Not on file Sexual Orientation Not on file documented as of this encounter Plan of Treatment Upcoming Encounters Date Type Department Care Team (Late st Contact Info) Description 09/28/2024 3:15 PM EST Procedure [place] [address] Matthieu Benson MD [facility] [place] [address] 10/05/2024 1:30 PM EST TH Visit (TeleHealth) [place] [address] Pavan Iglesias APRN [facility] [place] [address] 01/31/2025 2:40 PM EDT Office Visit Cardiology at [address] [address] Brayan Garay MD [facility] [place] [address] 03/16/2025 9:30 AM EDT Office [place] [address] Augusta Keys MD [facility] [place] [address] documented as of this encounter Visit Diagnoses Not on filedocumented in this encounter Care Teams Background Investigator Relationship Specialty Start Date End Date Richa Brand APRN [address] [place] [address] PCP - General Family Medicine 03/24/17 documented as of this encounter
--- OUTSIDE RECORDS SUMMARY | 2024-08-28 17:07 | XMS_ITS | Encounter Summary ---
Author Organization [facility] Address [facility] [place] [address] Care Team Providers Care Collar Setter Name Role Phone Richa Brand APRN Primary Care Provider +1 -[phone] Reason for Visit * Reason Onset Date Comments TeleHealth 05/22/2021 Encounter Details Date Type Department Care Team (Late st Contact Info) Description 05/22/2021 [place] [phone] Jacki Shah MD [facility] [place] [address] TeleHealth Social History Tobacco Use Types Packs/Day [...] 3:15 PM EST Procedure [place] [address] Matthieu Benson MD [facility] [place] [address] 10/05/2024 1:30 PM EST TH Visit (TeleHealth) [place] [address] Pavan Iglesias APRN [facility] [place] [address] 01/31/2025 2:40 PM EDT Office Visit Cardiology at [address] [phone] Brayan Garay MD [facility] [place] [address] 03/16/2025 9:30 AM EDT [place] [address] Augusta Keys MD [facility] [place] [address] documented as of this encounter Visit Diagnoses Not on filedocumented in this encounter Care Teams Collar Setter Relationship Specialty Start Date End Date Richa Brand APRN [address] [place] [address] PCP - General Family Medicine 03/24/17 documented as of this encounter
--- OUTSIDE RECORDS SUMMARY | 2024-08-28 17:07 | XMS_ITS | Encounter Summary ---
Author Organization [facility] Address [address] [place] [address] Care Team Providers Care Plastics Plater Name Role Phone Richa Brand APRN Primary Care Provider +1 -[phone] Encounter Details Date Type Department Care Team (Late st Contact Info) Description 04/14/2020 Lab Requisition [facility] Pathology & Laboratory Medicine - [address] [address] Outr Resulting Lab, Provider Social History Tobacco Use Types Packs/Day Years Used Date Smoking Tobacco: Never Assessed Sex and Gender Information Value Date Recorded Sex Assigned at Not on file Gender Identity Not on file Sexual Orientation Not on file documented as of this encounter Plan of Treatment Not on file documented as of this encounter Procedures Procedure Name Priority Date/Time Associated Diagnosis Comments DO NOT ORDER STANDALONE - BROAD COVID TEST Today 04/14/2020 13:51 EDT COVID-19 TESTING Routine 04/14/2020 13:5 1 EDT documented in this encounter Results * DO NOT ORDER STANDALONE - BROAD COVID TEST (04/14/2020 13:51 EDT) COVID-19 rt-PCR Result NEGATIVE Negative 04/15/2020 19:36 EDT [facility] Comment: 2019-novel Coronavirus (2019-nCoV) not detected by the qRT-PCR assay. Consider testing for other respiratory viruses or re-collecting for 2019-nCoV testing. Note: Optimum timing for peak viral levels during infections caused by 2019-nCoV have not been determined. Collection of multiple specimens from the same patient may be necessary to detect the virus. Limitations Positive results are indicative of active infection with SARS-CoV-2 but do not rule out bacterial infection or co-infection with other viruses. The agent detected may not be the definite cause of disease. In addition, detection of viral RNA may not indicate the presence of infectious virus or that SARS-CoV-2 is the causative agent for clinical symptoms. Negative results do not preclude SARS-CoV-2 infection and should not be used as the sole basis for patient management decisions. Negative results must be combined with clinical observations, patient history, and epidemiological information. False negative results may also occur if amplification inhibitors are present in the specimen or if inadequate numbers of organisms are present in the specimen. Optimum specimen types and timing for peak viral levels during infections caused by SARS-CoV-2 have not been fully determined. Collection of multiple specimens (types and time points) from the same patient may be necessary to detect the virus. The test was validated for use with upper respiratory specimens obtained via nasopharyngeal or oropharyngeal swabs in VTM, UTM, M4, M5, M6, saline, and MTM media. The performance of this test has not been established for other specimens. Specimens collected using other FDA recommended Specimen Collection Materials listed in the FDA COVID-19 Diagnostic Technologies communication (January 27, 2020) are processed with the caveat that they were not [...] in accordance with CLIA regulations, College of [place] (CAP) guidelines (Jan 20, 2020), and FDA guidance (Jan 01, 2020). This test is only for use under the Food and Drug Administration's Emergency Use Authorization. Swab ENTIRE NASOPHARYNX / Unknown 04/14/2020 13:51 EDT 04/14/2020 19:27 EDT Provider Outr Resulting Lab MICROBIOLOGY - GENERAL ORDERABLES [facility] [place], [place] * COVID-19 TESTING (04/14/2020 13:51 EDT) COVID-19 rt-PCR Result NEGATIVE Negative 04/15/2020 23:23 EDT [facility] Comment: 2019-novel Coronavirus (2019-nCoV) not detected by the qRT-PCR assay. Consider testing for other respiratory viruses or re-collecting for 2019-nCoV testing. Note: Optimum timing for peak viral levels during infections caused by 2019-nCoV have not been determined. Collection of multiple specimens from the same patient may be necessary to detect the virus. Limitations Positive results are indicative of active infection with SARS-CoV-2 but do not rule out bacterial infection or co-infection with other viruses. The agent detected may not be the definite cause of disease. In addition, detection of viral RNA may not indicate the presence of infectious virus or that SARS-CoV-2 is the causative agent for clinical symptoms. Negative results do not preclude SARS-CoV-2 infection and should not be used as the sole basis for patient management decisions. Negative results must be combined with clinical observations, patient history, and epidemiological information. False negative results may also occur if amplification inhibitors are present in the specimen or if inadequate numbers of organisms are present in the specimen. Optimum specimen types and timing for peak viral levels during infections caused by SARS-CoV-2 have not been fully determined. Collection of multiple specimens (types and time points) from the same patient may be necessary to detect the virus. The test was validated for use with upper respiratory specimens obtained via nasopharyngeal or oropharyngeal swabs in VTM, UTM, M4, M5, M6, saline, and MTM media. The performance of this test has not been established for other specimens. Specimens collected using other FDA recommended Specimen Collection Materials listed in the FDA COVID-19 [employer] communication (January 27, 2020) are processed with the caveat that they were not [...] in accordance with CLIA regulations, College of [place]ologists (CAP) guidelines (Jan 20, 2020), and FDA guidance (Jan 01, 2020). This test is only for use under the Food and Drug Administration's Emergency Use Authorization. Performing Lab [facility] 04/15/2020 23:23 EDT [facility] Swab ENTIRE NASOPHARYNX / Unknown 04/14/2020 13:51 EDT 04/14/2020 19:27 EDT Provider Outr Resulting Lab MICROBIOLOGY - GENERAL ORDERABLES [facility] [address] [place] [address] [facility] [place], [place] documented in this encounter Visit Diagnoses Not on filedocumented in this encounter Care Teams Plastics Plater Relationship Specialty Start Date End Date Richa Brand, DON [address] [place] [address] PCP - General 11/23/21 documented as of this encounter
--- OUTSIDE RECORDS SUMMARY | 2024-08-28 17:07 | XMS_ITS | Clinical Summary ---
Author Organization [facility] Address [address] [place] [address] Care Team Providers Care Carpenter/Labor Name Role Phone Richa Brand APRN Primary Care Provider +1 [phone] Social History Tobacco Use Types Packs/Day Years Used Date Smoking Tobacco: Never Assessed Sex and Gender Information Value Date Recorded Sex Assigned at Not on file Gender Identity Not on file Sexual Orientation Not on file Plan of Treatment Health Maintenance Due Date Last Done Comments RSV Immunization ( o r 60+ Years) (1 - 1-dose 60+ series) 2003 Fall Risk Screening 2008 COVID-19 Vaccine ( season) 2024 Care Teams Carpenter/Labor Relationship Specialty Start Date End Date Richa Brand APRN [address] [place] [address] PCP - General 11/23/21
--- OUTSIDE RECORDS SUMMARY | 2024-08-28 17:07 | XMS_ITS | Encounter Summary ---
Author Organization [place] [address] Care Team Providers Care Reconciliation Accountant Name Role Phone Richa Brand APRN Primary Care Provider +1 -[phone] Encounter Details Date Type Department Care Team (Late st Contact Info) Description 03/15/2021 2:00 PM EDT TH Visit (TeleHealth) [place] [address] Augusta Keys MD [facility] [place] [address] Mild cognitive impairment Social History Tobacco Use Types Packs/Day Years [...] Progress Notes * Augusta Keys MD - 03/15/2021 2:00 PM EDT [facility] TELEHEALTH follow up Patient Name: Chencho Mcgrath Patient ID: Chencho Mcgrath is a 75 y.o. M Patient's name and verified Patient gave Verbal consent for a Telephone Visit Chencho Mcgrath understands that this visit may be billed, similar to a clinic visit Patient Location: [place] Medication reconciliation was completed History: 75 yo [...] order a lumbar puncture to include the Moni ADMARK 177 test along with any other studies Dr. Shah may suggest. At this point in time, he has MCI, not dementia, but he does worry about Alzheimer's, so we will plan to evaluate him for AD via CSF, and if this is ambiguous, we will likely pursue a PET scan and/orneuropsychological testing. Please note that with a telehealth [...] 3:15 PM EST [place] [address] Matthieu Benson MD [facility] [place] [address] 10/05/2024 1:30 PM EST TH Visit (TeleHealth) [place] [address] Pavan Iglesias APRN [facility] [place] [address] 01/31/2025 2:40 PM EDT Office Visit Cardiology at [address] [address] Brayan Garay MD [facility] [address] 03/16/2025 9:30 AM EDT [place] [address] Augusta Keys MD [facility] [place] [address] documented as of this encounter Visit Diagnoses Diagnosis Mild cognitive impairment Mild cognitive impairment, so stated documented in this encounter Care Teams Reconciliation Accountant Relationship Specialty Start Date End Date Richa Brand APRN [address] [place] [address] PCP - General Family Medicine 03/24/17 documented as of this encounter
--- OUTSIDE RECORDS SUMMARY | 2024-08-28 17:07 | XMS_ITS | Encounter Summary ---
Author Organization [facility] [place] [address] Care Team Providers Care Lining Cleaner Name Role Phone Richa Brand APRN Primary Care Provider +1 -[phone] Reason for Visit * - Closed Specialty Diagnoses / Procedures Referred By Shayy t Referred To Contact Procedures Film Library- Storage Only MR Calles Richa Brand APRN [address] [place] [address] Referral ID Status Reason Start Date Expiration Date Visits Re quested Visits Authorized [id number] Closed 01/11/2021 01/11/2022 1 1 Encounter Details Date Type Department Care Team ([facility] Contact Info) Description 07/09/2019 Ancillary Procedure Radiology Library at [facility] [place] [address] Richa Brand APRN [address] [place], [place] [address] Social History Tobacco Use Types Packs/Day Years [...] 3:15 PM EST Procedure [place] [address] Matthieu Benson MD [facility] [place] [address] 10/05/2024 1:30 PM EST TH Visit (TeleHealth) [place] [address] Pavan Iglesias APRN [facility] [place] [address] 01/31/2025 2:40 PM EDT Office Visit Cardiology at [address] [address] Brayan Garay MD [facility] [place] [address] 03/16/2025 9:30 AM EDT Office [place] [address] Augusta Keys MD [facility] [place] [address] documented as of this encounter Procedures Procedure Name Priority Date/Time Associated Diagnosis Comments FILM LIBRARY STORAGE ONLY MR HEAD Routine 07/09/2019 12:00 AM EDT documented in this encounter Results * Film Library- Storage Only MR Head (07/09/2019 12:00 AM EDT) Narrative RAD - 01/11/2021 3:51 PM EST This exam is auto-finalizing. It's purpose is for storage only. Richa Brand APRN IMG FILM LIBRARY ORDERABLES [place], [place] documented in this encounter Visit Diagnoses Not on filedocumented in this encounter Care Teams Lining Cleaner Relationship Specialty Start Date End Date Richa Brand APRN [address] [place] [address] PCP - General Family Medicine 03/24/17 documented as of this encounter
--- OUTSIDE RECORDS SUMMARY | 2024-08-28 17:07 | XMS_ITS | Encounter Summary ---
Author Organization [facility] [place] [address] Care Team Providers Care Machine Setter Supervisor Name Role Phone Richa Brand APRN Primary Care Provider +1 -[phone] Reason for Visit * Reason Onset Date Comments TeleHealth 08/15/2021 Encounter Details Date Type Department Care Team (Late st Contact Info) Description 08/15/2021 Telephone [place] [phone] Augusta Keys MD [facility] [place] [address] TeleHealth Social History Tobacco Use Types Packs/Day [...] Telephone Encounter - Monse Estevez RN - 08/15/2021 9:14 AM EDT Spoke to this patient??by phone to review??their??medications and allergies prior to their??upcoming tele-appointment with the Neurology??provider. ??Medications and allergies reviewed, verified and updated as needed. documented in this encounter Plan of Treatment Upcoming Encounters Date Type Department Care Team (Late st Contact Info) Description 09/28/2024 3:15 PM EST Procedure visit Neurology at [place] [phone] Matthieu Benson MD [facility] [place] [address] 10/05/2024 1:30 PM EST TH Visit (TeleHealth) [place] [address] Pavan Iglesias APRN [facility] [place] [address] 01/31/2025 2:40 PM EDT Office Visit Cardiology at [address] [address] Brayan Garay MD [facility] [place] [address] 03/16/2025 9:30 AM EDT Office [place] [address] Augusta Keys MD [facility] [place] [address] documented as of this encounter Visit Diagnoses Not on filedocumented in this encounter Care Teams Machine Setter Supervisor Relationship Specialty Start Date End Date Richa Brand APRN [address] [place] [address] PCP - General Family Medicine 03/24/17 documented as of this encounter
--- OUTSIDE RECORDS SUMMARY | 2024-08-28 17:07 | XMS_ITS | Encounter Summary ---
Author Organization [facility] Address [address] [place] [address] Care Team Providers Care Cinder Snapper Name Role Phone Richa Brand APRN Primary Care Provider +1 -[phone] Encounter Details Date Type Department Care Team (Late st Contact Info) Description 12/09/2022 Lab Requisition [facility] Pathology & Laboratory Medicine - [facility] [address] [place] [address] Outr Resulting Lab, Provider Social History Tobacco Use Types Packs/Day Years Used Date Smoking Tobacco: Never Assessed Sex and Gender Information Value Date Recorded Sex Assigned at Not on file Gender Identity Not on file Sexual Orientation Not on file documented as of this encounter Plan of Treatment Not on file documented as of this encounter Visit Diagnoses Not on filedocumented in this encounter Care Teams Cinder Snapper Relationship Specialty Start Date End Date Richa Brand APRN [address] [place] [address] PCP - General 11/23/21 documented as of this encounter
--- OUTSIDE RECORDS SUMMARY | 2024-08-28 17:07 | XMS_ITS | Encounter Summary ---
[place] [address] Care Team Providers Care Saturator Name Role Phone Richa Brand APRN Primary Care Provider +1 -[phone] Reason for Visit * Reason Onset Date Comments Medication Refill 05/28/2021 Encounter Details Date Type Department Care Team (Late st Contact Info) Description 05/28/2021 [place] [address] Augusta Keys MD [facility] [place] [address] Social History Tobacco Use Types Packs/Day Years [...] encounter Miscellaneous Notes * Telephone Encounter - Cristel Cazares RN - [...] 3:15 PM EST [place] [address] Matthieu Benson MD [facility] [place] [address] 10/05/2024 1:30 PM EST TH Visit (TeleHealth) [place] [address] Pavan Iglesias APRN [facility] [place] [address] 01/31/2025 2:40 PM EDT Office Visit Cardiology at [address] [place] [address] Brayan Garay MD [facility] [place] [address] 03/16/2025 9:30 AM EDT Office Visit Neurology at [place] [phone] Augusta Keys MD [facility] [place] [address] documented as of this encounter Visit Diagnoses Not on filedocumented in this encounter Care Teams Saturator Relationship Specialty Start Date End Date Richa Brand APRN [address] [place] [address] PCP - General Family Medicine 03/24/17 documented as of this encounter
--- OUTSIDE RECORDS SUMMARY | 2024-08-28 17:07 | XMS_ITS | Encounter Summary ---
Author Organization [facility] Address [facility] [place] [address] Care Team Providers Care Oil Separator Name Role Phone Richa Brand APRN Primary Care Provider +1 -[phone] Encounter Details Date Type Department Care Team (Late st Contact Info) Description 11/27/2018 Abstract Cardiology at [address] [place] [address] Terrence Jang RN Social History [...] 3:15 PM EST Procedure [place] [address] Matthieu Benson MD [facility] [place] [address] 10/05/2024 1:30 PM EST TH Visit (TeleHealth) [place] [address] Pavan Iglesias APRN [facility] [place] [address] 01/31/2025 2:40 PM EDT Office Visit Cardiology at [address] [address] Brayan Garay MD [facility] [place] [address] 03/16/2025 9:30 AM EDT Office [place] [address] Augusta Keys MD [facility] [place] [address] documented as of this encounter Visit Diagnoses Not on filedocumented in this encounter Care Teams Oil Separator Relationship Specialty Start Date End Date Richa Brand APRN [address] [place] [address] PCP - General Family Medicine 03/24/17 documented as of this encounter
--- OUTSIDE RECORDS SUMMARY | 2024-08-28 17:07 | XMS_ITS | Encounter Summary ---
Author Organization [facility] [place] [address] Care Team Providers Care Diet Counselor Name Role Phone Richa Brand APRN Primary Care Provider +1 -[phone] Encounter Details Date Type Department Care Team (Late st Contact Info) Description 07/13/2021 Refill Dermatology at [address] [address] Joy [place], ELECTROLOGIST Social History Tobacco Use Types Packs/Day Years [...] 3:15 PM EST Procedure visit [place] [address] Matthieu Benson MD [facility] [place] [address] 10/05/2024 1:30 PM EST TH Visit (TeleHealth) [place] [address] Pavan Iglesias APRN [facility] [place] [address] 01/31/2025 2:40 PM EDT Office Visit Cardiology at [address] [place] [address] Brayan Garay MD [facility] [place] [address] 03/16/2025 9:30 AM EDT Office Visit [place] [address] Augusta Keys MD [facility] [place] [address] documented as of this encounter Visit Diagnoses Not on filedocumented in this encounter Care Teams Diet Counselor Relationship Specialty Start Date End Date Richa Brand APRN [address] [place] [address] PCP - General Family Medicine 03/24/17 documented as of this encounter
--- OUTSIDE RECORDS SUMMARY | 2024-08-28 17:07 | XMS_ITS | Encounter Summary ---
Author Organization [facility] Address [facility] [place] [address] Care Team Providers Care Search Marketing Analyst Name Role Phone Richa Brand APRN Primary Care Provider +1 -[phone] Reason for Visit * Reason Comments Dermatitis * Consultation (Routine) - Closed Specialty Diagnoses / Procedures Referred By Shayy capellan Referred To Contact Dermatology Diagnoses eczema Richa Brand APRN [address] [place] [address] [facility] Dermatology [address] [place] [address] Referral ID Status Reason Start Date Expiration Date V isits Requested Visits Authorized Closed Consult, Test & Treat [facility] 03/24/2017 03/24/2018 1 1 Encounter Details Date Type Department Care Team (Late st Contact Info) Description 04/09/2017 11:00 AM EDT Office Visit Dermatology at [facility] [address] [place] [address] Miguel A Fernandez MD [facility] [address] [place] [address] Nummular dermatitis Social History Tobacco Use Types Packs/Day Years Used Date Smoking Tobacco: Former Comments:50 years ago Sex and Gender Information Value Date Recorded Sex Assigned at Not on file Gender Identity Not on file Sexual Orientation Not on file documented as of this encounter Patient Instructions * Patient Instructions* Germaine Dennis LPN - 04/09/2017 11:00 AM EDT [...] sheets. documented in this encounter Progress Notes * Miguel A Fernandez MD - 04/09/2017 11:00 [...] are mildly annoying. In the winter he flaresand then with the spring weather his eczema resolves. In 2003 he moved from [place] to [place], was here for 3 years, he had a severe breakout on the scalp which left him with residual scarring.He saw 3 different dermatologists who did not know what the scalp diagnosis was. His scalp resolvedspontaneously after 9 months. Patient has now been back in [place] for 3 years and is experiencing an strong re-occurrence over the last 6 weeks that manifested with severe itching, oozing and raisedskin with in the oozing. He was using over the counter cortisone 10 with no improvement. He took warm Epson salt baths to help soothe itching. His PCP suggested using Eucerin cream, no improvement, then was prescribed triamcinolone 0.025% lotion which helped dramatically, about 90% improvement. 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 A total body skin exam except forthe genitalia was performed. This includes examination of the skin of the face, ears, neck, chest, axillae, left and right upper and lower extremities, hands, feet, abdomen, back, and buttocks. The genitalia, perineum, and perianal areas were not examined. Significant skin findings: A. Circular thin pink eczematous plaques on the bilateral lower legs and a large plaque on the right posterior shoulder and popliteal fossa ASSESSMENT/PLAN: A. Nummular [...] in this encounter. Miguel A Fernandez MD Foundry Patternmaker of Dermatology, Department of Surgery [facility] cc: Richa Brand APRN documented in this encounter Plan of Treatment Upcoming Encounters Date Type Department Care Team (Late st Contact Info) Description 09/28/2024 3:15 PM EST Procedure [place] [address] Matthieu Benson MD [facility] [place] [address] 10/05/2024 1:30 PM EST TH Visit (TeleHealth) [place] [address] Pavan Iglesias APRN [facility] [place] [address] 01/31/2025 2:40 PM EDT Office Visit Cardiology at [address] [address] Brayan Garay MD [facility] [place] [address] 03/16/2025 9:30 AM EDT Office [place] [address] Augusta Keys MD [facility] [place] [address] documented as of this encounter Visit Diagnoses Diagnosis Nummular dermatitis Contact dermatitis and other eczema, due to unspecified cause documented in this encounter Care Teams Search Marketing Analyst Relationship Specialty Start Date End Date Richa Brand APRN [address] [place] [address] PCP - General Family Medicine 03/24/17 documented as of this encounter
--- OUTSIDE RECORDS SUMMARY | 2024-08-28 17:07 | XMS_ITS | Encounter Summary ---
Author Organization [facility] [place] [address] Care Team Providers Care Analytical Strategist Name Role Phone Richa Brand APRN Primary Care Provider [phone] Reason for Visit * Reason Onset Date Comments Medication Problem 05/30/2021 Encounter Details Date Type Department Care Team (Late st Contact Info) Description 05/30/2021 Refill [place] [address] Augusta Keys MD [facility] [place] [address] Social History Tobacco Use Types Packs/Day Years [...] encounter Miscellaneous Notes * Telephone Encounter - LibiaFebruary - 05/30/2021 8:24 AM EDT Call Center / Milo Message - Medication Issue (Not to be used for refill request or medication prior auth request) Provider patient sees in Clinic: Dr. Keys Caller and relationship (if other than patient-full name): Partner Call Back Number: [phone] Ok to leave a message: y Reason for call: Patients partner states that the insurance will not pay for this in 5 mg tablets .Patients partner states the prescription needs to be written as 10 mg tablets. Patient will be out in two days Message/information for the nurse: Please rewrite [...] 3:15 PM EST Procedure visit Neurology at [place] [address] Matthieu Benson MD [facility] [place] [address] 10/05/2024 1:30 PM EST TH Visit (TeleHealth) [place] [address] Pavan Iglesias APRN [facility] [place] [place] [address] 01/31/2025 2:40 PM EDT Office Visit Cardiology at [address] [address] Brayan Garay MD [facility] [place] [address] 03/16/2025 9:30 AM EDT Office Visit Neurology at [address] Augusta Keys MD [facility] [place] [address] documented as of this encounter Visit Diagnoses Not on filedocumented in this encounter Care Teams Analytical Strategist Relationship Specialty Start Date End Date Richa Brand APRN [address] [place] [address] PCP - General Family Medicine 03/24/17 documented as of this encounter
--- OUTSIDE RECORDS SUMMARY | 2024-08-28 17:07 | XMS_ITS | Encounter Summary ---
Author Organization [facility] [place] [address] Care Team Providers Care Patient Registration Specialist Name Role Phone Richa Brand APRN Primary Care Provider [phone] Encounter Details Date Type Department Care Team (Late st Contact Info) Description 08/16/2021 1:00 PM EDT TH Visit (TeleHealth) [place] [address] Augusta Keys MD [facility] [place] [address] Mild cognitive impairment Social History Tobacco Use [...] Progress Notes * Augusta Keys MD - 08/16/2021 1:00 PM [...] visit, he has become established with the [facility]. He has had amyloid and tau scanning, which revealed the presence of both tau NFTs and beta amyloid plaques (c/w the Alzheimer's disease pathophysiologic process, which is what we had suspected), and [...] the future, but he would have to discusswith the PI an [facility]. We discussed aducanumab in detail. I will see him in person in the spring, we could consider a MoCA, a CDR or FAQ to measure how he isdoing. Please note that with a telehealth encounter [...] 3:15 PM EST Procedure [place] [address] Matthieu Benson MD [facility] [address] [place] [address] 10/05/2024 1:30 PM EST TH Visit (TeleHealth) Neurology at [place] [phone] Pavan Iglesias APRN [facility] [address] [place] [address] 01/31/2025 2:40 PM EDT Office Visit Cardiology at [address] [address] Brayan Garay MD [facility] [place] [address] 03/16/2025 9:30 AM EDT Office [place] [address] Augusta Keys MD [facility] [address] [place]OLOG[place] [address] documented as of this encounter Visit Diagnoses Diagnosis Mild cognitive impairment Mild cognitive impairment, so stated documented in this encounter Care Teams Patient Registration Specialist Relationship Specialty Start Date End Date Richa Brand APRN [address] [place] [address] PCP - General Family Medicine 03/24/17 documented as of this encounter
--- OUTSIDE RECORDS SUMMARY | 2024-08-28 17:07 | XMS_ITS | Encounter Summary ---
Author Organization [facility] 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 Social History Tobacco Use Types Packs/Day Years [...] 3:15 PM EST Procedure [place] [address] Matthieu Benson MD [facility] [place] [address] 10/05/2024 1:30 PM EST TH Visit (TeleHealth) [place] [address] Pavan Iglesias APRN [facility] [place] [address] 01/31/2025 2:40 PM EDT Office Visit Cardiology at [address] [address] Brayan Garay MD [facility] [place] [address] 03/16/2025 9:30 AM EDT Office [place] [address] Augusta Keys MD [facility] [place] [address] documented as of this encounter Visit Diagnoses Not on filedocumented in this encounter Care Teams Part Time Relationship Specialty Start Date End Date Richa Brand APRN [address] [place] [address] PCP - General Family Medicine 03/24/17 documented as of this encounter
--- OUTSIDE RECORDS SUMMARY | 2024-08-28 17:07 | XMS_ITS | Encounter Summary ---
Author Organization [facility] Address [facility] [place] [address] Care Team Providers Care Wire Sawyer Name Role Phone Richa Brand APRN Primary Care Provider [phone] Reason for Referral * Consultation (Routine) - Closed Specialty Diagnoses / Procedures Referred By Shayy capellan Referred To [facility] Diagnoses Numbness and tingling Foot drop, right Radicular pain of right lower extremity Spine- Lumbar stenosis w/ R foot drop and radicular sx/ MRI 04/23/21 in eDH Jacki Martinez MD [facility] [place] [address] [facility] [place] [address] Referral ID Status Reason Start Date Expiration Date V isits Requested Visits Authorized [id number] Closed Consult, Test & Treat 05/27/2021 05/27/2022 3 3 Encounter Details Date Type Department Care Team ([facility] st Contact Info) Description 05/23/2021 10:00 AM EDT TH Visit (TeleHealth) [place] [address] Jacki Martinez MD [facility] [place] [address] Numbness and tingling; Foot drop, right; Radicular pain of right lower extremity; Numbness and tingling of both upper extremities [...] Progress Notes * Jacki Martinez MD - 05/23/2021 10:00 AM EDT Neurology Clinic Telephone/Telehealth Follow-up Note Per COVID19 Restrictions 05/22/21 6:36 PM Patient Name: Chencho [...] neuromuscular consultation by Dr. Keys, who sees himfor cognitive change. We were able to identify [...] only) Follow-up: for NCS/EMG JACKI MARTINEZ MD [facility] [place]eller, Neuromuscular Medicine [facility] 05/22/21 6:36 PM Patient provided verbal consent prior to initiation of this telephone/televisit encounter and expressed understanding that the telephone/televisit may be billed similar to a clinic visit. I spent a total of 30 Minutes in discussion/counseling related to ongoing medical problems, with 10minutes same day chart and test review, ordering testing/drugs, coordination of care and documentation. documented in this encounter Plan of Treatment Upcoming Encounters Date Type Department Care Team (Late st Contact Info) Description 09/28/2024 3:15 PM EST [place] [address] Matthieu Benson MD [facility] [address] 10/05/2024 1:30 PM EST TH Visit (TeleHealth) [place] [address] Pavan Iglesias APRN [facility] [address] 01/31/2025 2:40 PM EDT Office Visit Cardiology at [address] [place] [address] Brayan Garay MD [facility] [place] [address] 03/16/2025 9:30 AM EDT [place] [address] Augusta Keys MD [facility] [place] [address] Scheduled Referrals Name Type Priority Associated Diagnoses [...] neuritis or radiculitis, unspecified Numbness and tingling of both upper extremities documented in this encounter Care Teams Wire Sawyer Relationship Specialty Start Date End Date Richa Brand APRN [address] [place] [address] PCP - General Family Medicine 03/24/17 documented as of this encounter
--- OUTSIDE RECORDS SUMMARY | 2024-08-28 17:07 | XMS_ITS | Encounter Summary ---
Author Organization [facility] Address [facility] [place] [address] Care Team Providers Care Hydrogenation Operator Name Role Phone Richa Brand APRN Primary Care Provider [phone] Reason for Visit * Reason Comments Medication Refill Encounter Details Date Type Department Care Team (Late st Contact Info) Description 05/04/2021 Refill Cardiology at [address] [place] [address] Brayan Garay MD [facility] [place] [address] Medication Refill Social History Tobacco Use Types [...] * Telephone Encounter - Rain Garg - 05/04/2021 2:25 PM EDT Patient also called asking for a refill for Atorvastatin from [facility]. He has a weeks worth left. #[phone] documented in this encounter Plan of Treatment Upcoming Encounters Date Type Department Care Team (Late st Contact Info) Description 09/28/2024 3:15 PM EST Procedure visit Neurology at [place] [phone] Matthieu Benson MD [facility] [place] [address] 10/05/2024 1:30 PM EST TH Visit (TeleHealth) Neurology at [place] [phone] Pavan Iglesias APRN [facility] [place] [address] 01/31/2025 2:40 PM EDT Office Visit Cardiology at [address] [phone] Brayan Garay MD [facility] [place] [address] 03/16/2025 9:30 AM EDT [place] [address] Augusta Keys MD [facility] [place] [address] documented as of this encounter Visit Diagnoses Diagnosis Hyperlipidemia, unspecified hyperlipidemia type documented in this encounter Care Teams Hydrogenation Operator Relationship Specialty Start Date End Date Richa Brand APRN [address] [place] [address] PCP - General Family Medicine 03/24/17 documented as of this encounter
--- OUTSIDE RECORDS SUMMARY | 2024-08-28 17:07 | XMS_ITS | Encounter Summary ---
Author Organization [facility] Address [facility] [place] [address] Care Team Providers Care Informatics Educator Name Role Phone Richa Brand APRN Primary Care Provider [phone] Reason for Visit * Reason Comments Coronary Artery Disease Encounter Details Date Type Department Care Team (Late st Contact Info) Description 01/16/2021 9:40 AM EDT Office Visit Cardiology at [address] [place] [address] Brayan Garay MD [facility] [place] [address] Coronary artery disease involving [place] coronary artery of [place] heart without angina pectoris Social History Tobacco [...] Progress Notes * Brayan Garay MD - 01/16/2021 9:40 AM [...] PRIOR TO INTERCOURSE NEEDED,Disp: , Rfl: ??? L-LYSINE ORAL, Take 1 [...] 3:15 PM EST Procedure visit Neurology at [place] [phone] Matthieu Benson MD [facility] [place] [address] 10/05/2024 1:30 PM EST TH Visit (TeleHealth) [place] [address] Pavan Iglesias APRN [facility] [place] [address] 01/31/2025 2:40 PM EDT Office Visit Cardiology at [address] [place] [address] Brayan Garay MD [facility] [place] [place] [address] 03/16/2025 9:30 AM EDT [place] [address] Augusta Keys MD [facility] [place] [address] documented as of this encounter Visit Diagnoses Diagnosis Coronary artery disease 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
--- OUTSIDE RECORDS SUMMARY | 2024-08-28 17:07 | XMS_ITS | Encounter Summary ---
Author Organization [facility] [place] [address] Care Team Providers Care Travel Accommodations Rater Name Role Phone Richa Brand APRN Primary Care Provider [phone] Reason for Referral * Consultation (Routine) - Closed Specialty Diagnoses / Procedures Referred By Controsalia t Referred To Contact Neurology Diagnoses Memory loss Idiopathic peripheral neuropathy Augusta Keys MD [facility] [place] [address] Jacki Shah MD [facility] [place] [address] Referral ID Status Reason Start Date Expiration Date V isits Requested Visits Authorized [id number] Closed Consult, Test & Treat 01/11/2021 01/11/2022 1 1 Reason for Visit * Consultation (Routine) - Closed Specialty Diagnoses / Procedures Referred By Contac t Referred To Contact Neurology Diagnoses Other amnesia Hereditary and idiopathic neuropathy, unspecified Richa Brand APRN [address] [place] [address] [facility] [address] [place] [phone] Referral ID Status Reason Start Date Expiration Date V isits Requested Visits Authorized [id number] Closed Consult, Test & Treat [facility] PCP Updated and/or Approved 09/04/2020 09/04/2021 6 6 Encounter Details Date Type Department Care Team (Late st Contact Info) Description 01/11/2021 8:30 AM EST Office Visit Neurology at [facility] [place] [phone] Augusta Keys MD [facility] [place] [address] Memory loss; Idiopathic peripheral neuropathy Social History Tobacco Use Types Packs/Day Years [...] Progress Notes * Augusta Keys MD - 01/11/2021 8:30 AM [...] day. Monse mentions concerns about driving. He hasmade wrong turns, he has felt disoriented in familiar locations, and notes that he has been making r iskier decisions while driving. She seen him drive over the divider line. He does tend to forget conversations in their details over the course of several hours. She has also noticed that he has difficulty with multistep tasks, and tasks that should be relatively familiar to him or simple. For example, she gave him the task of labeling stickers and then attaching them to a cooler, and he could not figure out how to do it. She had also asked him to pack some dishes prior to the move, and he felthe could not do it alone. There seems to be some problem with planning and organization. He has more problems with word retrieval. Monse noticed that he has had trouble figuring out how to use the r emote control. She notes that he is knocking things over more often, dropping things. His balance has changed. He seems to have some slapping down of the right foot. He has a peripheral neuropathy that is undergoing some work-up with a neurologist in [place]. He has had a nerve conduction study of the upper extremities that revealed an ulnar and median neuropathy, but the lower extremities have not beenstudied yet. The neurologist also checked SPEP, hemoglobin A1c and these were normal. He does not have a family history of neuropathy, but there are mentions of a hereditary neuropathy in the outsideneurology notes. While he is a very healthy person, actively doing yoga, meditating, and carrying out a vegetarian diet, he does have a history of coronary artery disease for which he is on aspirin and a statin, he has diet controlled hypertension, mildly elevated cholesterol. Per review of notes, he was involved with some use of hallucinogens decades ago. No history of alcoholism, drinks an occasional glass of wine. He has a brother, paternal grandfather both of [...] 19 out of 30. He lost a pointfor the cylinder copy, 3 points for the [...] the right foot when walking, he scissors his legs at times, narrow base. Finger to nose [...] of motion. There is atrophy of the thenar eminence, atrophy of the distal lower legs. His [...] language (semantic), and recall memory, with intact recognition.attention, and orientation. He meets criteria for MCI, [...] for elevated protein and send out the [place] ADMARK 177 test for Alzheimer's. I am unsure of the relationship to shingles, but will order CSF VZV. He's had an MRI brain [facility]. We should meet again in 2-3 months after his consultations, etc, to discuss next steps (CSF vs PET scan) 80 minutes were spent face to face with the patient and the family, and at least 45 minutes spent on direct education and supportive counseling, education on memory loss, the diagnosis and management, and coordination of care. documented in this encounter Plan of Treatment Upcoming Encounters Date Type Department Care Team (Late st Contact Info) Description 09/28/2024 3:15 PM EST Procedure [place] [phone] Matthieu Benson MD [facility] [place] [address] 10/05/2024 1:30 PM EST TH Visit (TeleHealth) [place] [phone] Pavan Iglesias APRN [facility] [place] [address] 01/31/2025 2:40 PM EDT Office Visit Cardiology at [address] [phone] Brayan Garay MD [facility] [address] 03/16/2025 9:30 AM EDT [place] [phone] Augusta Keys MD [facility] [place] [address] Scheduled Referrals Name Type Priority Associated Diagnoses Orde r Schedule Referral to Neurology Outpatient Referral Routine Memory loss Idiopathic peripheral neuropathy Ordered: 01/11/2021 documented as of this encounter Procedures Procedure Name Priority Date/Time Associated Diagnosis Comments HC RHEUMATOID FACTOR Routine 01/11/2021 10:20 AM EST Memory loss Idiopathic peripheral neuropathy HC LYME DISEASE, RALPH Routine 10:19 AM EST Memory loss Idiopathic peripheral neuropathy HC PARTIAL THROMBOPLASTIN TIME Routine 01/11/2021 10:19 AM EST Memory loss Idiopathic peripheral neuropathy HC ESR-SEDIMENTATION RATE, BLOOD Routine 01/11/2021 10:19 AM EST Memory loss Idiopathic peripheral neuropathy HC PROTHROMBIN TIME Routine 01/11/2021 1 0:19 AM EST Memory loss Idiopathic peripheral neuropathy HC VENIPUNCTURE Routine 01/11/2021 10:19 AM EST Memory loss Idiopathic peripheral neuropathy HC PCH ANATITRE (ANDPATTERN) Routine 01/11/2021 10:19 AM EST Memory loss Idiopathic peripheral neuropathy documented in this encounter Results * Rheumatoid factor, quant (01/11/2021 10:20 AM EST) Rheumatoid Factor <10 <=14 IU/mL [facility] Blood specimen (specimen) 01/11/2021 10:20 AM EST 01/11/2021 10:57 AM EST Narrative Resulting Agency Comment Spec In Lab Augusta Keys MD CHEMISTRY ORDERABL ES Performing Organization Address City/State/[facility] Co de Phone Number [facility] [place] [address] * Platelet count (01/11/2021 10:19 AM EST) Platelet 220 145 - 357 x10(3)/mc L [facility] Immature Plt % 2.3 0.0 - 7.4 % [facility] Comment: Limitation of the Immature Platelet Fraction (IPF)-May be less reliable when the platelet count is less than 85i784/uL due to statistical imprecision. The IPF value provides an assessment of the Bone Marrow production status. ??It is useful in differentiating Thrombocytopenia caused by platelet destruction/consumption versus decreased production. It also helps to determine the imminent release of platelets and can be therefore a helpful parameter in Chemotherapy and Bone marrow transplant patients. ELEVATED IPF value: ?? When the bone marrow is in a state of over production such as when increased destruction and consumption are the underlying issue. ?? When the marrow is recovering post chemotherapy or bone marrow transplant. LOW to NORMAL IPF value: ?? When the bone marrow in not responding and is in a decreased state of production. References: [employer] The Clinical Value of the Immature Platelet Fraction (IPF) in Cell Recovery Document Number 10-1143 04/2011 [employer] The Role of the Immature Platelet Fraction (IPF) in the Differential Diagnosis of Thrombocytopenia, Document MKT-[id number] V003/14/14 Blood specimen (specimen) 01/11/2021 10:19 AM EST 01/11/2021 10:57 AM EST Narrative Resulting Agency Comment Spec In Lab Augusta Keys MD HEMATOLOGY ORDERAB LES Performing Organization Address [facility] Co de Phone Number [facility] [place] [address] * APTT (01/11/2021 10:19 AM EST) Pathologist [facility] Partial Thromboplastin Time 29 25 - 37 sec [facility] Comment: The PTT is NOT appropriate for heparin monitoring. Use the Anti-Xa level for heparin monitoring (HEP UFH) or LMWH monitoring (HEP LMW). A PTT less than 37 seconds generally indicates adequate hemostasis. Blood specimen (specimen) 01/11/2021 10:19 AM EST 01/11/2021 10:57 AM EST Narrative Resulting Agency Comment Spec In Lab Augusta Keys MD HEMATOLOGY ORDERAB LES Performing Organization Address City/[facility] Co de Phone Number [facility] [place] [address] * Prothrombin Time (01/11/2021 10:19 AM EST) Prothrombin Time 10.8 9.4 - 12.5 sec [facility] International Normalization Ratio 1.0 [facility] Comment: An INR <2.0 indicates adequate procoagulant activity for hemostasis in most patients without underlying bleeding disorders, though the INR may not adequately reflect hemostatic capacity in patients with liver disease and synthetic impairment. The recommended target INR range for therapeutic anticoagulation is 2.0 ? 3.0 for most applications, though lower and higher ranges may be appropriate depending on clinical circumstances. Blood specimen (specimen) 01/11/2021 10:19 AM EST 01/11/2021 10:57 AM EST Narrative Resulting Agency Comment Spec In Lab Augusta Keys MD HEMATOLOGY ORDERAB LES Performing Organization Address [facility] Co de Phone Number [facility] [place] [address] * Lyme IgG & IgM Antibody (01/11/2021 10:19 AM EST) Lyme Antibody Neg Neg [facility] Blood specimen (specimen) 01/11/2021 10:19 AM EST 01/12/2021 8:16 AM EST Narrative Resulting Agency Comment Spec In Lab Augusta Keys MD IMMUNOLOGY ORDERAB LES Performing Organization Address [facility] de Phone Number [facility] [place] [address] * Sedimentation rate (01/11/2021 10:19 AM EST) Sedimentation Rate Automated 18 3 - 46 mm/hr [facility] Comment: Effective October 13, 2019 new capillary photometric technology has resulted in a change in reference ranges. It is recommended that each ESR result be reviewed with its own age appropriate reference range. Blood specimen (specimen) 01/11/2021 10:19 AM EST 01/11/2021 10:57 AM EST Narrative Resulting Agency Comment Spec In Lab Augusta Keys MD HEMATOLOGY ORDERAB LES [facility] [place] [address] * KENDALL (MC/CGP/APD/NLH) (01/11/2021 10:19 AM EST) KENDALL Ab Screen Test ?Result ? Flag ??Unit ??RefValue Antinuclear Ab, HEp-2 ? <1:80 (Negative) ? <1:80 (Negative) ??Substrate, S ? ADDITIONAL INFORMATION --------- ?Method: Immunofluorescence using HEp-2 cellular substrate. ?Test Performed by: ?[facility] ?[address] [place] [address] ?[employer] Maker: Sunny Dan M.D. Ph.D.; CLIA# [id number] [facility] Blood specimen (specimen) 01/11/2021 10:19 AM EST 01/11/2021 12:59 PM EST Narrative Resulting Agency Comment Spec In Lab Augusta Keys MD LAB SEND OUT ORDER ANDERSON Performing Organization Address [facility]/State/ZIP Co de Phone Number [facility] [place] [address] documented in this encounter Visit Diagnoses Diagnosis Memory loss Idiopathic peripheral neuropathy Unspecified hereditary and idiopathic peripheral neuropathy documented in this encounter Care Teams Travel Accommodations Rater Relationship Specialty Start Date End Date Richa Brand APRN [address] [place] [address] PCP - General Family Medicine 03/24/17 documented as of this encounter
--- NOTE | 2024-08-28 17:09 | ED.GENADUL_ITS ---
Discharge Plan Disposition Patient Disposition: Home Discharge Details Clinical Impression: Abscess, dental Primary Care Provider: Richa Brand ED Provider: Lianet Dill Home Meds and New Rx's Prescriptions: New penicillin V potassium 500 mg tablet 500 mg PO QID 10 Days Qty: 40 0RF Continued sertraline [Zoloft] 50 mg tablet 50 mg PO DAILY ibuprofen 200 mg tablet 200 mg PO Q6H PRN multivitamin with minerals Tablet 1 tab PO DAILY ferrous sulfate 134 mg (27 mg iron) tablet 134 mg PO DAILY cyanocobalamin (vitamin B-12) 1,000 mcg capsule 1,000 mcg PO DAILY flaxseed oil 1,000 mg capsule 1,000 mg PO DAILY Rx Instructions: administer with a meal calcium-magnesium 500-250 mg tablet 1 tab PO DAILY glucosamine sulfate [Glucosamine] 500 mg tablet 500 mg PO DAILY Rx Instructions: administer with a meal cholecalciferol (vitamin D3) 125 mcg (5,000 unit) capsule 125 mcg PO DAILY vitamin B complex Tablet 1 tab PO DAILY atorvastatin 20 MG tablet 20 mg PO DAILY Qty: 90 aspirin [Aspirin Childrens] 81 mg tablet,chewable 81 mg PO DAILY betamethasone dipropionate 0.05 % ointment 1 applic topical BID PRN buspirone 15 mg tablet 15 mg PO TID diphenhydramine HCl [Sleep Aid (diphenhydramine)] 25 mg tablet 12.5 - 25 mg PO QHS PRN acetaminophen [Tylenol Extra Strength] 500 mg tablet 500 - 1,000 mg PO Q6H PRN donepezil 10 mg tablet 10 mg PO DAILY Discharge Instructions Instructions: Tooth Abscess (DC) Additional Instructions: Take antibiotics as prescribed Tylenol 650 every 6 hours as needed for pain website : [email or web address] daily while on antibiotics or acidophilus/probiotic capsule Return earlier with spreading redness, fever, difficulty swallowing, or with any new or worsening complaints Referrals: Richa Brand [Primary Care Provider] - 1 day Discharge Data Discharge Date/Time-TO BE ENTERED AT DEPARTURE: 08/28/24 17:19 HPI General Date/Time Provider Initiated Documentation: 08/28/24 15:57 . HPI Narrative: This 79-year-old male with history of Alzheimer's presents with left lower dental pain. He states this started yesterday. He is scheduled to see an oral surgeon November of this year. Denies any fever or chills. Denies any difficul ty swallowing. Denies any current chest pain or shortness of breath. Denies any known trauma to the affected area. Has been taking ibuprofen today for pain control. Related Data Home Medications ?Medication ?Instructions ?Recorded ?Confirmed atorvastatin 20 mg tablet 20 mg PO DAILY #90 tab-caps 07/04/16 08/28/24 multivitamin with minerals 1 tab PO DAILY 09/27/20 08/28/24 acetaminophen 500 mg tablet 500 - 1,000 mg PO Q6H PRN 12/02/23 08/28/24 (Tylenol Extra Strength) aspirin 81 mg chewable tablet 81 mg PO DAILY 12/02/23 08/28/24 (Aspirin Childrens) betamethasone dipropionate 0.05 % 1 applic topical BID PRN 12/02/23 08/28/24 topical ointment buspirone 15 mg tablet 15 mg PO TID 12/02/23 08/28/24 diphenhydramine HCl 25 mg tablet 12.5 - 25 mg PO QHS PRN 12/02/23 08/28/24 (Sleep Aid (diphenhydramine)) calcium-magnesium 500 mg-250 mg 1 tab PO DAILY 12/19/23 08/28/24 tablet cholecalciferol (vitamin D3) 125 125 mcg PO DAILY 12/19/23 08/28/24 mcg (5,000 unit) capsule cyanocobalamin (vitamin B-12) 1,000 mcg PO DAILY 12/19/23 08/28/24 1,000 mcg capsule ferrous sulfate 134 mg (27 mg 134 mg PO DAILY 12/19/23 08/28/24 iron) tablet flaxseed oil 1,000 mg capsule 1,000 mg PO DAILY 12/19/23 08/28/24 glucosamine sulfate 500 mg tablet 500 mg PO DAILY 12/19/23 08/28/24 (Glucosamine) vitamin B complex 1 tab PO DAILY 12/19/23 08/28/24 ibuprofen 200 mg tablet 200 mg PO Q6H PRN 07/22/24 08/28/24 sertraline 50 mg tablet (Zoloft) 50 mg PO DAILY 07/22/24 08/28/24 donepezil 10 mg tablet 10 mg PO DAILY 08/18/24 08/28/24 penicillin V potassium 500 mg 500 mg PO QID 10 days #40 tabs 08/28/24 tablet Previous Rx's ?Medication ?Instructions ?Recorded penicillin V potassium 500 mg 500 mg PO QID 10 days #40 tabs 08/28/24 tablet Allergies Allergy/AdvReac Type Severity Reaction Status Date / Time No Known Allergies Allergy Unverified 08/28/24 15:51 General Stated Complaint: DentalOral JARET: 4 Exam Narrative Exam Narrative: Tooth number 19 with tenderness, uvula midline, oropharynx patent, mild trismus, maintaining secretions, mild submandibular swelling and tenderness, no erythema, cardiac rate rhythm regular, no respiratory distress Course Vital Signs Vital signs: Vital Signs Temperature 36.6 C 08/28/24 15:46 Pulse 64 08/28/24 15:46 Respiratory Rate 15 08/28/24 15:46 Blood Pressure 163/67 H 08/28/24 15:46 Pulse Oximetry 98 08/28/24 15:46 Temperature 36.6 C 08/28/24 15:50 Pulse 64 08/28/24 15:50 Respiratory Rate 15 08/28/24 15:50 Respiratory Effort Normal 08/28/24 15:50 Blood Pressure 163/67 H 08/28/24 15:50 Blood Pressure Position Sitting 08/28/24 15:50 Pulse Oximetry 98 08/28/24 15:50 Oxygen Delivery Method Room Air 08/28/24 15:50 Procedures Nerve Block Nerve Block 1: Time out performed: Yes Local Anesthetic: Bupivicaine 0.25% Amount of anesthesia used (mL): 5 Side: left Intraoral Nerve Block: inferior alveolar Procedure Successful: Yes Patient Tolerated Procedure: well Complications: none Medical Decision Making 79-year-old male in no acute distress presenting with left-sided dental pain and likely dental abscess, new clinical findings suggestive of Rojas's angina. Dental block performed to tooth #19 with the inferior alveolar nerve block. Supplied with penicillin 4 times daily for the next 10 days. Given [facility] dental resources for oral surgery as needed. Return precautions reviewed and patient expressed understanding. Quality:SDOH Health Related Social Needs: No Data to Display PFSH All Active Problems (Updated 08/28/24 @ 16:41 by RODDY Mcarthur) Abscess, dental (Acute) Lumbosacral spondylosis without myelopathy (Acute) Palliative care patient (Acute) Alzheimer disease (Chronic) Total perforation of right tympanic membrane (Acute) Sensorineural hearing loss (SNHL) of left ear with restricted hearing of right ear (Acute) Mixed conductive and sensorineural hearing loss of right ear with restricted hearing of left ear (Acute) 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 (Acute) Hearing loss in left ear (Acute) Memory deficit (Acute) Peripheral neuropathy (Acute) Carpal tunnel syndrome of right wrist (Acute) Bilateral leg paresthesia (Acute) Sensory hearing loss, bilateral (Chronic) Medical History (Updated 08/28/24 @ 16:41 by RODDY Mcarthur) Lumbar spondylitis Spondylolisthesis Anemia Anxiety disorder Dementia Spinal stenosis Neuropathy Mild cognitive impairment Hyperlipidemia Perforation of right tympanic membrane Eczema Hyponatremia Anxiety Hard of hearing Knee pain, left Syncope and collapse Rib pain on right side Rash Paresthesia HTN (hypertension) CAD (coronary artery disease) Surgical History (Updated 08/18/24 @ 08:37 by Ofe Wiseman RN) History of heart artery stent Family History Mother Lung cancer Alcohol abuse Father Brain tumor (benign) Essential hypertension Alcohol abuse Dementia Brother Liver cancer Dementia Alcohol abuse Social History Smoking/Tobacco Use Status: Former Tobacco Use tobacco type: cigars Smoking risk assessment performed?: Yes Alcohol Intake: current Alcohol Intake frequency: 0-2 drinks per day Alcohol type: wine 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 Household members: spouse Housing: house What is your relationship status?: Panel score (0-1 are the most socially isolated patients): 1 Seatbelt use: always PAWSS Have you Been Recently Intoxicated or Drunk Within the Last 30 days?: No Have you Ever Experienced Previous Episodes of Alcohol Withdrawal?: No Have you ever Experienced Withdrawal Seizures?: No Have you ever Experienced Delirium Tremens(DT)s?: No Have you ever undergone Alcohol Rehabilitation Treatment (i.e, inpt ot outpatient treatment programs)?: No Have you ever Experienced Blackouts?: No Have you ever Combined Alcohol with other Downers within the last 90 days?: No Have you ever Combined Alcohol with any other Substance of Abuse during the last 90 days?: No Positive Blood Alcohol level on Presentation? [PCS.BAL]: No Evidence of Increased Autonomic Activity (i.e. HR>120, tremor, sweating, agitation, nausea)?: No Result: 0
[2024-08-28] MEDS: Benzocaine 20% Gel 30 GM JAR MM (17:18)
[2024-08-28] MEDS: Bupivacaine 0.5% Pres-Free 30 ML VIAL IJ (17:18)
[2024-08-28] MEDS: Penicillin V POTASSIUM 500 MG TAB, 4 TABS/BTL PO (17:18)
== END 2024-08-28 17:19 | disposition home or self-care (01) ==
LOC: ER 17:04
PROVIDERS: Emergency Provider Physician Assistant; PCP Nurse Practitioner Family
DX: K04.7 Periapical abscess without sinus (principal); I10 Essential (primary) hypertension; E78.5 Hyperlipidemia, unspecified; I25.10 Atherosclerotic heart disease of native coronary artery without angina pectoris; G30.9 Alzheimer's disease, unspecified; F02.80 Dementia in other diseases classified elsewhere, unspecified severity, without behavioral disturbance, psychotic disturbance, mood disturbance, and anxiety; Z87.891 Personal history of nicotine dependence
CPT/HCPCS: 64400; 99283; J0665

== ENCOUNTER 2024-09-24 11:30 | Outpatient (CLI) | payer MEDICARE, SELFPAY ==
--- NOTE | 2024-09-24 09:59 | DI.RAD_ITS ---
Exam(s) XR HIP RT COMPLETE AP PELVIS EXAM: XR HIP RT COMPLETE AP PELVIS CLINICAL HISTORY: right hip pain. TECHNIQUE: 2D digital imaging was performed. Two views COMPARISON: No exams were available for comparison FINDINGS: BONES: No acute fracture is present. No bony destructive lesion is seen. JOINTS: No dislocation present. Moderate narrowing of both superior hip joint spaces. Mild bilater al acetabular spurring. Small subchondral cysts in the acetabula bilaterally. The SI joints and pub ic symphysis show mild degenerative changes. SOFT TISSUE: Normal. IMPRESSION: No acute abnormality. Moderate degenerative changes of both hips. DATA REPOSITORY: RADIATION DOSE DELIVERED:
== END 2024-09-24 11:31 | disposition home or self-care (01) ==
LOC: DIORS 11:32
PROVIDERS: PCP Nurse Practitioner Family; Referring Provider Nurse Practitioner Family; Visit Provider Physician Assistant
DX: M25.551 Pain in right hip (principal); M70.61 Trochanteric bursitis, right hip; M16.11 Unilateral primary osteoarthritis, right hip
CPT/HCPCS: 99213; 73502

== ENCOUNTER 2024-10-07 08:46 | Outpatient (CLI) | payer MEDICARE, SELFPAY ==
[2024-10-07 09:01] VITALS: BP 150/66; PULSE 55; RESP 18; TEMP 36.4; O2SAT 99
[2024-10-07 09:20] VITALS: O2SAT 100
[2024-10-07 09:21] VITALS: BP 152/74; PULSE 60; PULSE 61; RESP 16; O2SAT 100
[2024-10-07 09:30] VITALS: PULSE 59; RESP 13; O2SAT 100
[2024-10-07 09:31] VITALS: BP 135/86; PULSE 56; PULSE 58; RESP 12; O2SAT 100
[2024-10-07 09:35] VITALS: BP 149/77; PULSE 57; PULSE 63; RESP 17; O2SAT 100
--- NOTE | 2024-10-07 09:38 | DI.RAD_ITS ---
Exam(s) XR PAIN CLINIC LUMBAR SP 2V EXAM: XR PAIN CLINIC LUMBAR SP 2V CLINICAL HISTORY: Dx: Lumbar Spondylosis TECHNIQUE: 2D and realtime digital imaging was performed. CONTRAST MATERIAL: Refer to procedure report. COMPARISON: No exams were available for comparison FINDINGS: Fluoroscopy was provided for Dr. Pate during the performance of a bilateral medial lumbar branch blo ck. Please refer to the procedure report for complete details. Ka,r=10.4 mGy IMPRESSION: RADIATION DOSE DELIVERED: 0.0 0.0 0
--- NOTE | 2024-10-07 09:40 | PDOC.PAIN ---
Date of service: 10/07/24 Time of Service: 09:40 Pain Managment Procedure Note Procedure Note Procedure Note: PROCEDURE NOTE Bilateral Lumbar Medial Branch Blocks Date of Service: October 07, 2024 Patient: Chencho Mcgrath Provider: Storm Parra DO, MPH Chencho Nieves Alcides has been [facility] to [facility] for lumbar medial branch blocks. Pre-operative diagnosis: Lumbar Spondylosis without Myelopathy ICD-10 M47.816 Post-operative diagnosis: Same Pre-procedure pain: VAS= 4/10 COMMENTS: I previously evaluated him in the clinic. His symptoms are unchanged. He has some dementia, and his presents with him. Instructions were thoroughly discussed with him and his (Ashleigh). Kenney was interviewed and the medical records were reviewed. There were no medical, pharmacologic, radiographic or other structural contraindications to attempting fluoroscopically guided local anesthetic lumbar medial branch blocks. Risks and potential side effects were discussed. I also discussed the potential benefit(s) of the procedure with Chencho, and voiced concerns were addressed. After Chencho was completely informed about the procedure, the printed consent form was signed. A standard time-out procedure was performed. Chencho was placed in the prone position on the fluoroscopy table. Automated blood pressure cuff and pulse oximeter were applied. The skin entry points for approaching the anatomic target points of the segmental medial branches of bilateral L3,L4,L5 were identified with fluoroscopy and marked. The skin at the target site area was thoroughly prepared with Chlorhexadine. The skin was then draped. Next, a 25 gauge 3.5 spinal needle was placed under fluoroscopic guidance down on to the target point (the articular pillar) for each respective segmental medial branch. Position was confirmed in A/P and lateral views. Aspiration revealed no blood or clear fluid. Next, 0.25ml of omnipaque 240 was injected at each level. No contrast following a vascular or neural pattern was visualized under continuous fluoroscopy. Next, 0.25 ml of preservative-free 0.5% bupivicaine was injected at each level. There was no unusual discomfort expressed by Chencho. The needles were withdrawn without difficulty. (49 mls of Omnipaque was wasted) Chencho was observed and was without hemodynamic, neurologic, or allergic reactions.? Fluoroscopic images were digitally archived. Provacative testing using the Modified Rodriguez's facet loading test- Left side Right Side Directly before the block VAS (0-10) = 4/10 VAS (0-10) = 4/10 Five minutes after the block VAS (0-10) = 2/10 VAS (0-10) = 2/10 Percentage relief obtained with this diagnostic block 60% 60% Any improved physical functioning directly after the blocks? Able to move his back much easier. Follow up plans and appointments were discussed with Chencho. Chencho was instructed to keep careful note of how the usual pain was modified by these injections. Specifically, to keep a pain diary for the next 4 hours using a numeric pain scale of 0-10 and report these results. Post procedure instruction was given as documented in the nursing documentation and having met discharge criteria, the patient was [facility] from the [facility]. Based on the medial branches blocked today, if they patient has adequate relief and we are able to proceed to radiofrequency ablation, the treatment should result in the denervation of the bilateral L4-L5 and L5-S1 facet joints. We would expect to denervate a total of 4 facets during the radiofrequency ablation. COMMENTS: No apparent complications. Post-procedure pain: VAS= 2/10 Chencho will call back with 0-4 hour post-procedure pain scores. I personally performed the entire procedure. STORM PARRA DO, MPH ABPM&R-subspecialty board certification in Pain Medicine [facility]
[2024-10-07] MEDS: Omnipaque 240 MG/ML 50 ML BTL IJ (09:45)
[2024-10-07] MEDS: Bupivacaine 0.5% Pres-Free 10 ML VIAL IJ (09:45)
== END 2024-10-07 08:47 | disposition home or self-care (01) ==
LOC: PC 08:46
PROVIDERS: PCP Nurse Practitioner Family; Visit Provider Preventive Medicine Occupational Medicine
DX: M54.50 Low back pain, unspecified (principal); M47.816 Spondylosis without myelopathy or radiculopathy, lumbar region
CPT/HCPCS: 64493; 64494; 72100; J0665; Q9967

== ENCOUNTER → 2024-12-09 08:30 | Outpatient (BNVA) | payer MEDICARE, SELFPAY | PROVIDERS: PCP Nurse Practitioner Family; Referring Provider Nurse Practitioner Family; Visit Provider Student in an Organized Health Care Education/Training Program | DX: M16.11 Unilateral primary osteoarthritis, right hip (principal); M70.61 Trochanteric bursitis, right hip | CPT/HCPCS: 99213 ==

== ENCOUNTER 2025-01-03 02:46 | Emergency (ER) | payer MEDICARE, SELFPAY ==
[2025-01-03] VITALS (22 sets, daily range): BP systolic 126–164; BP diastolic 38–115; PULSE 56–161; RESP 12–26; TEMP 36.4; O2SAT 97–100
--- NOTE | 2025-01-03 02:30 | RT.EKG_ITS ---
APPROVED REPORT Exam: Resting ECG Reason for Exam: fall Patient Location: E HR:59 bpm ECG Measurements Heart Rate 59 AXIS CA 169 P 67 QRSd 77 QRS 49 QT 420 T 64 QTc 418 Conclusion Sinus bradycardia...rate< 60 Anteroseptal infarct, age indeterminate...Q >35mS, T neg, V1-V2 I have reviewed and interpreted ECG and agree with software generated interpretation.
--- NOTE | 2025-01-03 02:45 | DI.CT_ITS ---
Exam(s) CT HEAD CERVICAL SPINE WO EXAM: CT HEAD CERVICAL SPINE WO CLINICAL HISTORY: fall, syncope, hit head, + blood thinners. TECHNIQUE: Imaging Protocol: Axial computed tomography images with coronal and sagittal reformatted images were created and reviewed COMPARISON: No exams were available for comparison FINDINGS: BRAIN: There are no skull fractures nor fluid in the visualized paranasal sinuses. There is no evidence of intracranial hemorrhage, mass effect, or shift of midline structures. There are no extra-axial fluid collections. The ventricles are not enlarged or shifted and there is no blo od within the ventricular system nor within the basal cisterns. Mild amount of bilateral periventricular hypodensity consistent small vessel disease. CERVICAL SPINE: There is no evidence of fracture. No significant prevertebral soft tissue swelling. There is reversal of the normal curvature. There is chronic advanced disc space narrowing at C5-6 and C6-7 levels. There are bilateral Luschka joint osteophytes at C5-6 level. There is multilevel facet arthropathy and there is multilevel facet joint fusion also evident. There is no significant facet joint malalignment. No significant osseous lesions evident. IMPRESSION: No acute intracranial findings on this noninfused CT scan of the brain. No evidence of cervical spine fracture, malalignment, nor acute compromise of the cervical spinal can al. Multilevel chronic degenerative disc disease and facet arthropathy. There is reversal of the no rmal cervical curvature also evident. RADIATION DOSE DELIVERED: 1,262.14mGy.cm Total DLP DATA REPOSITORY: All CT scans at this facility are submitted to the National Radiology Data Registry (NRDR) Dose Index Registry (DIR) with the [employer] (ACR). RADIATION OPTIMIZATION: All CT scans at this facility use at least one of these dose optimization te chniques: automated exposure control; mA and/or kV adjustment per patient size (includes targeted exa ms where dose is matched to clinical indication); or iterative reconstruction.
[2025-01-03] MEDS: Normal Saline 1,000 ML 1000 ML IV (02:57)
--- NOTE | 2025-01-03 02:57 | ED.GENADUL_ITS ---
Discharge Plan Disposition Patient Disposition: Home Condition: Good Discharge Details Clinical Impression: Syncope Primary Care Provider: Richa Brand ED Provider: Cornell Ash Home Meds and New Rx's Prescriptions: No Action sertraline [Zoloft] 50 mg tablet 50 mg PO DAILY ibuprofen 200 mg tablet 200 mg PO Q6H PRN folic acid 1 mg tablet 1 mg PO DAILY multivitamin with minerals Tablet 1 tab PO DAILY ferrous sulfate 134 mg (27 mg iron) tablet 134 mg PO DAILY cyanocobalamin (vitamin B-12) 1,000 mcg capsule 1,000 mcg PO DAILY flaxseed oil 1,000 mg capsule 1,000 mg PO DAILY Rx Instructions: administer with a meal calcium-magnesium 500-250 mg tablet 1 tab PO DAILY glucosamine sulfate [Glucosamine] 500 mg tablet 500 mg PO DAILY Rx Instructions: administer with a meal cholecalciferol (vitamin D3) 125 mcg (5,000 unit) capsule 125 mcg PO DAILY vitamin B complex Tablet 1 tab PO DAILY atorvastatin 20 MG tablet 20 mg PO DAILY Qty: 90 aspirin [Aspirin Childrens] 81 mg tablet,chewable 81 mg PO DAILY betamethasone dipropionate 0.05 % ointment 1 applic topical BID PRN Patient Comments: not currently using med buspirone 15 mg tablet 15 mg PO TID diphenhydramine HCl [Sleep Aid (diphenhydramine)] 25 mg tablet 12.5 - 25 mg PO QHS PRN acetaminophen [Tylenol Extra Strength] 500 mg tablet 500 - 1,000 mg PO Q6H PRN donepezil 10 mg tablet 10 mg PO DAILY gabapentin 100 mg capsule 100 mg PO TID Qty: 90 4RF Discharge Instructions Instructions: Fainting, Adult ED Additional Instructions: At this time your workup is returned reassuring. There is no signs of significant heart abnormality, no evidence of bleed or fracture in your brain, no signs of severe dehydration. Please stay well-hydrated at home. Drink plenty of fluids. Stand up and ambulate slowly and cautiously when waking up early in the morning. If you notice any worsening of your symptoms, or any new symptoms such as vomiting, diarrhea, fever, chills, shortness of breath, chest pain, numbness, weakness, or fainting , please return immediately to the emergency department for reevaluation. Please follow up with your primary care provider as soon as possible for reassessment and reevaluation. As always, it was a pleasure participating in your medical care today. Referrals: Richa Brand [Primary Care Provider] - [facility] General Date/Time Provider Initiated Documentation: 01/03/25 02:48 . 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 Patient states that he got up this evening to go to the bathroom, he started having a bowel movement which was relatively soft. Moments later he passed out. He does not recall hitting his head. He does not have any pain in his head or neck. He was able to get up with the help of his significant other. EMS was called. He denies any chest pain or shortness of breath. No fever or chills. No new numbness tingling or weakness. He states he otherwise feels well at this time. No vomiting or diarrhea. No extremity pain. He denies any alcohol this evening. Related Data Home Medications ?Medication ?Instructions ?Recorded ?Confirmed atorvastatin 20 mg tablet 20 mg PO DAILY #90 tab-caps 07/04/16 01/03/25 multivitamin with minerals 1 tab PO DAILY 09/27/20 01/03/25 acetaminophen 500 mg tablet 500 - 1,000 mg PO Q6H PRN 12/02/23 01/03/25 (Tylenol Extra Strength) aspirin 81 mg chewable tablet 81 mg PO DAILY 12/02/23 01/03/25 (Aspirin Childrens) betamethasone dipropionate 0.05 % 1 applic topical BID PRN 12/02/23 01/03/25 topical ointment buspirone 15 mg tablet 15 mg PO TID 12/02/23 01/03/25 diphenhydramine HCl 25 mg tablet 12.5 - 25 mg PO QHS PRN 12/02/23 01/03/25 (Sleep Aid (diphenhydramine)) calcium-magnesium 500 mg-250 mg 1 tab PO DAILY 12/19/23 01/03/25 tablet cholecalciferol (vitamin D3) 125 125 mcg PO DAILY 12/19/23 01/03/25 mcg (5,000 unit) capsule cyanocobalamin (vitamin B-12) 1,000 mcg PO DAILY 12/19/23 01/03/25 1,000 mcg capsule ferrous sulfate 134 mg (27 mg 134 mg PO DAILY 12/19/23 01/03/25 iron) tablet flaxseed oil 1,000 mg capsule 1,000 mg PO DAILY 12/19/23 01/03/25 glucosamine sulfate 500 mg tablet 500 mg PO DAILY 12/19/23 01/03/25 (Glucosamine) vitamin B complex 1 tab PO DAILY 12/19/23 01/03/25 ibuprofen 200 mg tablet 200 mg PO Q6H PRN 07/22/24 01/03/25 sertraline 50 mg tablet (Zoloft) 50 mg PO DAILY 07/22/24 01/03/25 donepezil 10 mg tablet 10 mg PO DAILY 08/18/24 01/03/25 folic acid 1 mg tablet 1 mg PO DAILY 09/24/24 01/03/25 gabapentin 100 mg capsule 100 mg PO TID #90 caps 11/12/24 01/03/25 Previous Rx's ?Medication ?Instructions ?Recorded gabapentin 100 mg capsule 100 mg PO TID #90 caps 11/12/24 Allergies Allergy/AdvReac Type Severity Reaction Status Date / Time No Known Allergies Allergy Unverified 01/03/25 03:22 General Stated Complaint: [id number] JARET: 3 Exam Narrative Exam Narrative: 1.Const: Well-nourished, Well-developed, appearing stated age 2.Eyes: PERRL, no conjunctival injection, and symmetrical lids. 3.ENT: Atraumatic external nose and ears. Moist MM. Neck: Symmetric, trachea midline, No thyromegaly. There is no evidence of raccoon eyes, cornelius sign, CSF rhinorrhea, mastoid tenderness, cranial crepitus, hemotympanum, exophthalmos, or hyphema. Patient demonstrates intact dentition with no signs of tooth avulsion or fracture, no signs of jaw deformity, no evidence of a LeFort's fracture, with an intact palate, nose and orbital region. There is no evidence of a nasal septal hematoma. No proptosis. Jaw closes symmetrically. Airway is clear. 4.CVS: +S1/S2, Peripheral pulses 2+ and equal in all extremities. Brisk capillary refill in all extremities. 5.RESP: Unlabored respiratory effort. Clear to auscultation bilaterally. No w heezes rales or rhonchi 6.GI: Soft, Nontender/Nondistended, No hepatosplenomegaly. No guarding or rebound. 7.MSK: Normocephalic/Atraumatic, Extremities w/o deformity or ttp No cyanosis or clubbing, Normal movement of all extremities 8.Skin: Warm, Dry. No rashes or lesions. 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 Sensation grossly intact, no focal neurologic deficits. All 6 cardinal planes of vision are fully intact. No evidence of rotatory or vertical nystagmus. The patient demonstrated a normal [id number]-ijqa-[id number], good dexterity. There was no evidence of dysdiadochokinesia. Patient was able to ambulate without difficulty. There was no wide-based gait. Romberg testing was normal. Csli-dm-gmin testing was normal. Sensation was intact bilaterally as well as muscle strength bilaterally for all extremities. Patient was able to verbalize butter cup with no slurring, or miss pronunciation. 10.Psych: (AAO) x3. Appropriate mood and affect Course Vital Signs Vital signs: Vital Signs Temperature 36.4 C 01/03/25 02:45 Pulse 60 01/03/25 02:45 Respiratory Rate 18 01/03/25 02:45 Blood Pressure 155/115 H 01/03/25 02:45 Pulse Oximetry 100 01/03/25 02:45 Temperature 36.4 C 01/03/25 02:45 Temperature Source Temporal Artery Scan 01/03/25 02:45 Pulse 60 01/03/25 02:45 Respiratory Rate 18 01/03/25 02:52 Respiratory Effort Normal, Non-Labored 01/03/25 02:52 Respiratory Depth Normal 01/03/25 02:52 Respiratory Pattern Normal 01/03/25 02:52 Blood Pressure 155/115 H 01/03/25 02:45 Blood Pressure Position Supine 01/03/25 02:45 Pulse Oximetry 100 01/03/25 02:45 Oxygen Delivery Method Room Air 01/03/25 02:45 Oxygen Flow Rate 0 01/03/25 02:45 Pain Level 0 01/03/25 02:45 Medical Decision Making 79-year-old male with past medical history of coronary artery disease with stenting, hypertension, Alzheimer's disease, heart failure, previously received 2 doses of donanemab but subsequently had imaging which showed microhemorrhages and was removed from the trial 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 Patient states that he got up this evening to go to the bathroom, he started having a bowel movement which was relatively soft. Moments later he passed out. He does not recall hitting his head. He does not have any pain in his head or neck. He was able to get up with the help of his significant other. EMS was called. He denies any chest pain or shortness of breath. No fever or chills. No new numbness tingling or weakness. He states he otherwise feels well at this time. No vomiting or diarrhea. No extremity pain. He denies any alcohol this evening. Exam demonstrates well-appearing male, no signs of significant trauma to the head neck chest abdomen or pelvis. Normal neurologic assessment with no focal deficit. is at bedside. Differential includes vasovagal syncope, dehydration, less likely cardiac dysrhythmia. Due to the patient's age and risk factors, we will get CT imaging of his head, gently rehydrate, evaluate for concerning etiology, monitor closely and reassess. 4:30 AM Laboratory workup has returned, no white count bandemia or left shift. Serial troponins are normal. Patient continues to show normal neurologic assessment. proBNP normal suggesting no signs of heart strain. Electrolytes stable. Patient has been rehydrated and feels well. TSH is high at 7.52, but we do not have a free T4. Machine is currently down, and this has been sent out. I did d iscuss with the patient and his significant other that they follow-up with her PCP in regards to this. However the remainder of the patient's exam is reassuring. Patient will be discharged home. [place] syncope rule demonstrates low likelihood of serious negative event. Suspect episode was a combination of vasovagal event and mild dehydration. No evidence to suggest life-threatening dysrhythmia, infection stroke or bleed. Discussed red flags for which to return. I have extensively reviewed the treatment plan and discharge instructions with the patient and their family. I have addressed all patient concerns at this time. The patient and family was made aware of what symptoms to monitor for that would warrant a return to the emergency department. Discussed the plan with the steve ent and family, they demonstrate verbal understanding and agreement with our assessment and plan at this time. The documentation in this chart was dictated using [employer] dictation software. Please excuse any dictation errors. FINDINGS: Brain: No acute intracranial hemorrhage, mass-effect, midline shift, or extra- axial collection is seen. There is patchy white matter hypoattenuation, nonspecific but commonly seen as a chronic sequela of small vessel ischemic disease. The bailey white matter differentiation appears preserved. There is symmetric parenchymal volume loss. Cerebral ventricles: The ventricular system and basilar cisterns appear prominent but appropriate in size and configuration given the degree of parenchymal volume loss. Paranasal sinuses: The visualized paranasal sinuses appear well-aerated. Mastoid air cells: The mastoid air cells appear well-aerated. Auditory system: The middle ear cavities appear clear. Orbital cavities: The globes and intraorbital structures appear grossly intact. Bones: The bony calvarium appears intact. No depressed skull fracture is seen. Soft tissues: No gross focal scalp hematoma is seen. Vasculature: There is atherosclerotic calcification within the intracranial portion of the internal carotid and vertebral arteries bilaterally. IMPRESSION: No acute intracranial hemorrhage or depressed skull fracture. FINDINGS: Bones/joints: No acute cervical fracture is seen. There is straightening and mild reversal of the normal cervical lordosis. C2-C3: Disc height preserved. Apparent fusion across the disc space and bilateral facet joints. No central canal narrowing. Mild bilateral foraminal narrowing C3-C4: Disc height preserved. Anterior osteophytes. Posterior osteophytic ridging. Severe bilateral facet arthrosis. Mild central canal narrowing. Moderate-severe bilateral foraminal narrowing. C4-C5: Disc height preserved. Fusion across the disc space and bilateral facet joints. No significant cervical stenosis. Mild bilateral foraminal narrowing. C5-C6: Severe discogenic degeneration with loss of disc height, anterior osteophyte formation, posterior osteophytic ridging, and bilateral uncovertebral hypertrophy. Moderate central canal narrowing with deformity of the thecal sac. Severe bilateral foraminal narrowing. C6-C7: Loss of disc height with endplate irregularity, anterior osteophyte formation, and mild posterior osteophytic ridging with bilateral uncovertebral hypertrophy. Mild central canal narrowing. Moderate left and severe right-sided foraminal narrowing. C7-T1: Disc height preserved. Severe facet arthrosis on the left. No central canal narrowing. Mild bilateral foraminal narrowing. Thyroid: The thyroid gland is partially excluded from view but appears grossly unremarkable through its visualized portion. Lungs: The extreme lung apices appear grossly clear; however, emphysema or bullous change is suspected. Soft tissues: Within the limits of the exam, no gross soft tissue fluid collection is seen in the neck. IMPRESSION: No acute cervical fracture or malalignment is seen. Thank you for allowing us to participate in the care of your patient. 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) Trochanteric bursitis, right hip (Acute) Lumbosacral spondylosis without myelopathy (Acute) Palliative care patient (Acute) Alzheimer disease (Chronic) Total perforation of right tympanic membrane (Acute) Sensorineural hearing loss (SNHL) of left ear with restricted hearing of right ear (Acute) Mixed conductive and sensorineural hearing loss of right ear with restricted h earing of left ear (Acute) 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 (Acute) Hearing loss in left ear (Acute) Memory deficit (Acute) Peripheral neuropathy (Acute) Carpal tunnel syndrome of right wrist (Acute) Bilateral leg paresthesia (Acute) Sensory hearing loss, bilateral (Chronic) Medical History Lumbar spondylitis Spondylolisthesis Anemia Anxiety disorder Dementia Spinal stenosis Neuropathy Mild cognitive impairment Hyperlipidemia Perforation of right tympanic membrane Eczema Hyponatremia Anxiety Hard of hearing Knee pain, left Syncope and collapse Rib pain on right side Rash Paresthesia HTN (hypertension) CAD (coronary artery disease) Surgical History History of heart artery stent Family History Mother Lung cancer Alcohol abuse Father Brain tumor (benign) Essential hypertension Alcohol abuse Dementia Brother Liver cancer Dementia Alcohol abuse Social History Smoking/Tobacco Use Status: Former Tobacco Use tobacco type: cigars Smoking risk assessment performed?: Yes Alcohol Intake: current Alcohol Intake frequency: 0-2 drinks per day Alcohol type: wine 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
[2025-01-03 03:27] LABS: Abs Immature Grans 0.13 10^3/uL (0.0-0.06); Absolute Basophil Count 0.03 10^3/uL (0.0-0.2); Absolute Eosinophil Count 0.15 10^3/uL (0.0-0.7); Absolute Monocyte Count 0.52 10^3/uL (0.1-0.8); Absolute Neutrophil Count 8.08 10^3/uL (1.2-6.7); Basophils % 0.3 %; Eosinophils % 1.6 %; HCT 34.1 % (40.0-50.0); HGB 11.3 g/dL (13.5-17.5); Immature Grans % 1.4 %; Lymphocytes % 5.3 %; MCH 30.7 pg (27.0-33.0); MCHC 33.1 % (32.0-36.0); MCV 93 fL (80-95); MPV 10.4 fL (8.0-11.0); Monocytes % 5.5 %; Neutrophils % 85.9 %; Platelet Count 189 10^3/uL (130-400); RBC 3.68 10^6/uL (4.36-5.78); RDW 12.6 % (11.8-14.1); RDW-SD 43.2 fL; WBC 9.41 10^3/uL (4.4-10.8)
[2025-01-03 03:34] LABS: PTT Activated 19.4 sec (20.6-30.2); Prothrombin Time 10.4 sec (9.1-11.1)
[2025-01-03 03:48] LABS: ALT 23 U/L (16-63); AST 30 U/L (15-37); Albumin 3.1 g/dL (3.4-5.0); Alkaline Phosphatase 63 U/L (46-116); Anion Gap 9.7 mmol/L (3-11); BUN 31 mg/dL (7-18); Bilirubin, Total 0.45 mg/dL (0.2-1.0); CO2 25.3 mmol/L (21.0-32.0); CREATININE 1.4 mg/dL (0.70-1.30); Calcium 8.8 mg/dL (8.5-10.1); Chloride 111 mmol/L (98-107); Estimated GFR 50.49 (mL/min/1.73m2); Glucose 102 mg/dL (74-106); NT-proBNP 463 pg/mL (<300); Potassium 4.6 mmol/L (3.5-5.1); Sodium 146 mmol/L (136-145); TSH (W/Ref FT4) 7.52 uIU/mL (0.36-3.74); Total Protein 6.8 g/dL (6.4-8.2); Troponin I 7 ng/L (<or=76)
--- NOTE | 2025-01-03 03:49 | DI.[facility]AD_ITS ---
PROCEDURE INFORMATION: Exam: CT Head Without Contrast Exam date and time: 01/03/2025 3:22 AM Age: 79 years old Clinical indication: Injury or trauma; Blunt trauma (contusions or hematomas); With loss of consciousness; Loss of consciousness for 30 minutes or less; Injury date: 01/03/25; Injury details: Fall, syncope, hit head, + blood thinners TECHNIQUE: Imaging protocol: Computed tomography of the head without contrast. Radiation optimization: All CT scans at this facility use at least one of these dose optimization techniques: automated exposure control; mA and/or kV adjustment per patient size (includes targeted exams where dose is matched to clinical indication); or iterative reconstruction. COMPARISON: MR HEAD^ROUTINE WO 07/09/2019 11:18 AM FINDINGS: Brain: No acute intracranial hemorrhage, mass-effect, midline shift, or extra-axial collection is seen. There is patchy white matter hypoattenuation, nonspecific but commonly seen as a chronic sequela of small vessel ischemic disease. The bailey white matter differentiation appears preserved. There is symmetric parenchymal volume loss. Cerebral ventricles: The ventricular system and basilar cisterns appear prominent but appropriate in size and configuration given the degree of parenchymal volume loss. Paranasal sinuses: The visualized paranasal sinuses appear well-aerated. Mastoid air cells: The mastoid air cells appear well-aerated. Auditory system: The middle ear cavities appear clear. Orbital cavities: The globes and intraorbital structures appear grossly intact. Bones: The bony calvarium appears intact. No depressed skull fracture is seen. Soft tissues: No gross focal scalp hematoma is seen. Vasculature: There is atherosclerotic calcification within the intracranial portion of the internal carotid and vertebral arteries bilaterally. IMPRESSION: No acute intracranial hemorrhage or depressed skull fracture. PROCEDURE INFORMATION: Exam: CT Cervical Spine Without Contrast Exam date and time: 01/03/2025 3:22 AM Age: 79 years old Clinical indication: Injury or trauma; Blunt trauma (contusions or hematomas); With loss of consciousness; Loss of consciousness for 30 minutes or less; Injury date: 01/03/25; Injury details: Fall, syncope, hit head, + blood thinners TECHNIQUE: Imaging protocol: Computed tomography of the cervical spine without contrast. Radiation optimization: All CT scans at this facility use at least one of these dose optimization techniques: automated exposure control; mA and/or kV adjustment per patient size (includes targeted exams where dose is matched to clinical indication); or iterative reconstruction. COMPARISON: MR HEAD^ROUTINE WO 07/09/2019 11:18 AM FINDINGS: Bones/joints: No acute cervical fracture is seen. There is straightening and mild reversal of the normal cervical lordosis. C2-C3: Disc height preserved. Apparent fusion across the disc space and bilateral facet joints. No central canal narrowing. Mild bilateral foraminal narrowing C3-C4: Disc height preserved. Anterior osteophytes. Posterior osteophytic ridging. Severe bilateral facet arthrosis. Mild central canal narrowing. Moderate-severe bilateral foraminal narrowing. C4-C5: Disc height preserved. Fusion across the disc space and bilateral facet joints. No significant cervical stenosis. Mild bilateral foraminal narrowing. C5-C6: Severe discogenic degeneration with loss of disc height, anterior osteophyte formation, posterior osteophytic ridging, and bilateral uncovertebral hypertrophy. Moderate central canal narrowing with deformity of the thecal sac. Severe bilateral foraminal narrowing. C6-C7: Loss of disc height with endplate irregularity, anterior osteophyte formation, and mild posterior osteophytic ridging with bilateral uncovertebral hypertrophy. Mild central canal narrowing. Moderate left and severe right-sided foraminal narrowing. C7-T1: Disc height preserved. Severe facet arthrosis on the left. No central canal narrowing. Mild bilateral foraminal narrowing. Thyroid: The thyroid gland is partially excluded from view but appears grossly unremarkable through its visualized portion. Lungs: The extreme lung apices appear grossly clear; however, emphysema or bullous change is suspected. Soft tissues: Within the limits of the exam, no gross soft tissue fluid collection is seen in the neck. IMPRESSION: No acute cervical fracture or malalignment is seen. Dictated and Authenticated by: Jasbir Blackmon MD. Orderin Nilsa Sarabia MD
[2025-01-03 04:48] LABS: Troponin I 6 ng/L (<or=76)
[2025-01-03 18:17] LABS: T4, Free 0.9 ng/dL (0.8-2.2)
== END 2025-01-03 05:09 | disposition home or self-care (01) ==
PROVIDERS: Emergency Provider Student in an Organized Health Care Education/Training Program; PCP Nurse Practitioner Family
DX: R55 Syncope and collapse (principal); R00.1 Bradycardia, unspecified; I10 Essential (primary) hypertension; E78.5 Hyperlipidemia, unspecified; I25.10 Atherosclerotic heart disease of native coronary artery without angina pectoris; G30.9 Alzheimer's disease, unspecified; F06.70 Mild neurocognitive disorder due to known physiological condition without behavioral disturbance; Z79.82 Long term (current) use of aspirin; Z95.5 Presence of coronary angioplasty implant and graft; Z87.891 Personal history of nicotine dependence
CPT/HCPCS: 36415; 80053; 93005; 96360; 99285; 70450; 72125; 83880; 84439; 84443; 84484; 85025; 85610; 85730; 93010

== ENCOUNTER 2025-02-07 14:19 | Outpatient (REF) | payer MEDICARE, SELFPAY ==
[2025-02-07 15:18] LABS: ALT 22 U/L (16-63); AST 18 U/L (15-37); Albumin 3.6 g/dL (3.4-5.0); Alkaline Phosphatase 69 U/L (46-116); Anion Gap 8.4 mmol/L (3-11); BUN 26 mg/dL (7-18); Bilirubin, Total 0.5 mg/dL (0.2-1.0); CO2 27.6 mmol/L (21.0-32.0); CREATININE 1.3 mg/dL (0.70-1.30); Calcium 9.3 mg/dL (8.5-10.1); Chloride 110 mmol/L (98-107); Estimated GFR 55.19 (mL/min/1.73m2); Glucose 79 mg/dL (74-106); Sodium 146 mmol/L (136-145); TSH (W/Ref FT4) 3.04 uIU/mL (0.36-3.74); Total Protein 7.1 g/dL (6.4-8.2)
== END 2025-02-07 14:20 | disposition home or self-care (01) ==
LOC: NCHCN 14:19
PROVIDERS: PCP Nurse Practitioner Family; Visit Provider Nurse Practitioner Family
DX: E02 Subclinical iodine-deficiency hypothyroidism (principal); N28.9 Disorder of kidney and ureter, unspecified
CPT/HCPCS: 80053; 84443

== ENCOUNTER 2025-02-11 14:38 | Outpatient (CLI) | payer MEDICARE, SELFPAY ==
--- NOTE | 2025-02-11 | DI.RAD_ITS ---
Exam(s) XR HAND RT COMPLETE EXAM: XR HAND RT COMPLETE CLINICAL HISTORY: S69.91XA Injury of rt hand, wrist, fingers. TECHNIQUE: 2D digital imaging was performed. Three views. COMPARISON: No exams were available for comparison FINDINGS: BONES: There is an oblique fracture extending from the mid through distal shaft of the 5th meta carpa l. There is mild displacement. There is also fracture seen at through the metaphyseal region of the proximal phalanx. There is mild displacement and angulation. No bony destructive lesion is seen. JOINTS: No dislocation present. There are mild degenerative changes of the interphalangeal joints of the fingers. SOFT TISSUE: Normal. IMPRESSION: Mildly displaced fractures of the 5th proximal phalanx and 5th metacarpal. DATA REPOSITORY: RADIATION DOSE DELIVERED:
== END 2025-02-11 14:58 ==
LOC: DI 14:39
PROVIDERS: PCP Nurse Practitioner Family; Visit Provider Physician Assistant Medical
DX: S62.316A Displaced fracture of base of fifth metacarpal bone, right hand, initial encounter for closed fracture (principal); X58.XXXA Exposure to other specified factors, initial encounter
CPT/HCPCS: 73130

== ENCOUNTER 2025-07-24 11:17 | Emergency (ER) | payer MEDICARE, SELFPAY ==
[2025-07-24] VITALS (31 sets, daily range): BP systolic 135–155; BP diastolic 42–96; PULSE 47–84; RESP 12–19; TEMP 36.4; O2SAT 97–100
--- NOTE | 2025-07-24 11:15 | RT.EKG_ITS ---
APPROVED REPORT Exam: Resting ECG Reason for Exam: Syncopal episode Patient Location: E HR:47 bpm ECG Measurements Heart Rate 47 AXIS ND 180 P 61 QRSd 85 QRS 27 QT 467 T 46 QTc 411 Conclusion Sinus bradycardia...rate< 60 Low voltage, extremity leads...all extremity leads <0.5mV -------- NO STEMI
--- NOTE | 2025-07-24 11:30 | DI.RAD_ITS ---
Exam(s) XR PORTABLE CHEST AP EXAM: XR PORTABLE CHEST AP CLINICAL HISTORY: syncope TECHNIQUE: 2D digital imaging was performed of the chest. One image was obtained. An AP view was obtained. COMPARISON: No exams were available for comparison FINDINGS: MEDIASTINUM: Normal. HEART: Normal. PULMONARY VASCULATURE: Normal. LUNGS: Clear. PLEURAL SPACE: No pleural effusion or pneumothorax. BONE:Within normal limits for the patient's age. OTHER FINDINGS:Normal. IMPRESSION: 1. No acute pulmonary findings. 2. The preliminary [facility] report was reviewed. DATA REPOSITORY: RADIATION DOSE DELIVERED:
--- NOTE | 2025-07-24 11:38 | W.ED.GENAD ---
Discharge Plan Disposition Patient Disposition: Home Discharge Details Clinical Impression: Syncope, vasovagal Primary Care Provider: Richa Brand ED Provider: Pan Iglesias Home Meds and New Rx's Prescriptions: Continued sertraline [Zoloft] 50 mg tablet 50 mg PO DAILY ibuprofen 200 mg tablet 200 mg PO Q6H PRN folic acid 1 mg tablet 1 mg PO DAILY multivitamin with minerals Tablet 1 tab PO DAILY ferrous sulfate 134 mg (27 mg iron) tablet 134 mg PO DAILY cyanocobalamin (vitamin B-12) 1,000 mcg capsule 1,000 mcg PO DAILY flaxseed oil 1,000 mg capsule 1,000 mg PO DAILY Rx Instructions: administer with a meal calcium-magnesium 500-250 mg tablet 1 tab PO DAILY glucosamine sulfate [Glucosamine] 500 mg tablet 500 mg PO DAILY Rx Instructions: administer with a meal cholecalciferol (vitamin D3) 125 mcg (5,000 unit) capsule 125 mcg PO DAILY vitamin B complex Tablet 1 tab PO DAILY melatonin 10 mg capsule 10 mg PO HS PRN atorvastatin 20 MG tablet 20 mg PO DAILY Qty: 90 aspirin [Aspirin Childrens] 81 mg tablet,chewable 81 mg PO DAILY betamethasone dipropionate 0.05 % ointment 1 applic topical BID PRN Patient Comments: not currently using med buspirone 15 mg tablet 15 mg PO TID acetaminophen [Tylenol Extra Strength] 500 mg tablet 500 - 1,000 mg PO Q6H PRN donepezil 10 mg tablet 10 mg PO DAILY gabapentin 100 mg capsule See Rx Instructions .ROUTE .COMPLEX Qty: 90 4RF Dose Instruction: TAKE ONE CAPSULE BY MOUTH THREE TIMES A DAY Rx Instructions: TAKE ONE CAPSULE BY MOUTH THREE TIMES A DAY Discharge Instructions Instructions: Fainting, Adult ED Additional Instructions: Please follow-up with your primary care provider regarding your visit to the emergency department today. Be sure to discuss results of all test performed here today to include radiology, and laboratory testing as well as results for any pending cultures. Should your symptoms worsen, or if you develop new concerning symptoms, please return immediately emergency department for further evaluation. HPI General Date/Time Provider Initiated Documentation: 07/24/25 11:30. HPI Narrative: MDM/Narrative: Initial Assessment: Fall after lightheadedness, likely due to prolonged standing at an Alzheimer's walk event. Suspected dehydration or low blood sugar. Will screen for ACS, infection or other possible causes. Doubt neurologic cause due to lack of seizure-like activity. Nail that is reportedly Final Assessment: Fall after lightheadedness, likely due to prolonged standing. Suspected dehydration or low blood sugar. Clinical Impression: Fall. This document was created with assistance from [employer]. The patient consented to its use. HPI: The patient, an 80-year-old male, presents following a fall. He reports experiencing presyncope while crossing the street after prolonged standing at an Alzheimer's walk event. He denies any changes in vision, sensations of flushing, or diaphoresis. The patient suspects the episode may be attributable to hypoglycemia or dehydration, despite having consumed a substantial meal. ROS: Negative besides as mentioned above Exam: Gen: A&O NAD HEENT: NCAT, EOMI, not icteric. External ears normal. No rhinorrhea. Moist mucous membranes. Neck: Supple, full range of motion, no observable masses, No meningeal sign. Lungs: No Respiratory distress. CV: RRR, no edema. Abdomen: Soft, nondistended, No rebound tenderness. MSK: No joint swelling, no redness. Skin: No rashes, petechiae, lesions. Normal color per patient. Neuro: Normal Gait, Grossly intact. Psych: Appropriate for situation. Rhythm: Sinus bradycardia Rate: 47 [place]: Normal axis Intervals: Normal intervals Other findings: No acute ST segment or T wave changes to suggest acute ischemia. Labs: Laboratory Tests Range/Units 07/24/25 07/24/25 07/24/25 12:25 12:30 13:35 WBC (4.4-10.8) 10^3/uL 8.65 RBC (4.36-5.78) 10^6/uL 3.31 L Hgb (13.5-17.5) g/dL 10.0 L Hct (40.0-50.0) % 31.1 L MCV (80-95) fL 94 MCH (27.0-33.0) pg 30.2 MCHC (32.0-36.0) % 32.2 RDW (11.8-14.1) % 13.2 Plt Count (130-400) 10^3/uL 203 MPV (8.0-11.0) fL 10.2 Immature Gran % % 0.2 Neutrophils % % 77.3 Lymphocytes % % 12.5 Monocytes % % 8.3 Eosinophils % % 1.2 Basophils % % 0.5 Nucleated RBC % (0.0-0.3) % 0.0 Absolute Neutrophils (1.2-6.7) 10^3/uL 6.69 Absolute Lymphocytes (1.2-3.4) 10^3/uL 1.08 L Absolute Monocytes (0.1-0.8) 10^3/uL 0.72 Absolute Eosinophils (0.0-0.7) 10^3/uL 0.10 Absolute Basophils (0.0-0.2) 10^3/uL 0.04 PT (9.1-11.1) sec 9.9 INR (0.9-1.1) 1.0 APTT (20.6-30.2) sec 23.0 VBG Lactate (<or=2.0) mmol/L 1.6 Magnesium (1.8-2.4) mg/dL 2.7 H Troponin I (<or=76) ng/L 7 6 NT-Pro-B Natriuret Pep (<300) pg/mL 534 H ABO/Rh A Negative Antibody Screen NEGATIVE Radiology: Exam(s) XR PORTABLE CHEST AP EXAM: XR PORTABLE CHEST AP CLINICAL HISTORY: syncope TECHNIQUE: 2D digital imaging was performed of the chest. One image was obtained. An AP view was obtained. COMPARISON: No exams were available for comparison FINDINGS: MEDIASTINUM: Normal. HEART: Normal. PULMONARY VASCULATURE: Normal. LUNGS: Clear. PLEURAL SPACE: No pleural effusion or pneumothorax. BONE:Within normal limits for the patient's age. OTHER FINDINGS:Normal. IMPRESSION: 1. No acute pulmonary findings. 2. The preliminary [facility] report was reviewed. DATA REPOSITORY: RADIATION DOSE DELIVERED: Related Data Home Medications ?Medication ?Instructions ?Recorded ?Confirmed atorvastatin 20 mg tablet 20 mg PO DAILY #90 tab-caps 07/04/16 03/23/25 multivitamin with minerals 1 tab PO DAILY 09/27/20 03/23/25 acetaminophen 500 mg tablet 500 - 1,000 mg PO Q6H PRN 12/02/23 03/23/25 (Tylenol Extra Strength) aspirin 81 mg chewable tablet 81 mg PO DAILY 12/02/23 03/23/25 (Aspirin Childrens) betamethasone dipropionate 0.05 % 1 applic topical BID PRN 12/02/23 03/23/25 topical ointment buspirone 15 mg tablet 15 mg PO TID 12/02/23 03/23/25 calcium-magnesium 500 mg-250 mg 1 tab PO DAILY 12/19/23 03/23/25 tablet cholecalciferol (vitamin D3) 125 125 mcg PO DAILY 12/19/23 03/23/25 mcg (5,000 unit) capsule cyanocobalamin (vitamin B-12) 1,000 mcg PO DAILY 12/19/23 03/23/25 1,000 mcg capsule ferrous sulfate 134 mg (27 mg 134 mg PO DAILY 12/19/23 03/23/25 iron) tablet flaxseed oil 1,000 mg capsule 1,000 mg PO DAILY 12/19/23 03/23/25 glucosamine sulfate 500 mg tablet 500 mg PO DAILY 12/19/23 03/23/25 (Glucosamine) vitamin B complex 1 tab PO DAILY 12/19/23 03/23/25 ibuprofen 200 mg tablet 200 mg PO Q6H PRN 07/22/24 03/23/25 sertraline 50 mg tablet (Zoloft) 50 mg PO DAILY 07/22/24 03/23/25 donepezil 10 mg tablet 10 mg PO DAILY 08/18/24 03/23/25 folic acid 1 mg tablet 1 mg PO DAILY 09/24/24 03/23/25 melatonin 10 mg capsule 10 mg PO HS PRN 03/23/25 03/23/25 gabapentin 100 mg capsule See Rx Instructions .Route 05/12/25 .COMPLEX #90 caps Previous Rx's ?Medication ?Instructions ?Recorded gabapentin 100 mg capsule See Rx Instructions .Route 05/12/25 .COMPLEX #90 caps Allergies Allergy/AdvReac Type Severity Reaction Status Date / Time No Known Allergies Allergy Verified 03/23/25 12:55 General Stated Complaint: Dizzy/Sync JARET: 3 Course Vital Signs Vital signs: Vital Signs Temperature 36.4 C 07/24/25 11:23 Pulse 49 L 07/24/25 11:23 Respiratory Rate 16 07/24/25 11:23 Blood Pressure 138/96 H 07/24/25 11:23 Pulse Oximetry 97 07/24/25 11:23 Temperature 36.4 C 07/24/25 11:23 Temperature Source Tympanic 07/24/25 11:23 Pulse 49 L 07/24/25 11:23 Respiratory Rate 16 07/24/25 11:23 Blood Pressure 138/96 H 07/24/25 11:23 Pulse Oximetry 97 07/24/25 11:23 Oxygen Delivery Method Room Air 07/24/25 11:23 Oxygen Flow Rate 0 07/24/25 11:23 PFSH All Active Problems (Updated 07/24/25 @ 14:17 by Pan Iglesias MD) Syncope, vasovagal (Acute) Muscle pain (Acute) Dental caries (Acute) 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) Trochanteric bursitis, right hip (Acute) Lumbosacral spondylosis without myelopathy (Acute) Alzheimer disease (Chronic) Total perforation of right tympanic membrane (Acute) Sensorineural hearing loss (SNHL) of left ear with restricted hearing of right ear (Acute) Mixed conductive and sensorineural hearing loss of right ear with restricted hearing of left ear (Acute) 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 (Acute) Hearing loss in left ear (Acute) Memory deficit (Acute) Peripheral neuropathy (Acute) Carpal tunnel syndrome of right wrist (Acute) Bilateral leg paresthesia (Acute) Sensory hearing loss, bilateral (Chronic) Medical History Palliative care patient Lumbar spondylitis Spondylolisthesis Anemia Anxiety disorder Dementia Spinal stenosis Neuropathy Mild cognitive impairment Hyperlipidemia Perforation of right tympanic membrane Eczema Hyponatremia Anxiety Hard of hearing Knee pain, left Syncope and collapse Rib pain on right side Rash Paresthesia HTN (hypertension) CAD (coronary artery disease) Surgical History History of heart artery stent Family History Mother Lung cancer Alcohol abuse Father Brain tumor (benign) Essential hypertension Alcohol abuse Dementia Brother Liver cancer Dementia Alcohol abuse Social History Smoking/Tobacco Use Status: Former Tobacco Use tobacco type: cigars Smoking risk assessment performed?: Yes Alcohol Intake: current Alcohol Intake frequency: 0-2 drinks per day Alcohol type: wine 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
--- NOTE | 2025-07-24 11:42 | NUR.NOTE ---
Nursing Note: PT has hx Alz has abilit to recall some details of event but
[2025-07-24 12:39] LABS: Abs Immature Grans 0.02 10^3/uL (0.0-0.06); HCT 31.1 % (40.0-50.0); HGB 10.0 g/dL (13.5-17.5); Immature Grans % 0.2 %; MCH 30.2 pg (27.0-33.0); MCHC 32.2 % (32.0-36.0); MCV 94 fL (80-95); MPV 10.2 fL (8.0-11.0); Platelet Count 203 10^3/uL (130-400); RBC 3.31 10^6/uL (4.36-5.78); RDW 13.2 % (11.8-14.1); RDW-SD 45.4 fL; WBC 8.65 10^3/uL (4.4-10.8)
[2025-07-24 13:06] LABS: INR 1.0 (0.9-1.1); PTT Activated 23.0 sec (20.6-30.2); Prothrombin Time 9.9 sec (9.1-11.1)
[2025-07-24 13:07] LABS: Magnesium 2.7 mg/dL (1.8-2.4); Troponin I 7 ng/L (<or=76)
[2025-07-24 13:10] LABS: NT-proBNP 534 pg/mL (<300)
--- NOTE | 2025-07-24 13:44 | DI.VRAD_ITS ---
PROCEDURE INFORMATION: Exam: XR Chest Exam date and time: 07/24/2025 12:04 PM Age: 80 years old Clinical indication: Other: SOB TECHNIQUE: Imaging protocol: Radiologic exam of the chest. Views: 1 view. COMPARISON: CT HEAD CERVICAL SPINE WO 01/03/2025 3:22 AM FINDINGS: Lungs: Unremarkable. No consolidation. Pleural spaces: Unremarkable. No pleural effusion. No pneumothorax. Heart/Mediastinum: Unremarkable. No cardiomegaly. Bones/joints: Degenerative changes are seen in the spine IMPRESSION: No acute findings on AP chest Dictated and Authenticated by: Sun Smith MD. Orderin Kelsie Perla MD
[2025-07-24 14:15] LABS: Troponin I 6 ng/L (<or=76)
== END 2025-07-24 14:49 | disposition home or self-care (01) ==
PROVIDERS: Emergency Provider General Practice; PCP Nurse Practitioner Family
DX: R55 Syncope and collapse (principal)
CPT/HCPCS: 36415; 36416; 82962; 86850; 86900; 86901; 93005; 99285; 71045; 83605; 83735; 83880; 84484; 85025; 85610; 85730; 93010; 99283

== ENCOUNTER 2025-07-27 01:01 | Outpatient (CLI) | payer MEDICARE, SELFPAY ==
[2025-07-27 15:00] LABS: Abs Immature Grans 0.02 10^3/uL (0.0-0.06); HCT 32.9 % (40.0-50.0); HGB 10.3 g/dL (13.5-17.5); Immature Grans % 0.3 %; MCH 29.7 pg (27.0-33.0); MCHC 31.3 % (32.0-36.0); MCV 95 fL (80-95); MPV 10.4 fL (8.0-11.0); Platelet Count 203 10^3/uL (130-400); RBC 3.47 10^6/uL (4.36-5.78); RDW 13.2 % (11.8-14.1); RDW-SD 46.0 fL; WBC 6.73 10^3/uL (4.4-10.8)
[2025-07-27 15:53] LABS: Anion Gap 6.4 mmol/L (3-11); BUN 24 mg/dL (7-18); CO2 27.6 mmol/L (21.0-32.0); Calcium 9.2 mg/dL (8.5-10.1); Chloride 112 mmol/L (98-107); Estimated GFR 54.85 (mL/min/1.73m2); Glucose 88 mg/dL (74-106); Potassium 4.6 mmol/L (3.5-5.1); Sodium 146 mmol/L (136-145)
[2025-07-27 16:06] LABS: Iron 66 ug/dL (65-175); Total Iron Binding Capacity 217 ug/dL (250-450); Transferrin Sat 30 % (20-55)
[2025-07-29 11:53] LABS: Transferrin 188 mg/dL (201-352)
== END 2025-07-27 01:02 | disposition home or self-care (01) ==
LOC: LBO 01:01
PROVIDERS: PCP Nurse Practitioner Family; Visit Provider Nurse Practitioner Family
DX: D64.9 Anemia, unspecified (principal)
CPT/HCPCS: 36415; 80048; 83540; 83550; 84466; 85025

== ENCOUNTER 2025-08-07 10:38 | Emergency (ER) | payer MEDICARE, SELFPAY ==
[2025-08-07] VITALS (15 sets, daily range): BP systolic 137–176; BP diastolic 50–81; PULSE 47–64; RESP 11–20; TEMP 36.3–36.4; O2SAT 97–100
--- NOTE | 2025-08-07 10:45 | RT.EKG_ITS ---
APPROVED REPORT Exam: Resting ECG Reason for Exam: seizure Patient Location: E HR:55 bpm ECG Measurements Heart Rate 55 AXIS WV 163 P 55 QRSd 97 QRS -15 QT 468 T 34 QTc 449 Conclusion Sinus bradycardia...rate< 60
--- NOTE | 2025-08-07 11:15 | DI.CT_ITS ---
Exam(s) CT HEAD WO EXAM: CT HEAD WO CLINICAL HISTORY: seizure. TECHNIQUE: Imaging Protocol: Axial computed tomography images with coronal and sagittal reformatted images were created and reviewed COMPARISON: CT CT HEAD CERVICAL SPINE WO from 01/03/2025 FINDINGS: There are no skull fractures. There is no fluid in the visualized paranasal sinuses. There is no evidence of intracranial hemorrhage, mass effect, or shift of midline structures. There are no extra-axial fluid collections. The ventricles are not enlarged or shifted and there is no blood within the ventricular system nor within the basal cisterns. Again noted is a mild amount of bilateral periventricular white matter hypodensity consistent with chronic small vessel disease. The there is heavy mural calcification of the vertebral arteries at the skull base. IMPRESSION: No acute intracranial findings on this noninfused CT scan of the brain. No significant change compared to CT scan January 2025. RADIATION DOSE DELIVERED: 887.5mGy.cm Total DLP DATA REPOSITORY: All CT scans at this facility are submitted to the National Radiology Data Registry (NRDR) Dose Index Registry (DIR) with the [employer] (ACR). RADIATION OPTIMIZATION: All CT scans at this facility use at least one of these dose optimization techniques: automated exposure control; mA and/or kV adjustment per patient size (includes targeted exams where dose is matched to clinical indication); or iterative reconstruction.
[2025-08-07 11:26] LABS: Abs Immature Grans 0.03 10^3/uL (0.0-0.06); HCT 33.9 % (40.0-50.0); HGB 10.8 g/dL (13.5-17.5); Immature Grans % 0.3 %; MCH 29.4 pg (27.0-33.0); MCHC 31.9 % (32.0-36.0); MCV 92 fL (80-95); MPV 9.7 fL (8.0-11.0); Platelet Count 207 10^3/uL (130-400); RBC 3.67 10^6/uL (4.36-5.78); RDW 13.1 % (11.8-14.1); RDW-SD 44.0 fL; WBC 8.86 10^3/uL (4.4-10.8)
[2025-08-07 11:45] LABS: ALT 20 U/L (16-63); AST 22 U/L (15-37); Albumin 3.6 g/dL (3.4-5.0); Alkaline Phosphatase 69 U/L (46-116); Anion Gap 8.0 mmol/L (3-11); BUN 29 mg/dL (7-18); Bilirubin, Total 0.4 mg/dL (0.2-1.0); CO2 27.0 mmol/L (21.0-32.0); Calcium 8.8 mg/dL (8.5-10.1); Chloride 105 mmol/L (98-107); Estimated GFR 46.19 (mL/min/1.73m2); Glucose 119 mg/dL (74-106); Magnesium 2.4 mg/dL (1.8-2.4); Potassium 4.5 mmol/L (3.5-5.1); Sodium 140 mmol/L (136-145); Total Protein 7.5 g/dL (6.4-8.2)
[2025-08-07] MEDS: Normal Saline 1,000 ML 1000 ML IV (12:11)
--- NOTE | 2025-08-07 12:28 | W.ED.GENAD ---
Discharge Plan Disposition Patient Disposition: Home Condition: Good Discharge Details Clinical Impression: Seizure Primary Care Provider: Richa Brand ED Provider: Aubree Myers Home Meds and New Rx's Prescriptions: Continued sertraline [Zoloft] 50 mg tablet 50 mg PO DAILY ibuprofen 200 mg tablet 200 mg PO Q6H PRN folic acid 1 mg tablet 1 mg PO DAILY multivitamin with minerals Tablet 1 tab PO DAILY ferrous sulfate 134 mg (27 mg iron) tablet 134 mg PO DAILY cyanocobalamin (vitamin B-12) 1,000 mcg capsule 1,000 mcg PO DAILY flaxseed oil 1,000 mg capsule 1,000 mg PO DAILY Rx Instructions: administer with a meal calcium-magnesium 500-250 mg tablet 1 tab PO DAILY glucosamine sulfate [Glucosamine] 500 mg tablet 500 mg PO DAILY Rx Instructions: administer with a meal cholecalciferol (vitamin D3) 125 mcg (5,000 unit) capsule 125 mcg PO DAILY vitamin B complex Tablet 1 tab PO DAILY melatonin 10 mg capsule 10 mg PO HS PRN atorvastatin 20 MG tablet 20 mg PO DAILY Qty: 90 aspirin [Aspirin Childrens] 81 mg tablet,chewable 81 mg PO DAILY betamethasone dipropionate 0.05 % ointment 1 applic topical BID PRN Patient Comments: not currently using med buspirone 15 mg tablet 15 mg PO TID acetaminophen [Tylenol Extra Strength] 500 mg tablet 500 - 1,000 mg PO Q6H PRN donepezil 10 mg tablet 10 mg PO DAILY gabapentin 100 mg capsule See Rx Instructions .ROUTE .COMPLEX Qty: 90 4RF Dose Instruction: TAKE ONE CAPSULE BY MOUTH THREE TIMES A DAY Rx Instructions: TAKE ONE CAPSULE BY MOUTH THREE TIMES A DAY sertraline 100 mg tablet 100 mg PO DAILY gabapentin 100 mg capsule 100 mg PO DAILY Discharge Instructions Instructions: Seizures, Adult ED Additional Instructions: Please call your primary care provider's office first thing in the morning to schedule follow-up appointment. I recommend that you also discuss today's episode with your neurologist. A referral to a generalized or specialist in seizures may be indicated. Workup today was reassuring, there is no obvious cause of your seizure activity at this time. Please practice seizure precautions, including avoidance of climbing on ladders, driving, swimming, or bathing alone. Return to emergency care if you develop new seizures, episodes of passing out, severe headaches, vision changes, dizziness, chest pain, difficulty breathing, weakness, or if you are very worried you need to be rechecked again immediately. Referrals: Richa Brand [Primary Care Provider, Medicine] [facility] General Date/Time Provider Initiated Documentation: 08/07/25 10:42. HPI Narrative: Jani is an 80-year-old male who presents to the emergency department today for evaluation of seizure. 80-year-old male with hypertension, minor heart problems (balloon procedure), and Alzheimer's disease presenting with a seizure-like episode this morning. Patient lost consciousness for a few minutes while meditating. Partner Ashleigh noted that he had stopped chanting, she looked over and he had bilateral upper extremity jerking, was not responsive, eyes rolled back, and was drooling. She did not notice any facial droop or lower extremity jerking. He had incontinence of urine. Episode lasted approximately 5 minutes, after which he was able to get up and walk assisted to the bed. He does not recall feeling unwell prior to onset of seizure activity, does recall that he did not have any breakfast this morning and woke up early. He reports that he felt lightheaded at that time. Took him approximately an hour to get back to feeling like normal. He did vomit x 1 after drinking some lemon water. Currently says he is feeling well, at his baseline health. Denies recent fever/chills, headache, vision changes, episodes of passing out, chest pain, difficulty breathing, diaphoresis, abdominal pain, change in bowel or bladder function, extremity swelling or weakness, blood in stool or nosebleeds/gum bleeding. PMH significant for HTN, CAD, HLD, anemia, dementia/Alzheimer's. Denies recent EtOH, tobacco use, or drug use. Related Data Home Medications ?Medication ?Instructions ?Recorded ?Confirmed atorvastatin 20 mg tablet 20 mg PO DAILY #90 tab-caps 07/04/16 08/07/25 multivitamin with minerals 1 tab PO DAILY 09/27/20 08/07/25 acetaminophen 500 mg tablet 500 - 1,000 mg PO Q6H PRN 12/02/23 08/07/25 (Tylenol Extra Strength) aspirin 81 mg chewable tablet 81 mg PO DAILY 12/02/23 08/07/25 (Aspirin Childrens) betamethasone dipropionate 0.05 % 1 applic topical BID PRN 12/02/23 08/07/25 topical ointment buspirone 15 mg tablet 15 mg PO TID 12/02/23 08/07/25 calcium-magnesium 500 mg-250 mg 1 tab PO DAILY 12/19/23 08/07/25 tablet cholecalciferol (vitamin D3) 125 125 mcg PO DAILY 12/19/23 08/07/25 mcg (5,000 unit) capsule cyanocobalamin (vitamin B-12) 1,000 mcg PO DAILY 12/19/23 08/07/25 1,000 mcg capsule ferrous sulfate 134 mg (27 mg 134 mg PO DAILY 12/19/23 08/07/25 iron) tablet flaxseed oil 1,000 mg capsule 1,000 mg PO DAILY 12/19/23 08/07/25 glucosamine sulfate 500 mg tablet 500 mg PO DAILY 12/19/23 08/07/25 (Glucosamine) vitamin B complex 1 tab PO DAILY 12/19/23 08/07/25 ibuprofen 200 mg tablet 200 mg PO Q6H PRN 07/22/24 08/07/25 sertraline 50 mg tablet (Zoloft) 50 mg PO DAILY 07/22/24 08/07/25 donepezil 10 mg tablet 10 mg PO DAILY 08/18/24 08/07/25 folic acid 1 mg tablet 1 mg PO DAILY 09/24/24 08/07/25 melatonin 10 mg capsule 10 mg PO HS PRN 03/23/25 08/07/25 gabapentin 100 mg capsule See Rx Instructions .Route 05/12/25 08/07/25 .COMPLEX #90 caps gabapentin 100 mg capsule 100 mg PO DAILY 08/07/25 08/07/25 sertraline 100 mg tablet 100 mg PO DAILY 08/07/25 08/07/25 Previous Rx's ?Medication ?Instructions ?Recorded gabapentin 100 mg capsule See Rx Instructions .Route 05/12/25 .COMPLEX #90 caps Allergies Allergy/AdvReac Type Severity Reaction Status Date / Time No Known Allergies Allergy Verified 08/07/25 10:57 General Stated Complaint: Seizure JARET: 3 Exam Narrative Exam Narrative: General Appearance: Normal. Patient is alert and oriented, no acute distress. Vital signs: Within normal limits. HEENT: Head atraumatic, no raccoon eyes or Joe sign. No tongue lesions, moist mucous membranes. Clear voice. Respiratory: Lungs clear bilaterally, no wheezes, rales, or rhonchi. Cardiac: Regular rate and rhythm, no murmurs. No obvious JVD or pedal edema. 2+ radial pulses bilaterally. Gastrointestinal: Abdomen soft, non-tender, non-distended, no masses updated. Back, Musculoskeletal: Normal ROM and strength in upper and lower extremities. Neurological: Alert and oriented, cranial nerves II-XII intact, no facial asymmetry, normal motor function and strength, intact sensation bilaterally, normal coordination, no tremors or involuntary movements. Normal finger to finger and rapid alternating movements. Normal gait. Skin: Warm and dry, no rash. Psychiatric: Normal. Course Vital Signs Vital signs: Vital Signs Temperature 36.3 C L 08/07/25 10:41 Pulse 55 L 08/07/25 10:41 Respiratory Rate 18 08/07/25 10:41 Blood Pressure 137/81 08/07/25 10:41 Pulse Oximetry 98 08/07/25 10:41 Temperature 36.3 C L 08/07/25 10:41 Temperature Source Oral 08/07/25 10:41 Pulse 55 L 08/07/25 10:41 Respiratory Rate 18 08/07/25 10:41 Blood Pressure 137/81 08/07/25 10:41 Blood Pressure Position Sitting 08/07/25 10:41 Pulse Oximetry 98 08/07/25 10:41 Oxygen Delivery Method Room Air 08/07/25 10:41 Oxygen Flow Rate 0 08/07/25 10:41 Lab/Test Results Lab/Test Results: Laboratory Tests Range/Units 08/07/25 11:15 WBC (4.4-10.8) 10^3/uL 8.86 RBC (4.36-5.78) 10^6/uL 3.67 L Hgb (13.5-17.5) g/dL 10.8 L Hct (40.0-50.0) % 33.9 L MCV (80-95) fL 92 MCH (27.0-33.0) pg 29.4 MCHC (32.0-36.0) % 31.9 L RDW (11.8-14.1) % 13.1 Plt Count (130-400) 10^3/uL 207 MPV (8.0-11.0) fL 9.7 Immature Gran % % 0.3 Neutrophils % % 81.4 Lymphocytes % % 12.1 Monocytes % % 4.9 Eosinophils % % 0.6 Basophils % % 0.7 Nucleated RBC % (0.0-0.3) % 0.0 Absolute Neutrophils (1.2-6.7) 10^3/uL 7.22 H Absolute Lymphocytes (1.2-3.4) 10^3/uL 1.07 L Absolute Monocytes (0.1-0.8) 10^3/uL 0.43 Absolute Eosinophils (0.0-0.7) 10^3/uL 0.05 Absolute Basophils (0.0-0.2) 10^3/uL 0.06 Sodium (136-145) mmol/L 140 Potassium (3.5-5.1) mmol/L 4.5 Chloride (98-107) mmol/L 105 Carbon Dioxide (21.0-32.0) mmol/L 27.0 Anion Gap (3-11) mmol/L 8.0 BUN (7-18) mg/dL 29 H Creatinine (0.70-1.30) mg/dL 1.5 H Est GFR (CKD-EPI 2020) (mL/min/1.73m2) 46.19 Glucose (74-106) mg/dL 119 H Calcium (8.5-10.1) mg/dL 8.8 Magnesium (1.8-2.4) mg/dL 2.4 Total Bilirubin (0.2-1.0) mg/dL 0.4 AST (15-37) U/L 22 ALT (16-63) U/L 20 Alkaline Phosphatase (46-116) U/L 69 Total Protein (6.4-8.2) g/dL 7.5 Albumin (3.4-5.0) g/dL 3.6 Medical Decision Making Initial Assessment: 80-year-old male experienced seizure with eye-rolling, drooling, urinary incontinence, and confusion. Blood sugar normal at 105. Pt did have recent syncopal episode (2 weeks ago, not similar presentation) Differential Diagnosis includes is not limited to: Seizure, hypoglycemia, cardiac event, electrolyte imbalance, thyroid dysfunction, intracranial hemorrhage/mass ED Course: - Comprehensive neurological exam performed. - Blood work obtained. - Urine sample obtained. - Head scan performed I independently interpreted the following tests: EKG reassuring, sinus bradycardia rate 55, normal intervals. No red flags concerning for acute ischemia. CBC reassuring, baseline anemia unchanged. Creatinine and BUN slightly elevated from baseline, 1.5 and 29 today (baseline creatinine 1.3). Magnesium, UA reassuring. No acute abnormalities noted on head CT or chest x-ray, this was confirmed by radiologist. Final Assessment: Overall unremarkable workup, unclear etiology of today's episode, which most closely resembles seizure. Clinical Impression: - Seizure Disposition: Discharge home with close outpatient follow-up for further evaluation/management. Viewed discharge instructions with patient and his partner Ashleigh, including seizure precautions and red flags indicating need for return to emergency care. They voiced agreement with plan of care. - Follow-Up: Close follow-up with neurology and PCP for further evaluation/management of today's seizure Patient consented to the use of [facility] Imaging Data Radiologic Study: Radiologist's impression: PROCEDURE INFORMATION: Exam: XR Chest Exam date and time: 08/07/2025 1:12 PM Age: 80 years old Clinical indication: Other: R/O pna or cardiomegaly TECHNIQUE: Imaging protocol: Radiologic exam of the chest. Views: 2 views. COMPARISON: CR XR PORTABLE CHEST AP 07/24/2025 12:04 PM FINDINGS: Lungs: No acute infiltrate identified. Focal eventration of left hemidiaphragm similar to prior exam. Pleural spaces: No significant pleural fluid. No pneumothorax detected. Heart/Mediastinum: Heart size within normal range. No pulmonary vascular congestion. Bones/joints: Very mild thoracolumbar scoliosis. IMPRESSION: No active chest disease identified Radiologic Study #2: Radiologist's impression: PROCEDURE INFORMATION: Exam: CT Head Without Contrast Exam date and time: 08/07/2025 11:41 AM Age: 80 years old Clinical indication: Seizure TECHNIQUE: Imaging protocol: Computed tomography of the head without contrast. COMPARISON: CT HEAD 01/03/2025 3:22 AM FINDINGS: Brain: No acute intracranial hemorrhage or abnormal intracranial mass effect is identified. Mild diffuse atrophy is present similar to previous exam. Mild chronic microvascular ischemic changes in cerebral white matter. No subdural collections are seen. Cerebral ventricles: The ventricles are stable size and position compared to 01/03/2025 CT exam. No midline shift. Paranasal sinuses: Visualized portions of paranasal sinuses are well aerated. Mastoid air cells: Visualized portions of mastoid sinuses are not opacified. Bones: No acute fracture. Soft tissues: No acute abnormality unless otherwise stated above. IMPRESSION: No acute intracranial hemorrhage or mass effect. 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) Trochanteric bursitis, right hip (Acute) Lumbosacral spondylosis without myelopathy (Acute) Alzheimer disease (Chronic) Total perforation of right tympanic membrane (Acute) Sensorineural hearing loss (SNHL) of left ear with restricted hearing of right ear (Acute) Mixed conductive and sensorineural hearing loss of right ear with restricted hearing of left ear (Acute) 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 (Acute) Hearing loss in left ear (Acute) Memory deficit (Acute) Peripheral neuropathy (Acute) Carpal tunnel syndrome of right wrist (Acute) Bilateral leg paresthesia (Acute) Sensory hearing loss, bilateral (Chronic) Medical History Anemia Anxiety Anxiety disorder CAD (coronary artery disease) Dementia Eczema Hard of hearing HTN (hypertension) Hyperlipidemia Hyponatremia Knee pain, left Lumbar spondylitis Mild cognitive impairment Neuropathy Palliative care patient Paresthesia Perforation of right tympanic membrane Rash Rib pain on right side Spinal stenosis Spondylolisthesis Syncope and collapse Surgical History History of heart artery stent Family History Mother Lung cancer Alcohol abuse Father Brain tumor (benign) Essential hypertension Alcohol abuse Dementia Brother Liver cancer Dementia Alcohol abuse Social History Smoking/Tobacco Use Status: Former Tobacco Use tobacco type: cigars Smoking risk assessment performed?: Yes Alcohol Intake: current Alcohol Intake frequency: 0-2 drinks per day Alcohol type: wine 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
--- NOTE | 2025-08-07 12:30 | DI.RAD_ITS ---
Exam(s) XR CHEST 2V PA LATERAL EXAM: XR CHEST 2V PA LATERAL CLINICAL HISTORY: r/o PNA or cardiomegaly. TECHNIQUE: 2D digital imaging was performed. COMPARISON: CR,XR XR PORTABLE CHEST AP from 07/24/2025 FINDINGS: 2 views: Heart size is normal. The mediastinum is not widened. There are no pulmonary infiltrates nor pleural effusions. No pulmonary edema. However, there is eventration left hemidiaphragm lateral of center. This has increased in size from 07/24/2025. There do not appear to be bowel loops in chest at this level nor elsewhere. IMPRESSION: Increasing eventration left hemidiaphragm when compared to 07/24/2025. No infiltrates nor pleural effusions. No CHF DATA REPOSITORY: RADIATION DOSE DELIVERED:
--- NOTE | 2025-08-07 12:55 | DI.VRAD_ITS ---
PROCEDURE INFORMATION: Exam: CT Head Without Contrast Exam date and time: 08/07/2025 11:41 AM Age: 80 years old Clinical indication: Seizure TECHNIQUE: Imaging protocol: Computed tomography of the head without contrast. COMPARISON: CT HEAD 01/03/2025 3:22 AM FINDINGS: Brain: No acute intracranial hemorrhage or abnormal intracranial mass effect is identified. Mild diffuse atrophy is present similar to previous exam. Mild chronic microvascular ischemic changes in cerebral white matter. No subdural collections are seen. Cerebral ventricles: The ventricles are stable size and position compared to 01/03/2025 CT exam. No midline shift. Paranasal sinuses: Visualized portions of paranasal sinuses are well aerated. Mastoid air cells: Visualized portions of mastoid sinuses are not opacified. Bones: No acute fracture. Soft tissues: No acute abnormality unless otherwise stated above. IMPRESSION: No acute intracranial hemorrhage or mass effect. Dictated and Authenticated by: Juan Schofield MD. Orderin Sangita Mak MD
[2025-08-07 13:03] LABS: Lab Add On Test DONE
[2025-08-07 13:20] LABS: Lab Add On Test DONE
[2025-08-07 13:26] LABS: Glucose Negative (Negative)
--- NOTE | 2025-08-07 13:37 | DI.VRAD_ITS ---
PROCEDURE INFORMATION: Exam: XR Chest Exam date and time: 08/07/2025 1:12 PM Age: 80 years old Clinical indication: Other: R/O pna or cardiomegaly TECHNIQUE: Imaging protocol: Radiologic exam of the chest. Views: 2 views. COMPARISON: CR XR PORTABLE CHEST AP 07/24/2025 12:04 PM FINDINGS: Lungs: No acute infiltrate identified. Focal eventration of left hemidiaphragm similar to prior exam. Pleural spaces: No significant pleural fluid. No pneumothorax detected. Heart/Mediastinum: Heart size within normal range. No pulmonary vascular congestion. Bones/joints: Very mild thoracolumbar scoliosis. IMPRESSION: No active chest disease identified. Dictated and Authenticated by: Juan Schofield MD. Orderin Sangita Mak MD
[2025-08-07 13:38] LABS: Cannabinoids THC Negative (Negative); METHADONE URINE SCREEN Negative (Negative)
[2025-08-07 13:42] LABS: TSH (W/Ref FT4) 3.53 uIU/mL (0.36-3.74)
--- NOTE | 2025-08-08 16:38 | NUR.NOTE ---
Access chart to determine if a referral had been put in on this patient. Nursing Note:
== END 2025-08-07 14:46 | disposition home or self-care (01) ==
PROVIDERS: Emergency Provider Nurse Practitioner Family; PCP Nurse Practitioner Family
DX: R56.9 Unspecified convulsions (principal)
CPT/HCPCS: 36415; 36416; 80053; 80307; 82962; 93005; 96360; 99284; 70450; 71046; 80320; 81003; 83735; 84443; 85025; 93010

== ENCOUNTER 2025-08-10 09:05 | Outpatient (CLI) | payer MEDICARE, SELFPAY ==
[2025-08-10 09:35] VITALS: BP 91/43; PULSE 55; RESP 18; TEMP 36.7; O2SAT 97
[2025-08-10 09:52] VITALS: PULSE 58; O2SAT 98
[2025-08-10 10:00] VITALS: PULSE 51; O2SAT 99
--- NOTE | 2025-08-10 10:07 | PDOC.PAIN_ITS ---
Date of service: 08/10/25 Time of Service: 10:07 US Guided Injections Type of Ultrasound Guided Injection: Lower back Bilateral Paraspinous muscle Trigger Point Injection Pre-Procedural Evaluation Pain to the bilateral quadratus lumborum muscles Referral Patient has been referred to the [facility] for Bilateral Paraspinous muscle Lower back Trigger Point Injection for a chief complaint of low back pain Pre-Procedural Pain Score Pre-procedural pain score: 4/10 Reason for Exam Low back pain Patient Interview Patient was interviewed and medical record reviewed: Yes There were no contraindications to performing an US guided procedure. Risks,expected side effects, potential benefits were reviewed. The patient consent form was signed and witnessed. Standard time out procedure was performed. Patient Safety No appreciable skin issues over the proposed injection sites Procedure Description No sedation given for procedure Patient was placed in the prone position and the following Pulse Ox applied. Pre-Procedure ultrasound scanning performed using a Linear 9 MHz probe Site Preparation chloroprep Local Anesthesia Skin and subcutaneous tissues anesthetized with: 3 mL of Lidocaine 2%. A 21 G 3.5 Pajunk ultrasound needle was placed under live US guidance using an in-plane approach to the target area. After visualization of the needle tip at the target area Depo-Medrol 40mg per cc and Lidocaine 2% were used. Total of Injectate/Medication Note: 1 cc of depomedrol and 7 cc of Lidocaine (2%) Negative aspiration for blood. [place] were removed without difficulty. Ultrasound images were captured and stored. Patient Mental Status Patient was alert and awake during procedure Vital Signs Vital signs were stable throughout the procedure and recorded by nursing. Follow Up/Discharge Follow up plans and appointments were discussed with patient. Post procedure instruction was given as documented in nursing documentation. Discharge criteria met and patient discharged from [facility]: Yes Post Procedure Pain Post Procedure Pain: 0/10 Patient tolerated procedure well Procedure Outcome: Successful Non US Guided Injections Procedure Description Patient was placed in the prone position Post Procedure Pain Post Procedure Pain: 0/10 Coding Conscious Sedation used for procedure: No CPT Codes: TPI Single/Multi 1 or 2 Muscles *BILATERAL* - [id number] ([id number]) Additional Codes: Date of Service (99055) Date of service: 08/10/25 Visualization of the needle tip - Ultrasound images captured/stored: Yes ([id number]) Diagnoses: muscle pain
[2025-08-10] MEDS: Lidocaine 2% Multi-Dose 20 ML VIAL IJ (10:12)
[2025-08-10] MEDS: Nerve Block Tray 1 EACH MC (10:12)
[2025-08-10] MEDS: methylPREDNISolone ACETATE 40 MG/ML VIAL IJ (10:13)
== END 2025-08-10 09:06 | disposition home or self-care (01) ==
PROVIDERS: PCP Nurse Practitioner Family; Visit Provider Preventive Medicine Occupational Medicine
DX: M54.50 Low back pain, unspecified (principal); M79.18 Myalgia, other site
CPT/HCPCS: 20552; 20553; 76942; J1010; J2003